=== PATIENT | female | born 1945 | race Caucasian/White ===

== ENCOUNTER 2022-02-23 11:22 | Inpatient (IN) | payer MEDICARE, SELFPAY ==
[2022-02-23] VITALS (8 sets, daily range): BP systolic 93–118; BP diastolic 39–65; PULSE 103–109; RESP 18–32; TEMP 36.6–37; O2SAT 90–97; BMI 17.5
--- NOTE | ~2022-02-23 | CT_ITS ---
EXAMINATION: CT ABDOMEN AND PELVIS WITHOUT CONTRAST CLINICAL INFORMATION: Severe diarrhea. Rule out colitis COMPARISON: None TECHNIQUE: Multidetector volumetric imaging was performed from the superior aspect of the liver through the pubic symphysis. Sagittal and coronal reformatted images were obtained on the technologist's workstation. This CT examination was performed using dose optimization techniques as appropriate, variously including the following: *Automated exposure control *Adjustment of mA and/or kV according to patient size (this includes techniques or standardized protocols for targeted exams where dose is matched to indication/reason for exam; i.e. extremities or head) *Use of iterative reconstruction technique DLP: 228 mGy-cm FINDINGS: LUNG BASES: Left lower lobe collapse or mass. Incompletely imaged moderate size left pleural effusion. Small right pleural effusion. Volume loss in the left hemithorax with slight rightward mediastinal shift. LIVER, GALLBLADDER, AND BILIARY TREE: Liver is mildly enlarged right lobe measuring approximately 18 cm in craniocaudal extent. No gross liver lesion or biliary ductal dilation. The gallbladder is unremarkable with no evidence of radiopaque gallstones, gallbladder wall thickening, or obvious pericholecystic inflammatory changes. PANCREAS: Grossly unremarkable limited assessment. SPLEEN: Mildly enlarged measuring 14 cm in craniocaudal length. No splenic lesion identified. ADRENAL GLANDS: Unremarkable. KIDNEYS AND URETERS: The kidneys are normal in size, shape, and attenuation. No hydronephrosis, hydroureter, or calculi seen. BLADDER: Largely decompressed with Baptiste catheter in place. GASTROINTESTINAL TRACT: Somewhat limited assessment due to lack of contrast and paucity of intra-abdominal fat. No dilated bowel loops are seen. There is extensive diverticulosis of the descending and sigmoid colon. There is to be mural thickening involving relatively long segment of the sigmoid colon on series 3 image 58. No gross surrounding inflammatory fat stranding and limited assessment. Appendix not confidently identified. No gross inflammatory change base of the cecum. No free air. Small volume pelvic ascites. ABDOMINAL WALL: No significant hernia is appreciated. Mild body wall edema/anasarca. LYMPH NODES: No gross lymphadenopathy-limited assessment. VASCULAR: No abdominal aortic aneurysm. Moderate vascular calcifications. PELVIC VISCERA: Calcified probable posterior subserosal uterine fibroid-limited assessment. Gynecologic structures otherwise grossly unremarkable. OSSEOUS STRUCTURES: Chronic appearing mild superior endplate compression deformity of L1. No acute fracture or suspicious osseous lesion. Mild multilevel degenerative disc disease. CT/CT abdomen pelvis wo IV con IMPRESSION: 1. Extensive diverticulosis of the descending and sigmoid colon. There appears to be mural thickening involving a relatively long segment of the sigmoid colon. No gross surrounding inflammatory fat stranding. Cannot exclude mild diverticulitis or colitis. 2. Small volume pelvic ascites. 3. Mild hepatosplenomegaly. 4. Moderate left and small right pleural effusions. Left lower lobe collapse and/or mass. 5. Mild body wall edema/anasarca.
--- NOTE | ~2022-02-23 | XR_ITS ---
EXAMINATION: XR CHEST CLINICAL INFORMATION: Postobstructive pneumonia, large effusion, atelectasis. Follow-up. COMPARISON: Chest radiographs 03/05/2022, 03/04/2022, 03/03/2022, CT chest noncontrast 03/03/2022 TECHNIQUE: Portable upright AP view of the chest is obtained at 0510 hours. FINDINGS: Patient slightly rotated to left. Endotracheal tube within 1 cm of crystal similar to prior exam. Left internal jugular central venous line unchanged. NG tube overlies distal stomach. Left chest pigtail catheter has been removed since prior exam. Right lung clear. Vascularity normal. There is again complete opacification left lung with some scattered stable bubblelike lucencies left apex and left midlung zone similar to prior exam 03/05/2022. No pneumothorax or subcutaneous emphysema. XR/XR chest 1V IMPRESSION: -Endotracheal tube within 1 cm of crystal, similar to prior exam 03/05/2022. Repositioning suggested. -Left chest pigtail catheter removed since prior exam. -Opacification left chest with some scattered bubblelike lucencies apex and mid zones similar to 03/05/2022. No pneumothorax or subcutaneous emphysema. -Right lung clear.
--- NOTE | ~2022-02-23 | XR_ITS ---
EXAMINATION: XR CHEST CLINICAL INFORMATION: Fever COMPARISON: Previous day. TECHNIQUE: Frontal view of the chest was obtained. FINDINGS: Endotracheal tube terminates within the distal thoracic trachea. Left internal jugular central venous catheter terminates in the mid SVC. Enteric tube courses through the stomach. Complete white out of the left hemithorax redemonstrated. Small right pleural effusion accompanying atelectasis. No pneumothorax. XR/XR chest 1V IMPRESSION: * Stable exam exhibiting complete white out of the left hemithorax. * Small right pleural effusion accompanying atelectasis. * Lines and tubes as above.
--- NOTE | ~2022-02-23 | CT_ITS ---
EXAMINATION: CT CHEST WITHOUT CONTRAST CLINICAL INFORMATION: Complete opacification, atelectasis of left lung. COMPARISON: Recent chest radiographs. Also, abdomen CT from 02/25/[address] from 02/23/2022. TECHNIQUE: Multidetector volumetric CT imaging of the chest was done. Axial MIP volume rendering provided. Sagittal and coronal reformatted images were obtained. This CT examination was performed using dose optimization techniques as appropriate, variously including the following: *Automated exposure control *Adjustment of mA and/or kV according to patient size (this includes techniques or standardized protocols for targeted exams where dose is matched to indication/reason for exam; i.e. extremities or head) *Use of iterative reconstruction technique DLP: 136 mGy-cm FINDINGS: LUNGS AND PLEURA: Moderate centrilobular emphysema. Small-to moderate right pleural effusion has significantly increased in size compared to 02/25/2022 and there is passive atelectasis of the right lung. The new, predominantly groundglass opacity in the posterior right upper lobe is nonspecific and could represent atelectasis or pneumonia. 1.1 cm solid nodule of the superior segment of the right lower lobe is unchanged compared to 02/23/2022. A 1 cm right lower lobe nodular opacity has developed in an area of prior mucous plugging and, therefore, this is likely an infectious or inflammatory nodule (image 230, series 7). The left mainstem bronchus remains completely occluded and left lung completely collapsed, surrounded by moderate pleural effusion. CARDIOVASCULAR: The heart size is normal. Trace amount of pericardial fluid is noted. Pulmonary arteries are normal in size. Thoracic aorta atherosclerosis without aneurysm. CORONARY ARTERY CALCIFICATION: Present.: there is atherosclerotic calcification of the left anterior descending coronary artery. MEDIASTINUM AND LOWER NECK: 0.5 cm calcification in the posterior right thyroid lobe. No evidence of a clinically significant thyroid nodule. No thyroid imaging follow-up is recommended. The esophagus is unremarkable. LYMPHATICS: No axillary or internal mammary lymphadenopathy. Also, no evidence of mediastinal lymphadenopathy. The evaluation for hilar lymphadenopathy is limited due to the extensive opacification of the left hemithorax. UPPER ABDOMEN: No acute findings in the visualized upper abdomen compared to 02/25/2022. Mildly enlarged spleen is partially included in the [id number]. SKELETAL AND CHEST WALL: Dextroscoliosis of degenerated thoracic spine. No suspicious bone lesions. Chronic moderate compression fracture of T4 vertebral body and old mild compression deformity of L1 vertebral body. CT/CT chest wo IV con IMPRESSION: * Moderate pulmonary emphysema. * The left mainstem bronchus remains occluded, possibly due to infiltrative tumor, and left lung is completely collapsed and surrounded by moderate pleural effusion. * Interval increased size of a right pleural effusion. * 1 cm solid nodule of the superior segment right lower lobe could represent either a primary neoplasm or metastasis. A new 1 cm nodular opacity in the right lower lobe is present in an area of prior mild mucous plugging and, therefore, this likely represents an infectious or inflammatory nodule. * The predominantly groundglass opacity in the posterior right upper lobe could represent pneumonia or atelectasis.
--- NOTE | ~2022-02-23 | XR_ITS ---
EXAMINATION: XR CHEST CLINICAL INFORMATION: Post bronchoscopy COMPARISON: 03/03/2022 TECHNIQUE: Frontal view of the chest was obtained. FINDINGS: The endotracheal tube terminates approximately 1.5 cm above the crystal. Enteric tube extends into the stomach. Left internal jugular central venous catheter terminates over the mid SVC. Cardiac leads overlie the chest. There is persistent complete opacification of the left hemithorax. This is unchanged. Small right pleural effusion. Streaky opacities at the right base. No pneumothorax. The cardiomediastinal silhouette is not well assessed due to overlying opacification. XR/XR chest 1V IMPRESSION: 1. Endotracheal tube terminating approximately 1.5 cm above the crystal. 2. Similar appearance of complete opacification of the left hemithorax. Small right pleural effusion with streaky right basilar opacities.
--- NOTE | ~2022-02-23 | XR_ITS ---
EXAMINATION: XR CHEST CLINICAL INFORMATION: Atelectasis. COMPARISON: 03/01/2022 TECHNIQUE: AP portable view of the chest was obtained. FINDINGS: There continues to be opacification of the entire left hemithorax. No significant loss of volume or shift of mediastinal structures to the left is identified, so this is not likely only atelectasis being present and large pleural effusion or diffuse airspace disease is likely present. There remains patchy regions of disease within the right lung without significant change. Left internal jugular central venous catheter seen in place with tip in the region of the junctions of the left innominate vein and superior vena cava. No pneumothorax is evident. There appears to be a small right pleural effusion. XR/XR chest 1V IMPRESSION: No significant change in appearance from prior day's study. Opacification of the left hemithorax as well as regions of disease within the right lung with small right effusion.
--- NOTE | ~2022-02-23 | XR_ITS ---
EXAMINATION: XR CHEST CLINICAL INFORMATION: Shortness of breath. COMPARISON: No previous chest available. TECHNIQUE: Frontal view of the chest was obtained. FINDINGS: Patient is rotated to the left. There is complete white out of left lung with ipsilateral mediastinal shift. This could be secondary to effusion with underlying total left lung collapse. The right lung is expanded and clear. Heart size is probably normal. Right pulmonary vascularity is normal. No gross bony abnormality seen. There is no rib resection seen. XR/XR chest 1V IMPRESSION: 1. Complete white out of left lung with ipsilateral mediastinal shift likely secondary to effusion with underlying total left lung collapse. 2. The right lung is expanded and clear. 3. There are no previous exam available for comparison.
--- NOTE | ~2022-02-23 | CT_ITS ---
EXAMINATION: CT CHEST WITHOUT CONTRAST CLINICAL INFORMATION: Pericardial tamponade COMPARISON: Multiple radiographs from today. Chest CT from 03/01/2022 TECHNIQUE: Multidetector volumetric CT imaging of the chest was done. Axial MIP volume rendering provided. Sagittal and coronal reformatted images were obtained. This CT examination was performed using dose optimization techniques as appropriate, variously including the following: *Automated exposure control *Adjustment of mA and/or kV according to patient size (this includes techniques or standardized protocols for targeted exams where dose is matched to indication/reason for exam; i.e. extremities or head) *Use of iterative reconstruction technique DLP: 168 mGy-cm FINDINGS: SUPERVISOR CRACK OFF: Persistent complete opacification of the left hemithorax. LUNGS: Endotracheal tube in place which terminates approximately 2 cm above the crystal. There is a large left-sided pleural effusion with complete collapse of the left lung. There is occlusion of the left mainstem bronchus. The right-sided bronchi are patent. There is moderate centrilobular emphysema. Moderate right-sided pleural effusion is similar to previous. Redemonstration of the right lower lobe 1.1 cm nodule on series 5 image 225. There is also a 0.6 cm right lower lobe nodule on series 5 image 262. This is decreased in size from prior. Right lower lobe segmental atelectasis. No pneumothorax. MEDIASTINUM: Normal heart size. No pericardial effusion. Scattered coronary artery calcifications. Leftward mediastinal shift due to the volume loss. No adenopathy. CORONARY ARTERY CALCIFICATION: Present. AXILLA: No lymphadenopathy. UPPER ABDOMEN: Enteric tube terminates in the stomach. OSSEOUS STRUCTURES: Mild degenerative changes of the spine. No acute abnormality. Chronic mild compression deformity of T4. Portions of the posterior left fifth and sixth ribs are absent. CT/CT chest wo IV con IMPRESSION: 1. Large left-sided pleural effusion with complete collapse of the left lung. There is occlusion of the left mainstem bronchus. Similar appearance to prior. Cannot exclude central endobronchial neoplasm. 2. Moderate right-sided pleural effusion with segmental atelectasis of the right lower lobe. 3. Emphysema. Right lower lobe pulmonary nodules are again noted. This includes a 1.1 cm right lower lobe nodule. There is an adjacent nodule which is decreased in size from previous. 4. Absent portions of the posterior left fifth and sixth ribs, as seen on the prior imaging. This is nonspecific and could be erosive in a subacute or chronic state. Fleischner guidelines are not appropriate for the study.
--- NOTE | ~2022-02-23 | XR_ITS ---
EXAMINATION: XR CHEST CLINICAL INFORMATION: Post bronchoscopy. COMPARISON: Chest x-ray 02/25/2022. TECHNIQUE: Frontal view of the chest was obtained. FINDINGS: There is persistent complete whiteout of left lung with mild ipsilateral midline shift. The right lung is expanded with patchy opacities in right upper lobe and right lower lobe and right middle lobe suggestive of infiltrates. Is mild blunting of right CP angle probably from pleural effusion. There is a left central venous catheter with its tip in the proximal to mid SVC. XR/XR chest 1V IMPRESSION: 1. Persistent complete whiteout of left lung with mild ipsilateral midline shift. 2. Patchy opacities in right upper lobe, right lower lobe and right middle lobe suggestive of infiltrates. These findings are more prominent than 02/25/2022.
--- NOTE | ~2022-02-23 | CT_ITS ---
EXAMINATION: CT CHEST WITHOUT CONTRAST CLINICAL INFORMATION: SOB COMPARISON: No previous at this institution. TECHNIQUE: Multidetector volumetric CT imaging of the chest was done. Axial MIP volume rendering provided. Sagittal and coronal reformatted images were obtained. This CT examination was performed using dose optimization techniques as appropriate, variously including the following: *Automated exposure control *Adjustment of mA and/or kV according to patient size (this includes techniques or standardized protocols for targeted exams where dose is matched to indication/reason for exam; i.e. extremities or head) *Use of iterative reconstruction technique DLP: 136 mGy-cm FINDINGS: INSIGHTS ANALYST: Complete whiteout left lung. LUNGS: There is diffuse emphysema. There is a left upper lobe and left lower lobe collapse/atelectasis. The left upper lobe collapse appears slightly heterogeneous especially on axial image 21/3 through 24/3. Scattered round calcification seen in the left upper hemithorax axial image 13/3. The right lung is mildly emphysematous with 1 cm nodule right lower lobe. Patchy atelectatic since changes are seen in the right middle lobe and right upper lobe. Minimal right apical parenchymal scarring with apical pleural thickening is seen. MEDIASTINUM: The thyroid lobes are symmetric and normal. The central trachea and the bronchi are widely patent. The heart size is normal. No pericardial effusion appreciated. There are coronary artery calcifications present. No abnormal size mediastinal or hilar lymph nodes seen. The left bronchus is occluded likely from secretions, mass. The left bronchial wall is calcified. CORONARY ARTERY CALCIFICATION: Mild coronary artery calcifications. PLEURA: There is a large left pleural effusion measuring 15 Hounsfield units. AXILLA: No lymphadenopathy. UPPER ABDOMEN: Visualized liver, spleen and pancreas unremarkable. OSSEOUS STRUCTURES: There is a sclerotic T4 inferior endplate likely old injury. No aggressive lytic or sclerotic process seen. No acute fractures seen. There is minimal dextroscoliosis. CT/CT chest wo IV con IMPRESSION: Moderate to large left pleural effusion with left lower lobe and left upper lobe collapse. There is soft tissue mass or debris seen within the left bronchus resulting in complete occlusion. 1 cm solitary nodule visualized right lower lobe. The above findings are suspicious for left bronchial lesion with reactive left pleural effusion. The right lower lobe nodule is probably metastatic. Recommend ultrasound-guided left pleural effusion evaluation for cytology and bronchoscopy. Fleischner guidelines were followed.
--- NOTE | ~2022-02-23 | XR_ITS ---
EXAMINATION: XR CHEST CLINICAL INFORMATION: Left lung atelectasis. COMPARISON: None TECHNIQUE: Portable AP view of the chest was obtained. XR/XR chest 1V FINDINGS/IMPRESSION: The study is limited by portable technique, rotation, and overlying leads. There has been no significant radiographic change compared with one day prior. There is complete opacification of the left hemithorax, suggesting mass, pleural fluid, pleural thickening, atelectasis, and/or infiltrate. There is a suggestion of diffuse interstitial prominence on the right with possible small effusion, raising the possibility of pulmonary edema; superimposed pneumonia cannot be confirmed or excluded. The cardiac silhouette is poorly evaluated. The aorta is atherosclerotic. Thoracic dextroscoliosis appears present. The tip of a presumed left internal jugular central venous line projects over the expected location of the superior vena cava.
--- NOTE | ~2022-02-23 | XR_ITS ---
EXAMINATION: XR CHEST CLINICAL INFORMATION: Postobstructive pneumonia. COMPARISON: Chest x-ray March 04, 2022 TECHNIQUE: Frontal view of the chest was obtained. FINDINGS: Pigtail catheter again projects over the left lung base. There is persistent opacification of the left hemithorax, however, there does appear to be a few areas of slightly increased aeration. The endotracheal tube terminates approximately 5 mm above the level the crystal. Enteric tube terminates below the level the diaphragm. Left-sided jugular catheter is stable with tip terminating within the distal SVC. There is good aeration of the right hemithorax. XR/XR chest 1V IMPRESSION: 1. The endotracheal tube terminates approximately 5 mm above the level the crystal. Retraction by approximately 2 to 3 cm is recommended. 2. Persistent opacification of the left hemithorax, however, there does appear to be a few areas of slightly increased aeration.
--- NOTE | ~2022-02-23 | XR_ITS ---
EXAMINATION: XR CHEST CLINICAL INFORMATION: Left IJ line placement COMPARISON: Previous day TECHNIQUE: Frontal view of the chest was obtained. XR/XR chest 1V FINDINGS/IMPRESSION: Left internal jugular central venous catheter terminates at the superior cavoatrial junction. Seen on prior CT. No pneumothorax. Complete white out of the left hemithorax redemonstrated with leftward mediastinal shift. No acute findings in the right lung. Destruction of the left posterior fifth and sixth ribs redemonstrated.
--- NOTE | ~2022-02-23 | XR_ITS ---
EXAMINATION: XR CHEST CLINICAL INFORMATION: Chest tube placement COMPARISON: Chest x-ray and chest CT March 03, 2022 TECHNIQUE: Frontal view of the chest was obtained. FINDINGS: Interval placement of pigtail catheter projecting over the left lung base. There is persistent opacification of the left hemithorax although there may be slightly improved aeration within the lateral left midlung. Endotracheal tube terminates approximately 1.5 cm above the level the crystal. Enteric tube terminates below the level the diaphragm, beyond the parameters of today's chest x-ray. Left-sided jugular catheter is stable. There remains adequate aeration of the right hemithorax. There is a small layering right-sided pleural effusion. No pneumothorax identified. XR/XR chest 1V IMPRESSION: 1. Interval placement of pigtail catheter projecting over the left lung base. There is persistent opacification of the left hemithorax although there may be slightly improved aeration within the lateral left midlung. 2. Endotracheal tube terminates approximately 1.5 cm above the level the crystal.
--- NOTE | ~2022-02-23 | XR_ITS ---
EXAMINATION: XR CHEST CLINICAL INFORMATION: Shortness of breath COMPARISON: Chest x-ray performed earlier the same day, chest CT 02/23/2022 TECHNIQUE: Frontal view of the chest was obtained. FINDINGS: Complete opacification left hemithorax with leftward mediastinal shift, unchanged. Right lung appears clear. No effusion or pneumothorax on the right. The cardiac and mediastinal contours are largely obscured. No evidence of pulmonary edema within the right lung. Lytic destruction of the posterior left fifth and sixth ribs noted. XR/XR chest 1V IMPRESSION: 1. Unchanged complete opacification of the left hemithorax with leftward mediastinal shift. On the patient's prior CT there is a large left lung mass and there is osseous destruction of the posterior left fifth and sixth ribs and involvement of the left T5 transverse process. Findings on the chest x-ray are consistent combination of large left lung malignancy with left lung collapse and large pleural effusion. 2. 1 cm right lower lobe pulmonary nodule better seen on prior CT.
--- NOTE | ~2022-02-23 | US_ITS ---
EXAMINATION: XR CHEST CLINICAL INFORMATION: Post left thoracentesis COMPARISON: Previous chest x-ray and chest CT from yesterday TECHNIQUE: Frontal view of the chest was obtained. FINDINGS: There is complete whiteout of the left hemithorax. This does not appear appreciably changed from yesterday's exam. There is volume loss of the left lung with shift of the central mediastinal structures to the left. The right lung is clear. There is no right pleural effusion. There is no pneumothorax. US/US thoracentesis IMPRESSION: No pneumothorax post left thoracentesis. No change in volume loss in complete white out of the left hemithorax. EXAMINATION: Left thoracentesis ultrasound-guided CLINICAL INFORMATION: Left pleural effusion COMPARISON: Previous chest x-ray and CT from yesterday TECHNIQUE: Procedure and risks and benefits including bleeding, infection and pneumothorax were discussed with the patient and informed consent was obtained. The left posterior lateral chest was prepped and draped in the usual sterile fashion. The skin and soft tissues were anesthetized with 1% lidocaine plain. Using ultrasound guidance and a 4 Chinese catheter, access to the left pleural effusion was obtained. 600 mL of clear yellow fluid was removed. Diagnostic specimen was sent. FINDINGS: There is a large left pleural effusion. IMPRESSION: Ultrasound-guided left thoracentesis.
--- NOTE | ~2022-02-23 | XR_ITS ---
EXAMINATION: XR CHEST CLINICAL INFORMATION: Intubation COMPARISON: Chest radiograph from 03/01/[address] chest from 03/01/2022 TECHNIQUE: Frontal view of the chest was obtained. FINDINGS: Endotracheal tube approximately 3.3 cm in level of the crystal. Enteric tube courses below left hemidiaphragm into the stomach. Left-sided central venous catheter with its distal tip in the proximal to mid SVC. Redemonstration of opacity throughout the left hemithorax. Interstitial prominence of the right hemithorax. Trace right-sided pleural effusion. Right basilar atelectasis. No pneumothorax. Trachea is midline. Cardiomediastinal silhouette is incompletely evaluated. Aorta demonstrates atherosclerotic calcifications. Prominent dextrocurvature of the midthoracic spine. Soft tissues are unremarkable. XR/XR chest 1V IMPRESSION: 1. Endotracheal tube approximately 3.3 cm in level of the crystal. 2. Enteric tube courses below left hemidiaphragm into the stomach. 3. Left-sided central venous catheter with its distal tip in the proximal to mid SV. 4. Redemonstration of opacity throughout the left hemithorax. 5. Interstitial prominence of the right hemithorax. 6. Trace right-sided pleural effusion. 7. Right basilar atelectasis.
--- NOTE | 2022-02-23 12:04 | ECG_ITS ---
Test Reason : DYSPNEA Blood Pressure : / mmHG Vent. Rate : 108 BPM Atrial Rate : 108 BPM P-R Int : 112 ms QRS Dur : 098 ms QT Int : 352 ms P-R-T Axes : 085 066 016 degrees QTc Int : 471 ms Sinus tachycardia Low voltage QRS Nonspecific T wave abnormality Abnormal ECG No previous ECGs available Referred By: Narcisa Reese Electronically Signed By:DUYEN ARAMBULA MD
[2022-02-23 12:53] LABS: Basophils Absolute Auto 0.1 X10*3/uL (0.0-0.2); Basophils Percent Auto 0.2 % (0-2); Hematocrit 29.2 % (37.0-47.0); Hemoglobin 9.2 g/dl (12.0-16.0); Imm Gran Abs Auto 0.21 X10*3/uL (0.00-0.03); Imm Gran Pct Auto 0.8 % (0.0-0.4); MANUAL DIFF FLAG SCAN; Mean Corpuscular HGB Conc 31.5 g/dl (31.0-35.0); Mean Corpuscular Hemoglobin 24.1 pg (27.0-33.0); Mean Corpuscular Volume 76.6 fL (80.0-98.0); Mean Platelet Volume 8.7 fL (9.4-12.3); Monocytes Percent Auto 4.1 % (2-11); Neutrophils Absolute Auto 23.1 x10*3/uL (2.0-8.3); Neutrophils Percent Auto 90.9 % (45-73); Platelet Count 792 X10*3/uL (160-400); Red Blood Count 3.81 X10*6/uL (4.20-5.50); Red Cell Distribution Width 15.4 % (11.0-16.0); SCAN SMEAR FLAG 1; White Blood Count 25.4 X10*3/uL (4.8-10.8)
[2022-02-23 12:58] LABS: INTERNATIONAL NORM RATIO 1.1 (0.9-1.1); Prothrombin Time 12.2 SEC (10.0-13.1)
[2022-02-23 12:58] LABS: VBG Base Excess 1.6 mmol/L; VBG HCO3 26 mmol/L (22-26); VBG pCO2 43 mmHg; VBG pH 7.39 (7.32-7.43); VBG pO2 34 mmHg
[2022-02-23 13:04] LABS: Venous Blood Gas Refer to POC result
[2022-02-23 13:09] LABS: Alanine Aminotransferase 9 U/L (0-31); Alkaline Phosphatase 185 U/L (39-117); Anion Gap 15 (12-20); Aspartate Amino Transferase 14 U/L (5-31); Bilirubin Total 0.2 mg/dL (0.0-1.0); Blood Urea Nitrogen 16 mg/dL (9-16); Calcium 9.1 mg/dL (8.4-10.2); Carbon Dioxide 26 mmol/L (22-29); Chloride 100 mmol/L (96-108); Creatinine Clr Calc Pharmacy 44.5; Estimated Glomerular Filt Rate > 60; Glucose Random 98 mg/dL (60-115); Potassium 4.3 mmol/L (3.3-5.1); Sodium 137 mmol/L (135-145); Total Protein 6.3 g/dL (6.5-8.0)
[2022-02-23 13:13] LABS: SLIDE REVIEW VERIFIED
--- NOTE | 2022-02-23 13:14 | ED.SOB ---
HPI - SOB/Dyspnea General Chief Complaint: Dyspnea Stated Complaint: Diff breathing, SOB per EMS Time Seen by Provider: 02/23/22 11:58 Source: patient Mode of arrival: EMS History of Present Illness HPI Narrative: 76-year-old female, everyday smoker, is brought in by EMS for complaints of 3 weeks of shortness of breath and scapular pain with unexplained weight loss and denies any fevers or chills. Patient also reports that she has had a cough that is nonproductive and has had increased fatigue. She otherwise denies any body aches but states her appetite has been somewhat decreased and that she has stopped smoking over the past week. She cannot recall the last time she saw a primary care provider. Related Data Allergies Allergy/AdvReac Type Severity Reaction Status Date / Time Penicillins Allergy Itching Verified 02/23/22 11:53 Sulfa (Sulfonamide Allergy Itching Verified 02/23/22 11:53 Antibiotics) Review of Systems Review of Systems: Pertinent positives and negatives as stated in HPI PMFSH Past Medical History Source: nursing notes reviewed Social History Social History Alcohol intake: never Smoked in Last 30 Days: Yes Use of substances other than those prescribed or required for medical reasons: No Advance Directives: No Advance Directives Information Provided: Yes Physical Exam Vital Signs: Vital Signs: Last Vital Signs Temp 98.6 F 02/23/22 13:45 Pulse 107 H 02/23/22 13:45 Resp 32 H 02/23/22 13:45 BP 94/40 L 02/23/22 13:45 Pulse Ox 95 02/23/22 13:45 O2 Del Method 02/23/22 13:45 BMI result Body Mass Index 17.5 VITAL SIGNS: Reviewed. GENERAL: Cachectic, in no acute distress. HEAD: Normocephalic/atraumatic, temporal wasting EYES: PERRLA, EOMI EARS: Ext canals without abnormality NOSE: Nares patent bilateral OROPHARYNX: no oral lesions noted, posterior pharynx clear NECK: Supple, no adenopathy LUNGS: Patient is tachypneic, I do not appreciate any breath sounds on the left. SpO2<97> on room air CARDIOVASCULAR: Regular rate and rhythm without noted murmurs, no JVD or lower extremity edema. ABDOMEN: Soft, non-tender, non-distended with bowel sounds. MUSCULOSKELETAL: No tenderness, deformities, or effusions noted on gross inspection. EXTREMITIES: No cyanosis, clubbing or edema. SKIN: Inspection of the skin reveals no rashes NEUROLOGIC: Alert and oriented x 4. Strength and sensation to light touch were grossly intact x 4. Medical Decision Making Medical Decision Making [facility] Narrative: 1318: 76-year-old female with increasing shortness of breath over 3 weeks without fevers but unexplained weight loss. I suspect either empyema or lung cancer. Ordered lab work, imaging, patient is afebrile and is oxygenating well on room air, I have noted that she has a significant leukocytosis but feel that that this is not related with an underlying infectious etiology. 1445: I reviewed all laboratory results and imaging studies. The leukocytosis appears to be reactive/stress and response as patient is afebrile is had no other constitutional symptoms. Chemistry studies overall benign in nature, most notably the chest x-ray showed a complete whiteout of the left lung that I suspect is chronic in nature and secondary to a mass, this was further corroborated by a CT scan without contrast which demonstrates collapse at the left bronchus with reactive pleural effusion. In addition, radiologist is reading the right lower lobe nodule as likely metastatic. There is no need for immediate intervention with chest tube as patient is oxygenating well. I will need to have a discussion with her regarding these CT scan findings. I had a lengthy discussion with the patient regarding how aggressive to treat this condition and at the time I did inform her that this mass did not simply arise over the past week or 2. Patient is having some difficulty with processing and states that she wants to aggressively pursue any options available. She is noted to remain tachypneic and tachycardic and I consulted both Dr. Wesley, the inpatient hospitalist, as well as thoracic surgery. This is not sepsis, this is not an underlying infection, the leukocytosis is a reactive/stress response to underlying mass. Differential Diagnosis Differential Diagnoses: The differential diagnosis associated with the presentation includes I will rule out empyema or lung cancer Admission/Observation Consideration of admission/observation: Escalation of care including admission/observation considered Consult Healthcare Provider Management of the patient was discussed with: Hospitalist and Medical Coding Technician 1545: I consulted Dr. Wesley, hematology/oncology, regarding new lung mass and patient stating that she wishes to have aggressive measures taken. Dr. Wesley is recommending either bronchoscopy or thoracentesis for diagnosis. She will see the patient. 1610: I discussed with Dr Rodriguez, inpatient hospitalist who accepts admission. 1615: Consulted Thoracic surgery regarding lung collapse with pleural effusion and whether a chest tube should be placed. Lab Data MDM Lab Attestation statement: I reviewed the patient's lab results. Please see the discussion above Result Diagrams: 02/23/22 12:46 02/23/22 12:46 Labs: Lab Results 02/23/22 02/23/22 02/23/22 Range/Units 12:46 12:46 12:46 WBC 25.4 H (4.8-10.8) X10*3/uL RBC 3.81 L (4.20-5.50) X10*6/uL Hgb 9.2 L (12.0-16.0) g/dl Hct 29.2 L (37.0-47.0) % MCV 76.6 L (80.0-98.0) fL MCH 24.1 L (27.0-33.0) pg MCHC 31.5 (31.0-35.0) g/dl RDW 15.4 (11.0-16.0) % Plt Count 792 H (160-400) X10*3/uL MPV 8.7 L (9.4-12.3) fL Immature Gran % (Auto) 0.8 H (0.0-0.4) % Neut % (Auto) 90.9 H (45-73) % Lymph % (Auto) 4.0 L (20-40) % [place] % (Auto) 4.1 (2-11) % Eos % (Auto) 0.0 (0-4) % Baso % (Auto) 0.2 (0-2) % Lymph # (Auto) 1.0 L (1.2-4.9) X10*3/uL [place] # (Auto) 1.0 (0.1-1.2) X10*3/uL Eos # (Auto) 0.0 (0.0-0.4) X10*3/uL Baso # (Auto) 0.1 (0.0-0.2) X10*3/uL Abs Immat Gran (auto) 0.21 H (0.00-0.03) X10*3/uL Absolute Neuts (auto) 23.1 H (2.0-8.3) x10*3/uL Absolute Nucleated RBC 0.000 (0.0-0.012) X10*3/uL Nucleated RBC % (auto) 0.0 (0.0-0.2) /100WBC Smear Tech's Comments VERIFIED PT 12.2 (10.0-13.1) SEC INR 1.1 (0.9-1.1) VBG pH (7.32-7.43) VBG pCO2 mmHg VBG pO2 mmHg VBG HCO3 (22-26) mmol/L VBG O2 Saturation % VBG Base Excess mmol/L Sodium 137 (135-145) mmol/L Potassium 4.3 (3.3-5.1) mmol/L Chloride 100 (96-108) mmol/L Carbon Dioxide 26 (22-29) mmol/L Anion Gap 15 (12-20) BUN 16 (9-16) mg/dL Creatinine 0.68 (0.5-1.4) mg/dL Estim Creat Clear Calc 44.5 Estimated GFR > 60 Random Glucose 98 (60-115) mg/dL Calcium 9.1 (8.4-10.2) mg/dL Total Bilirubin 0.2 (0.0-1.0) mg/dL AST 14 (5-31) U/L ALT 9 (0-31) U/L Alkaline Phosphatase 185 H (39-117) U/L Troponin I High Sens (<3.5-17.0) ng/L B-Natriuretic Peptide (<100) pg/mL Total Protein 6.3 L (6.5-8.0) g/dL Albumin 3.0 L (3.5-5.0) g/dL Influenza Type A (PCR) (Negative) Influenza Type B (PCR) (Negative) RSV RNA Qual (PCR) (Negative) SARS-CoV-2 RNA (RT-PCR) (Negative) 02/23/22 02/23/22 02/23/22 Range/Units 12:46 12:46 12:46 WBC (4.8-10.8) X10*3/uL RBC (4.20-5.50) X10*6/uL Hgb (12.0-16.0) g/dl Hct (37.0-47.0) % MCV (80.0-98.0) fL MCH (27.0-33.0) pg MCHC (31.0-35.0) g/dl RDW (11.0-16.0) % Plt Count (160-400) X10*3/uL MPV (9.4-12.3) fL Immature Gran % (Auto) (0.0-0.4) % Neut % (Auto) (45-73) % Lymph % (Auto) (20-40) % [place] % (Auto) (2-11) % Eos % (Auto) (0-4) % Baso % (Auto) (0-2) % Lymph # (Auto) (1.2-4.9) X10*3/uL [place] # (Auto) (0.1-1.2) X10*3/uL Eos # (Auto) (0.0-0.4) X10*3/uL Baso # (Auto) (0.0-0.2) X10*3/uL Abs Immat Gran (auto) (0.00-0.03) X10*3/uL Absolute Neuts (auto) (2.0-8.3) x10*3/uL Absolute Nucleated RBC (0.0-0.012) X10*3/uL Nucleated RBC % (auto) (0.0-0.2) /100WBC Smear Tech's Comments PT (10.0-13.1) SEC INR (0.9-1.1) VBG pH (7.32-7.43) VBG pCO2 mmHg VBG pO2 mmHg VBG HCO3 (22-26) mmol/L VBG O2 Saturation % VBG Base Excess mmol/L Sodium (135-145) mmol/L Potassium (3.3-5.1) mmol/L Chloride (96-108) mmol/L Carbon Dioxide (22-29) mmol/L Anion Gap (12-20) BUN (9-16) mg/dL Creatinine (0.5-1.4) mg/dL Estim Creat Clear Calc Estimated GFR Random Glucose (60-115) mg/dL Calcium (8.4-10.2) mg/dL Total Bilirubin (0.0-1.0) mg/dL AST (5-31) U/L ALT (0-31) U/L Alkaline Phosphatase (39-117) U/L Troponin I High Sens 5.3 (<3.5-17.0) ng/L B-Natriuretic Peptide 91 (<100) pg/mL Total Protein (6.5-8.0) g/dL Albumin (3.5-5.0) g/dL Influenza Type A (PCR) NEGATIVE (Negative) Influenza Type B (PCR) NEGATIVE (Negative) RSV RNA Qual (PCR) NEGATIVE (Negative) SARS-CoV-2 RNA (RT-PCR) NEGATIVE (Negative) 02/23/22 Range/Units 12:51 WBC (4.8-10.8) X10*3/uL RBC (4.20-5.50) X10*6/uL Hgb (12.0-16.0) g/dl Hct (37.0-47.0) % MCV (80.0-98.0) fL MCH (27.0-33.0) pg MCHC (31.0-35.0) g/dl RDW (11.0-16.0) % Plt Count (160-400) X10*3/uL MPV (9.4-12.3) fL Immature Gran % (Auto) (0.0-0.4) % Neut % (Auto) (45-73) % Lymph % (Auto) (20-40) % [place] % (Auto) (2-11) % Eos % (Auto) (0-4) % Baso % (Auto) (0-2) % Lymph # (Auto) (1.2-4.9) X10*3/uL [place] # (Auto) (0.1-1.2) X10*3/uL Eos # (Auto) (0.0-0.4) X10*3/uL Baso # (Auto) (0.0-0.2) X10*3/uL Abs Immat Gran (auto) (0.00-0.03) X10*3/uL Absolute Neuts (auto) (2.0-8.3) x10*3/uL Absolute Nucleated RBC (0.0-0.012) X10*3/uL Nucleated RBC % (auto) (0.0-0.2) /100WBC Smear Tech's Comments PT (10.0-13.1) SEC INR (0.9-1.1) VBG pH 7.39 (7.32-7.43) VBG pCO2 43 mmHg VBG pO2 34 mmHg VBG HCO3 26 (22-26) mmol/L VBG O2 Saturation 45.0 % VBG Base Excess 1.6 mmol/L Sodium (135-145) mmol/L Potassium (3.3-5.1) mmol/L Chloride (96-108) mmol/L Carbon Dioxide (22-29) mmol/L Anion Gap (12-20) BUN (9-16) mg/dL Creatinine (0.5-1.4) mg/dL Estim Creat Clear Calc Estimated GFR Random Glucose (60-115) mg/dL Calcium (8.4-10.2) mg/dL Total Bilirubin (0.0-1.0) mg/dL AST (5-31) U/L ALT (0-31) U/L Alkaline Phosphatase (39-117) U/L Troponin I High Sens (<3.5-17.0) ng/L B-Natriuretic Peptide (<100) pg/mL Total Protein (6.5-8.0) g/dL Albumin (3.5-5.0) g/dL Influenza Type A (PCR) (Negative) Influenza Type B (PCR) (Negative) RSV RNA Qual (PCR) (Negative) SARS-CoV-2 RNA (RT-PCR) (Negative) Independent Interpretation I performed an independent interpretation of an: EKG Interpretation: Sinus tachycardia, HR-108, no STEMI, [place]/QRS/QTC is within normal limits. Radiology Impression Radiologist Impression: My interpretation is in agreement with radiologist impression of imaging studies. Chronic Conditions Patient?s care impacted by: Cancer Likely lung cancer at this time. Critical Care Time Critical Care Time Critical Care Time: Yes Total Critical Care Time: 75 Attestation: I personally attest to this time spent taking care of the patient. Discharge Plan Discharge Clinical Impression: Dyspnea, Tachypnea, Mass of left lung, Pleural effusion, left Patient Disposition: Admitted As Inpatient
[2022-02-23 13:37] LABS: Influenza A PCR NEGATIVE (Negative); Influenza B PCR NEGATIVE (Negative); Resp Syncy Virus RNA Qual PCR NEGATIVE (Negative); SARS COV2 PCR INHOUSE NEGATIVE (Negative)
[2022-02-23 15:22] LABS: Troponin-I High Sensitivity 5.3 ng/L (<3.5-17.0)
[2022-02-23 15:23] LABS: B Type Natriuretic Peptide 91 pg/mL (<100)
[2022-02-23 16:48] LABS: Lactate Dehydrogenase 242 U/L (122-220)
--- NOTE | 2022-02-23 17:23 | PM.IMHP ---
History of Present Illness Date of Service: 02/23/22 Attending physician on admission: Chris Dallas Chief Complaint: shortness of breath This is a 76-year-old female with no significant past medical history presents to the emergency department with shortness of breath. She states that she began feeling short of breath approximately 3-4 weeks ago. She had some phlegm production initially. Her shortness of breath has been progressively worse and recently she began shopping at a local grocery store because she was not able to ambulate throughout the larger grocery store. She frequently requires rest with only short distances. She no longer has phlegm production but does have ongoing intermittent dry cough. She denies any associated fever or chills, she denies any recent sick contacts. She has reported decreased appetite as well as weight loss over the past several weeks. In the emergency department today lab work was [place] [address]. She was noted to be tachycardic and tachypneic. She underwent a CT scan of the chest which showed moderate to large left pleural effusion with left lower lobe and left upper lobe collapse as well as soft tissue mass or debris seen within the left bronchus resulting in complete occlusion and a 1 cm solitary nodule of the right lower lobe. the decision was made to admit her to the hospital for further workup and evaluation of new lung mass. Review of Systems Review of Systems: Yes all other systems are reviewed and are negative Constitutional: Constitutional: Denies chills, Denies fever(s), Reports poor appetite and Reports weight loss ENT: Denies dizziness Cardiovascular: Cardiovascular: Denies chest pain, Denies palpitations, Reports dyspnea on exertion and Denies orthopnea Respiratory: Respiratory: Reports cough and Reports dyspnea on exertion Gastrointestinal: Gastrointestinal: Denies abdominal pain Neurologic: Denies dizziness Endocrine: Endocrine: Denies palpitations [facility] Medical History (Updated 02/23/22 @ 17:35 by SONIA Mills) Tobacco use disorder Functional capacity: independent ambulation Family History (Updated 02/23/22 @ 17:36 by SONIA Mlils) Mother HTN (hypertension) Pertinent family history: no known history of lung cancer Surgical History (Updated 02/23/22 @ 17:34 by SONIA Mills) History of appendectomy Social History (Updated 02/23/22 @ 17:37 by SONIA Mills) Alcohol intake: current Alcohol intake frequency: holidays/special occasions only Patient Tobacco Use Status: Former Tobacco user Quit Date: two weeks ago; cut down starting 3 months ago; has smoked forever Cigarette Packs Per Day: 0.75 Smoked in Last 30 Days: Yes Use of substances other than those prescribed or required for medical reasons: No Advance Directives: No Advance Directives Information Provided: Yes Meds Allergies Allergy/AdvReac Type Severity Reaction Status Date / Time Penicillins Allergy Itching Verified 02/23/22 11:53 Sulfa (Sulfonamide Allergy Itching Verified 02/23/22 11:53 Antibiotics) Active Medications: Current Medications Acetaminophen (Acetaminophen 325 Mg Tablet) 650 mg PO Q6H PRN PRN Reason: Pain, Mild (Pain Scale 1-3) Albuterol Sulfate (Albuterol Sulfate (0.042%) 1.25 Mg/3 Ml Vial.Neb) 1.25 mg INHALE RQ4H PRN PRN Reason: Shortness of Breath Docusate Sodium (Docusate Sodium 100 Mg Capsule) 100 mg PO DAILY PRN PRN Reason: Constipation Cefepime HCl 2 gm/ Sodium (Chloride) 50 mls @ 100 mls/hr IV Q12H ANTHONY Ondansetron HCl (Ondansetron Hcl 4 Mg/2 Ml Vial) 4 mg IVPUSH Q8H PRN PRN Reason: Nausea and Vomiting Pharmacy Consult (Consult Rx Perform Med Rec) 1 each MISCELLANE ONCE PRN PRN Reason: Consult order Pharmacy Consult (Consult Rx Vancomycin Dosing) 1 each MISCELLANE DAILY PRN PRN Reason: Consult order Sodium Chloride (0.9 % Sodium Chloride Flush 3 Ml Syringe) 3 ml IVFLUSH QSHIFT ANTHONY Physical Exam Vital Signs and Narrative: Vital Signs: Last Vital Signs Temp 98.6 F 02/23/22 13:45 Pulse 107 H 02/23/22 13:45 Resp 32 H 02/23/22 13:45 BP 94/40 L 02/23/22 13:45 Pulse Ox 95 02/23/22 13:45 O2 Del Method 02/23/22 13:45 BMI result Body Mass Index 17.5 Const: General: cooperative, comfortable, alert and awake Nutritional Appearance: thin Orientation/consciousness: patient oriented x3 Resp: Other: right lung clear; left side diminished Effort & Inspection: able to speak in complete sentences and tachypneic Cardio: Rate: tachycardic Heart sounds: S1 normal heart sound present and S2 normal heart sound present GI: Inspection: No distended Palpation (GI): Soft to palpation Neuro: General: patient oriented x3 and CN's II-XI intact bilaterally Extrem: General: Yes no pedal edema Results Labs CBC and Chem 7: 02/23/22 12:46 02/23/22 12:46 Labs: Laboratory Results - last 24 hr 02/23/22 02/23/22 02/23/22 12:46 12:46 12:46 MCV 76.6 L MCH 24.1 L MCHC 31.5 RDW 15.4 Plt Count 792 H MPV 8.7 L Immature Gran % (Auto) 0.8 H Neut % (Auto) 90.9 H Lymph % (Auto) 4.[address] [place] % (Auto) 4.1 Eos % (Auto) 0.0 Baso % (Auto) 0.2 Lymph # (Auto) 1.[address] [place] # (Auto) 1.0 Eos # (Auto) 0.0 Baso # (Auto) 0.1 Abs Immat Gran (auto) 0.21 H Absolute Neuts (auto) 23.1 H Absolute Nucleated RBC 0.000 Nucleated RBC % (auto) 0.0 Smear Tech's Comments VERIFIED PT 12.2 INR 1.1 VBG pH VBG pCO2 VBG pO2 VBG HCO3 VBG O2 Saturation VBG Base Excess Anion Gap 15 Estim Creat Clear Calc 44.5 Estimated GFR > 60 Random Glucose 98 Calcium 9.1 Total Bilirubin 0.2 AST 14 ALT 9 Alkaline Phosphatase 185 H Lactate Dehydrogenase 242 H Troponin I High Sens B-Natriuretic Peptide Total Protein 6.3 L Albumin 3.0 L Carcinoembryonic Ag 152.20 Influenza Type A (PCR) Influenza Type B (PCR) RSV RNA Qual (PCR) SARS-CoV-2 RNA (RT-PCR) 02/23/22 02/23/22 02/23/22 12:46 12:46 12:46 MCV MCH MCHC RDW Plt Count MPV Immature Gran % (Auto) Neut % (Auto) Lymph % (Auto) [place] % (Auto) Eos % (Auto) Baso % (Auto) Lymph # (Auto) [place] # (Auto) Eos # (Auto) Baso # (Auto) Abs Immat Gran (auto) Absolute Neuts (auto) Absolute Nucleated RBC Nucleated RBC % (auto) Smear Tech's Comments PT INR VBG pH VBG pCO2 VBG pO2 VBG HCO3 VBG O2 Saturation VBG Base Excess Anion Gap Estim Creat Clear Calc Estimated GFR Random Glucose Calcium Total Bilirubin AST ALT Alkaline Phosphatase Lactate Dehydrogenase Troponin I High Sens 5.3 B-Natriuretic Peptide 91 Total Protein Albumin Carcinoembryonic Ag Influenza Type A (PCR) NEGATIVE Influenza Type B (PCR) NEGATIVE RSV RNA Qual (PCR) NEGATIVE SARS-CoV-2 RNA (RT-PCR) NEGATIVE 02/23/22 12:51 MCV MCH MCHC RDW Plt Count MPV Immature Gran % (Auto) Neut % (Auto) Lymph % (Auto) [place] % (Auto) Eos % (Auto) Baso % (Auto) Lymph # (Auto) [place] # (Auto) Eos # (Auto) Baso # (Auto) Abs Immat Gran (auto) Absolute Neuts (auto) Absolute Nucleated RBC Nucleated RBC % (auto) Smear Tech's Comments PT INR VBG pH 7.39 VBG pCO2 43 VBG pO2 34 VBG HCO3 26 VBG O2 Saturation 45.0 VBG Base Excess 1.6 Anion Gap Estim Creat Clear Calc Estimated GFR Random Glucose Calcium Total Bilirubin AST ALT Alkaline Phosphatase Lactate Dehydrogenase Troponin I High Sens B-Natriuretic Peptide Total Protein Albumin Carcinoembryonic Ag Influenza Type A (PCR) Influenza Type B (PCR) RSV RNA Qual (PCR) SARS-CoV-2 RNA (RT-PCR) Imaging Radiologist's Impressions: Impressions Chest X-Ray 02/23/22 12:20 IMPRESSION: 1. Complete white out of left lung with ipsilateral mediastinal shift likely secondary to effusion with underlying total left lung collapse. 2. The right lung is expanded and clear. 3. There are no previous exam available for comparison. Chest CT 02/23/22 13:24 IMPRESSION: Moderate to large left pleural effusion with left lower lobe and left upper lobe collapse. There is soft tissue mass or debris seen within the left bronchus resulting in complete occlusion. 1 cm solitary nodule visualized right lower lobe. The above findings are suspicious for left bronchial lesion with reactive left pleural effusion. The right lower lobe nodule is probably metastatic. Recommend ultrasound-guided left pleural effusion evaluation for cytology and bronchoscopy. Fleischner guidelines were followed. Assessment and Plan (1) Mass of left lung: Status: Acute (2) Pleural effusion, left: Status: Acute Plan This is a 76-year-old lifelong smoker with no known past medical history who presents to the emergency department with 3-4 weeks of progressively worsening shortness of breath found to have left-sided pleural effusion, left-sided lung collapse and probable left lung mass occluding the left bronchus new lung mass concerning for malignancy given appearance and smoking history - pulmonary consult - will start antibiotics to cover for any component of post obstructive pneumonia (renal dosing) - prn breathing treatments pleural effusion likely r/t malignancy not currently requiring supplemental oxygen - therapeutic and diagnostic thoracentesis ordered SIRS althought pt meets sirs criteria with tachycardia, tachypnea and leukocytosis likely all related to pleural effusion causing respiratory distress soft bp secondary to slight stature follow blood cultures microcytic anemia no baseline for comparison no active bleeding noted at this time follow H/H tobacco use disorder quit smoking two weeks ago NRT moderate protein calorie malnutrition as evidenced by BMI of 17.5 and loss of subcutaneous fat dvt ppx - mechanical devices, will start chemoprophylaxis after thoracentesis HCP - pt defers this question for now Code status - full code patient will likely require 2 midnight stay in the hospital for further workup of new lung mass, pleural effusion requiring thoracentesis attending - dr. dallas Time Spent With Patient Time: Total time managing care of this patient today ____ minutes. Quality Stroke Does the patient have a stroke diagnosis?: No VTE Prior VTE?: No VTE Risk Level:: Medical - moderate - high VTE Device Contraindication: N/A - Device Ordered VTE Drug Contraindication: Treatment Not Indicated
--- NOTE | 2022-02-23 18:00 | PC.NURSE ---
pt BP soft, 100/39 (MAP 60). Katherine Lyons made aware, LR maintenance fluids ordered. Blood cultures to be drawn prior to ABX hung. will draw now
--- NOTE | 2022-02-23 18:24 | PHA.MEDREC ---
Pharmacy Consult ? Medication Reconciliation Pharmacy has completed the medication reconciliation.
[2022-02-23] MEDS: vancomycin HCL 1,000 MG in 0.9 % Sodium Chloride 250 ML 270 MG IV (18:28)
--- NOTE | 2022-02-23 18:48 | PC.NURSE ---
pt IV line infiltrated, need for new line. ABX cefapime not verified yet, and LR and ABX not compatible.
--- NOTE | 2022-02-23 18:54 | PHA.PROG ---
Admission Date/Time: February 23, 2022 17:15 Indication: RESPIRATORY Weight in k.7 kg Adjusted body weight in K.58 [place] body weight in Kg: Obesity Dosing Indication % IBW: Serum Creatinine - Last 168 Hours 02/23/22 12:46 Creatinine 0.68 Estimated CrCl and GFR - Last 168 Hours 02/23/22 12:46 Estim Creat Clear Calc 44.5 Estimated GFR > 60 Vancomycin Loading Dose: 1000 MG Current Vancomycin Dosing Regimen: 750 Vancomycin Monitoring using AUC goal of 400 - 600 range with trough as surrogate marker: AUC 471, TROUGH 14.5 Date and Time for next Vancomycin Level to be drawn: 02/25 @1600 Pharmacist Comments on Vancomycin Plan: Vancomycin dosing will take advantage of [employer] as a clinical decision support tool that uses Bayesian modeling to calculate individual patient's pharmacokinetic parameters and forecast the patient's drug concentration time course with the target goal AUC 24 range of 400 - 600 mg/L/hr.
--- NOTE | 2022-02-23 19:00 | PC.NURSE ---
This bond underwriter assumed care of this PT at this time.
--- NOTE | 2022-02-23 19:20 | PC.NURSE ---
PT a&ox4, denies any pain, denies SOB, CP, or dizziness. IV antibiotics running. PT only has one access at this time. Previous IV infiltrated.
[2022-02-23] MEDS: cefEPime HCl 2 GM in 0.9 % Sodium Chloride 50 ML IV (20:24)
[2022-02-23] MEDS: Lactated Ringers 1,000 ML 80 ML IVCONT (21:26)
--- NOTE | 2022-02-23 21:29 | PC.NURSE ---
Addendum entered by Rolanda Henderson 02/23/22 21:34: PT denies SOB. Original Note: O2 sat 87-88% on RA, PT sat up, placed on 1.5L NC, O2 sat increased to 95%.
[2022-02-24] VITALS (16 sets, daily range): BP systolic 59–103; BP diastolic 24–61; PULSE 91–113; RESP 12–95; TEMP 36.6–38.7; O2SAT 93–98
[2022-02-24] MEDS: cefEPime HCl 2 GM in 0.9 % Sodium Chloride 50 ML IV ×2 (05:29→15:52)
--- NOTE | 2022-02-24 06:04 | PC.NURSE ---
Addendum entered by Rolanda Henderson 02/24/22 06:53: PT remained NPO since midnight. Addendum entered by Rolanda Henderson 02/24/22 06:17: PT states not feeling the urge to use the BR. UA sample still needed. Bladder scan 522 ml. PT willing to try bedside commode. Original Note: PT denies any pain, resting quietly, no apparent distress. Will continue to observe. VSS.
[2022-02-24 07:25] LABS: Hematocrit 25.1 % (37.0-47.0); Hemoglobin 7.8 g/dl (12.0-16.0); Mean Corpuscular HGB Conc 31.1 g/dl (31.0-35.0); Mean Corpuscular Hemoglobin 23.9 pg (27.0-33.0); Mean Platelet Volume 8.7 fL (9.4-12.3); Platelet Count 734 X10*3/uL (160-400); Red Blood Count 3.26 X10*6/uL (4.20-5.50); Red Cell Distribution Width 15.3 % (11.0-16.0)
--- NOTE | 2022-02-24 07:30 | PC.NURSE ---
assumed care of this patient at 0700am. she remains NPO. no pain at this time. waiting on several tests. understands that she needs to collect a urine.
[2022-02-24 07:45] LABS: INTERNATIONAL NORM RATIO 1.1 (0.9-1.1); Prothrombin Time 13.1 SEC (10.0-13.1)
[2022-02-24 07:49] LABS: Albumin Level 2.6 g/dL (3.5-5.0); Anion Gap 13 (12-20); Blood Urea Nitrogen 15 mg/dL (9-16); Calcium 8.3 mg/dL (8.4-10.2); Carbon Dioxide 25 mmol/L (22-29); Chloride 102 mmol/L (96-108); Estimated Glomerular Filt Rate > 60; Glucose Random 106 mg/dL (60-115); Lactate Dehydrogenase 211 U/L (122-220); Potassium 3.8 mmol/L (3.3-5.1); Sodium 136 mmol/L (135-145)
--- NOTE | 2022-02-24 12:24 | MHC.CM.PN ---
met with pt whorenetta romo;lone pt is maddison vax x 5 shwe had no previous servceis is uncertain as to who she would nam,e as her hcp she wants to think about ir ,it is uncertain what her dc plan will be at this time pending pt eval and her hospitial course
--- NOTE | 2022-02-24 13:31 | HO.PM.IMPN ---
Subjective Subjective Date of Service: 02/24/22 Interval History: Seen and examined this morning Follow-up for lung mass, pleural effusion patient denies any shortness of breath at this time she denies dizziness Review of Systems Review of Systems: Yes all other systems are reviewed and are negative Constitutional Constitutional: Denies chills and Denies fever(s) ENT Ears, Nose, Mouth, and Throat: Denies dizziness Cardiovascular Cardiovascular: Denies chest pain, Denies palpitations, Denies dyspnea and Reports dyspnea on exertion Respiratory Respiratory: Reports cough, Denies dyspnea and Reports dyspnea on exertion Gastrointestinal Gastrointestinal: Denies abdominal pain Neurologic Neurologic: Denies dizziness Endocrine Endocrine: Denies palpitations Physical Exam Vital Signs: Vital Signs: Last Vital Signs Temp 97.8 F 02/24/22 09:51 Pulse 98 02/24/22 09:51 Resp 22 H 02/24/22 09:51 BP 103/53 L 02/24/22 09:51 Pulse Ox 96 02/24/22 09:51 O2 Del Method 02/24/22 09:51 O2 Flow Rate 1 02/24/22 06:02 BMI result Body Mass Index 17.5 Const: General: cooperative, comfortable, alert and awake Nutritional Appearance: thin Orientation/consciousness: patient oriented x3 Resp: Other: right lung clear; left side diminished Effort & Inspection: able to speak in complete sentences and no respiratory distress Cardio: Heart sounds: S1 normal heart sound present and S2 normal heart sound present GI: Inspection: No distended Palpation (GI): Soft to palpation Neuro: General: patient oriented x3 and CN's II-XI intact bilaterally Extrem: General: Yes no pedal edema Objective Data Active Medications Acetaminophen (Acetaminophen 325 Mg Tablet) 650 mg PO Q6H PRN PRN Reason: Pain, Mild (Pain Scale 1-3) Albuterol Sulfate (Albuterol Sulfate (0.042%) 1.25 Mg/3 Ml Vial.Neb) 1.25 mg INHALE RQ4H PRN PRN Reason: Shortness of Breath Docusate Sodium (Docusate Sodium 100 Mg Capsule) 100 mg PO DAILY PRN PRN Reason: Constipation Cefepime HCl 2 gm/ Sodium (Chloride) 50 mls @ 100 mls/hr IV Q12H ANTH[facility] Last Infusion: 02/24/22 06:01 Dose: 0 mls/hr Documented By: HO.SERRANX Vancomycin HCl 750 mg/ Sodium (Chloride) 265 mls @ 265 mls/hr IV Q24H ANTHONY Nicotine Polacrilex (Nicotine Polacrilex 2 Mg Gum) 2 mg BUCCAL Q2H PRN PRN Reason: Nicotine Cravings Ondansetron HCl (Ondansetron Hcl 4 Mg/2 Ml Vial) 4 mg IVPUSH Q8H PRN PRN Reason: Nausea and Vomiting Pharmacy Consult (Consult Rx Perform Med Rec) 1 each MISCELLANE ONCE PRN PRN Reason: Consult order Pharmacy Consult (Consult Rx Vancomycin Dosing) 1 each MISCELLANE DAILY PRN PRN Reason: Consult order Sodium Chloride (0.9 % Sodium Chloride Flush 3 Ml Syringe) 3 ml IVFLUSH QSHIFT ANTHONY Last Admin: 02/24/22 07:32 Dose: Not Given Documented By: ROBBY Non-Admin Reason: IV Running Labs CBC & Chem 7: 02/24/22 07:13 02/24/22 07:13 Labs: Laboratory Results - last 24 hr 02/23/22 02/23/22 02/23/22 12:46 12:46 12:46 MCV MCH MCHC RDW Plt Count MPV Absolute Nucleated RBC Nucleated RBC % (auto) PT INR Anion Gap Estim Creat Clear Calc Estimated GFR Random Glucose Calcium Lactate Dehydrogenase 242 H Troponin I High Sens 5.3 B-Natriuretic Peptide 91 Albumin Carcinoembryonic Ag 152.20 Influenza Type A (PCR) Influenza Type B (PCR) RSV RNA Qual (PCR) SARS-CoV-2 RNA (RT-PCR) 02/23/22 02/24/22 02/24/22 12:46 07:13 07:13 MCV 77.0 L MCH 23.9 L MCHC 31.1 RDW 15.3 Plt Count 734 H MPV 8.7 L Absolute Nucleated RBC 0.000 Nucleated RBC % (auto) 0.0 PT INR Anion Gap 13 Estim Creat Clear Calc 42.0 Estimated GFR > 60 Random Glucose 106 Calcium 8.3 L D Lactate Dehydrogenase 211 Troponin I High Sens B-Natriuretic Peptide Albumin 2.6 L Carcinoembryonic Ag Influenza Type A (PCR) NEGATIVE Influenza Type B (PCR) NEGATIVE RSV RNA Qual (PCR) NEGATIVE SARS-CoV-2 RNA (RT-PCR) NEGATIVE 02/24/22 07:13 MCV MCH MCHC RDW Plt Count MPV Absolute Nucleated RBC Nucleated RBC % (auto) PT 13.1 INR 1.1 Anion Gap Estim Creat Clear Calc Estimated GFR Random Glucose Calcium Lactate Dehydrogenase Troponin I High Sens B-Natriuretic Peptide Albumin Carcinoembryonic Ag Influenza Type A (PCR) Influenza Type B (PCR) RSV RNA Qual (PCR) SARS-CoV-2 RNA (RT-PCR) Assessment and Plan (1) Mass of left lung: Status: Acute (2) Pleural effusion, left: Status: Acute Plan This is a 76-year-old lifelong smoker with no known past medical history who presents to the emergency department with 3-4 weeks of progressively worsening shortness of breath found to have left-sided pleural effusion, left-sided lung collapse and probable left lung mass occluding the left bronchus new lung mass concerning for malignancy given appearance and smoking history - pulmonary consult - will start antibiotics to cover for any component of post obstructive pneumonia (renal dosing) - prn breathing treatments pleural effusion likely r/t malignancy not currently requiring supplemental oxygen - therapeutic and diagnostic thoracentesis ordered - follow fluid studies SIRS althought pt meets sirs criteria with tachycardia, tachypnea and leukocytosis likely all related to pleural effusion causing respiratory distress soft bp secondary to slight stature follow blood cultures microcytic anemia no baseline for comparison. H/H trending down. no active bleeding noted at this time will check iron studies, stool occult follow H/H, if drops further consider blood transfusion tobacco use disorder quit smoking two weeks ago NRT moderate protein calorie malnutrition as evidenced by BMI of 17.5 and loss of subcutaneous fat dvt ppx - mechanical devices, will start chemoprophylaxis after thoracentesis HCP - pt defers this question for now Code status - full code requires ongoing inpatient hospitalization for workup of new lung mass, pleural effusion requiring thoracentesis attending - dr. guaman Time Spent With Patient Time: Total time managing care of this patient today ____ minutes. Quality Stroke Does the patient have a stroke diagnosis?: No VTE Prior VTE?: No VTE Risk Level:: Medical - moderate - high VTE Device Contraindication: N/A - Device Ordered VTE Drug Contraindication: Treatment Not Indicated
[2022-02-24 14:07] LABS: Iron 15 mcg/dL (30-160); Percent Iron Saturation 13 % (15-50); Total Iron Binding Capacity 120 mcg/dL (228-428); Unsaturated Iron Binding 105 ug/dL
[2022-02-24 14:28] LABS: Ferritin 580 ng/mL (10-250)
--- NOTE | 2022-02-24 15:24 | HO.RADPN ---
RADIOLOGY Narrative Narrative: Left thoracentesis using 4 fr catheter. 500 mL clear yellow fluid removed.
--- NOTE | 2022-02-24 15:25 | PM.CNPUL ---
History of Present Illness History of Present Illness Consult date: 02/24/22 Requesting physician: Katherine Hassan Reason for consult: dyspnea, hypoxemia and pleural effusion Chief complaint: Lung Mass Narrative: I HAVE SEEN THIS 76 YEARS OLD VERY PLEASANT FEMALE FOR PULMONARY CONSULTATION. She has presented with a few weeks history of increasing shortness of breath. She has only minimal cough but no expectoration . She denies fever chills or chest pain. More significant symptom is that of anorexia and gradual weight loss which has been going on for a while. Patient denies any previous pulmonary problems. She does have history of lifelong smoking 1 pack of cigarettes a day, she claims that she quit 2 weeks ago, and for sometime she was trying to cut down the number of cigarettes. She has no other significant past medical history. Review of Systems Review of Systems: Her main complaint is poor appetite, gradual weight loss in the past few months, general weakness. And now she has shortness of breath for the past few weeks. She has no other significant complaints at this time. [facility] Past Medical History Medical History (Updated 02/24/22 @ 15:35 by Ankita Redmond MD) Atelectasis of left lung Tobacco use disorder Functional capacity: independent ambulation Family History Family History Mother HTN (hypertension) Surgical History Surgical History History of appendectomy Social History Social History Alcohol intake: current Alcohol intake frequency: holidays/special occasions only Patient Tobacco Use Status: Former Tobacco user Quit Date: two weeks ago; cut down starting 3 months ago; has smoked forever Cigarette Packs Per Day: 0.75 Smoked in Last 30 Days: Yes Use of substances other than those prescribed or required for medical reasons: No Advance Directives: No Advance Directives Information Provided: Yes service: No Meds Allergies Allergy/AdvReac Type Severity Reaction Status Date / Time Penicillins Allergy Itching Verified 02/23/22 11:53 Sulfa (Sulfonamide Allergy Itching Verified 02/23/22 11:53 Antibiotics) Active Medications: Current Medications Acetaminophen (Acetaminophen 325 Mg Tablet) 650 mg PO Q6H PRN PRN Reason: Pain, Mild (Pain Scale 1-3) Albuterol Sulfate (Albuterol Sulfate (0.042%) 1.25 Mg/3 Ml Vial.Neb) 1.25 mg INHALE RQ4H PRN PRN Reason: Shortness of Breath Docusate Sodium (Docusate Sodium 100 Mg Capsule) 100 mg PO DAILY PRN PRN Reason: Constipation Cefepime HCl 2 gm/ Sodium (Chloride) 50 mls @ 100 mls/hr IV Q12H [facility] Last Infusion: 02/24/22 06:01 Dose: Infused Vancomycin HCl 750 mg/ Sodium (Chloride) 265 mls @ 265 mls/hr IV Q24H ANTHONY Nicotine Polacrilex (Nicotine Polacrilex 2 Mg Gum) 2 mg BUCCAL Q2H PRN PRN Reason: Nicotine Cravings Ondansetron HCl (Ondansetron Hcl 4 Mg/2 Ml Vial) 4 mg IVPUSH Q8H PRN PRN Reason: Nausea and Vomiting Pharmacy Consult (Consult Rx Perform Med Rec) 1 each MISCELLANE ONCE PRN PRN Reason: Consult order Pharmacy Consult (Consult Rx Vancomycin Dosing) 1 each MISCELLANE DAILY PRN PRN Reason: Consult order Sodium Chloride (0.9 % Sodium Chloride Flush 3 Ml Syringe) 3 ml IVFLUSH QSHIFT [facility] Last Admin: 02/24/22 07:32 Dose: Not Given Home Medications Medication Instructions Recorded Confirmed Last Taken Type No Known Home Meds 02/23/22 02/23/22 Unknown History Physical Exam Vital Signs: Vital Signs: Last Vital Signs Temp 99.0 F 02/24/22 13:37 Pulse 105 H 02/24/22 13:37 Resp 12 02/24/22 13:37 BP 101/61 02/24/22 13:37 Pulse Ox 93 02/24/22 13:37 O2 Del Method 02/24/22 13:37 O2 Flow Rate 1 02/24/22 13:37 BMI result Body Mass Index 17.5 This elderly lady who is very conscious alert and orientated, very pleasant in conversation. Looks very emaciated, she is currently on O2 1 L/minute and does not seem to have any distress. Ear nose throat examination is essentially normal. Neck there is no lymphadenopathy trachea is in midline Chest there is dullness on the left side with complete absence the breath sounds. Right chest is resonant on percussion with decreased and distant breath sound but no wheezes or rhonchi. Cardiac examination, PMI is displaced to the left. Heart sounds are normal no murmurs or gallops. Abdomen flat and no palpable mass. Extremities are thin but no pitting edema no varicosities Results Laboratory Findings CBC and BMP: 02/24/22 07:13 02/24/22 07:13 ABG, PT/INR, D-dimer: PT/INR, D-dimer PT 13.1 SEC (10.0-13.1) 02/24/22 07:13 INR 1.1 (0.9-1.1) 02/24/22 07:13 Abnormal lab findings: Abnormal Labs 02/23/22 02/23/22 02/24/22 12:46 12:46 07:13 WBC 25.4 H 23.0 H RBC 3.81 L 3.26 L Hgb 9.2 L 7.8 L Hct 29.2 L 25.1 L MCV 76.6 L 77.0 L MCH 24.1 L 23.9 L Plt Count 792 H 734 H MPV 8.7 L 8.7 L Immature Gran % (Auto) 0.8 H Neut % (Auto) 90.9 H Lymph % (Auto) 4.0 L Lymph # (Auto) 1.0 L Abs Immat Gran (auto) 0.21 H Absolute Neuts (auto) 23.1 H Calcium Iron TIBC % Saturation Ferritin Alkaline Phosphatase 185 H Lactate Dehydrogenase 242 H Total Protein 6.3 L Albumin 3.0 L 02/24/22 07:13 WBC RBC Hgb Hct MCV MCH Plt Count MPV Immature Gran % (Auto) Neut % (Auto) Lymph % (Auto) Lymph # (Auto) Abs Immat Gran (auto) Absolute Neuts (auto) Calcium 8.3 L D Iron 15 L TIBC 120 L % Saturation 13 L Ferritin 580 H Alkaline Phosphatase Lactate Dehydrogenase Total Protein Albumin 2.6 L Diagnostic Findings Chest x-ray: report reviewed and image reviewed CT scan - chest: report reviewed and image reviewed Assessment and Plan (1) Pleural effusion, left: Status: Acute (2) Mass of left lung: Status: Acute (3) Atelectasis of left lung: Status: Acute (4) Dyspnea: Status: Acute Plan In this 76 years old very pleasant female with lifelong history of smoking, Physical findings as well as radiologic findings are suggestive of : A left endobronchial neoplasm, with says secondary complete atelectasis of the left lung, and secondary pleural effusion. Patient is also quite anemic, this may be related to her poor nutrition and also possible metastatic disease. Recc . I agree with thoracentesis under ultrasound guidance , therapeutic and diagnostic , and send the fluid for studies especially cytologic examination. If her left lung does not, open up, she would need bronchoscopy, to check for endobronchial lesion/mucus plugging. For the time being all she needs is oxygen supplementation 1-2 L/minute, for her comfort, and to keep O2 sat above 90% Further plans will depend upon the results of thoracenteses and fluid cytology. Thank you very much for asthma to see this patient. Time Spent With Patient Time: Total time managing care of this patient today ____ minutes. Procedures Date of Service Date of Service: 02/24/22
[2022-02-24] MEDS: Lidocaine HCl 1 % MPF 5 ML VIAL 10 ML SUBCUT (15:26)
--- NOTE | 2022-02-24 15:57 | PC.NURSE ---
assumed care of patient. patient is pleasant. alert and oriented x4. able to make needs known. reports mild pain at thoracentesis spot. denies SOB at this time.
[2022-02-24 15:59] LABS: MN% 64.6 %; PMN% 35.4 %
[2022-02-24 16:03] LABS: RBC Pleural Fluid 0.002 X10*3/uL; WBC Pleural Fluid 2.984 X10*3/uL
[2022-02-24 16:04] LABS: BF Shift QC OK YES; Man Diluent Bkgrd OK YES
[2022-02-24 16:26] LABS: Lymphocytes Pleural Fluid 9 %; Neutrophils Pleural Fluid 25 %
[2022-02-24 16:27] LABS: Monocytes Pleural Fluid 12 %; Other Cells Plerual Fl 54 %
[2022-02-24] MEDS: vancomycin HCL 750 MG in 0.9 % Sodium Chloride 250 ML 265 MG IV (17:10)
[2022-02-24] MEDS: Lactated Ringers 1,000 ML 80 ML IVCONT (18:44)
--- NOTE | 2022-02-24 19:47 | PC.NURSE ---
assumed care of patient at 1900 - patient on traffic monitor specialist with HR 115, RR 30s, BP 86/33. rectal temp done. 101.2, MD Gonzales notified. initiating fluid boluses and po tylenol per provider orders. will continue to monitor
[2022-02-24] MEDS: Acetaminophen 325 MG TABLET 650 MG PO (19:53)
[2022-02-24 21:05] LABS: Lactic Acid 2.6 mmol/L (0.5-2.0)
--- NOTE | 2022-02-24 21:33 | PC.NURSE ---
BP not improving despite fluid bolus - BP lower 66/30, 72/24. manual BP done, 72/30. MD Gonzales at bedside. ICU on the phone- patient to be transferred to ICU for low BP despite fluid resuscitation . patient ok with plan. patient asymptomtic, A&Ox4 , speaking clear full sentences
--- NOTE | 2022-02-24 21:34 | PM.EVENT ---
Event Note Date of Service: 02/24/22 Event Note: pt hypotensive, febrile. She has positive lactic acid. Pt already on IV abx sepsis fluids started. giving albumin. discussed with ICU as pt bp remains low. Time Spent With Patient Time: Total time managing care of this patient today ____ minutes.
[2022-02-24] MEDS: Albumin Human 25 % 100 ML IV ×2 (21:46→22:02)
[2022-02-24 22:35] LABS: Reflex Lactate? Lactic Acid Added
[2022-02-24] MEDS: Norepinephrine Bitartrate/D5W 8 MG/250 ML PLAST..BAG 3.82 MG IV (22:55)
--- NOTE | 2022-02-24 23:14 | W.PM.CCCN ---
History of Present Illness Data of Consult Service Date: 02/24/22 Requesting physician: Chino Cottrell Primary Care Provider: Unknown Physician HPI Reason for consult: SEPTIC SHOCK, PNA HPI: ?76-year-old female without a significant past medical history other than being a smoker with a 50 pack-year history of tobacco consumption who still smokes.? Patient presented to the emergency room with complaints of feeling short of breath for the past 3-4 weeks, has had some cough with yellow sputum production, has had a proximate 20 lb weight loss in the past month and low appetite.? In addition the patient has noted that she is feeling more tire by doing less [place] and walking short distances. ? In the emergency room, patient was noted to be normotensive, however tachypneic and tachycardic, her workup was significant for white count 25.4, H&H of 9.2 and 29.2 respectively, platelets 792.? Electrolytes and renal function unremarkable, iron profile [place] an adequate storage of perforating, albumin 2.6.? Respiratory panel was negative.? Her images however showed complete whiteout and collapse of the left lung with ipsilateral mediastinal shift.? A follow-up CT showed a moderate to large pleural effusion with left lower lobe and left upper lobe collapse along with a soft tissue mass or debris within the left bronchus resulting in complete occlusion and a 1 cm solitary nodule in the right lower lobe. ?At the time, the patient had been treated with some IV fluids, started on vancomycin and Ceftin and admitted to the floor, She was seen by a pulmonology specialist. Patient underwent a ultrasound-guided thoracentesis during which they removed approximately 500 cc of clear yellow fluid results of which appear to be consistent with a transudate. ? While in ED overflow, the patient became hypotensive, she received 30 mL/kilos without any improvement as well as 2 doses of 25% albumin without any improvement, her blood pressure continued to be in the low to mid 60s although the patient was not symptomatic and reported no lightheadedness, headache, chest pain, worsened shortness of breath, dizziness or any other associated symptom. ?Altogether looks like the patient has received a total of 2200 cc of crystalloids, at this point I believe the best thing is to transfer her to the ICU; the patient will require pressors and a lengthy discussion took place about goals of care and code status, patient remains full code. ? ROS:? Unable to obtain ? Past Medical History:? As above ? Past Surgical History: Appendectomy ? Family history:? Noncontributory ? Social History:? Lives at home by herself, has a 50 pack-year history of tobacco consumption, still has not quit.? Denies alcohol. ? CODE STATUS: FULL CODE ? Allergies: NKDA ? Home Medications: See Med Rec ? Sepsis PHYSICAL EXAM done at 22:30: VS: 63/27; 95; 27; 97%??? NC ; 101.2 General:? Thin almost cachectic, Alert oriented x3 no acute distress.? Speaking full sentences.? Speech is well articulated, thought process is coherent.? Following all commands. Skin:? Intact, no lesions, edema, erythema, clubbing or cyanosis.? No ulcers. HEENT:? Head is normocephalic, atraumatic, pupils equal round reactive to light accommodation bilaterally.? Extraocular movements appear intact.? Buccal mucosa is moist, Neck is supple without lymphadenopathy. Cardiac:? Clear S1-S2, no murmurs rubs or gallops. Pulmonary:? Diminished lung sounds with nearly absent lung sounds at the left lung, prominent rhonchi at the left base and crackles at the right base. Abdomen:? Flat positive bowel sounds in all 4 quadrants.? Soft, nontender, no rebound or guarding.? Musculoskeletal:? Moving all 4 extremities upon request a major joints, there is no crepitus or tenderness.? The strength is 5/5 bilaterally and throughout all 4 extremities.? There is no leg edema , no calf tenderness , no leg asymmetry.? Gait not assessed at this point. Neurologic:? As above, cranial nerves 2-12 are grossly intact.? No focal deficits noted. Motor strength as above.? Vascular:? 2+ pulses upper and lower extremities distally. ?Less than 2nd capillary refill of the finger and toes bilaterally. ? SIGNIFICANT LABORATORY DATA:? As above ? REVIEW OF IMAGES: INITIAL CHEST X-RAY IMPRESSION: 1.? Complete white out of left lung with ipsilateral mediastinal shift likely secondary to effusion with underlying total left lung collapse. 2. The right lung is expanded and clear. 3. There are no previous exam available for comparison. ? CHEST CT IMPRESSION: Moderate to large left pleural effusion with left lower lobe and left upper lobe collapse. ? There is soft tissue mass or debris seen within the left bronchus resulting in complete occlusion. ? 1 cm solitary nodule visualized right lower lobe. ? The above findings are suspicious for left bronchial lesion with reactive left pleural effusion. The right lower lobe nodule is probably metastatic. Recommend ultrasound-guided left pleural effusion evaluation for cytology and bronchoscopy. ? ULTRASOUND-GUIDED THORACENTESIS Left thoracentesis using 4 fr catheter. 500 mL clear yellow fluid removed. ? REPEAT CHEST X-RAY IMPRESSION: 1.? Unchanged complete opacification of the left hemithorax with leftward mediastinal shift. On the patient's prior CT there is a large left lung mass and there is osseous destruction of the posterior left fifth and sixth ribs and involvement of the left T5 transverse process. Findings on the chest x-ray are consistent combination of large left lung malignancy with left lung collapse and large pleural effusion. 2.? 1 cm right lower lobe pulmonary nodule better seen on prior CT. EKG REVIEW:? To my view disease a sinus tachycardia 108 beats per minute.? There is no ST elevations, no ST depressions.? QTC 352.? No comparison available. ? ASSESSMENT : 1. ACUTE SEPTIC SHOCK 2. LEFT LUNG MASS WITH SUSPECTED POSTOBSTRUCTIVE PNEUMONIA WITH COMPLETE OPACIFICATION OF THE LEFT HEMITHORAX WITH LEFTWARD MEDIASTINAL SHIFT POST THORACENTESIS 3. 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 1 CM RIGHT LOWER LOBE PULMONARY NODULE 5. ANEMIA OF CHRONIC DISEASE 6. HYPOALBUMINEMIA 7. REACTIVE THROMBOCYTOSIS 8. METABOLIC AND LACTIC ACIDOSIS DUE TO 1. 9. PSEUDO HYPOCALCEMIA 10. PROTEIN CALORIE MALNUTRITION SYNDROME 11. 20 LB WEIGHT LOSS AND LOST OF APPETITE LIKELY DUE TO LEFT LUNG MASS ? PLAN OF CARE: Patient will be transferred to the ICU, she did receive 30 mL/kilos without improvement, also received 2 doses of albumin salt given without improvement, patient will need vasopressors, monitor I and O's, continue with broad-spectrum antibiotics, repeat laboratories in lactic acid, blood cultures are pending and so far the thoracenteses analysis appears to be consistent with a transudate.? Continue with vancomycin and Zosyn, repeat laboratories in the morning. Patient most likely will need a bronchoscopy given the ongoing collapse of her left lung. I did have a lengthy discussion with the patient about the CT findings and she is aware that she has large mass in the left lung which is already invading her ribs and transverse process at T5, she is aware that this is most likely cancerous, eventually the patient would need to be set up with Oncology as she does desire to at least here with her options might be in regards to the underlying lung mass which is most likely cancers. The patient will require levophed and eventually a central line to which she agrees. ? GI PROPHYLAXIS:? Oral PPI DVT PROPHYLAXIS:? Heparin subQ ? Clinical update repeat sepsis focused exam at 04:30 a.m. Vital signs Alert oriented x3 no acute distress. Skin intact and unchanged. Heart regular rate and rhythm no murmurs rubs gallops Lungs diminished lung sounds bilaterally particularly at the left base and throughout the left lung. Patient moving all 4 extremities the major joints bilaterally and throughout there is no leg edema. 2+ pulses bilaterally upper and lower extremities with less than 2nd capillary refill of fingers and toes. ? Will continue current management, patient is still requiring vasopressors.? Will follow up labs in the morning. Critical care time used for critical evaluation of this patient, diagnosis, treatment and coordination of care, review her records and documentation TOTAL CRITICAL CARE TIME? 120? MIN . discussion and coordination with consultants, completely separate from any procedures performed. Patient's care was discussed in detail with Dr. Clark.? He is aware of all the above as well as the plan of care for this patient. [facility] Past Medical History Medical History (Updated 02/24/22 @ 15:35 by Ankita Redmond MD) Atelectasis of left lung Tobacco use disorder Functional capacity: independent ambulation Family History Family History Mother HTN (hypertension) Surgical History Surgical History History of appendectomy Social History Social History Household Members: None Housing: House Do you presently have visiting nurse or other home services: No Alcohol intake: current Alcohol intake frequency: holidays/special occasions only Patient Tobacco Use Status: Former Tobacco user Quit Date: two weeks ago; cut down starting 3 months ago; has smoked forever Cigarette Packs Per Day: 0.75 Second Hand Smoke Exposure: No service: No Meds Allergies Allergy/AdvReac Type Severity Reaction Status Date / Time Penicillins Allergy Itching Verified 02/23/22 11:53 Sulfa (Sulfonamide Allergy Itching Verified 02/23/22 11:53 Antibiotics) Active Medications: Current Medications Acetaminophen (Acetaminophen 325 Mg Tablet) 650 mg PO Q6H PRN PRN Reason: Pain, Mild (Pain Scale 1-3) Last Admin: 02/24/22 19:53 Dose: 650 mg Albuterol Sulfate (Albuterol Sulfate (0.042%) 1.25 Mg/3 Ml Vial.Neb) 1.25 mg INHALE RQ4H PRN PRN Reason: Shortness of Breath Albuterol/Ipratropium (Albuterol/Iprat 2.5/0.5mg 3 Ml Ampul.Neb) 3 ml INHALE RQ6H PRN PRN Reason: Shortness of Breath/Wheezing Docusate Sodium (Docusate Sodium 100 Mg Capsule) 100 mg PO DAILY PRN PRN Reason: Constipation Cefepime HCl 2 gm/ Sodium (Chloride) 50 mls @ 100 mls/hr IV Q12H [facility] Last Infusion: 02/24/22 16:25 Dose: Infused Vancomycin HCl 750 mg/ Sodium (Chloride) 265 mls @ 265 mls/hr IV Q24H [facility] Last Infusion: 02/24/22 18:43 Dose: Infused Lactated Ringer's (Lr) 1,000 mls @ 80 mls/hr IVCONT .[id number] [facility] Stop: 02/25/22 05:14 Last Infusion: 02/24/22 22:45 Dose: Infused Albumin Human (Kedbumin 25 %) 100 mls @ 100 mls/hr IV Q1H [facility] Stop: 02/24/22 23:44 Last Infusion: 02/24/22 22:45 Dose: Infused Norepinephrine Bitartrate (Levophed) 8 mg in 250 mls @ 0 mls/hr IV .Q0M [facility]; Protocol Last Titration: 02/24/22 23:06 Dose: 0.09 mcg/kg/min, 6.87 mls/hr Nicotine Polacrilex (Nicotine Polacrilex 2 Mg Gum) 2 mg BUCCAL Q2H PRN PRN Reason: Nicotine Cravings Ondansetron HCl (Ondansetron Hcl 4 Mg/2 Ml Vial) 4 mg IVPUSH Q8H PRN PRN Reason: Nausea and Vomiting Pharmacy Consult (Consult Rx Perform Med Rec) 1 each MISCELLANE ONCE PRN PRN Reason: Consult order Pharmacy Consult (Consult Rx Vancomycin Dosing) 1 each MISCELLANE DAILY PRN PRN Reason: Consult order Sodium Chloride (0.9 % Sodium Chloride Flush 3 Ml Syringe) 3 ml IVFLUSH QSHIFT [facility] Last Admin: 02/24/22 15:53 Dose: Not Given Home Medications Medication Instructions Recorded Confirmed Last Taken Type No Known Home Meds 02/23/22 02/23/22 Unknown History Physical Exam Vital Signs: Vital Signs: Last Vital Signs Temp 98.2 F 02/24/22 23:00 Pulse 96 02/24/22 23:00 Resp 95 H 02/24/22 23:00 BP 88/40 L 02/24/22 23:06 Pulse Ox 95 02/24/22 23:00 O2 Del Method 02/24/22 23:00 O2 Flow Rate 2 02/24/22 23:00 BMI result Body Mass Index 17.5 Results Labs CBC & Chem 7: 02/25/22 05:15 02/25/22 05:15 Labs: Short CBC 02/24/22 Range/Units 07:13 WBC 23.0 H (4.8-10.8) X10*3/uL Hgb 7.8 L (12.0-16.0) g/dl Hct 25.1 L (37.0-47.0) % Plt Count 734 H (160-400) X10*3/uL BMP 02/24/22 07:13 Sodium 136 Potassium 3.8 Chloride 102 Carbon Dioxide 25 BUN 15 Creatinine 0.72 Calcium 8.3 L D Liver Function 02/24/22 Range/Units 07:13 Albumin 2.6 L (3.5-5.0) g/dL Microbiology Microbiology Results: Microbiology 02/23/22 18:10 Blood - Venous Blood Culture - Preliminary No growth after 24 hours. 02/23/22 18:10 Blood - Venous Blood Culture - Preliminary No growth after 24 hours. Assessment and Plan Time Spent With Patient Time: Total time managing care of this patient today ____ minutes.
[2022-02-24 23:46] LABS: LDH Pleural Fluid 368 U/L; Total Protein Pleural Fluid 3.7 GM/DL
[2022-02-25] VITALS (43 sets, daily range): BP systolic 79–133; BP diastolic 26–71; PULSE 24–124; RESP 5–40; TEMP 36.8–39.1; O2SAT 55–98; BMI 19.2
[2022-02-25 00:11] LABS: Basophils Absolute Auto 0.1 X10*3/uL (0.0-0.2); Basophils Percent Auto 0.2 % (0-2); Eosinophils Percent Auto 0.1 % (0-4); Hematocrit 22.4 % (37.0-47.0); Hemoglobin 7.2 g/dl (12.0-16.0); Imm Gran Abs Auto 0.35 X10*3/uL (0.00-0.03); Imm Gran Pct Auto 1.1 % (0.0-0.4); Lymphocytes Absolute Auto 2.2 X10*3/uL (1.2-4.9); Lymphocytes Percent Auto 6.9 % (20-40); MANUAL DIFF FLAG SCAN; Mean Corpuscular HGB Conc 32.1 g/dl (31.0-35.0); Mean Corpuscular Hemoglobin 24.5 pg (27.0-33.0); Mean Corpuscular Volume 76.2 fL (80.0-98.0); Mean Platelet Volume 8.8 fL (9.4-12.3); Monocytes Absolute Auto 1.2 X10*3/uL (0.1-1.2); Monocytes Percent Auto 3.8 % (2-11); Neutrophils Absolute Auto 28.6 x10*3/uL (2.0-8.3); Neutrophils Percent Auto 87.9 % (45-73); Platelet Count 716 X10*3/uL (160-400); Red Blood Count 2.94 X10*6/uL (4.20-5.50); Red Cell Distribution Width 15.3 % (11.0-16.0); SCAN SMEAR FLAG 1
[2022-02-25 00:13] LABS: White Blood Count 32.6 X10*3/uL (4.8-10.8)
[2022-02-25 00:28] LABS: Alanine Aminotransferase 6 U/L (0-31); Alkaline Phosphatase 158 U/L (39-117); Anion Gap 13 (12-20); Aspartate Amino Transferase 18 U/L (5-31); Bilirubin Total 0.4 mg/dL (0.0-1.0); Blood Urea Nitrogen 14 mg/dL (9-16); Carbon Dioxide 23 mmol/L (22-29); Chloride 104 mmol/L (96-108); Creatinine Clr Calc Pharmacy 44.5; Estimated Glomerular Filt Rate > 60; Glucose Random 103 mg/dL (60-115); Potassium 3.3 mmol/L (3.3-5.1); Sodium 137 mmol/L (135-145); Total Protein 5.5 g/dL (6.5-8.0)
[2022-02-25 00:44] LABS: SLIDE REVIEW VERIFIED
[2022-02-25] MEDS: Albumin Human 25 % 100 ML IV ×4 (00:57→09:19)
[2022-02-25] MEDS: 0.9 % Sodium Chloride Flush 3 ML SYRINGE IVFLUSH ×3 (01:09→15:35)
--- NOTE | 2022-02-25 01:44 | W.PM.CCHP ---
Procedures Date of Service Date of Service: 02/25/22 Central Line Placement Left IJ: Central Line Comments: Risk and benefits were discussed in detail with the patient, patient consented the procedure. A quick time-out was made for clarification and proper patient identification, patient was positioned, landmarks were identified, US used to locate a? large compressible IJ.? The left neck was widely prepped and draped in a full sterile fashion.? Ultrasound was used to locate again the left IJ, the vein was cannulated on the 1st pass with an 18 gauge thin needle, dark nonpulsatile blood return was obtained.? The wire was threaded, a small incision was made at its base and dilator inserted.? A triple-lumen 16 cm central venous catheter was advanced into the vein up to the hub without problems, wired was removed. Ports had? good blood return and flushed x3.? The catheter was secured with 3 sutures at 3 sites, a Biopatch and dry sterile dressing were applied. Post procedure chest x-ray showed the line to be in good position without pneumothorax.? No bleeding or complications noted. Consent for Procedure: Elective - informed consent obtained (from pt see chart) Time out performed: Yes Sterile Technique Used: Yes Patient placed on monitor/pulse ox: Yes MD prep: mask, gown, gloves and other Central line prep: Chlorhexidine scrub Local anesthesia used: lidocaine 1% Amount of anesthesia used (ml): 5 Ultrasound used for placement: Yes Central line lumen inserted: triple Post procedure: sutured in place, good blood return, all ports aspirated, flushed, capped and sterile dressing applied Post procedure x-ray: tip of catheter in good position Patient tolerated procedure: well Complications: none
[2022-02-25] MEDS: Heparin Sodium,Porcine 5,000 UNIT/ML VIAL 5000 UNIT SUBCUT ×2 (02:12→15:34)
[2022-02-25 05:38] LABS: Basophils Absolute Auto 0.1 X10*3/uL (0.0-0.2); Basophils Percent Auto 0.3 % (0-2); Eosinophils Absolute Auto 0.1 X10*3/uL (0.0-0.4); Eosinophils Percent Auto 0.2 % (0-4); Hematocrit 22.4 % (37.0-47.0); Hemoglobin 7.1 g/dl (12.0-16.0); Imm Gran Abs Auto 0.29 X10*3/uL (0.00-0.03); Lymphocytes Absolute Auto 1.6 X10*3/uL (1.2-4.9); Lymphocytes Percent Auto 5.5 % (20-40); MANUAL DIFF FLAG SCAN; Mean Corpuscular HGB Conc 31.7 g/dl (31.0-35.0); Mean Corpuscular Hemoglobin 24.5 pg (27.0-33.0); Mean Corpuscular Volume 77.2 fL (80.0-98.0); Mean Platelet Volume 8.6 fL (9.4-12.3); Monocytes Absolute Auto 1.1 X10*3/uL (0.1-1.2); Monocytes Percent Auto 3.6 % (2-11); Neutrophils Absolute Auto 26.4 x10*3/uL (2.0-8.3); Neutrophils Percent Auto 89.4 % (45-73); Platelet Count 707 X10*3/uL (160-400); Red Cell Distribution Width 15.6 % (11.0-16.0); SCAN SMEAR FLAG 1; White Blood Count 29.6 X10*3/uL (4.8-10.8)
[2022-02-25 05:59] LABS: Alanine Aminotransferase 11 U/L (0-31); Albumin Level 3.3 g/dL (3.5-5.0); Alkaline Phosphatase 218 U/L (39-117); Anion Gap 14 (12-20); Aspartate Amino Transferase 34 U/L (5-31); Bilirubin Total 0.4 mg/dL (0.0-1.0); Blood Urea Nitrogen 11 mg/dL (9-16); C Reactive Protein 19.02 mg/dL (< or = 0.50); Calcium 8.2 mg/dL (8.4-10.2); Carbon Dioxide 24 mmol/L (22-29); Chloride 106 mmol/L (96-108); Creatinine Clr Calc Pharmacy 52.7; Estimated Glomerular Filt Rate > 60; Glucose Random 130 mg/dL (60-115); Potassium 3.3 mmol/L (3.3-5.1); Sodium 141 mmol/L (135-145); Total Protein 5.6 g/dL (6.5-8.0)
[2022-02-25] MEDS: cefEPime HCl 2 GM in 0.9 % Sodium Chloride 50 ML IV ×2 (06:16→18:03)
--- NOTE | 2022-02-25 06:40 | PC.NURSE ---
Assumed care of patient approximately 02/24 from ED overflow. Patient alert, appropriate, follows commands, MOREIRA weakly. Denies any immediate pain or difficulty breathing. Patient cautiously started on levophed gtt secondary to peripheral access. Subsequently required placement of left IJ TLC d/t increasing demand for levophed. Currently infusion is at 0.12 mcg/kg/min with a goal MAP 60-65 per PA. Central line placement performed without incident. Positioning confirmed via CXR. Patient continues on 2l nc with sats in mid-90's. Negative for MARK or increased WOB. Patient voiding throughout the night. Mixed urine and stool noted on each episode. Tolerated water and a snack. Abx infusing as per MD orders. Resting in between care.
--- NOTE | 2022-02-25 13:05 | PM.CCPN ---
Subjective Subjective Date of Service: 02/25/22 Interval History: Mrs Bustos was transferred to ICU last night bec of hypotension. Full chart reviewed.? This is a 76-year-old female without a significant past medical history other than being a 50 pack-year smoker, still smoking. The Patient was BIBA to the ED on Feb 23 with c/o SOB x 3-4 weeks, cough with yellow sputum production, low appetite, 20 lb weight loss over past month and easy fatiguability. In the ED, she was tachypneic and tachycardic, but normotensive, w initial Sat 97% on room air.? She was not febrile.? She had no breath sounds on the left.? She had no JVD.? Lab workup was significant for white count 25.4, Hgb 9.2, platelets 792.? Normal lytes, BUN/creat 16/0.6, albumin 3.0.? Respiratory virus panel was negative. CXR showed a complete whiteout of the left lung with leftward mediastinal shift.? F/U chest CT showed a moderate to large pleural effusion with left lung collapse, a soft tissue mass or debris within the left mainstem bronchus resulting in complete occlusion.? There was also a 1 cm solitary nodule in the right lower lobe.? The patient was given IV fluids, vancomycin and Ceftin, and admitted to the Medicine.? She was seen yesterday by Dr. Redmond, and underwent a diagnostic thoracentesis of 500 cc of clear yellow fluid.? Lab analysis was consistent with a transudate. Last night, the patient became hypotensive, febrile, and bumped her WBC and lactate. ?She was given 30 mL/kg fluid plus 100cc 25% albumin without improvement, her BP continued to be in the low to mid 60s, although the patient was asymptomatic, with normal mental status.? She was tx to ICU, lined, and started on Levophed.? Vanco and cefepime were continued.? The Gram stain from the pleural fluid shows 2+ polys, no organisms. This morning, the patient started having diarrhea.? Six times so far.? She is fully awake, alert, oriented, appropriate.? HR 120, SR, gradually up from 90 earlier this morning with her temp increase.? BP 136/73 on Levophed 0.08ug.? RR mid-high 20?s, increases markedly with even slight effort turning in bed.? SpO2 94% on 3L NC.? Temp 101.2?.? No JVD at 20-30?.? Chest is CTA bilat, with diminished but present BS on the left.? Hodgeman no tubular sounds.? Normal exp phase.? PMI is at the low LSB.? Regular rate and rhythm, markedly tachy, with normal-sounding S1 and S2, with no murmur or gallops.? The abdomen is flat and benign.? She has no peripheral edema.? Overall, she is markedly cachectic.? BMI 19. LABORATORY DATA:? Below.? Notably, WBC spiked to 32 late last night, hemoglobin is down to 7.1 with hydration, platelet count of [id number].? BUN/creatinine is down slightly to 11/0.6, lactic acid at midnight was 1.0, albumin this morning was 3.3.? PCT 53.4. My bedside ECHOCARDIOGRAM for hemodynamic monitoring:? LV wall thickness normal.? LV fxn markedly hyperdynamic, EF 70%, No RWMAs.? RV was enlarged; RV:LV cavity ratio approximately 1.0.? AoV normal morphology, no AI.? MV normal morphology, trace MR by color miguel angel.? TV normal morphology, 1+ TR by color miguel angel.? CWD jet at least 2.5 m/sec (gradient 25mm).? IVC 1.5 cm with > 50% insp collapse. IMPRESSION:? 1. Gross cachexia with severe PCM. 2. Tobacco abuse. 3. Left lung collapse 2? left mainstem bronchus obstruction.? Needs a bronchoscopy.? Pulmonary has already consulted. 4. Overwhelming likelihood that she has a lung cancer.? Cytology from the thoracentesis is pending. 5. Septic shock (fever, hypotension, WBC, lactate, PCT).? The source is not immediately apparent.? Very possibly, even likely, that it?s not the lung, given that she was clearly not septic on admission, and it didn?t happen until later the next day.? Curiously, she became septic after the thoracentesis (stating the temporal fact).? The other possibility is that it?s GI related, given that she subsequently started having significant diarrhea.? Could the sepsis be related to colitis?? Sent her for an abdominal CT. 6. Diarrhea.? Curious that the diarrhea started after she started on broad spectrum abx.? Could this be C. diff or an abx-associated diarrhea? 7. Anemia. 8. Hypovolemia.? (Per the echo.)? Given that she?s hypovolemic, hypotensive, has a Hgb of 7.1, alb of 3.3, and a body weight of 44kg, crystalloid resuscitation may not be very effective.? I?ll give her 1 unit RBCs and we?ll go from there. Critical Care Time (minutes): 70 Physical Exam Vital Signs: Vital Signs: Last Vital Signs Temp 101.2 F H 02/25/22 12:00 Pulse 117 H 02/25/22 12:00 Resp 32 H 02/25/22 12:00 BP 123/59 L 02/25/22 12:00 Pulse Ox 95 02/25/22 12:00 O2 Del Method 02/25/22 12:00 O2 Flow Rate 3.5 02/25/22 12:00 BMI result Body Mass Index 19.2 Objective Data Labs CBC & Chem 7: 02/25/22 05:15 02/25/22 05:15 Labs: Laboratory Results - last 24 hr 02/24/22 02/24/22 02/24/22 07:13 15:00 15:00 WBC RBC Hgb Hct MCV MCH MCHC RDW Plt Count MPV Immature Gran % (Auto) Neut % (Auto) Lymph % (Auto) [place] % (Auto) Eos % (Auto) Baso % (Auto) Lymph # (Auto) [place] # (Auto) Eos # (Auto) Baso # (Auto) Abs Immat Gran (auto) Absolute Neuts (auto) Absolute Nucleated RBC Nucleated RBC % (auto) Smear Tech's Comments Sodium Potassium Chloride Carbon Dioxide Anion Gap BUN Creatinine Estim Creat Clear Calc Estimated GFR Random Glucose Lactic Acid Lactic Acid F/U @ 2Hr Calcium Iron 15 L TIBC 120 L % Saturation 13 L Unsat Iron Binding 105 Ferritin 580 H Total Bilirubin AST ALT Alkaline Phosphatase C-Reactive Protein Total Protein Albumin Pleural WBC 2.984 Pleural RBC 0.002 Pleural Neutrophils 25 Pleural Lymphocytes 9 Pleural Monocytes 12 Pleural Other Cells 54 Pleural Total Protein 3.7 Pleural LDH 368 Blood Type Antibody Screen 02/24/22 02/25/22 02/25/22 20:32 00:00 00:00 WBC RBC Hgb Hct MCV MCH MCHC RDW Plt Count MPV Immature Gran % (Auto) Neut % (Auto) Lymph % (Auto) [place] % (Auto) Eos % (Auto) Baso % (Auto) Lymph # (Auto) [place] # (Auto) Eos # (Auto) Baso # (Auto) Abs Immat Gran (auto) Absolute Neuts (auto) Absolute Nucleated RBC Nucleated RBC % (auto) Smear Tech's Comments Sodium 137 Potassium 3.3 Chloride 104 Carbon Dioxide 23 Anion Gap 13 BUN 14 Creatinine 0.68 Estim Creat Clear Calc 44.5 Estimated GFR > 60 Random Glucose 103 Lactic Acid 2.6 H* Lactic Acid F/U @ 2Hr 1.0 Calcium 8.0 L Iron TIBC % Saturation Unsat Iron Binding Ferritin Total Bilirubin 0.4 AST 18 ALT 6 Alkaline Phosphatase 158 H C-Reactive Protein Total Protein 5.5 L Albumin 3.0 L Pleural WBC Pleural RBC Pleural Neutrophils Pleural Lymphocytes Pleural Monocytes Pleural Other Cells Pleural Total Protein Pleural LDH Blood Type Antibody Screen 02/25/22 02/25/22 02/25/22 00:01 02:46 05:15 WBC 32.6 H* RBC 2.94 L Hgb 7.2 L Hct 22.4 L MCV 76.2 L MCH 24.5 L MCHC 32.1 RDW 15.3 Plt Count 716 H MPV 8.8 L Immature Gran % (Auto) 1.1 H Neut % (Auto) 87.9 H Lymph % (Auto) 6.9 L [place] % (Auto) 3.8 Eos % (Auto) 0.1 Baso % (Auto) 0.2 Lymph # (Auto) 2.2 [place] # (Auto) 1.2 Eos # (Auto) 0.0 Baso # (Auto) 0.1 Abs Immat Gran (auto) 0.35 H Absolute Neuts (auto) 28.6 H Absolute Nucleated RBC 0.000 Nucleated RBC % (auto) 0.0 Smear Tech's Comments VERIFIED Sodium 141 Potassium 3.3 Chloride 106 Carbon Dioxide 24 Anion Gap 14 BUN 11 Creatinine 0.63 Estim Creat Clear Calc 52.7 Estimated GFR > 60 Random Glucose 130 H Lactic Acid Lactic Acid F/U @ 2Hr Calcium 8.2 L Iron TIBC % Saturation Unsat Iron Binding Ferritin Total Bilirubin 0.4 AST 34 H ALT 11 Alkaline Phosphatase 218 H C-Reactive Protein 19.02 H Total Protein 5.6 L Albumin 3.3 L Pleural WBC Pleural RBC Pleural Neutrophils Pleural Lymphocytes Pleural Monocytes Pleural Other Cells Pleural Total Protein Pleural LDH Blood Type O Negative Antibody Screen NEGATIVE 02/25/22 05:15 WBC 29.6 H RBC 2.90 L Hgb 7.1 L Hct 22.4 L MCV 77.2 L MCH 24.5 L MCHC 31.7 RDW 15.6 Plt Count 707 H MPV 8.6 L Immature Gran % (Auto) 1.0 H Neut % (Auto) 89.4 H Lymph % (Auto) 5.5 L [place] % (Auto) 3.6 Eos % (Auto) 0.2 Baso % (Auto) 0.3 Lymph # (Auto) 1.6 [place] # (Auto) 1.1 Eos # (Auto) 0.1 Baso # (Auto) 0.1 Abs Immat Gran (auto) 0.29 H Absolute Neuts (auto) 26.4 H Absolute Nucleated RBC 0.000 Nucleated RBC % (auto) 0.0 Smear Tech's Comments Sodium Potassium Chloride Carbon Dioxide Anion Gap BUN Creatinine Estim Creat Clear Calc Estimated GFR Random Glucose Lactic Acid Lactic Acid F/U @ 2Hr Calcium Iron TIBC % Saturation Unsat Iron Binding Ferritin Total Bilirubin AST ALT Alkaline Phosphatase C-Reactive Protein Total Protein Albumin Pleural WBC Pleural RBC Pleural Neutrophils Pleural Lymphocytes Pleural Monocytes Pleural Other Cells Pleural Total Protein Pleural LDH Blood Type Antibody Screen Microbiology Microbiology Results: Microbiology 02/24/22 15:00 Thoracentesis Fluid Gram Stain - Final 02/24/22 15:00 Thoracentesis Fluid Anaerobic Culture - Preliminary No growth to date. 02/24/22 15:00 Thoracentesis Fluid Body Fluid Culture - Preliminary No growth after 1 day 02/23/22 18:10 Blood - Venous Blood Culture - Preliminary No growth after 24 hours. 02/23/22 18:10 Blood - Venous Blood Culture - Preliminary No growth after 24 hours. Quality Stroke Does the patient have a stroke diagnosis?: No VTE Prior VTE?: No VTE Risk Level:: Medical - moderate - high VTE Device Contraindication: N/A - Device Ordered VTE Drug Contraindication: Treatment Not Indicated Critical Care Time Critical Care Time (minutes): 60
[2022-02-25 13:57] LABS: Appearance Urine Clear; Color Urine Yellow; Glucose Urine UA Negative (Negative); Leukocyte Esterase Urine Negative (Negative); Nitrite Urine Negative (Negative); PH 5.5 (5.0-9.0); Urine Blood Negative (Negative); Urine Ketones Negative (Negative); Urine Protein Trace mg/dL (Neg-Trace)
[2022-02-25 14:07] LABS: Bacteria Urine None Seen (None Seen); Granular Casts Urine Present; RBC Urine 0-2 /HPF (0-2); Squamous Epithelial Cell Urine 0-2 /HPF (0-2); WBC Urine 0-5 /HPF (0-5)
[2022-02-25 14:48] LABS: Procalcitonin 53.49 ng/mL
[2022-02-25 15:13] LABS: OBS Int Ctl Valid YES; OBS1 NEGATIVE (NEGATIVE)
[2022-02-25] MEDS: Acetaminophen 325 MG TABLET 650 MG PO (15:44)
[2022-02-25 16:12] LABS: CDiff Gene PCR NEGATIVE (Negative)
[2022-02-25 16:23] LABS: Vancomycin Random 6.8 mcg/mL (15-20)
[2022-02-25] MEDS: Lactated Ringers 250 ML IVCONT (17:58)
[2022-02-25] MEDS: vancomycin HCL 500 MG in 0.9 % Sodium Chloride 100 ML 110 MG IV (18:07)
[2022-02-25] MEDS: Albumin Human 25 % 50 ML 100 ML IV (18:09)
--- NOTE | 2022-02-25 18:29 | PC.NURSE ---
PT ASSESSED IN AM, PATIENT ALERT AND ORIENTED WITH NO CHANGES THROUGHOUT SHIFT. PATIENT GIVEN ALBUMIN 100CC X2 IN AM. SEE EMAR. PATIENT REFUSED POTASSIUM MEDICATION IN AM, INFORMED ON NEED FOR MEDICATION AND CONTINUED TO REFUSE MEDICATION. PATIENT REFUSED SEQUENTIALS, INFORMED ON BENEFITS AND REASON FOR THEM BEING ORDERED, PATIENT CONTINUED TO REFUSE. PATIENT HAD >8 LOOSE BM OVER SHIFT, STOOL SAMPLE OBTAINED AND SENT TO LAB FOR C. DIFF TESTING. RESULTS NEGATIVE. PATIENT BLADDER SCANNED DUE TO NOT VOIDING OVER MAJOR PORTION OF SHIFT, BLADDER SCAN SHOWED 737ML OF URINE IN BLADDER. SHETTY CATHETER INSERT, PATENT AND DRAINING. INITIAL AMOUNT VOIDED 730ML. URINE SAMPLE COLLECTED AND SENT TO LAB, SEE LAB RESULTS. PATIENT ANXIOUS AND COMPLAINING OF INABILITY TO CATCH BREATH, O2 TITRATED UP TO 4L AND SWITCHED FROM NC TO OXYMASK TO CATCH BREATH DUE TO INABILITY TOBREATH THROUGH NOSE. PATIENT LATER SWITCHED BACK TO AND TOLERATING WELL. PATIENT BROUGHT OFF UNIT TO ER CT FOR ABDOMINAL CT. PATIENT TOLERATED CT AND TRANSPORT OF UNIT WELL. PATIENT REMAINED ON TELE AND ACCOMPANIED BY RN. SEE ABD CT REPORT IN CHART. PATIENT BP DROPPED, RESULTING IN A MAP LOW OF 41. LEVOPHED TITRATED FROM 0.08MCG/KG TO 0.24MCG/KG TO MAINTAIN APPROPRIATE MAP GOAL, 1 UNIT RBC GIVEN PATIENT TOLERATED WELL WITH NO SIDE EFFECTS, 250 ML OF LR GIVEN OVER 1 HR. 50CC ALBUMIN GIVEN, PER MD ORDER. SEE EMAR AND TAR. PATIENT BP AND MAP CURRENTLY STABLE AND ABOVE MAP GOAL OF 65. PATIENT FEBRILE WITH TEMP INCREASING TO A TMAX OF 102.7, 650 TYLENOL GIVEN WITH GOOD EFFECT. SEE EMAR PATIENT CUED AND HELPED TO REPOSITION EVERY 2HR, BATHED, ASSISTED WITH TOILETING, INFORMED ON MEDICATIONS AND CURRENT HEALTH STATUS.
[2022-02-25] MEDS: Norepinephrine Bitartrate/D5W 8 MG/250 ML PLAST..BAG 18.32 MG IV (19:03)
--- NOTE | 2022-02-25 20:43 | PM.HEMONCCN ---
Subjective - Subjective Chief complaint: Pulmonary neoplasm Patient: new to practice Consult date: 02/25/22 Primary Care Provider: Unknown Physician HPI - Consult Narrative Reason for consult: Pulmonary tumor Narrative: Kaylee Bustos is a 76 year old female Admitted recently with atelectasis of lung and an endobronchial lesion. She is in the ICU on pressors because she developed hypotension last night. A tissue diagnosis is not available, but lung cancer as he overwhelmingly likely diagnosis in this patient. I will follow her with you. Over the long weekend. Review of Systems - Constitutional Reports anorexia - Eyes Reports other - ENT Reports system reviewed and no additional complaints, except as documented - Cardiovascular Reports shortness of breath when lying down - Respiratory Reports chest congestion, Reports cough, Reports hemoptysis - Gastrointestinal Reports abdominal pain - Genitourinary Reports abnormal periods - Musculoskeletal Reports muscle weakness - Neurologic Reports system reviewed and no additional complaints, except as documented, Reports weakness PMFSH Medical History: Medical History (Last Updated 02/24/22 @ 15:35 by Ankita Redmond MD) Atelectasis of left lung Tobacco use disorder Functional capacity: independent ambulation Family History: Family History (Last Reviewed 02/24/22 @ 15:31 by Ankita Redmond MD) Mother HTN (hypertension) Surgical History: Surgical History (Last Reviewed 02/24/22 @ 15:31 by Ankita Redmond MD) History of appendectomy Social History: Social History (Last Reviewed 02/24/22 @ 15:31 by Ankita Redmond MD) Living Situation History: Household Members: None Housing: House Do you presently have visiting nurse or other home services: No Tobacco History: Patient Tobacco Use Status: Former Tobacco user Cigarette Packs Per Day: 0.75 Smoke Quit Date: two weeks ago; cut down starting 3 months ago; has smoked forever Second Hand Smoke Exposure: No Occupation Assessmet: service: No Home Medications and Allergies Current Medications: Current Medications Acetaminophen (Acetaminophen 325 Mg Tablet) 650 mg PO Q6H PRN PRN Reason: Pain, Mild (Pain Scale 1-3) Last Admin: 02/25/22 15:44 Dose: 650 mg Albuterol Sulfate (Albuterol Sulfate (0.042%) 1.25 Mg/3 Ml Vial.Neb) 1.25 mg INHALE RQ4H PRN PRN Reason: Shortness of Breath Albuterol/Ipratropium (Albuterol/Iprat 2.5/0.5mg 3 Ml Ampul.Neb) 3 ml INHALE RQ6H PRN PRN Reason: Shortness of Breath/Wheezing Docusate Sodium (Docusate Sodium 100 Mg Capsule) 100 mg PO DAILY PRN PRN Reason: Constipation Heparin Sodium (Porcine) (Heparin Sodium,Porcine 5,000 Unit/Ml Vial) 5,000 unit SUBCUT Q12H [facility] Last Admin: 02/25/22 15:34 Dose: 5,000 unit Cefepime HCl 2 gm/ Sodium (Chloride) 50 mls @ 100 mls/hr IV Q12H [facility] Last Infusion: 02/25/22 19:10 Dose: Infused Norepinephrine Bitartrate (Levophed) 8 mg in 250 mls @ 0 mls/hr IV .Q0M [facility]; Protocol Last Titration: 02/25/22 19:27 Dose: 0.26 mcg/kg/min, 19.84 mls/hr Vancomycin HCl 500 mg/ Sodium (Chloride) 110 mls @ 110 mls/hr IV Q12H [facility] Last Infusion: 02/25/22 19:10 Dose: Infused Nicotine Polacrilex (Nicotine Polacrilex 2 Mg Gum) 2 mg BUCCAL Q2H PRN PRN Reason: Nicotine Cravings Ondansetron HCl (Ondansetron Hcl 4 Mg/2 Ml Vial) 4 mg IVPUSH Q8H PRN PRN Reason: Nausea and Vomiting Pharmacy Consult (Consult Rx Perform Med Rec) 1 each MISCELLANE ONCE PRN PRN Reason: Consult order Pharmacy Consult (Consult Rx Vancomycin Dosing) 1 each MISCELLANE DAILY PRN PRN Reason: Consult order Sodium Chloride (0.9 % Sodium Chloride Flush 3 Ml Syringe) 3 ml IVFLUSH QSHIFT [facility] Last Admin: 02/25/22 15:35 Dose: 3 ml Home Medications Medication Instructions Recorded Confirmed Type No Known Home Meds 02/23/22 02/23/22 History Allergies Allergy/AdvReac Type Severity Reaction Status Date / Time Penicillins Allergy Itching Verified 02/23/22 11:53 Sulfa (Sulfonamide Allergy Itching Verified 02/23/22 11:53 Antibiotics) Physical Exam Vital signs: Vital Signs Temp 99.3 F 02/25/22 20:00 Pulse 103 H 02/25/22 20:00 Resp 28 H 02/25/22 20:00 BP 107/65 02/25/22 20:00 Pulse Ox 93 02/25/22 20:00 O2 Del Method 02/25/22 20:00 O2 Flow Rate 3.5 02/25/22 20:00 Intake & Output 02/25/22 02/25/22 02/26/22 06:59 18:59 06:59 Intake Total 2832.687 / 3498.354 1909.571 / 2417.508 507.937 / 2417.508 Output Total 1290 / 1290 925 / 935 10 Balance 1542.687 / 2208.354 984.571 / 1482.508 497.937 / 1482.508 Urine Output (Average ml/kg/hr) 1.19 1.72 0.02 Intake: Intake, Oral Amount 0 / 0 1200 / 1200 Intake (Blood Product) Amount 350 / 350 Red Blood Cells (E0382) Unit 350 / 350 [id number] Intake, Other Amount 300 / 300 Intake, IV Amount 2532.687 / 3198.354 359.571 / 867.508 507.937 / 867.508 0.9 % Sodium Chloride 1,221 ml 1221 / 1221 @ 1221 mls/hr IV .Q1H [facility] Rx#: [id number] Albumin Human 25 % 100 ml @ 100 175 / 175 200 / 200 mls/hr IV Q1H [facility] Rx#: [id number] Albumin Human 25 % 50 ml @ 100 126.667 / 126.667 50 / 50 mls/hr IV ONCE ONE Rx#: [id number] Norepinephrine Bitartrate/D5W 8 10.020 / 10.020 109.571 / 157.508 47.937 / 157.508 mg In 250 ml @ Per Protocol IV .Q0M [facility] Rx#:[id number] cefEPime HCl 2 gm In 0.9 % 50 / 100 50 / 100 Sodium Chloride 50 ml @ 100 mls /hr IV Q12H [facility] Rx#:[id number] vancomycin HCL 500 mg In 0.9 % 110 / 110 Sodium Chloride 100 ml @ 110 mls/hr IV Q12H [facility] Rx#: [id number] Lactated Ringers 1,000 ml @ 80 1000 / 1000 mls/hr IVCONT .[id number] [facility] Rx#: [id number] Lactated Ringers 250 ml @ 250 250 / 250 mls/hr IVCONT .Q1H [facility] Rx#: [id number] Output: Output, Urine Amount 640 / 640 100 / 100 Output, Urine/Stool Mix Amount 650 / 650 Output, Urine Amount (Catheter) 825 / 835 10 / 835 Urethral 825 / 835 10 / 835 Other: Meal Refused No NPO No Breakfast % Eaten 75% Urine Bedside Commode Urine Color Concentrated Yellow Last Bowel Movement 02/25/22 02/25/22 02/25/22 Stool Bedside Commode Incontinent Stool Amount Small Moderate Stool Color Brown Guillaume Stool Consistency Mushy Loose Weight 44.7 kg [place] Weight in Grams 58539 Weight 44.7 kg - Constitutional Present: moderate distress - Routine HEENT Exam Head: Present: atraumatic ENT: Present: mucous membranes moist - Routine Neck Exam Present: supple - Routine Respiratory Exam Present: decreased breath sounds, prolonged expiratory phase - Routine Cardiovascular Exam Cardiovascular: Present: RRR, S1, S2, tachycardia - Routine Abdominal Exam Present: diminished bowel sounds - Routine Extremities Exam Present: normal inspection Hem/Onc Consult Result - Labs CBC & Chem 7: 02/25/22 05:15 02/25/22 05:15 Labs: Short CBC 02/25/22 02/25/22 Range/Units 00:01 05:15 WBC 32.6 H* 29.6 H (4.8-10.8) X10*3/uL Hgb 7.2 L 7.1 L (12.0-16.0) g/dl Hct 22.4 L 22.4 L (37.0-47.0) % Plt Count 716 H 707 H (160-400) X10*3/uL BMP 02/25/22 02/25/22 00:00 05:15 Sodium 137 141 Potassium 3.3 3.3 Chloride 104 106 Carbon Dioxide 23 24 BUN 14 11 Creatinine 0.68 0.63 Calcium 8.0 L 8.2 L Liver Function 02/25/22 02/25/22 Range/Units 00:00 05:15 Total Bilirubin 0.4 0.4 (0.0-1.0) mg/dL AST 18 34 H (5-31) U/L ALT 6 11 (0-31) U/L Alkaline Phosphatase 158 H 218 H (39-117) U/L Albumin 3.0 L 3.3 L (3.5-5.0) g/dL Urine 02/25/22 Range/Units 13:47 Urine Color Yellow Urine Appearance Clear Urine pH 5.5 (5.0-9.0) Ur Specific [place] 1.010 (1.005-1.025) Urine Protein Trace (Neg-Trace) mg/dL Urine Glucose (UA) Negative (Negative) mg/dL Assessment and Plan Patient Active problem list reviewed?: Yes (1) Mass of left lung Status: Acute Assessment and plan: She will need to have her blood pressure and hemodynamics stabilized before an invasive procedure. I would send suction sputum for cytology and performed bronchoscopy with biopsy if her condition permits.I will follow her with you. Over the long weekend. - Time Spent With Patient Time Spent with Patient (in minutes): 20
[2022-02-26] VITALS (38 sets, daily range): BP systolic 74–134; BP diastolic 33–72; PULSE 88–131; RESP 14–37; TEMP 36.9–39.2; O2SAT 92–99; BMI 18.9
[2022-02-26] MEDS: 0.9 % Sodium Chloride Flush 3 ML SYRINGE IVFLUSH ×3 (01:06→16:09)
[2022-02-26] MEDS: Heparin Sodium,Porcine 5,000 UNIT/ML VIAL 5000 UNIT SUBCUT ×3 (01:06→23:57)
[2022-02-26] MEDS: cefEPime HCl 2 GM in 0.9 % Sodium Chloride 50 ML IV ×2 (05:15→17:45)
[2022-02-26] MEDS: vancomycin HCL 500 MG in 0.9 % Sodium Chloride 100 ML 110 MG IV ×2 (05:15→17:50)
[2022-02-26 05:22] LABS: VBG Base Excess 2.6 mmol/L; VBG HCO3 25 mmol/L (22-26); VBG pCO2 33 mmHg; VBG pH 7.49 (7.32-7.43); VBG pO2 45 mmHg
[2022-02-26 05:49] LABS: Basophils Absolute Auto 0.1 X10*3/uL (0.0-0.2); Basophils Percent Auto 0.3 % (0-2); Eosinophils Absolute Auto 0.1 X10*3/uL (0.0-0.4); Eosinophils Percent Auto 0.1 % (0-4); Hematocrit 27.4 % (37.0-47.0); Hemoglobin 8.8 g/dl (12.0-16.0); Imm Gran Abs Auto 0.67 X10*3/uL (0.00-0.03); Imm Gran Pct Auto 1.5 % (0.0-0.4); Lymphocytes Absolute Auto 1.8 X10*3/uL (1.2-4.9); MANUAL DIFF FLAG SCAN; Mean Corpuscular HGB Conc 32.1 g/dl (31.0-35.0); Mean Corpuscular Volume 77.8 fL (80.0-98.0); Mean Platelet Volume 8.9 fL (9.4-12.3); Monocytes Absolute Auto 1.3 X10*3/uL (0.1-1.2); Neutrophils Absolute Auto 40.5 x10*3/uL (2.0-8.3); Neutrophils Percent Auto 91.1 % (45-73); Platelet Count 713 X10*3/uL (160-400); Red Blood Count 3.52 X10*6/uL (4.20-5.50); Red Cell Distribution Width 15.8 % (11.0-16.0); SCAN SMEAR FLAG 1
[2022-02-26 05:50] LABS: Venous Blood Gas Refer to POC result
[2022-02-26 05:51] LABS: White Blood Count 44.5 X10*3/uL (4.8-10.8)
[2022-02-26 06:00] LABS: Lactic Acid 1.2 mmol/L (0.5-2.0)
[2022-02-26 06:06] LABS: Alanine Aminotransferase 19 U/L (0-31); Albumin Level 3.6 g/dL (3.5-5.0); Alkaline Phosphatase 304 U/L (39-117); Anion Gap 16 (12-20); Aspartate Amino Transferase 49 U/L (5-31); Bilirubin Total 1.7 mg/dL (0.0-1.0); Blood Urea Nitrogen 13 mg/dL (9-16); Calcium 8.4 mg/dL (8.4-10.2); Carbon Dioxide 24 mmol/L (22-29); Chloride 101 mmol/L (96-108); Creatinine Clr Calc Pharmacy 58.4; Estimated Glomerular Filt Rate > 60; Glucose Random 83 mg/dL (60-115); Potassium 2.9 mmol/L (3.3-5.1); Sodium 138 mmol/L (135-145); Total Protein 5.8 g/dL (6.5-8.0)
[2022-02-26 06:08] LABS: SLIDE REVIEW VERIFIED
[2022-02-26 06:11] LABS: Albumin Level 3.6 g/dL (3.5-5.0); Anion Gap 15 (12-20); Blood Urea Nitrogen 13 mg/dL (9-16); Calcium 8.4 mg/dL (8.4-10.2); Carbon Dioxide 24 mmol/L (22-29); Chloride 102 mmol/L (96-108); Creatinine Clr Calc Pharmacy 57.4; Estimated Glomerular Filt Rate > 60; Glucose Random 85 mg/dL (60-115); Magnesium 1.2 mg/dL (1.6-2.6); Phosphorus 2.7 mg/dL (2.7-4.5); Potassium 3.1 mmol/L (3.3-5.1); Sodium 138 mmol/L (135-145)
[2022-02-26] MEDS: Acetaminophen 325 MG TABLET 650 MG PO ×2 (06:16→18:17)
[2022-02-26] MEDS: Magnesium Sulfate/H2O 2 GM/50 ML PIGGYBACK IV ×2 (08:02→22:08)
[2022-02-26] MEDS: Potassium Chloride Packet 20 MEQ PACKET 40 MEQ PO (08:02)
[2022-02-26] MEDS: Loperamide HCl 2 MG CAPSULE PO (12:37)
[2022-02-26] MEDS: vancomycin HCL 125 MG CAPSULE PO (12:37)
[2022-02-26] MEDS: Norepinephrine Bitartrate/D5W 8 MG/250 ML PLAST..BAG 13.74 MG IV (12:57)
--- NOTE | 2022-02-26 14:13 | MHC.CM.PN ---
Pt continues care in ICU: presently on pressors for BP control: pt originally from home without services and somewhat limited supports: may require/benefit from STR. Will follow for improvement in functional abilities then have formal evals for detemination of d/c needs - VNA vs STR.
[2022-02-26] MEDS: Lactated Ringers 500 ML 999 ML IV ×2 (14:24→22:09)
[2022-02-26] MEDS: Potassium Chloride/H20 40 MEQ/100 ML PIGGYBACK 30 MEQ IV (14:24)
[2022-02-26] MEDS: Lactated Ringers 1,000 ML 50 ML IVCONT (16:04)
[2022-02-26 16:26] LABS: Vancomycin Random 11.1 mcg/mL (15-20)
--- NOTE | 2022-02-26 16:36 | PM.CCPN ---
Subjective Subjective Date of Service: 02/26/22 Interval History: Mrs Bustos was transferred to ICU on Feb 24 [facility] of hypotension. This is a 76-year-old female without significant PMHx other than being a 50 pack-year smoker, still smoking. The Patient was BIBA to the ED on Feb 23 with c/o SOB x 3-4 weeks, cough with yellow sputum production, low appetite, 20 lb weight loss over past month and easy fatiguability. In the ED, she was tachypneic and tachycardic, but normotensive, w initial Sat 97% on room air.? She was not febrile.? She had no breath sounds on the left.? She had no JVD.? Lab workup was significant for white count 25.4, Hgb 9.2, platelets 792.? Normal lytes, BUN/creat 16/0.6, albumin 3.0.? Respiratory virus panel was negative. CXR showed a complete whiteout of the left lung with leftward mediastinal shift.? F/U chest CT showed a moderate to large pleural effusion with left lung collapse, a soft tissue mass or debris within the left mainstem bronchus resulting in complete occlusion, and a 1 cm solitary nodule in the RLL.? The patient was given IV fluids, vancomycin and Ceftin, and admitted to the Medicine.? She was seen 02/[address] Redmond, and underwent a diagnostic thoracentesis of 500 cc of clear yellow fluid.? Lab analysis was consistent with a transudate.? Pathology is pending. Later that night, the patient became febrile, hypotensive, and bumped her WBC and lactate.? She was given 30 mL/kg fluid plus 100cc 25% albumin without improvement, her BP continued to be in the low to mid 60s, although the patient was asymptomatic, with normal mental status.? She was tx to ICU, lined, and started on Levophed.? Vanco and cefepime were continued.? The Gram stain from the pleural fluid showed 2+ polys, no organisms, culture negative. Yesterday the patient started having diarrhea.? C Diff PCR was negative.? Abdominal CT (done bec of concern that colitis might be the source of her sepsis) showed a segment of the sigmoid w mural thickening, but no inflammatory fat stranding.? My bedside showed hyperdynamic LV fxn, mildly enlarged RV, TV jet 2.5 m/sec, IVC 1.5 cm with > 50% insp collapse.? Hgb was 7.1, weight 44kg, albumin 3.3.? We gave her 1 unit RBCs and crystalloid. Today, she?s more alert, more animated, breathing much easier, and looks nontoxic, albeit obviously chronically ill.? She?s hungry today.? Had diarrhea 5 times.? We gave her Imodium and it stopped.? I echo?d her again today.? IVC measured 1.4 cm with at least 50% insp collapse.? Gave her 500cc LR and put her on LR drip 50cc/hr. HR now down to the 90?s (from 120s yesterday), SR.? BP 105/51 on Levophed 0.2ug.? RR down to 20, w much less MARK turning in bed.? SpO2 high 90s on 3L oxymask. ?CVBG showed 7.49/33/+2. ?Tmax 101.3?.? No JVD at 20-30?.? Chest is CTA bilaterally, with diminished but present BS on the left.? Gooding no tubular sounds.? Normal exp phase.? PMI is at the low LSB.? RRR, w normal-sounding S1 and S2, with no murmur or gallops.? The abdomen is flat and benign.? She has no peripheral edema.? Overall, she is markedly cachectic.? BMI <19. LABORATORY DATA:? Below.? Notably, WBC up to 44, hemoglobin up to 8.8 after transfusion 1 unit RBCs, platelet count 713K.? BUN/creatinine steady, lactic acid 1.2, albumin this morning was 3.6., potassium 3.1, Magnesium 1.2. IMPRESSION:? 1. Gross cachexia with severe PCM. 2. Tobacco abuse. 3. Left lung collapse 2? left mainstem bronchus obstruction.? Needs a bronchoscopy.? Pulmonary has already consulted. 4. Acute resp failure. 2? above.? Doing surprisingly well, all things considered. 5. Overwhelming likelihood that she has a lung cancer.? Cytology from the thoracentesis is pending. 6. Septic shock (fever, hypotension, WBC, lactate, PCT).? The source is not immediately apparent.? Very possibly that it?s not the lung, given that she was clearly not septic on admission, and it didn?t happen until later the next day.? Curiously, she became septic after the thoracentesis (stating the temporal fact).? The other possibility is that it?s GI related, given that she subsequently started having significant diarrhea.? Could the sepsis be related to colitis?? Surprisingly negative for C diff, and the abdom CT didn?t look that bad.? Continuing broad spectrum abx.? Sent a nasal MRSA screen. 7. Diarrhea.? Curious that the diarrhea started after she started on broad spectrum abx.? But it?s not C diff.? Seems to have gotten much better after we gave her Imodium. 8. Anemia. 9. Hypovolemia.? Per the echo.? Giving her more crystalloid. 10. Hypokalemia.? Repleted. 11. Hypomagnesemia. Repleted. Critical Care Time (minutes): 60 Physical Exam Vital Signs: Vital Signs: Last Vital Signs Temp 99.1 F 02/26/22 15:00 Pulse 95 02/26/22 15:00 Resp 25 H 02/26/22 15:00 BP 89/41 L 02/26/22 16:01 Pulse Ox 96 02/26/22 15:00 O2 Del Method 02/26/22 15:00 O2 Flow Rate 3 02/26/22 15:00 BMI result Body Mass Index 18.9 Objective Data Labs CBC & Chem 7: 02/26/22 05:13 02/26/22 05:13 Labs: Laboratory Results - last 24 hr 02/25/22 02/26/22 02/26/22 02:46 05:13 05:13 WBC 44.5 H* RBC 3.52 L D Hgb 8.8 L D Hct 27.4 L D MCV 77.8 L MCH 25.0 L MCHC 32.1 RDW 15.8 Plt Count 713 H MPV 8.9 L Immature Gran % (Auto) 1.5 H Neut % (Auto) 91.1 H Lymph % (Auto) 4.0 L [place] % (Auto) 3.0 Eos % (Auto) 0.1 Baso % (Auto) 0.3 Lymph # (Auto) 1.8 [place] # (Auto) 1.3 H Eos # (Auto) 0.1 Baso # (Auto) 0.1 Abs Immat Gran (auto) 0.67 H Absolute Neuts (auto) 40.5 H Absolute Nucleated RBC 0.000 Nucleated RBC % (auto) 0.0 Smear Tech's Comments VERIFIED VBG pH VBG pCO2 VBG pO2 VBG HCO3 VBG O2 Saturation VBG Base Excess Sodium 138 Potassium 2.9 L Chloride 101 Carbon Dioxide 24 Anion Gap 16 BUN 13 Creatinine 0.56 Estim Creat Clear Calc 58.4 Estimated GFR > 60 Random Glucose 83 Lactic Acid Calcium 8.4 Phosphorus Magnesium Total Bilirubin 1.7 H AST 49 H D ALT 19 Alkaline Phosphatase 304 H D Total Protein 5.8 L Albumin 3.6 Random Vancomycin Blood Type O Negative Antibody Screen NEGATIVE Crossmatch See Detail 02/26/22 02/26/22 02/26/22 05:13 05:13 05:13 WBC Cancelled RBC Cancelled Hgb Cancelled Hct Cancelled MCV Cancelled MCH Cancelled MCHC Cancelled RDW Cancelled Plt Count Cancelled MPV Cancelled Immature Gran % (Auto) Neut % (Auto) Lymph % (Auto) [place] % (Auto) Eos % (Auto) Baso % (Auto) Lymph # (Auto) [place] # (Auto) Eos # (Auto) Baso # (Auto) Abs Immat Gran (auto) Absolute Neuts (auto) Absolute Nucleated RBC Cancelled Nucleated RBC % (auto) Cancelled Smear Tech's Comments VBG pH VBG pCO2 VBG pO2 VBG HCO3 VBG O2 Saturation VBG Base Excess Sodium 138 Potassium 3.1 L Chloride 102 Carbon Dioxide 24 Anion Gap 15 BUN 13 Creatinine 0.57 Estim Creat Clear Calc 57.4 Estimated GFR > 60 Random Glucose 85 Lactic Acid 1.2 Calcium 8.4 Phosphorus 2.7 Magnesium 1.2 L* Total Bilirubin AST ALT Alkaline Phosphatase Total Protein Albumin 3.6 Random Vancomycin Blood Type Antibody Screen Crossmatch 02/26/22 02/26/22 05:14 15:58 WBC RBC Hgb Hct MCV MCH MCHC RDW Plt Count MPV Immature Gran % (Auto) Neut % (Auto) Lymph % (Auto) [place] % (Auto) Eos % (Auto) Baso % (Auto) Lymph # (Auto) [place] # (Auto) Eos # (Auto) Baso # (Auto) Abs Immat Gran (auto) Absolute Neuts (auto) Absolute Nucleated RBC Nucleated RBC % (auto) Smear Tech's Comments VBG pH 7.49 H VBG pCO2 33 VBG pO2 45 VBG HCO3 25 VBG O2 Saturation 76.0 VBG Base Excess 2.6 Sodium Potassium Chloride Carbon Dioxide Anion Gap BUN Creatinine Estim Creat Clear Calc Estimated GFR Random Glucose Lactic Acid Calcium Phosphorus Magnesium Total Bilirubin AST ALT Alkaline Phosphatase Total Protein Albumin Random Vancomycin 11.1 L Blood Type Antibody Screen Crossmatch Microbiology Microbiology Results: Microbiology 02/24/22 15:00 Thoracentesis Fluid Gram Stain - Final 02/24/22 15:00 Thoracentesis Fluid Anaerobic Culture - Preliminary No growth to date. 02/24/22 15:00 Thoracentesis Fluid Body Fluid Culture - Final No growth after 2 days 02/23/22 18:10 Blood - Venous Blood Culture - Preliminary No growth after 48 hours. 02/23/22 18:10 Blood - Venous Blood Culture - Preliminary No growth after 48 hours. Quality Stroke Does the patient have a stroke diagnosis?: No VTE Prior VTE?: No VTE Risk Level:: Medical - moderate - high VTE Device Contraindication: N/A - Device Ordered VTE Drug Contraindication: Treatment Not Indicated Critical Care Time Critical Care Time (minutes): 60
--- NOTE | 2022-02-26 18:44 | PC.NURSE ---
PATIENT ALERT AND ORIENTED X4 ON MORNING ASSESSMENT, NO CHANGES THROUGHOUT SHIFT. PATIENT HAD MULTIPLE WATERY/LOOSE BM, >5, OVER THE COURSE OF THE DAY. IMODIUM GIVEN PRN WITH GOOD EFFECT, SEE EMAR. PATIENT REMAINED HYPOTENSIVE FOR MAJORITY OF THE DAY, LEVOPHED TITRATED FOR 0.06MGC/KG TO 0.2 MCG/KG. 500 ML LR BOLUS GIVEN PER MD WITH GOOD EFFECT SHOWING AN INCREASE IN BP AND MAP. LR GTT STARTED AT 50ML/HR PER MD ORDER. 650 TYLENOL PRN GIVEN DUE TO AN INCREASE IN TEMP. TEMP UPON ADMINISTRATION 102.2. MRSA SWAB COLLECTED AND SENT TO LAB FOR TESTING, PENDING RESULTS. PATIENT BATHED, BED CHANGE COMPLETED, PATIENT UPDATED ON HEALTH STATUS.
[2022-02-26 20:39] LABS: Hematocrit 27.1 % (37.0-47.0); Hemoglobin 8.8 g/dl (12.0-16.0); Mean Corpuscular HGB Conc 32.5 g/dl (31.0-35.0); Mean Corpuscular Hemoglobin 25.4 pg (27.0-33.0); Mean Corpuscular Volume 78.1 fL (80.0-98.0); Mean Platelet Volume 8.8 fL (9.4-12.3); Platelet Count 765 X10*3/uL (160-400); Red Blood Count 3.47 X10*6/uL (4.20-5.50)
[2022-02-26 20:47] LABS: White Blood Count 46.3 X10*3/uL (4.8-10.8)
[2022-02-26 21:00] LABS: Alanine Aminotransferase 16 U/L (0-31); Albumin Level 3.3 g/dL (3.5-5.0); Alkaline Phosphatase 296 U/L (39-117); Anion Gap 13 (12-20); Aspartate Amino Transferase 22 U/L (5-31); Bilirubin Total 0.6 mg/dL (0.0-1.0); Blood Urea Nitrogen 16 mg/dL (9-16); Calcium 8.7 mg/dL (8.4-10.2); Carbon Dioxide 22 mmol/L (22-29); Chloride 104 mmol/L (96-108); Creatinine Clr Calc Pharmacy 50.3; Estimated Glomerular Filt Rate > 60; Glucose Random 117 mg/dL (60-115); Magnesium 1.8 mg/dL (1.6-2.6); Phosphorus 1.6 mg/dL (2.7-4.5); Potassium 4.4 mmol/L (3.3-5.1); Sodium 135 mmol/L (135-145); Total Protein 5.7 g/dL (6.5-8.0)
[2022-02-26] MEDS: Acetaminophen 325 MG TABLET PO (21:07)
[2022-02-26 21:35] LABS: Lactic Acid 2.1 mmol/L (0.5-2.0)
[2022-02-26] MEDS: Sodium,Potassium Phosphates POWD.PACK 2 PACKET PO (22:00)
[2022-02-26] MEDS: Albumin Human 25 % 100 ML IV ×2 (22:02→22:39)
[2022-02-26 22:56] LABS: Reflex Lactate? Lactic Acid Added
[2022-02-26 23:24] LABS: ~Lactic Acid-LAB USE ONLY 1.4 mmol/L (0.5-2.0)
[2022-02-27] VITALS (36 sets, daily range): BP systolic 90–153; BP diastolic 43–77; PULSE 86–115; RESP 20–42; TEMP 36.7–39; O2SAT 90–99; BMI 20.2
[2022-02-27 02:09] LABS: Leukocytes Stool Qualitative NEGATIVE (NEGATIVE)
[2022-02-27] MEDS: Norepinephrine Bitartrate/D5W 8 MG/250 ML PLAST..BAG 21.37 MG IV (02:17)
[2022-02-27] MEDS: 0.9 % Sodium Chloride Flush 3 ML SYRINGE IVFLUSH ×3 (02:19→14:13)
[2022-02-27] MEDS: cefEPime HCl 2 GM in 0.9 % Sodium Chloride 50 ML IV (05:02)
[2022-02-27] MEDS: Loperamide HCl 2 MG CAPSULE PO (05:10)
[2022-02-27] MEDS: vancomycin HCL 500 MG in 0.9 % Sodium Chloride 100 ML 110 MG IV ×2 (05:10→18:14)
[2022-02-27 05:28] LABS: VBG Base Excess 0.7 mmol/L; VBG HCO3 25 mmol/L (22-26); VBG pCO2 38 mmHg; VBG pH 7.41 (7.32-7.43); VBG pO2 63 mmHg
[2022-02-27 05:44] LABS: Hematocrit 25.9 % (37.0-47.0); Hemoglobin 8.4 g/dl (12.0-16.0); Mean Corpuscular HGB Conc 32.4 g/dl (31.0-35.0); Mean Corpuscular Hemoglobin 25.5 pg (27.0-33.0); Mean Corpuscular Volume 78.7 fL (80.0-98.0); Mean Platelet Volume 8.9 fL (9.4-12.3); Platelet Count 670 X10*3/uL (160-400); Red Blood Count 3.29 X10*6/uL (4.20-5.50); Red Cell Distribution Width 16.1 % (11.0-16.0)
[2022-02-27 05:50] LABS: White Blood Count 38.5 X10*3/uL (4.8-10.8)
[2022-02-27 05:58] LABS: Lactic Acid 1.3 mmol/L (0.5-2.0)
[2022-02-27 06:02] LABS: Creatinine Clr Calc Pharmacy 57.4; Estimated Glomerular Filt Rate > 60
[2022-02-27 06:09] LABS: Alanine Aminotransferase 13 U/L (0-31); Albumin Level 3.8 g/dL (3.5-5.0); Alkaline Phosphatase 290 U/L (39-117); Anion Gap 14 (12-20); Aspartate Amino Transferase 24 U/L (5-31); Bilirubin Total 0.8 mg/dL (0.0-1.0); Blood Urea Nitrogen 13 mg/dL (9-16); Calcium 8.6 mg/dL (8.4-10.2); Carbon Dioxide 25 mmol/L (22-29); Chloride 104 mmol/L (96-108); Creatinine Clr Calc Pharmacy 55.4; Estimated Glomerular Filt Rate > 60; Glucose Random 107 mg/dL (60-115); Phosphorus 2.6 mg/dL (2.7-4.5); Potassium 4.1 mmol/L (3.3-5.1); Sodium 139 mmol/L (135-145)
[2022-02-27 06:27] LABS: Procalcitonin 56.57 ng/mL
[2022-02-27] MEDS: Sodium,Potassium Phosphates POWD.PACK 2 PACKET PO ×2 (06:29→09:12)
[2022-02-27 09:03] LABS: Venous Blood Gas Refer to POC result
[2022-02-27] MEDS: Acetaminophen 325 MG TABLET 650 MG PO ×2 (09:35→18:14)
[2022-02-27 09:58] LABS: Appearance Urine Cloudy; Color Urine Yellow; Glucose Urine UA Negative (Negative); Leukocyte Esterase Urine Trace (Negative); Nitrite Urine Negative (Negative); PH 5.5 (5.0-9.0); Specific Gravity - Urine 1.015 (1.005-1.025); UMIC TRIGGER UA YES; UMIC TRIGGER UACC YES; Urine Blood Trace (Negative); Urine Ketones Negative (Negative); Urine Protein 30 (1+) mg/dL (Neg-Trace)
[2022-02-27 10:05] LABS: Bacteria Urine None Seen (None Seen); Granular Casts Urine Present; Squamous Epithelial Cell Urine 0-2 /HPF (0-2); WBC Urine 0-5 /HPF (0-5)
[2022-02-27 10:10] LABS: Gamma Glutamyl Transpeptidase 50 U/L (7-33)
[2022-02-27] MEDS: metroNIDAZOLE/NS 500 MG/100 ML PIGGYBACK 100 MG IV ×2 (10:58→17:41)
[2022-02-27] MEDS: levoFLOXacin/D5W 500 MG/100 ML PIGGYBACK 100 MG IV (10:58)
[2022-02-27] MEDS: Lactated Ringers 1,000 ML 50 ML IVCONT (11:00)
[2022-02-27] MEDS: Heparin Sodium,Porcine 5,000 UNIT/ML VIAL 5000 UNIT SUBCUT (12:04)
[2022-02-27 12:15] LABS: MRSA Nasal PCR NEGATIVE (Negative); SA Nasal PCR NEGATIVE (Negative)
--- NOTE | 2022-02-27 12:45 | PM.CCPN ---
Subjective Subjective Date of Service: 02/27/22 Interval History: 76-year-old female lifelong smoker and continued smoker presents with increasing dyspnea found to have an at and obstructing lesion involving the left mainstem bronchus with atelectasis of the left lung and significant pleural effusion and thus far an exudate of effusion with a nearly 3000 white count mostly lymphocytic and and the total protein and LDH exceeding criteria in 0 for exudate but no growth of organisms thus far although she continues to spike fever and have what looks like clinical bacteremia versus viremia episodes and still requires low-dose of Levophed but is has preserve urine output preserved renal function and definitely feels like her work of breathing is increased but she has compensated oxygen saturation at this point on a OxyMask For her temperature spike of 102 I re-cultured her completely and because she has got very frequent diarrhea like bowel movements I do know if this is some form of paraneoplastic manifestation but are capability for working of stools very limited all I was able to do a send off a PCR panel I do not believe this is going to be of infectious origin and the C diff is negative given her 1 dose of at least of Levaquin and putting her on maintenance metronidazole to try to specifically keep away from what she is known to be allergic to which is penicillin and sulfa and I might need to give her either linezolid or or vancomycin What she needs is either cytology from the thoracentesis but definitely I think endobronchial sampling possible reestablishment of patency to that airway at least for the time being but ultimately she might need Interventional Radiology of at least a stent placement and then depending on what the biopsy shows possible radiotherapy or chemotherapy Bedside echo demonstrating normal LV function some degree of right ventricular dilatation but could repeat a right heart function and and by tricuspid velocity no measurable degree of pulmonary hypertension no other primary valve or pericardial disease Critical Care Time (minutes): 45 Physical Exam Vital Signs: Vital Signs: Last Vital Signs Temp 99.7 F 02/27/22 11:49 Pulse 98 02/27/22 11:49 Resp 29 H 02/27/22 11:49 BP 94/49 L 02/27/22 11:57 Pulse Ox 99 02/27/22 11:49 O2 Del Method 02/27/22 11:49 O2 Flow Rate 2 02/27/22 11:49 BMI result Body Mass Index 20.2 Blood pressure 96/47 with a mean of 73 compensated oxygen saturation without accessory muscle use at 96% and heart rate 92 in sinus rhythm Cachectic appearing no focal neurologic issue Neck veins flat and inferior vena cava is normal caliber with normal inspiratory collapse Abdomen soft nontender no again a megaly Absent breath sounds on the left side dull to percussion Objective Data Labs CBC & Chem 7: 02/27/22 05:07 02/27/22 05:07 Labs: Laboratory Results - last 24 hr 02/26/22 02/26/22 02/26/22 15:58 17:16 20:19 WBC 46.3 H* RBC 3.47 L Hgb 8.8 L Hct 27.1 L MCV 78.1 L MCH 25.4 L MCHC 32.5 RDW 16.0 Plt Count 765 H MPV 8.8 L Absolute Nucleated RBC 0.000 Nucleated RBC % (auto) 0.0 VBG pH VBG pCO2 VBG pO2 VBG HCO3 VBG O2 Saturation VBG Base Excess Sodium Potassium Chloride Carbon Dioxide Anion Gap BUN Creatinine Estim Creat Clear Calc Estimated GFR Random Glucose Lactic Acid Lactic Acid F/U @ 2Hr Calcium Phosphorus Magnesium Total Bilirubin GGT AST ALT Alkaline Phosphatase Total Protein Albumin Procalcitonin Urine Color Urine Appearance Urine pH Ur Specific [place] Urine Protein Urine Glucose (UA) Urine Ketones Urine Blood Urine Nitrite Ur Leukocyte Esterase Urine RBC Urine WBC Ur Squamous Epith Cells Urine Bacteria Hyaline Casts Granular Casts Nasal Screen MRSA (PCR) NEGATIVE Nasal S. aureus Screen NEGATIVE Nasal MRSA/S.aureus Interp SEE NOTE Stool Leukocytes, Qual Random Vancomycin 11.1 L 02/26/22 02/26/22 02/26/22 20:19 20:44 23:03 WBC RBC Hgb Hct MCV MCH MCHC RDW Plt Count MPV Absolute Nucleated RBC Nucleated RBC % (auto) VBG pH VBG pCO2 VBG pO2 VBG HCO3 VBG O2 Saturation VBG Base Excess Sodium 135 Potassium 4.4 D Chloride 104 Carbon Dioxide 22 Anion Gap 13 BUN 16 Creatinine 0.65 Estim Creat Clear Calc 50.3 Estimated GFR > 60 Random Glucose 117 H Lactic Acid 2.1 H* Lactic Acid F/U @ 2Hr 1.4 Calcium 8.7 Phosphorus 1.6 L Magnesium 1.8 Total Bilirubin 0.6 GGT AST 22 ALT 16 Alkaline Phosphatase 296 H Total Protein 5.7 L Albumin 3.3 L Procalcitonin Urine Color Urine Appearance Urine pH Ur Specific [place] Urine Protein Urine Glucose (UA) Urine Ketones Urine Blood Urine Nitrite Ur Leukocyte Esterase Urine RBC Urine WBC Ur Squamous Epith Cells Urine Bacteria Hyaline Casts Granular Casts Nasal Screen MRSA (PCR) Nasal S. aureus Screen Nasal MRSA/S.aureus Interp Stool Leukocytes, Qual Random Vancomycin 02/27/22 02/27/22 02/27/22 01:30 05:07 05:07 WBC 38.5 H* RBC 3.29 L Hgb 8.4 L Hct 25.9 L MCV 78.7 L MCH 25.5 L MCHC 32.4 RDW 16.1 H Plt Count 670 H MPV 8.9 L Absolute Nucleated RBC 0.000 Nucleated RBC % (auto) 0.0 VBG pH VBG pCO2 VBG pO2 VBG HCO3 VBG O2 Saturation VBG Base Excess Sodium 139 Potassium 4.1 Chloride 104 Carbon Dioxide 25 Anion Gap 14 BUN 13 Creatinine 0.59 Estim Creat Clear Calc 55.4 Estimated GFR > 60 Random Glucose 107 Lactic Acid Lactic Acid F/U @ 2Hr Calcium 8.6 Phosphorus 2.6 L Magnesium 2.0 Total Bilirubin 0.8 GGT AST 24 D ALT 13 Alkaline Phosphatase 290 H Total Protein 6.0 L Albumin 3.8 Procalcitonin Urine Color Urine Appearance Urine pH Ur Specific [place] Urine Protein Urine Glucose (UA) Urine Ketones Urine Blood Urine Nitrite Ur Leukocyte Esterase Urine RBC Urine WBC Ur Squamous Epith Cells Urine Bacteria Hyaline Casts Granular Casts Nasal Screen MRSA (PCR) Nasal S. aureus Screen Nasal MRSA/S.aureus Interp Stool Leukocytes, Qual NEGATIVE Random Vancomycin 02/27/22 02/27/22 02/27/22 05:07 05:07 05:07 WBC RBC Hgb Hct MCV MCH MCHC RDW Plt Count MPV Absolute Nucleated RBC Nucleated RBC % (auto) VBG pH VBG pCO2 VBG pO2 VBG HCO3 VBG O2 Saturation VBG Base Excess Sodium Potassium Chloride Carbon Dioxide Anion Gap BUN Creatinine 0.57 Estim Creat Clear Calc 57.4 Estimated GFR > 60 Random Glucose Lactic Acid 1.3 Lactic Acid F/U @ 2Hr Calcium Phosphorus Magnesium Total Bilirubin GGT AST ALT Alkaline Phosphatase Total Protein Albumin Procalcitonin 56.57 Urine Color Urine Appearance Urine pH Ur Specific [place] Urine Protein Urine Glucose (UA) Urine Ketones Urine Blood Urine Nitrite Ur Leukocyte Esterase Urine RBC Urine WBC Ur Squamous Epith Cells Urine Bacteria Hyaline Casts Granular Casts Nasal Screen MRSA (PCR) Nasal S. aureus Screen Nasal MRSA/S.aureus Interp Stool Leukocytes, Qual Random Vancomycin 02/27/22 02/27/22 02/27/22 05:21 09:41 09:41 WBC RBC Hgb Hct MCV MCH MCHC RDW Plt Count MPV Absolute Nucleated RBC Nucleated RBC % (auto) VBG pH 7.41 VBG pCO2 38 VBG pO2 63 VBG HCO3 25 VBG O2 Saturation 89.0 VBG Base Excess 0.7 Sodium Potassium Chloride Carbon Dioxide Anion Gap BUN Creatinine Estim Creat Clear Calc Estimated GFR Random Glucose Lactic Acid Lactic Acid F/U @ 2Hr Calcium Phosphorus Magnesium Total Bilirubin GGT 50 H AST ALT Alkaline Phosphatase Total Protein Albumin Procalcitonin Urine Color Yellow Urine Appearance Cloudy Urine pH 5.5 Ur Specific [place] 1.015 Urine Protein 30 (1+) H Urine Glucose (UA) Negative Urine Ketones Negative Urine Blood Trace H Urine Nitrite Negative Ur Leukocyte Esterase Trace H Urine RBC 6-10 H Urine WBC 0-5 Ur Squamous Epith Cells 0-2 Urine Bacteria None Seen Hyaline Casts 11-20 Granular Casts Present Nasal Screen MRSA (PCR) Nasal S. aureus Screen Nasal MRSA/S.aureus Interp Stool Leukocytes, Qual Random Vancomycin Microbiology Microbiology Results: Microbiology 02/24/22 15:00 Thoracentesis Fluid Gram Stain - Final 02/24/22 15:00 Thoracentesis Fluid Anaerobic Culture - Preliminary No growth to date. 02/24/22 15:00 Thoracentesis Fluid Body Fluid Culture - Final No growth after 2 days 02/23/22 18:10 Blood - Venous Blood Culture - Preliminary No growth after 48 hours. 02/23/22 18:10 Blood - Venous Blood Culture - Preliminary No growth after 48 hours. Progress Note: A&P Assessment and plan (1) Cancer cachexia: Status: Acute (2) Diarrhea: Status: Acute Plan So at this point we will cover her as a postobstructive pneumonia and I might consider giving her at least 1 dose of caps often gin and the that is in addition to the Levaquin and metronidazole and possibly vancomycin and thus far we have scheduled for tomorrow bronchoscopy and we await the cytology from the thoracentesis Quality Stroke Does the patient have a stroke diagnosis?: No VTE Prior VTE?: No VTE Risk Level:: Medical - moderate - high VTE Device Contraindication: N/A - Device Ordered VTE Drug Contraindication: Treatment Not Indicated
--- NOTE | 2022-02-27 13:07 | PM.PNPUL ---
Subjective Subjective Date of Service: 02/27/22 Interval history: The patient was seen on exam. Currently on couple L of oxygen and requiring vasopressors for hypotension she also has a fever. We did talk about the findings on the CT scan in the obstruction of the left mainstem bronchus. The patient is agreeable to a bronchoscopy. I did recommend doing it awake with local anesthesia to minimize adverse effects. Otherwise patient will need to be intubated and the patient will have a high risk for having difficulties liberating from the ventilator afterwards. Will plan to reassess tomorrow for potential bronchoscopy tomorrow in the ICU. Objective Data Labs CBC & Chem 7: 02/27/22 05:07 02/27/22 05:07 Labs: Laboratory Results - last 24 hr 02/26/22 02/26/22 02/26/22 15:58 17:16 20:19 WBC 46.3 H* RBC 3.47 L Hgb 8.8 L Hct 27.1 L MCV 78.1 L MCH 25.4 L MCHC 32.5 RDW 16.0 Plt Count 765 H MPV 8.8 L Absolute Nucleated RBC 0.000 Nucleated RBC % (auto) 0.0 VBG pH VBG pCO2 VBG pO2 VBG HCO3 VBG O2 Saturation VBG Base Excess Sodium Potassium Chloride Carbon Dioxide Anion Gap BUN Creatinine Estim Creat Clear Calc Estimated GFR Random Glucose Lactic Acid Lactic Acid F/U @ 2Hr Calcium Phosphorus Magnesium Total Bilirubin GGT AST ALT Alkaline Phosphatase Total Protein Albumin Procalcitonin Urine Color Urine Appearance Urine pH Ur Specific [place] Urine Protein Urine Glucose (UA) Urine Ketones Urine Blood Urine Nitrite Ur Leukocyte Esterase Urine RBC Urine WBC Ur Squamous Epith Cells Urine Bacteria Hyaline Casts Granular Casts Nasal Screen MRSA (PCR) NEGATIVE Nasal S. aureus Screen NEGATIVE Nasal MRSA/S.aureus Interp SEE NOTE Stool Leukocytes, Qual Random Vancomycin 11.1 L 02/26/22 02/26/22 02/26/22 20:19 20:44 23:03 WBC RBC Hgb Hct MCV MCH MCHC RDW Plt Count MPV Absolute Nucleated RBC Nucleated RBC % (auto) VBG pH VBG pCO2 VBG pO2 VBG HCO3 VBG O2 Saturation VBG Base Excess Sodium 135 Potassium 4.4 D Chloride 104 Carbon Dioxide 22 Anion Gap 13 BUN 16 Creatinine 0.65 Estim Creat Clear Calc 50.3 Estimated GFR > 60 Random Glucose 117 H Lactic Acid 2.1 H* Lactic Acid F/U @ 2Hr 1.4 Calcium 8.7 Phosphorus 1.6 L Magnesium 1.8 Total Bilirubin 0.6 GGT AST 22 ALT 16 Alkaline Phosphatase 296 H Total Protein 5.7 L Albumin 3.3 L Procalcitonin Urine Color Urine Appearance Urine pH Ur Specific [place] Urine Protein Urine Glucose (UA) Urine Ketones Urine Blood Urine Nitrite Ur Leukocyte Esterase Urine RBC Urine WBC Ur Squamous Epith Cells Urine Bacteria Hyaline Casts Granular Casts Nasal Screen MRSA (PCR) Nasal S. aureus Screen Nasal MRSA/S.aureus Interp Stool Leukocytes, Qual Random Vancomycin 02/27/22 02/27/22 02/27/22 01:30 05:07 05:07 WBC 38.5 H* RBC 3.29 L Hgb 8.4 L Hct 25.9 L MCV 78.7 L MCH 25.5 L MCHC 32.4 RDW 16.1 H Plt Count 670 H MPV 8.9 L Absolute Nucleated RBC 0.000 Nucleated RBC % (auto) 0.0 VBG pH VBG pCO2 VBG pO2 VBG HCO3 VBG O2 Saturation VBG Base Excess Sodium 139 Potassium 4.1 Chloride 104 Carbon Dioxide 25 Anion Gap 14 BUN 13 Creatinine 0.59 Estim Creat Clear Calc 55.4 Estimated GFR > 60 Random Glucose 107 Lactic Acid Lactic Acid F/U @ 2Hr Calcium 8.6 Phosphorus 2.6 L Magnesium 2.0 Total Bilirubin 0.8 GGT AST 24 D ALT 13 Alkaline Phosphatase 290 H Total Protein 6.0 L Albumin 3.8 Procalcitonin Urine Color Urine Appearance Urine pH Ur Specific [place] Urine Protein Urine Glucose (UA) Urine Ketones Urine Blood Urine Nitrite Ur Leukocyte Esterase Urine RBC Urine WBC Ur Squamous Epith Cells Urine Bacteria Hyaline Casts Granular Casts Nasal Screen MRSA (PCR) Nasal S. aureus Screen Nasal MRSA/S.aureus Interp Stool Leukocytes, Qual NEGATIVE Random Vancomycin 02/27/22 02/27/22 02/27/22 05:07 05:07 05:07 WBC RBC Hgb Hct MCV MCH MCHC RDW Plt Count MPV Absolute Nucleated RBC Nucleated RBC % (auto) VBG pH VBG pCO2 VBG pO2 VBG HCO3 VBG O2 Saturation VBG Base Excess Sodium Potassium Chloride Carbon Dioxide Anion Gap BUN Creatinine 0.57 Estim Creat Clear Calc 57.4 Estimated GFR > 60 Random Glucose Lactic Acid 1.3 Lactic Acid F/U @ 2Hr Calcium Phosphorus Magnesium Total Bilirubin GGT AST ALT Alkaline Phosphatase Total Protein Albumin Procalcitonin 56.57 Urine Color Urine Appearance Urine pH Ur Specific [place] Urine Protein Urine Glucose (UA) Urine Ketones Urine Blood Urine Nitrite Ur Leukocyte Esterase Urine RBC Urine WBC Ur Squamous Epith Cells Urine Bacteria Hyaline Casts Granular Casts Nasal Screen MRSA (PCR) Nasal S. aureus Screen Nasal MRSA/S.aureus Interp Stool Leukocytes, Qual Random Vancomycin 02/27/22 02/27/22 02/27/22 05:21 09:41 09:41 WBC RBC Hgb Hct MCV MCH MCHC RDW Plt Count MPV Absolute Nucleated RBC Nucleated RBC % (auto) VBG pH 7.41 VBG pCO2 38 VBG pO2 63 VBG HCO3 25 VBG O2 Saturation 89.0 VBG Base Excess 0.7 Sodium Potassium Chloride Carbon Dioxide Anion Gap BUN Creatinine Estim Creat Clear Calc Estimated GFR Random Glucose Lactic Acid Lactic Acid F/U @ 2Hr Calcium Phosphorus Magnesium Total Bilirubin GGT 50 H AST ALT Alkaline Phosphatase Total Protein Albumin Procalcitonin Urine Color Yellow Urine Appearance Cloudy Urine pH 5.5 Ur Specific [place] 1.015 Urine Protein 30 (1+) H Urine Glucose (UA) Negative Urine Ketones Negative Urine Blood Trace H Urine Nitrite Negative Ur Leukocyte Esterase Trace H Urine RBC 6-10 H Urine WBC 0-5 Ur Squamous Epith Cells 0-2 Urine Bacteria None Seen Hyaline Casts 11-20 Granular Casts Present Nasal Screen MRSA (PCR) Nasal S. aureus Screen Nasal MRSA/S.aureus Interp Stool Leukocytes, Qual Random Vancomycin Microbiology Microbiology Results: Microbiology 02/24/22 15:00 Thoracentesis Fluid Gram Stain - Final 02/24/22 15:00 Thoracentesis Fluid Anaerobic Culture - Preliminary No growth to date. 02/24/22 15:00 Thoracentesis Fluid Body Fluid Culture - Final No growth after 2 days 02/23/22 18:10 Blood - Venous Blood Culture - Preliminary No growth after 48 hours. 02/23/22 18:10 Blood - Venous Blood Culture - Preliminary No growth after 48 hours. Review of Systems Constitutional: Denies chills, Denies fever(s), Reports poor appetite and Reports weight loss Denies dizziness Cardiovascular: Denies chest pain, Denies palpitations, Reports dyspnea on exertion and Denies orthopnea Respiratory: Reports cough and Reports dyspnea on exertion Gastrointestinal: Denies abdominal pain Denies dizziness Endocrine: Denies palpitations Physical Exam Vital Signs: Vital Signs: Last Vital Signs Temp 98.2 F 02/27/22 13:00 Pulse 90 02/27/22 13:00 Resp 27 H 02/27/22 13:00 BP 92/46 L 02/27/22 13:00 Pulse Ox 95 02/27/22 13:00 O2 Del Method 02/27/22 13:00 O2 Flow Rate 2 02/27/22 13:00 BMI result Body Mass Index 20.2 Const: General: cooperative, comfortable, alert and awake Nutritional Appearance: thin Orientation/consciousness: patient oriented x3 Resp: Other: right lung clear; left side diminished Effort & Inspection: able to speak in complete sentences and no respiratory distress Auscultation: diminished lung sounds Cardio: Heart sounds: S1 normal heart sound present and S2 normal heart sound present GI: Inspection: No distended Palpation (GI): Soft to palpation Neuro: General: patient oriented x3 and CN's II-XI intact bilaterally Extrem: General: Yes no pedal edema Procedures Date of Service Date of Service: 02/27/22 Assessment and Plan Assessment and plan (1) Mass of left lung: Status: Acute (2) Pleural effusion, left: Status: Acute (3) Atelectasis of left lung: Status: Acute (4) Dyspnea: Status: Acute (5) Pneumonia: Status: Acute Plan The patient 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 It is close to the main crystal. Also has spoken lymphadenopathy in the subcarinal lymph nodes. Concerning for very aggressive process. Status post thoracentesis awaiting for cytology. We can also perform bronchoscopy with direct visualization of the endobronchial lesion for biopsy hopefully opening of the area. It is difficult to know how much the patient will tolerate with the degree of obstruction that she has. Will consider a brief bronchoscopy for visualization of the area. Recommendations: Continue workup for fevers and hypotension Once the patient is stabilized will consider bronchoscopy Antibiotic coverage to treat for postobstructive pneumonia Nasal cannula to maintain a pulse ox above 90% Time Spent With Patient Time: Total time managing care of this patient today ____ minutes. Progress Note: Quality Stroke Does the patient have a stroke diagnosis?: No
--- NOTE | 2022-02-27 13:31 | PM.HEMONCPN ---
Medical Summary - Medical Summary Date of Service: 02/27/22 Medical Summary: She is much improved today. She is more alert and awake and capable of eating. She remains on the levophed but is breathing comfortably on oxygen. Interval History Interval history: Kaylee Bustos is a 76 year old female Admitted recently with atelectasis of lung and an endobronchial lesion. She is in the ICU on pressors because she developed hypotension last night. A tissue diagnosis is not available, but lung cancer as he overwhelmingly likely diagnosis in this patient. I will follow her with you. Over the long weekend.She is waiting for a bronchoscopy to provide a tissue diagnosis Fat[place] guide therapy. Review of Systems - Constitutional Reports anorexia - ENT Reports system reviewed and no additional complaints, except as documented - Cardiovascular Reports fast heart rate - Respiratory Reports chest congestion, Reports cough, Reports hemoptysis - Gastrointestinal Reports feeling full early - Genitourinary Reports other - Neurologic Reports system reviewed and no additional complaints, except as documented, Reports weakness PMFSH Medical History: Medical History (Last Updated 02/24/22 @ 15:35 by Ankita Redmond MD) Atelectasis of left lung Tobacco use disorder Functional capacity: independent ambulation Family History: Family History (Last Reviewed 02/24/22 @ 15:31 by Ankita Redmond MD) Mother HTN (hypertension) Surgical History: Surgical History (Last Reviewed 02/24/22 @ 15:31 by Ankita Redmond MD) History of appendectomy Social History: Social History (Last Reviewed 02/24/22 @ 15:31 by Ankita Redmond MD) Living Situation History: Household Members: None Housing: House Do you presently have visiting nurse or other home services: No Tobacco History: Patient Tobacco Use Status: Former Tobacco user Cigarette Packs Per Day: 0.75 Smoke Quit Date: two weeks ago; cut down starting 3 months ago; has smoked forever Second Hand Smoke Exposure: No Occupation Assessmet: service: No Home Medications and Allergies Current Medications: Current Medications Acetaminophen (Acetaminophen 325 Mg Tablet) 650 mg PO Q6H PRN PRN Reason: Pain, Mild (Pain Scale 1-3) Last Admin: 02/27/22 09:35 Dose: 650 mg Albuterol Sulfate (Albuterol Sulfate (0.042%) 1.25 Mg/3 Ml Vial.Neb) 1.25 mg INHALE RQ4H PRN PRN Reason: Shortness of Breath Albuterol/Ipratropium (Albuterol/Iprat 2.5/0.5mg 3 Ml Ampul.Neb) 3 ml INHALE RQ6H PRN PRN Reason: Shortness of Breath/Wheezing Docusate Sodium (Docusate Sodium 100 Mg Capsule) 100 mg PO DAILY PRN PRN Reason: Constipation Heparin Sodium (Porcine) (Heparin Sodium,Porcine 5,000 Unit/Ml Vial) 5,000 unit SUBCUT Q12H [facility] Last Admin: 02/27/22 12:04 Dose: 5,000 unit Norepinephrine Bitartrate (Levophed) 8 mg in 250 mls @ 0 mls/hr IV .Q0M [facility]; Protocol Last Titration: 02/27/22 11:57 Dose: 0.24 mcg/kg/min, 18.32 mls/hr Lactated Ringer's (Lr) 500 mls @ 999 mls/hr IV .Q31M [facility] Last Infusion: 02/26/22 15:05 Dose: Infused Lactated Ringer's (Lr) 1,000 mls @ 100 mls/hr IVCONT .Q10H [facility] Last Infusion: 02/27/22 12:43 Dose: 75 mls/hr Metronidazole (Flagyl) 500 mg in 100 mls @ 100 mls/hr IV Q8H [facility] Last Infusion: 02/27/22 12:14 Dose: Infused Caspofungin 70 mg/ Sodium (Chloride) 250 mls @ 250 mls/hr IV ONCE ONE Stop: 02/27/22 13:52 Vancomycin HCl 500 mg/ Sodium (Chloride) 110 mls @ 110 mls/hr IV ONCE ONE Stop: 02/27/22 18:59 Loperamide HCl (Loperamide Hcl 2 Mg Capsule) 2 mg PO Q6H PRN PRN Reason: Diarrhea Last Admin: 02/27/22 05:10 Dose: 2 mg Nicotine Polacrilex (Nicotine Polacrilex 2 Mg Gum) 2 mg BUCCAL Q2H PRN PRN Reason: Nicotine Cravings Pharmacy Consult (Consult Rx Perform Med Rec) 1 each MISCELLANE ONCE PRN PRN Reason: Consult order Sodium Chloride (0.9 % Sodium Chloride Flush 3 Ml Syringe) 3 ml IVFLUSH QSHIFT [facility] Last Admin: 02/27/22 09:12 Dose: 3 ml Home Medications Medication Instructions Recorded Confirmed Type No Known Home Meds 02/23/22 02/23/22 History Allergies Allergy/AdvReac Type Severity Reaction Status Date / Time Penicillins Allergy Itching Verified 02/23/22 11:53 Sulfa (Sulfonamide Allergy Itching Verified 02/23/22 11:53 Antibiotics) Exam Vital signs: Vital Signs Temp 98.2 F 02/27/22 13:00 Pulse 90 02/27/22 13:00 Resp 27 H 02/27/22 13:00 BP 92/46 L 02/27/22 13:00 Pulse Ox 95 02/27/22 13:00 O2 Del Method 02/27/22 13:00 O2 Flow Rate 2 02/27/22 13:00 Intake & Output 02/26/22 02/27/22 02/27/22 18:59 06:59 18:59 Intake Total 1104.151 / 2836.644 1732.493 / 2836.644 1503.970 / 1503.970 Output Total 445 / 2020 1445 / 2020 480 / 480 Balance 659.151 / 816.644 287.493 / 183.731 0589.970 / 1023.970 Urine Output (Average ml/kg/hr) 0.84 2.56 0.85 Intake: Intake, Oral Amount 180 / 760 580 / 760 180 / 180 Intake, IV Amount 924.151 / 2076.644 1152.493 / 2076.644 1323.970 / 1323.970 Albumin Human 25 % 100 ml @ 100 200 / 200 mls/hr IV Q1H [facility] Rx#: [id number] Lactated Ringers 500 ml @ 999 500 / 1000 500 / 1000 mls/hr IV .Q31M [facility] Rx#: [id number] Magnesium Sulfate/H2O 2 gm In 50 / 100 50 / 100 50 ml @ 25 mls/hr IV ONCE ONE Rx#:[id number] Norepinephrine Bitartrate/D5W 8 114.151 / 356.644 242.493 / 356.644 91.470 / 91.470 mg In 250 ml @ Per Protocol IV .Q0M [facility] Rx#:[id number] Potassium Chloride/H20 40 meq 100 / 100 In 100 ml @ 30 mls/hr IV ONCE ONE Rx#:[id number] cefEPime HCl 2 gm In 0.9 % 50 / 100 50 / 100 Sodium Chloride 50 ml @ 100 mls /hr IV Q12H [facility] Rx#:[id number] levoFLOXacin/D5W 500 mg In 100 100 / 100 ml @ 100 mls/hr IV ONCE ONE Rx# :[id number] metroNIDAZOLE/NS 500 mg In 100 100 / 100 ml @ 100 mls/hr IV Q8H [facility] Rx#: [id number] vancomycin HCL 500 mg In 0.9 % 110 / 220 110 / 220 Sodium Chloride 100 ml @ 110 mls/hr IV Q12H [facility] Rx#: [id number] Lactated Ringers 1,000 ml @ 75 1032.500 / 1032.500 mls/hr IVCONT .[id number] [facility] Rx#: [id number] Output: Output, Urine Amount (Catheter) 445 / 2019 1445 / 2020 480 / 480 Urethral 445 / 2019 1445 / 2020 480 / 480 Other: NPO No Breakfast % Eaten 50% Number of Bowel Movements 1 1 Urine Baptiste Urine Color Roseanna Pale Yellow Last Bowel Movement 02/26/22 02/27/22 02/27/22 Stool Bedpan Bedpan Incontinent Stool Amount Moderate Moderate Small Stool Color Brown Brown Mucousy Stool Consistency Liquid Loose Loose Weight 47.1 kg [place] Weight in Grams 76058 Weight 47.1 kg BMI result Body Mass Index 20.2 - Constitutional Present: moderate distress - Routine HEENT Exam Head: Present: atraumatic - Routine Neck Exam Present: full ROM - Routine Respiratory Exam Present: decreased breath sounds, prolonged expiratory phase, rhonchi - Routine Cardiovascular Exam Cardiovascular: Present: RRR, S1, S2, tachycardia - Routine Abdominal Exam Present: diminished bowel sounds - Routine Extremities Exam Present: normal inspection Data - Labs CBC & Chem 7: 02/27/22 05:07 02/27/22 05:07 Labs: 02/23/22 12:04 ECG 12 lead EKG Stat EKG Documentation DIRECTED IV insert/maintain .Now 02/23/22 12:05 XR chest 1V Stat 02/23/22 12:34 VBG [Venous Blood Gas] Stat 02/23/22 12:46 BNP [B Type Natriuretic Peptide] Stat Carcinoembryonic Antigen Stat Complete Blood Count Auto Diff Stat Comprehensive Met. Panel Stat Lactate Dehydrogenase Stat Prothrombin Time INR Stat SARS-CoV2/FLU/RSV Stat SLIDE REVIEW Stat Troponin-I High Sensitivity Stat 02/23/22 12:51 Venous Blood Gases - POC Routine 02/23/22 12:59 CT chest wo IV con Stat 02/23/22 14:00 Regular Diet 02/23/22 16:05 Add Laboratory Test Stat 02/23/22 17:30 cefEPime HCl [Maxipime] 2 gm 0.9 % Sodium Chloride [Ns] 50 ml IV Q12H vancomycin HCL 1,000 mg 0.9 % Sodium Chloride [Ns] 250 ml IV ONCE 02/23/22 17:45 Lactated Ringers [Lr] 1,000 ml IVCONT 80 mls/hr 02/23/22 18:22 vancomycin HCL 1,000 mg .ROUTE .STK-MED ONE 02/23/22 20:22 cefEPime HCl [Maxipime] 2 gm IV .STK-MED ONE 02/24/22 XR chest 1V Stat XR chest 1V Stat US thoracentesis Routine 02/24/22 00:01 NPO Diet 02/24/22 05:10 cefEPime HCl [Maxipime] 2 gm IV .STK-MED ONE 02/24/22 07:13 Albumin Level Routine Basic Metabolic Panel DAILY@0600 Complete Blood Count no Diff DAILY@0600 Ferritin Routine IRON PROFILE Routine LDH [Lactate Dehydrogenase] Routine PT with INR [Prothrombin Time INR] DAILY@0600 02/24/22 13:49 Add Laboratory Test Routine 02/24/22 14:28 Lidocaine HCl 1 % MPF [Xylocaine 1 % MPF] 30 ml .ROUTE .STK-MED ONE 02/24/22 15:00 Cell Count w Diff Pleural Fld Routine LDH Pleural Fluid Routine Total Protein Pleural Fluid Routine 02/24/22 15:25 Lidocaine HCl 1 % MPF [Xylocaine 1 % MPF] 10 ml SUBCUT ONCE ONE 02/24/22 15:30 Lidocaine HCl 1 % MPF [Xylocaine 1 % MPF] 10 ml SUBCUT ONCE ONE 02/24/22 15:47 cefEPime HCl [Maxipime] 2 gm IV .STK-MED ONE 02/24/22 16:45 Lactated Ringers [Lr] 1,000 ml IVCONT 80 mls/hr 02/24/22 16:57 vancomycin HCL 750 mg IV .STK-MED ONE 02/24/22 18:00 vancomycin HCL 750 mg 0.9 % Sodium Chloride [Ns] 250 ml IV Q24H 02/24/22 19:49 0.9 % Sodium Chloride [Ns] 1,221 ml IV 1,221 mls/hr 02/24/22 20:32 Lactic Acid Stat 02/24/22 21:45 Albumin Human 25 % [Kedbumin 25 %] 100 ml IV Q1H 02/24/22 22:13 Transfer Order Routine 02/24/22 22:39 Norepinephrine Bitartrate/D5W [Levophed] 8 mg in 250 ml .ROUTE As directed 02/25/22 CT abdomen pelvis wo IV con Stat CXR [XR chest 1V] Stat 02/25/22 00:00 CMP [Comprehensive Met. Panel] Stat ~Lactic Acid-LAB USE ONLY Stat 02/25/22 00:01 CBC W/AUTO DIFF [Complete Blood Count Auto Diff] Stat SLIDE REVIEW Stat 02/25/22 00:45 Albumin Human 25 % [Kedbumin 25 %] 100 ml IV Q1H 02/25/22 02:46 RBC [Red Blood Cells] Stat Type and Screen Stat Creatinine DAILY@0600 Venous Blood Gas AM 02/25/22 05:15 C Reactive Protein Routine Complete Blood Count Auto Diff DAILY@0600 Comprehensive Met. Panel DAILY@0600 Procalcitonin Routine 02/25/22 06:12 cefEPime HCl [Maxipime] 2 gm IV .STK-MED ONE 02/25/22 08:00 Albumin Human 25 % [Kedbumin 25 %] 100 ml IV Q1H Potassium Chloride Packet [Klor-Con Packet] 40 meq PO ONCE ONE 02/25/22 13:47 UA CC w/rflx Micro + Cult Stat UA w Microscopic Stat 02/25/22 14:17 Add Laboratory Test Stat 02/25/22 14:59 CDiff Gene PCR Stat [id number] Stat 02/25/22 16:01 Vancomycin Random Stat 02/25/22 17:42 Albumin Human 25 % [Kedbumin 25 %] 50 ml IV ONCE 02/25/22 17:49 cefEPime HCl [Maxipime] 2 gm IV .STK-MED ONE vancomycin HCL 500 mg .ROUTE .STK-MED ONE 02/25/22 18:00 Lactated Ringers [Lr] 250 ml IVCONT 250 mls/hr vancomycin HCL 500 mg 0.9 % Sodium Chloride [Ns] 100 ml IV Q12H 02/26/22 05:05 cefEPime HCl [Maxipime] 2 gm IV .STK-MED ONE vancomycin HCL 500 mg .ROUTE .STK-MED ONE 02/26/22 05:13 Albumin Level AM Basic Metabolic Panel AM Complete Blood Count Auto Diff DAILY@0600 Comprehensive Met. Panel DAILY@0600 Lactic Acid AM Magnesium AM Phosphorus AM SLIDE REVIEW Routine Venous Blood Gas AM 02/26/22 05:14 Venous Blood Gases - POC Routine 02/26/22 06:53 Magnesium Sulfate/H2O 2 gm in 50 ml IV ONCE 02/26/22 06:54 Potassium Chloride Packet [Klor-Con Packet] 40 meq PO ONCE ONE 02/26/22 11:41 vancomycin HCL [Vancocin] 125 mg PO ONCE ONE 02/26/22 13:46 Potassium Chloride/H20 40 meq in 100 ml IV ONCE 02/26/22 15:58 Vancomycin Random Stat 02/26/22 17:16 MRSA Nasal Screen Urgent 02/26/22 17:29 cefEPime HCl [Maxipime] 2 gm IV .STK-MED ONE vancomycin HCL 500 mg .ROUTE .STK-MED ONE 02/26/22 20:19 CBC NO DIFF [Complete Blood Count no Diff] Stat CMP [Comprehensive Met. Panel] Stat Magnesium Stat Phosphorus Stat 02/26/22 20:39 Acetaminophen [Tylenol] 975 mg PO ONCE ONE 02/26/22 20:44 Lactic Acid Stat 02/26/22 20:51 Acetaminophen [Tylenol] 325 mg PO ONCE ONE 02/26/22 21:39 Magnesium Sulfate/H2O 2 gm in 50 ml IV ONCE 02/26/22 21:45 Albumin Human 25 % [Kedbumin 25 %] 100 ml IV Q1H Lactated Ringers [Lr] 500 ml IV 999 mls/hr Sodium,Potassium Phosphates [Phos-NaK] 2 packet PO Q12H 02/26/22 23:03 ~Lactic Acid-LAB USE ONLY Stat 02/27/22 01:30 Leukocytes Stool Qualitative Stat 02/27/22 04:59 cefEPime HCl [Maxipime] 2 gm IV .STK-MED ONE 02/27/22 05:06 vancomycin HCL 500 mg .ROUTE .STK-MED ONE 02/27/22 05:07 Complete Blood Count no Diff AM Comprehensive Met. Panel AM Lactic Acid Routine Magnesium AM Phosphorus AM Procalcitonin AM 02/27/22 05:21 Venous Blood Gases - POC Routine 02/27/22 06:16 Sodium,Potassium Phosphates [Phos-NaK] 2 packet PO ONCE ONE 02/27/22 09:41 GGT [Gamma Glutamyl Transpeptidase] Stat UA ClnCatch+Micro w/rflx Cult Stat UA w Microscopic Stat 02/27/22 09:48 levoFLOXacin/D5W [Levaquin] 500 mg in 100 ml IV ONCE Laboratory Last Values WBC 38.5 X10*3/uL (4.8-10.8) H* 02/27/22 05:07 RBC 3.29 X10*6/uL (4.20-5.50) L 02/27/22 05:07 Hgb 8.4 g/dl (12.0-16.0) L 02/27/22 05:07 Hct 25.9 % (37.0-47.0) L 02/27/22 05:07 MCV 78.7 fL (80.0-98.0) L 02/27/22 05:07 MCH 25.5 pg (27.0-33.0) L 02/27/22 05:07 MCHC 32.4 g/dl (31.0-35.0) 02/27/22 05:07 RDW 16.1 % (11.0-16.0) H 02/27/22 05:07 Plt Count 670 X10*3/uL (160-400) H 02/27/22 05:07 MPV 8.9 fL (9.4-12.3) L 02/27/22 05:07 Immature Gran % (Auto) 1.5 % (0.0-0.4) H 02/26/22 05:13 Neut % (Auto) 91.1 % (45-73) H 02/26/22 05:13 Lymph % (Auto) 4.0 % (20-40) L 02/26/22 05:13 Randall % (Auto) 3.0 % (2-11) 02/26/22 05:13 Eos % (Auto) 0.1 % (0-4) 02/26/22 05:13 Baso % (Auto) 0.3 % (0-2) 02/26/22 05:13 Lymph # (Auto) 1.8 X10*3/uL (1.2-4.9) 02/26/22 05:13 Randall # (Auto) 1.3 X10*3/uL (0.1-1.2) H 02/26/22 05:13 Eos # (Auto) 0.1 X10*3/uL (0.0-0.4) 02/26/22 05:13 Baso # (Auto) 0.1 X10*3/uL (0.0-0.2) 02/26/22 05:13 Abs Immat Gran (auto) 0.67 X10*3/uL (0.00-0.03) H 02/26/22 05:13 Absolute Neuts (auto) 40.5 x10*3/uL (2.0-8.3) H 02/26/22 05:13 Absolute Nucleated RBC 0.000 X10*3/uL (0.0-0.012) 02/27/22 05:07 Nucleated RBC % (auto) 0.0 /100WBC (0.0-0.2) 02/27/22 05:07 Smear Tech's Comments VERIFIED 02/26/22 05:13 PT 13.1 SEC (10.0-13.1) 02/24/22 07:13 INR 1.1 (0.9-1.1) 02/24/22 07:13 VBG pH 7.41 (7.32-7.43) 02/27/22 05:21 VBG pCO2 38 mmHg 02/27/22 05:21 VBG pO2 63 mmHg 02/27/22 05:21 VBG HCO3 25 mmol/L (22-26) 02/27/22 05:21 VBG O2 Saturation 89.0 % 02/27/22 05:21 VBG Base Excess 0.7 mmol/L 02/27/22 05:21 Sodium 139 mmol/L (135-145) 02/27/22 05:07 Potassium 4.1 mmol/L (3.3-5.1) 02/27/22 05:07 Chloride 104 mmol/L (96-108) 02/27/22 05:07 Carbon Dioxide 25 mmol/L (22-29) 02/27/22 05:07 Anion Gap 14 (12-20) 02/27/22 05:07 BUN 13 mg/dL (9-16) 02/27/22 05:07 Creatinine 0.57 mg/dL (0.5-1.4) 02/27/22 05:07 Creatinine 0.59 mg/dL (0.5-1.4) 02/27/22 05:07 Estim Creat Clear Calc 55.4 02/27/22 05:07 Estim Creat Clear Calc 57.4 02/27/22 05:07 Estimated GFR > 60 02/27/22 05:07 Estimated GFR > 60 02/27/22 05:07 Random Glucose 107 mg/dL (60-115) 02/27/22 05:07 Lactic Acid 1.3 mmol/L (0.5-2.0) 02/27/22 05:07 Lactic Acid F/U @ 2Hr 1.4 mmol/L (0.5-2.0) 02/26/22 23:03 Calcium 8.6 mg/dL (8.4-10.2) 02/27/22 05:07 Phosphorus 2.6 mg/dL (2.7-4.5) L 02/27/22 05:07 Magnesium 2.0 mg/dL (1.6-2.6) 02/27/22 05:07 Iron 15 mcg/dL (30-160) L 02/24/22 07:13 TIBC 120 mcg/dL (228-428) L 02/24/22 07:13 % Saturation 13 % (15-50) L 02/24/22 07:13 Unsat Iron Binding 105 ug/dL 02/24/22 07:13 Ferritin 580 ng/mL (10-250) H 02/24/22 07:13 Total Bilirubin 0.8 mg/dL (0.0-1.0) 02/27/22 05:07 GGT 50 U/L (7-33) H 02/27/22 09:41 AST 24 U/L (5-31) D 02/27/22 05:07 ALT 13 U/L (0-31) 02/27/22 05:07 Alkaline Phosphatase 290 U/L (39-117) H 02/27/22 05:07 Lactate Dehydrogenase 211 U/L (122-220) 02/24/22 07:13 Troponin I High Sens 5.3 ng/L (<3.5-17.0) 02/23/22 12:46 C-Reactive Protein 19.02 mg/dL (< or = 0.50) H 02/25/22 05:15 B-Natriuretic Peptide 91 pg/mL (<100) 02/23/22 12:46 Total Protein 6.0 g/dL (6.5-8.0) L 02/27/22 05:07 Albumin 3.8 g/dL (3.5-5.0) 02/27/22 05:07 Carcinoembryonic Ag 152.20 ng/mL 02/23/22 12:46 Procalcitonin 56.57 ng/mL 02/27/22 05:07 Urine Color Yellow 02/27/22 09:41 Urine Appearance Cloudy 02/27/22 09:41 Urine pH 5.5 (5.0-9.0) 02/27/22 09:41 Ur Specific [place] 1.015 (1.005-1.025) 02/27/22 09:41 Urine Protein 30 (1+) mg/dL (Neg-Trace) H 02/27/22 09:41 Urine Glucose (UA) Negative mg/dL (Negative) 02/27/22 09:41 Urine Ketones Negative mg/dL (Negative) 02/27/22 09:41 Urine Blood Trace (Negative) H 02/27/22 09:41 Urine Nitrite Negative (Negative) 02/27/22 09:41 Ur Leukocyte Esterase Trace (Negative) H 02/27/22 09:41 Urine RBC 6-10 /HPF (0-2) H 02/27/22 09:41 Urine WBC 0-5 /HPF (0-5) 02/27/22 09:41 Ur Squamous Epith Cells 0-2 /HPF (0-2) 02/27/22 09:41 Urine Bacteria None Seen (None Seen) 02/27/22 09:41 Hyaline Casts 11-20 /LPF (0-2) 02/27/22 09:41 Granular Casts Present 02/27/22 09:41 Pleural WBC 2.984 X10*3/uL 02/24/22 15:00 Pleural RBC 0.002 X10*3/uL 02/24/22 15:00 Pleural Neutrophils 25 % 02/24/22 15:00 Pleural Lymphocytes 9 % 02/24/22 15:00 Pleural Monocytes 12 % 02/24/22 15:00 Pleural Other Cells 54 % 02/24/22 15:00 Pleural Total Protein 3.7 GM/DL 02/24/22 15:00 Pleural LDH 368 U/L 02/24/22 15:00 Nasal Screen MRSA (PCR) NEGATIVE (Negative) 02/26/22 17:16 Nasal S. aureus Screen NEGATIVE (Negative) 02/26/22 17:16 Nasal MRSA/S.aureus Interp SEE NOTE 02/26/22 17:16 Stool Occult Blood NEGATIVE (NEGATIVE) 02/25/22 14:59 Stool Leukocytes, Qual NEGATIVE (NEGATIVE) 02/27/22 01:30 Random Vancomycin 11.1 mcg/mL (15-20) L 02/26/22 15:58 C. difficile Tox B Gene NEGATIVE (Negative) 02/25/22 14:59 Influenza Type A (PCR) NEGATIVE (Negative) 02/23/22 12:46 Influenza Type B (PCR) NEGATIVE (Negative) 02/23/22 12:46 RSV RNA Qual (PCR) NEGATIVE (Negative) 02/23/22 12:46 SARS-CoV-2 RNA (RT-PCR) NEGATIVE (Negative) 02/23/22 12:46 Blood Type O Negative 02/25/22 02:46 Antibody Screen NEGATIVE 02/25/22 02:46 Crossmatch See Detail 02/25/22 02:46 - Imaging Radiologist's impression: ITS Impressions Chest X-Ray 02/23/22 12:20 IMPRESSION: 1. Complete white out of left lung with ipsilateral mediastinal shift likely secondary to effusion with underlying total left lung collapse. 2. The right lung is expanded and clear. 3. There are no previous exam available for comparison. Chest CT 02/23/22 13:24 IMPRESSION: Moderate to large left pleural effusion with left lower lobe and left upper lobe collapse. There is soft tissue mass or debris seen within the left bronchus resulting in complete occlusion. 1 cm solitary nodule visualized right lower lobe. The above findings are suspicious for left bronchial lesion with reactive left pleural effusion. The right lower lobe nodule is probably metastatic. Recommend ultrasound-guided left pleural effusion evaluation for cytology and bronchoscopy. Fleischner guidelines were followed. Thoracentesis Ultrasound 02/24/22 15:20 IMPRESSION: No pneumothorax post left thoracentesis. No change in volume loss in complete white out of the left hemithorax. EXAMINATION: Left thoracentesis ultrasound-guided CLINICAL INFORMATION: Left pleural effusion COMPARISON: Previous chest x-ray and CT from yesterday TECHNIQUE: Procedure and risks and benefits including bleeding, infection and pneumothorax were discussed with the patient and informed consent was obtained. The left posterior lateral chest was prepped and draped in the usual sterile fashion. The skin and soft tissues were anesthetized with 1% lidocaine plain. Using ultrasound guidance and a 4 [place] catheter, access to the left pleural effusion was obtained. 600 mL of clear yellow fluid was removed. Diagnostic specimen was sent. FINDINGS: There is a large left pleural effusion. IMPRESSION: Ultrasound-guided left thoracentesis. Chest X-Ray 02/24/22 15:39 IMPRESSION: No pneumothorax post left thoracentesis. No change in volume loss in complete white out of the left hemithorax. EXAMINATION: Left thoracentesis ultrasound-guided CLINICAL INFORMATION: Left pleural effusion COMPARISON: Previous chest x-ray and CT from yesterday TECHNIQUE: Procedure and risks and benefits including bleeding, infection and pneumothorax were discussed with the patient and informed consent was obtained. The left posterior lateral chest was prepped and draped in the usual sterile fashion. The skin and soft tissues were anesthetized with 1% lidocaine plain. Using ultrasound guidance and a 4 [place] catheter, access to the left pleural effusion was obtained. 600 mL of clear yellow fluid was removed. Diagnostic specimen was sent. FINDINGS: There is a large left pleural effusion. IMPRESSION: Ultrasound-guided left thoracentesis. Chest X-Ray 02/24/22 20:25 IMPRESSION: 1. Unchanged complete opacification of the left hemithorax with leftward mediastinal shift. On the patient's prior CT there is a large left lung mass and there is osseous destruction of the posterior left fifth and sixth ribs and involvement of the left T5 transverse process. Findings on the chest x-ray are consistent combination of large left lung malignancy with left lung collapse and large pleural effusion. 2. 1 cm right lower lobe pulmonary nodule better seen on prior CT. Chest X-Ray 02/25/22 01:59 FINDINGS/IMPRESSION: Left internal jugular central venous catheter terminates at the superior cavoatrial junction. Seen on prior CT. No pneumothorax. Complete white out of the left hemithorax redemonstrated with leftward mediastinal shift. No acute findings in the right lung. Destruction of the left posterior fifth and sixth ribs redemonstrated. Abdomen/Pelvis CT 02/25/22 15:14 IMPRESSION: 1. Extensive diverticulosis of the descending and sigmoid colon. There appears to be mural thickening involving a relatively long segment of the sigmoid colon. No gross surrounding inflammatory fat stranding. Cannot exclude mild diverticulitis or colitis. 2. Small volume pelvic ascites. 3. Mild hepatosplenomegaly. 4. Moderate left and small right pleural effusions. Left lower lobe collapse and/or mass. 5. Mild body wall edema/anasarca. Assessment and Plan Patient Active problem list reviewed?: Yes (1) Mass of left lung Status: Acute Assessment and plan: She will need to have her blood pressure and hemodynamics stabilized before an invasive procedure. I would send suction sputum for cytology and performed bronchoscopy with biopsy if her condition permits.I will follow her with you over the long weekend.Once she is stable she should undergo bronchoscopy for tissue diagnosis. - Time Spent With Patient Time Spent with Patient (in minutes): 15
--- NOTE | 2022-02-27 13:37 | PM.HEMONCPN ---
Medical Summary - Medical Summary Date of Service: 02/27/22 Chief complaint: Lung cancer Medical Summary: She is much improved today. She is more alert and awake and capable of eating. She remains on the levophed but is breathing comfortably on oxygen. Interval History Interval history: Kaylee Bustos is a 76 year old female Admitted recently with atelectasis of lung and an endobronchial lesion. She is in the ICU on pressors because she developed hypotension last night. A tissue diagnosis is not available, but lung cancer as he overwhelmingly likely diagnosis in this patient. I will follow her with you. Over the long weekend.She is waiting for a bronchoscopy. She continues on norepinephrine and levophed Review of Systems - Neurologic Reports system reviewed and no additional complaints, except as documented, Reports weakness PMFSH Medical History: Medical History (Last Updated 02/24/22 @ 15:35 by Ankita Redmond MD) Atelectasis of left lung Tobacco use disorder Functional capacity: independent ambulation Family History: Family History (Last Reviewed 02/24/22 @ 15:31 by Ankita Redmond MD) Mother HTN (hypertension) Surgical History: Surgical History (Last Reviewed 02/24/22 @ 15:31 by Ankita Redmond MD) History of appendectomy Social History: Social History (Last Reviewed 02/24/22 @ 15:31 by Ankita Redmond MD) Living Situation History: Household Members: None Housing: House Do you presently have visiting nurse or other home services: No Tobacco History: Patient Tobacco Use Status: Former Tobacco user Cigarette Packs Per Day: 0.75 Smoke Quit Date: two weeks ago; cut down starting 3 months ago; has smoked forever Second Hand Smoke Exposure: No Occupation Assessmet: service: No Home Medications and Allergies Current Medications: Current Medications Acetaminophen (Acetaminophen 325 Mg Tablet) 650 mg PO Q6H PRN PRN Reason: Pain, Mild (Pain Scale 1-3) Last Admin: 02/27/22 09:35 Dose: 650 mg Albuterol Sulfate (Albuterol Sulfate (0.042%) 1.25 Mg/3 Ml Vial.Neb) 1.25 mg INHALE RQ4H PRN PRN Reason: Shortness of Breath Albuterol/Ipratropium (Albuterol/Iprat 2.5/0.5mg 3 Ml Ampul.Neb) 3 ml INHALE RQ6H PRN PRN Reason: Shortness of Breath/Wheezing Docusate Sodium (Docusate Sodium 100 Mg Capsule) 100 mg PO DAILY PRN PRN Reason: Constipation Heparin Sodium (Porcine) (Heparin Sodium,Porcine 5,000 Unit/Ml Vial) 5,000 unit SUBCUT Q12H [facility] Last Admin: 02/27/22 12:04 Dose: 5,000 unit Norepinephrine Bitartrate (Levophed) 8 mg in 250 mls @ 0 mls/hr IV .Q0M [facility]; Protocol Last Titration: 02/27/22 11:57 Dose: 0.24 mcg/kg/min, 18.32 mls/hr Lactated Ringer's (Lr) 500 mls @ 999 mls/hr IV .Q31M [facility] Last Infusion: 02/26/22 15:05 Dose: Infused Lactated Ringer's (Lr) 1,000 mls @ 100 mls/hr IVCONT .Q10H [facility] Last Infusion: 02/27/22 12:43 Dose: 75 mls/hr Metronidazole (Flagyl) 500 mg in 100 mls @ 100 mls/hr IV Q8H [facility] Last Infusion: 02/27/22 12:14 Dose: Infused Caspofungin 70 mg/ Sodium (Chloride) 250 mls @ 250 mls/hr IV ONCE ONE Stop: 02/27/22 13:52 Vancomycin HCl 500 mg/ Sodium (Chloride) 110 mls @ 110 mls/hr IV ONCE ONE Stop: 02/27/22 18:59 Loperamide HCl (Loperamide Hcl 2 Mg Capsule) 2 mg PO Q6H PRN PRN Reason: Diarrhea Last Admin: 02/27/22 05:10 Dose: 2 mg Nicotine Polacrilex (Nicotine Polacrilex 2 Mg Gum) 2 mg BUCCAL Q2H PRN PRN Reason: Nicotine Cravings Pharmacy Consult (Consult Rx Perform Med Rec) 1 each MISCELLANE ONCE PRN PRN Reason: Consult order Sodium Chloride (0.9 % Sodium Chloride Flush 3 Ml Syringe) 3 ml IVFLUSH QSHIFT [facility] Last Admin: 02/27/22 09:12 Dose: 3 ml Home Medications Medication Instructions Recorded Confirmed Type No Known Home Meds 02/23/22 02/23/22 History Allergies Allergy/AdvReac Type Severity Reaction Status Date / Time Penicillins Allergy Itching Verified 02/23/22 11:53 Sulfa (Sulfonamide Allergy Itching Verified 02/23/22 11:53 Antibiotics) Exam Vital signs: Vital Signs Temp 98.2 F 02/27/22 13:00 Pulse 90 02/27/22 13:00 Resp 27 H 02/27/22 13:00 BP 92/46 L 02/27/22 13:00 Pulse Ox 95 02/27/22 13:00 O2 Del Method 02/27/22 13:00 O2 Flow Rate 2 02/27/22 13:00 Intake & Output 02/26/22 02/27/22 02/27/22 18:59 06:59 18:59 Intake Total 1104.151 / 2836.644 1732.493 / 2836.644 1503.970 / 1503.970 Output Total 445 / 2019 1445 / 2020 480 / 480 Balance 659.151 / 816.644 287.493 / 083.342 1571.970 / 1023.970 Urine Output (Average ml/kg/hr) 0.84 2.56 0.85 Intake: Intake, Oral Amount 180 / 760 580 / 760 180 / 180 Intake, IV Amount 924.151 / 2076.644 1152.493 / 2076.644 1323.970 / 1323.970 Albumin Human 25 % 100 ml @ 100 200 / 200 mls/hr IV Q1H [facility] Rx#: [id number] Lactated Ringers 500 ml @ 999 500 / 1000 500 / 1000 mls/hr IV .Q31M [facility] Rx#: [id number] Magnesium Sulfate/H2O 2 gm In 50 / 100 50 / 100 50 ml @ 25 mls/hr IV ONCE ONE Rx#:[id number] Norepinephrine Bitartrate/D5W 8 114.151 / 356.644 242.493 / 356.644 91.470 / 91.470 mg In 250 ml @ Per Protocol IV .Q0M [facility] Rx#:[id number] Potassium Chloride/H20 40 meq 100 / 100 In 100 ml @ 30 mls/hr IV ONCE ONE Rx#:[id number] cefEPime HCl 2 gm In 0.9 % 50 / 100 50 / 100 Sodium Chloride 50 ml @ 100 mls /hr IV Q12H [facility] Rx#:[id number] levoFLOXacin/D5W 500 mg In 100 100 / 100 ml @ 100 mls/hr IV ONCE ONE Rx# :[id number] metroNIDAZOLE/NS 500 mg In 100 100 / 100 ml @ 100 mls/hr IV Q8H [facility] Rx#: [id number] vancomycin HCL 500 mg In 0.9 % 110 / 220 110 / 220 Sodium Chloride 100 ml @ 110 mls/hr IV Q12H [facility] Rx#: [id number] Lactated Ringers 1,000 ml @ 75 1032.500 / 1032.500 mls/hr IVCONT .[id number] [facility] Rx#: [id number] Output: Output, Urine Amount (Catheter) 2019 1442019 480 / 480 Urethral 2019 [id number] 480 / 480 Other: NPO No Breakfast % Eaten 50% Number of Bowel Movements 1 1 Urine Baptiste Urine Color Roseanna Pale Yellow Last Bowel Movement 02/26/22 02/27/22 02/27/22 Stool Bedpan Bedpan Incontinent Stool Amount Moderate Moderate Small Stool Color Brown Brown Mucousy Stool Consistency Liquid Loose Loose Weight 47.1 kg Weight in Grams [id number] Weight 47.1 kg BMI result Body Mass Index 20.2 - Constitutional Present: moderate distress - Routine HEENT Exam Head: Present: atraumatic - Routine Neck Exam Present: full ROM - Routine Respiratory Exam Present: decreased breath sounds, prolonged expiratory phase, rhonchi - Routine Cardiovascular Exam Cardiovascular: Present: RRR, S1, S2, tachycardia - Routine Abdominal Exam Present: diminished bowel sounds - Routine Extremities Exam Present: normal inspection Data - Labs CBC & Chem 7: 02/27/22 05:07 02/27/22 05:07 - Imaging Radiologist's impression: ITS Impressions Chest X-Ray 02/23/22 12:20 IMPRESSION: 1. Complete white out of left lung with ipsilateral mediastinal shift likely secondary to effusion with underlying total left lung collapse. 2. The right lung is expanded and clear. 3. There are no previous exam available for comparison. Chest CT 02/23/22 13:24 IMPRESSION: Moderate to large left pleural effusion with left lower lobe and left upper lobe collapse. There is soft tissue mass or debris seen within the left bronchus resulting in complete occlusion. 1 cm solitary nodule visualized right lower lobe. The above findings are suspicious for left bronchial lesion with reactive left pleural effusion. The right lower lobe nodule is probably metastatic. Recommend ultrasound-guided left pleural effusion evaluation for cytology and bronchoscopy. Fleischner guidelines were followed. Thoracentesis Ultrasound 02/24/22 15:20 IMPRESSION: No pneumothorax post left thoracentesis. No change in volume loss in complete white out of the left hemithorax. EXAMINATION: Left thoracentesis ultrasound-guided CLINICAL INFORMATION: Left pleural effusion COMPARISON: Previous chest x-ray and CT from yesterday TECHNIQUE: Procedure and risks and benefits including bleeding, infection and pneumothorax were discussed with the patient and informed consent was obtained. The left posterior lateral chest was prepped and draped in the usual sterile fashion. The skin and soft tissues were anesthetized with 1% lidocaine plain. Using ultrasound guidance and a 4 Palestinian catheter, access to the left pleural effusion was obtained. 600 mL of clear yellow fluid was removed. Diagnostic specimen was sent. FINDINGS: There is a large left pleural effusion. IMPRESSION: Ultrasound-guided left thoracentesis. Chest X-Ray 02/24/22 15:39 IMPRESSION: No pneumothorax post left thoracentesis. No change in volume loss in complete white out of the left hemithorax. EXAMINATION: Left thoracentesis ultrasound-guided CLINICAL INFORMATION: Left pleural effusion COMPARISON: Previous chest x-ray and CT from yesterday TECHNIQUE: Procedure and risks and benefits including bleeding, infection and pneumothorax were discussed with the patient and informed consent was obtained. The left posterior lateral chest was prepped and draped in the usual sterile fashion. The skin and soft tissues were anesthetized with 1% lidocaine plain. Using ultrasound guidance and a 4 Palestinian catheter, access to the left pleural effusion was obtained. 600 mL of clear yellow fluid was removed. Diagnostic specimen was sent. FINDINGS: There is a large left pleural effusion. IMPRESSION: Ultrasound-guided left thoracentesis. Chest X-Ray 02/24/22 20:25 IMPRESSION: 1. Unchanged complete opacification of the left hemithorax with leftward mediastinal shift. On the patient's prior CT there is a large left lung mass and there is osseous destruction of the posterior left fifth and sixth ribs and involvement of the left T5 transverse process. Findings on the chest x-ray are consistent combination of large left lung malignancy with left lung collapse and large pleural effusion. 2. 1 cm right lower lobe pulmonary nodule better seen on prior CT. Chest X-Ray 02/25/22 01:59 FINDINGS/IMPRESSION: Left internal jugular central venous catheter terminates at the superior cavoatrial junction. Seen on prior CT. No pneumothorax. Complete white out of the left hemithorax redemonstrated with leftward mediastinal shift. No acute findings in the right lung. Destruction of the left posterior fifth and sixth ribs redemonstrated. Abdomen/Pelvis CT 02/25/22 15:14 IMPRESSION: 1. Extensive diverticulosis of the descending and sigmoid colon. There appears to be mural thickening involving a relatively long segment of the sigmoid colon. No gross surrounding inflammatory fat stranding. Cannot exclude mild diverticulitis or colitis. 2. Small volume pelvic ascites. 3. Mild hepatosplenomegaly. 4. Moderate left and small right pleural effusions. Left lower lobe collapse and/or mass. 5. Mild body wall edema/anasarca. Assessment and Plan Patient Active problem list reviewed?: Yes (1) Mass of left lung Status: Acute Assessment and plan: She will need to have her blood pressure and hemodynamics stabilized before an invasive procedure. We can try sputum cytology. She continues to improve. She says she lives alone and has no nearby family. - Time Spent With Patient Time Spent with Patient (in minutes): 15
[2022-02-27 14:09] LABS: Adenovirus F 40/41 Not Detected (Not Detect.); Astrovirus Not Detected (Not Detect.); Campylobacter Not Detected (Not Detect.); Cryptosporidium Not Detected (Not Detect.); Cyclospora cayetanensis Not Detected (Not Detect.); E. coli EAEC Not Detected (Not Detect.); E. coli EPEC Not Detected (Not Detect.); E. coli ETEC Not Detected (Not Detect.); E. coli STEC Not Detected (Not Detect.); Entamoeba histolytica Not Detected (Not Detect.); Giardia lamblia Not Detected (Not Detect.); Norovirus GI/GII Not Detected (Not Detect.); Plesiomonas shigelloides Not Detected (Not Detect.); Rotavirus A Not Detected (Not Detect.); Salmonella Not Detected (Not Detect.); Sapovirus Not Detected (Not Detect.); Shigella sp./EIEC Not Detected (Not Detect.); Vibrio Not Detected (Not Detect.); Vibrio Cholerae Not Detected (Not Detect.); Yersinia enterocolitica Not Detected (Not Detect.)
--- NOTE | 2022-02-27 14:11 | MHC.CLN ---
PT NOTED WITH SIGNIFICANT WT LOSS FRIED [employer]ER PA NOTED MODERATE PCM RECOMMEND ADDING ENSURE BID TO INCREASE KCALS SUPP TO PROVIDE 700KCALS, 40G PROTEIN FULL CLINICAL NUTRITION ASSESSMENT TO FOLLOW
[2022-02-27] MEDS: Caspofungin Acetate 70 MG in 0.9 % Sodium Chloride 250 ML 250 MG IV (14:13)
[2022-02-27] MEDS: Norepinephrine Bitartrate/D5W 8 MG/250 ML PLAST..BAG 18.32 MG IV (16:28)
--- NOTE | 2022-02-27 18:08 | PC.NURSE ---
Pt AOx4, calm and cooperative. Pt's temp rising to 102.4, tachypnic in the 30s and tachycardic in the 120s, MD made aware who ordered B/C, Stool panel, UA and Sputum- see report. IV abx and antifungal given as ordered. PRN tylenol given for fever, good effect. Pt maintained on 2L via Oxymask and satting in the low to mid 90s. Pt incontinent of loose stool frequently, MD aware, fecal bag in place and is patent and draining liquid loose stool. Pt initially had UO of 100cc/hr but slowing mid shift, MD made aware, LR gtt increased to 100cc/hr and now pt's UO improved to 70-125cc/hr. Pt currently resting in no acute distress. Levophed gtt titrated per protocol, pt's BP and MAP improving. Pt repositioned every 2 hrs and as needed. Safety maintained. Will continue to monitor.
[2022-02-27] MEDS: HYDROmorphone HCl 0.5 MG/0.5 ML SYRINGE 0.25 MG IVPUSH (20:16)
[2022-02-27] MEDS: Lactated Ringers 1,000 ML 100 ML IVCONT (22:22)
[2022-02-28] VITALS (35 sets, daily range): BP systolic 87–128; BP diastolic 36–69; PULSE 91–116; RESP 18–39; TEMP 36.8–37.9; O2SAT 92–100; BMI 20.5
[2022-02-28] MEDS: Heparin Sodium,Porcine 5,000 UNIT/ML VIAL 5000 UNIT SUBCUT (00:11)
[2022-02-28] MEDS: metroNIDAZOLE/NS 500 MG/100 ML PIGGYBACK 100 MG IV ×3 (01:58→17:08)
[2022-02-28] MEDS: HYDROmorphone HCl 0.5 MG/0.5 ML SYRINGE 0.25 MG IVPUSH ×3 (02:08→09:14)
[2022-02-28 05:41] LABS: VBG Base Excess 2.9 mmol/L; VBG HCO3 26 mmol/L (22-26); VBG pCO2 38 mmHg; VBG pH 7.45 (7.32-7.43); VBG pO2 48 mmHg
[2022-02-28 05:42] LABS: Venous Blood Gas Refer to POC result
--- NOTE | 2022-02-28 05:57 | PC.NURSE ---
PT IS A&OX3. VERY SHORT OF BREATH WITH ACTIVITY AND LOW O2 SATS TO 70'S. WHEN SATS ARE LOW AND PT IN DISTRESS, HEART RATE GOES DOWN TO 40'S SINUS RYTHM. PROVIDER PEPE BARNHART NOTIFIED OF DISTRESS AND ORDERED DILAUDID FOR WORK OF BREATHING X 3 DOSES WITH GOOD EFFECT. BP STABLE ON LEVO 0.18 MCG/KG/MIN. AFEBRILE. U/O GOOD APPROXIMATELY 100 ML/HR.
[2022-02-28 06:15] LABS: Basophils Absolute Auto 0.2 X10*3/uL (0.0-0.2); Basophils Percent Auto 0.4 % (0-2); Eosinophils Absolute Auto 0.1 X10*3/uL (0.0-0.4); Eosinophils Percent Auto 0.4 % (0-4); Hematocrit 27.4 % (37.0-47.0); Hemoglobin 8.6 g/dl (12.0-16.0); Imm Gran Pct Auto 3.6 % (0.0-0.4); Lymphocytes Absolute Auto 2.1 X10*3/uL (1.2-4.9); Lymphocytes Percent Auto 5.3 % (20-40); MANUAL DIFF FLAG SCAN; Mean Corpuscular HGB Conc 31.4 g/dl (31.0-35.0); Mean Corpuscular Hemoglobin 25.3 pg (27.0-33.0); Mean Corpuscular Volume 80.6 fL (80.0-98.0); Mean Platelet Volume 9.1 fL (9.4-12.3); Monocytes Absolute Auto 1.4 X10*3/uL (0.1-1.2); Monocytes Percent Auto 3.5 % (2-11); Neutrophils Absolute Auto 34.1 x10*3/uL (2.0-8.3); Neutrophils Percent Auto 86.8 % (45-73); Platelet Count 628 X10*3/uL (160-400); Red Cell Distribution Width 16.4 % (11.0-16.0); SCAN SMEAR FLAG 1
[2022-02-28 06:20] LABS: Albumin Level 3.2 g/dL (3.5-5.0); Anion Gap 13 (12-20); Blood Urea Nitrogen 8 mg/dL (9-16); Calcium 8.7 mg/dL (8.4-10.2); Carbon Dioxide 28 mmol/L (22-29); Chloride 102 mmol/L (96-108); Creatinine Clr Calc Pharmacy 61.5; Estimated Glomerular Filt Rate > 60; Glucose Random 90 mg/dL (60-115); Magnesium 1.5 mg/dL (1.6-2.6); Phosphorus 3.4 mg/dL (2.7-4.5); Potassium 4.1 mmol/L (3.3-5.1); Sodium 139 mmol/L (135-145)
[2022-02-28] MEDS: Norepinephrine Bitartrate/D5W 8 MG/250 ML PLAST..BAG 13.74 MG IV (06:22)
[2022-02-28] MEDS: Lactated Ringers 1,000 ML 100 ML IVCONT (06:23)
[2022-02-28 06:28] LABS: White Blood Count 39.3 X10*3/uL (4.8-10.8)
[2022-02-28 06:39] LABS: SLIDE REVIEW VERIFIED
[2022-02-28] MEDS: 0.9 % Sodium Chloride Flush 3 ML SYRINGE IVFLUSH (07:00)
[2022-02-28] MEDS: Magnesium Sulfate/D5W 1 GM/100 ML PIGGYBACK IV (08:44)
--- NOTE | 2022-02-28 09:00 | P.PNPL_ITS ---
Subjective Subjective Date of Service: 02/28/22 Interval history: The patient was seen on exam. Her oxygen requirements are going up. Currently getting antibiotics. We again talked about performing a bronchoscopy. The patient does have a reservations. I did answer all her questions. She is not his about having the procedure. I reassured her that we will going to just simply take a look and see if we can open up the airway obstruction safely. If patient does not tolerate the moderate sedation with local anesthesia then she will need to be intubated. However, with the degree of severity of disease the patient may have a hard time getting extubated or liberated from the ventilator in that case. Objective Data Labs CBC & Chem 7: 02/28/22 05:35 02/28/22 05:35 Labs: Laboratory Results - last 24 hr 02/26/22 02/27/22 02/27/22 17:16 09:41 09:41 WBC RBC Hgb Hct MCV MCH MCHC RDW Plt Count MPV Immature Gran % (Auto) Neut % (Auto) Lymph % (Auto) [place] % (Auto) Eos % (Auto) Baso % (Auto) Lymph # (Auto) [place] # (Auto) Eos # (Auto) Baso # (Auto) Abs Immat Gran (auto) Absolute Neuts (auto) Absolute Nucleated RBC Nucleated RBC % (auto) Smear Tech's Comments VBG pH VBG pCO2 VBG pO2 VBG HCO3 VBG O2 Saturation VBG Base Excess Sodium Potassium Chloride Carbon Dioxide Anion Gap BUN Creatinine Estim Creat Clear Calc Estimated GFR Random Glucose Calcium Phosphorus Magnesium GGT 50 H Albumin Urine Color Yellow Urine Appearance Cloudy Urine pH 5.5 Ur Specific [place] 1.015 Urine Protein 30 (1+) H Urine Glucose (UA) Negative Urine Ketones Negative Urine Blood Trace H Urine Nitrite Negative Ur Leukocyte Esterase Trace H Urine RBC 6-10 H Urine WBC 0-5 Ur Squamous Epith Cells 0-2 Urine Bacteria None Seen Hyaline Casts 11-20 Granular Casts Present Nasal Screen MRSA (PCR) NEGATIVE Nasal S. aureus Screen NEGATIVE Nasal MRSA/S.aureus Interp SEE NOTE Stl C. cayetanensis PCR Stool Rotavirus A PCR Stl Adenov F 40/ PCR Stool Astrovirus (PCR) Stool Campylobacter PCR Stool Cryptosporidium PCR Stl Sh Tox Pr E STEC PCR Stool E coli O157 PCR Stl Enterotoxigenic E PCR Stool EPEC (PCR) Stool EAEC (PCR) Stl E. histolytica PCR Stool Giardia Lamblia PCR Stl P. shigelloides PCR Stool Salmonella PCR Stool Sapovirus (PCR) Stl Shigella/EIEC PCR St Y.enterocolitica PCR Stool Vibrio (PCR) Stl Vibrio cholerae PCR Stl Norovirus GI/GII PCR 02/27/22 02/28/22 02/28/22 11:13 05:34 05:35 WBC RBC Hgb Hct MCV MCH MCHC RDW Plt Count MPV Immature Gran % (Auto) Neut % (Auto) Lymph % (Auto) [place] % (Auto) Eos % (Auto) Baso % (Auto) Lymph # (Auto) [place] # (Auto) Eos # (Auto) Baso # (Auto) Abs Immat Gran (auto) Absolute Neuts (auto) Absolute Nucleated RBC Nucleated RBC % (auto) Smear Tech's Comments VBG pH 7.45 H VBG pCO2 38 VBG pO2 48 VBG HCO3 26 VBG O2 Saturation 80.0 VBG Base Excess 2.9 Sodium Potassium Chloride Carbon Dioxide Anion Gap BUN Creatinine Cancelled Estim Creat Clear Calc Cancelled Estimated GFR Cancelled Random Glucose Calcium Phosphorus Magnesium GGT Albumin Urine Color Urine Appearance Urine pH Ur Specific [place] Urine Protein Urine Glucose (UA) Urine Ketones Urine Blood Urine Nitrite Ur Leukocyte Esterase Urine RBC Urine WBC Ur Squamous Epith Cells Urine Bacteria Hyaline Casts Granular Casts Nasal Screen MRSA (PCR) Nasal S. aureus Screen Nasal MRSA/S.aureus Interp Stl C. cayetanensis PCR Not Detected Stool Rotavirus A PCR Not Detected Stl Adenov F 40/41 PCR Not Detected Stool Astrovirus (PCR) Not Detected Stool Campylobacter PCR Not Detected Stool Cryptosporidium PCR Not Detected Stl Sh Tox Pr E STEC PCR Not Detected Stool E coli O157 PCR Not applicable Stl Enterotoxigenic E PCR Not Detected Stool EPEC (PCR) Not Detected Stool EAEC (PCR) Not Detected Stl E. histolytica PCR Not Detected Stool Giardia Lamblia PCR Not Detected Stl P. shigelloides PCR Not Detected Stool Salmonella PCR Not Detected Stool Sapovirus (PCR) Not Detected Stl Shigella/EIEC PCR Not Detected St Y.enterocolitica PCR Not Detected Stool Vibrio (PCR) Not Detected Stl Vibrio cholerae PCR Not Detected Stl Norovirus GI/GII PCR Not Detected 02/28/22 02/28/22 05:35 05:35 WBC 39.3 H* RBC 3.40 L Hgb 8.6 L Hct 27.4 L MCV 80.6 MCH 25.3 L MCHC 31.4 RDW 16.4 H Plt Count 628 H MPV 9.1 L Immature Gran % (Auto) 3.6 H Neut % (Auto) 86.8 H Lymph % (Auto) 5.3 L [place] % (Auto) 3.5 Eos % (Auto) 0.4 Baso % (Auto) 0.4 Lymph # (Auto) 2.1 [place] # (Auto) 1.4 H Eos # (Auto) 0.1 Baso # (Auto) 0.2 Abs Immat Gran (auto) 1.40 H Absolute Neuts (auto) 34.1 H Absolute Nucleated RBC 0.000 Nucleated RBC % (auto) 0.0 Smear Tech's Comments VERIFIED VBG pH VBG pCO2 VBG pO2 VBG HCO3 VBG O2 Saturation VBG Base Excess Sodium 139 Potassium 4.1 Chloride 102 Carbon Dioxide 28 Anion Gap 13 BUN 8 L Creatinine 0.55 Estim Creat Clear Calc 61.5 Estimated GFR > 60 Random Glucose 90 Calcium 8.7 Phosphorus 3.4 Magnesium 1.5 L GGT Albumin 3.2 L Urine Color Urine Appearance Urine pH Ur Specific [place] Urine Protein Urine Glucose (UA) Urine Ketones Urine Blood Urine Nitrite Ur Leukocyte Esterase Urine RBC Urine WBC Ur Squamous Epith Cells Urine Bacteria Hyaline Casts Granular Casts Nasal Screen MRSA (PCR) Nasal S. aureus Screen Nasal MRSA/S.aureus Interp Stl C. cayetanensis PCR Stool Rotavirus A PCR Stl Adenov F 40 PCR Stool Astrovirus (PCR) Stool Campylobacter PCR Stool Cryptosporidium PCR Stl Sh Tox Pr E STEC PCR Stool E coli O157 PCR Stl Enterotoxigenic E PCR Stool EPEC (PCR) Stool EAEC (PCR) Stl E. histolytica PCR Stool Giardia Lamblia PCR Stl P. shigelloides PCR Stool Salmonella PCR Stool Sapovirus (PCR) Stl Shigella/EIEC PCR St Y.enterocolitica PCR Stool Vibrio (PCR) Stl Vibrio cholerae PCR Stl Norovirus GI/GII PCR Microbiology Microbiology Results: Microbiology 02/27/22 09:41 Urine Catheterized - Baptiste Catheter Urine Culture - Final No growth. 02/27/22 09:56 Blood - Venous Gram Stain - Final 02/27/22 09:56 Blood - Venous Routine Culture - Final 02/27/22 09:56 Blood - Venous Anaerobic Culture - Final 02/24/22 15:00 Thoracentesis Fluid Gram Stain - Final 02/24/22 15:00 Thoracentesis Fluid Anaerobic Culture - Preliminary No growth to date. 02/24/22 15:00 Thoracentesis Fluid Body Fluid Culture - Final No growth after 2 days 02/23/22 18:10 Blood - Venous Blood Culture - Preliminary No growth after 48 hours. 02/23/22 18:10 Blood - Venous Blood Culture - Preliminary No growth after 48 hours. Review of Systems Constitutional: Denies chills, Denies fever(s), Reports poor appetite and Reports weight loss Denies dizziness Cardiovascular: Denies chest pain, Denies palpitations, Reports dyspnea on exert ion and Denies orthopnea Respiratory: Reports cough and Reports dyspnea on exertion Gastrointestinal: Denies abdominal pain Denies dizziness Endocrine: Denies palpitations Physical Exam Vital Signs: Vital Signs: Last Vital Signs Temp 99.5 F 02/28/22 08:00 Pulse 101 H 02/28/22 08:00 Resp 39 H 02/28/22 08:00 BP 118/59 L 02/28/22 08:00 Pulse Ox 93 02/28/22 08:00 O2 Del Method 02/28/22 08:00 O2 Flow Rate 4 02/28/22 08:00 BMI result Body Mass Index 20.5 Const: General: cooperative, comfortable, alert and awake Nutritional Appearance: thin Orientation/consciousness: patient oriented x3 Resp: Other: right lung clear; left side diminished Effort & Inspection: able to speak in complete sentences and no respiratory distress Auscultation: diminished lung sounds Cardio: Heart sounds: S1 normal heart sound present and S2 normal heart sound present GI: Inspection: No distended Palpation (GI): Soft to palpation Neuro: General: patient oriented x3 and CN's II-XI intact bilaterally Extrem: General: Yes no pedal edema Procedures Date of Service Date of Service: 02/28/22 Assessment and Plan Assessment and plan (1) Mass of left lung: Status: Acute (2) Pleural effusion, left: Status: Acute (3) Atelectasis of left lung: Status: Acute (4) Dyspnea: Status: Acute (5) Pneumonia: Status: Acute Plan bronchoscopy today Time Spent With Patient Time: Total time managing care of this patient today ____ minutes. Progress Note: Quality Stroke Does the patient have a stroke diagnosis?: No
--- NOTE | 2022-02-28 09:00 | MHC.SHP ---
Pre-Procedural Eval Section A Date of Service: 02/28/22 The patient is an INPATIENT: Yes Section B Chief Complaint: Lung Mass Allergies: Allergies Allergy/AdvReac Type Severity Reaction Status Date / Time Penicillins Allergy Itching Verified 02/23/22 11:53 Sulfa (Sulfonamide Allergy Itching Verified 02/23/22 11:53 Antibiotics) Plan I have reviewed the history and physical and performed a pertinent physical examination on my patient. No changes have occurred unless specified. Time Spent With Patient Time: Total time managing care of this patient today ____ minutes.
[2022-02-28] MEDS: Albuterol Sulfate (0.083%) 2.5 MG/3 ML VIAL.NEB INHALE (09:10)
[2022-02-28] MEDS: Lidocaine HCl 4 % MPF 5 ML AMPUL 3 ML INHALE (09:28)
--- NOTE | 2022-02-28 10:29 | MHC.CLN ---
F/U AND CONSULT PT IS MODERATELY MALNOURISHED PT WITH REPORTED SIGNIFICANT WT LOSS, MILDLY DEPLETED SUBCUTANEOUS FAT WITH CHRONIC POOR PO INTAKE DIET RX: NPO WHEN DIET TO ADVANCE RECOMMEND ADDING ENSURE BID TO INCREASE KCALS SUPP TO PROVIDE 700KCALS, 40G PROTEIN MONITOR PO INTAKE CLOSELY
--- NOTE | 2022-02-28 13:19 | W.PM.IDCN ---
History of Present Illness Data of Consult Service Date: 02/28/22 Primary Care Provider: Unknown Physician HPI Reason for consult: shortness of breath She presents to hospital with shortness of breath and weight loss over last two weeks. Lung left shows white out/mediastinal shift. She has diarrhea over last week and WBC of 40,000. [facility] Past Medical History Medical History Atelectasis of left lung Tobacco use disorder Functional capacity: independent ambulation Family History Family History Mother HTN (hypertension) Family history: reviewed and not pertinent Surgical History Surgical History History of appendectomy Social History Social History Household Members: None Housing: House Do you presently have visiting nurse or other home services: No Alcohol intake: current Alcohol intake frequency: holidays/special occasions only Patient Tobacco Use Status: Former Tobacco user Quit Date: two weeks ago; cut down starting 3 months ago; has smoked forever Cigarette Packs Per Day: 0.75 Second Hand Smoke Exposure: No service: No Meds Allergies Allergy/AdvReac Type Severity Reaction Status Date / Time Penicillins Allergy Itching Verified 02/23/22 11:53 Sulfa (Sulfonamide Allergy Itching Verified 02/23/22 11:53 Antibiotics) Active Medications: Current Medications Acetaminophen (Acetaminophen 325 Mg Tablet) 650 mg PO Q6H PRN PRN Reason: Pain, Mild (Pain Scale 1-3) Last Admin: 02/27/22 18:14 Dose: 650 mg Albuterol Sulfate (Albuterol Sulfate (0.042%) 1.25 Mg/3 Ml Vial.Neb) 1.25 mg INHALE RQ4H PRN PRN Reason: Shortness of Breath Albuterol/Ipratropium (Albuterol/Iprat 2.5/0.5mg 3 Ml Ampul.Neb) 3 ml INHALE RQ6H PRN PRN Reason: Shortness of Breath/Wheezing Docusate Sodium (Docusate Sodium 100 Mg Capsule) 100 mg PO DAILY PRN PRN Reason: Constipation Heparin Sodium (Porcine) (Heparin Sodium,Porcine 5,000 Unit/Ml Vial) 5,000 unit SUBCUT Q12H [facility] Last Admin: 02/28/22 09:58 Dose: Not Given Hydromorphone HCl (Hydromorphone Hcl 0.5 Mg/0.5 Ml Syringe) 0.25 mg IVPUSH Q2H PRN; Protocol PRN Reason: Pain, Severe (Pain Scale 7-10) Last Admin: 02/28/22 09:14 Dose: 0.25 mg Norepinephrine Bitartrate (Levophed) 8 mg in 250 mls @ 0 mls/hr IV .Q0M [facility]; Protocol Last Titration: 02/28/22 09:41 Dose: 0.2 mcg/kg/min, 15.26 mls/hr Lactated Ringer's (Lr) 500 mls @ 999 mls/hr IV .Q31M [facility] Last Infusion: 02/26/22 15:05 Dose: Infused Lactated Ringer's (Lr) 1,000 mls @ 100 mls/hr IVCONT .Q10H [facility] Last Admin: 02/28/22 06:23 Dose: 100 mls/hr Metronidazole (Flagyl) 500 mg in 100 mls @ 100 mls/hr IV Q8H [facility] Last Infusion: 02/28/22 11:11 Dose: Infused Loperamide HCl (Loperamide Hcl 2 Mg Capsule) 2 mg PO Q6H PRN PRN Reason: Diarrhea Last Admin: 02/27/22 05:10 Dose: 2 mg Nicotine Polacrilex (Nicotine Polacrilex 2 Mg Gum) 2 mg BUCCAL Q2H PRN PRN Reason: Nicotine Cravings Pharmacy Consult (Consult Rx Perform Med Rec) 1 each MISCELLANE ONCE PRN PRN Reason: Consult order Sodium Chloride (0.9 % Sodium Chloride Flush 3 Ml Syringe) 3 ml IVFLUSH QSHIFT [facility] Last Admin: 02/28/22 07:00 Dose: 3 ml Home Medications Medication Instructions Recorded Confirmed Last Taken Type No Known Home Meds 02/23/22 02/23/22 Unknown History Physical Exam Vital Signs: Vital Signs: Last Vital Signs Temp 99.3 F 02/28/22 12:00 Pulse 100 02/28/22 12:00 Resp 34 H 02/28/22 12:00 BP 107/53 L 02/28/22 12:00 Pulse Ox 95 02/28/22 12:00 O2 Del Method 02/28/22 12:00 O2 Flow Rate 9 02/28/22 12:00 BMI result Body Mass Index 20.5 Const: General: cooperative HEENT: Head: Yes normal to inspection Face and sinus: Yes normal facial exam Mouth: Normal oral and palatal mucosa present Teeth and gingiva: dentition normal Eyes: General: appearance normal, both eyes and all related structures Pupils: Equal, round and reactive pupils present Resp: Effort & Inspection: decreased respiratory effort and prolonged expiratory phase Cardio: Rate: regular rate Rhythm: regular rhythm GI: Palpation (GI): Soft to palpation and nontender : General: Yes no CVA tenderness Back/Spine/Pelvis: Back: no CVA tenderness Skin: General skin exam: no rashes or lesions noted Neuro: General: moves all extremities Cranial nerves: Yes Equal, round and reactive pupils present Extrem: General: Yes normal to inspection Psych: Appearance: grossly normal Results Labs CBC & Chem 7: 02/28/22 05:35 02/28/22 05:35 Labs: Short CBC 02/28/22 Range/Units 05:35 WBC 39.3 H* (4.8-10.8) X10*3/uL Hgb 8.6 L (12.0-16.0) g/dl Hct 27.4 L (37.0-47.0) % Plt Count 628 H (160-400) X10*3/uL BMP 02/28/22 02/28/22 05:35 05:35 Sodium 139 Potassium 4.1 Chloride 102 Carbon Dioxide 28 BUN 8 L Creatinine Cancelled 0.55 Calcium 8.7 Liver Function 02/28/22 Range/Units 05:35 Albumin 3.2 L (3.5-5.0) g/dL Microbiology Microbiology Results: Microbiology 02/27/22 09:41 Blood - Central Line Blood Culture - Preliminary No growth after 24 hours. 02/27/22 09:41 Blood - Central Line Blood Culture - Preliminary No growth after 24 hours. 02/26/22 20:20 Blood - Venous Blood Culture - Preliminary No growth after 24 hours. 02/26/22 20:20 Blood - Venous Blood Culture - Preliminary No growth after 24 hours. 02/27/22 09:41 Urine Catheterized - Baptiste Catheter Urine Culture - Final No growth. 02/27/22 09:56 Blood - Venous Gram Stain - Final 02/27/22 09:56 Blood - Venous Routine Culture - Final 02/27/22 09:56 Blood - Venous Anaerobic Culture - Final 02/24/22 15:00 Thoracentesis Fluid Gram Stain - Final 02/24/22 15:00 Thoracentesis Fluid Anaerobic Culture - Preliminary No growth to date. 02/24/22 15:00 Thoracentesis Fluid Body Fluid Culture - Final No growth after 2 days 02/23/22 18:10 Blood - Venous Blood Culture - Preliminary No growth after 48 hours. 02/23/22 18:10 Blood - Venous Blood Culture - Preliminary No growth after 48 hours. Assessment and Plan (1) Pneumonia: Status: Acute This is possible postobstructive pneumonia This could include gram negative and gram positive Increased WBC leukemoid reaction (2) Diarrhea: Status: Acute Dont think bacterial process diarrhea (3) Cancer cachexia: Status: Acute (4) Atelectasis of left lung: Status: Acute (5) Mass of left lung: Status: Acute Plan Cefepime five to seven days. Would stop Flagyl as no Cdiff or other organisms and think may be antibiotic associated colitis. Time Spent With Patient Time: Total time managing care of this patient today ____ minutes.
--- NOTE | 2022-02-28 13:43 | MHC.CM.PN ---
Met with pt to discuss potential d/c planning needs and to assist w/HCP completion. Pt states she has not decided on whom she would like to appoint as a HCP. She states she has 2 probable candidates but isn't ready to make a decision. Re-educated pt on purpose and function of HCP to which she verbalized understanding but asked for more time to consider her choice. Discussed potential d/c plans including STR: pt again felt unprepared and not ready to make any decisions re: d/c although she did mention concerns with residing alone. Pt very reluctantly agrees to referrals to [facility] and [facility] at this time. CM to follow for finalization of d/c planning: HCP form in pt's chart should she decide on an agent.
--- NOTE | 2022-02-28 15:09 | PM.CCPN ---
Subjective Subjective Date of Service: 02/28/22 Interval History: 76-year-old lifelong smoker presents with a cachectic appearance but with increased shortness of breath and apparent acute hypoxemic respiratory failure noted to have complete obstruction of the left mainstem bronchus and atelectasis of the left lung with a moderate-sized effusion and had 500 cc removed is exudative And waiting for cytology she did have fever and systemic symptoms she was cultured and empirically treated for postobstructive pneumonia and even in bed she has significant increase in work of breathing utilizing accessory muscles with increased diaphragmatic effort as she disc claims significant discomfort but it is it is visible She underwent bronchoscopy today without intubation a of fungating necrotic mass was noted filling the left mainstem bronchus which we chipped down with the biopsy forceps and removed the overwhelming bulk and it looked like it reestablish some patency of the left mainstem bronchus and she was coughing up fragments and ever since then but subsequent chest x-ray and then ultimately CT scan failed to demonstrate an any reinflation of any portion of that left lung she remains in normal sinus rhythm still on a trivial amount of Levophed but maintaining a borderline pressure of 104/47 and mean of 64 but compensated oxygen saturation 98% sinus tach at rate 97 Critical Care Time (minutes): 45 Physical Exam Vital Signs: Vital Signs: Last Vital Signs Temp 99.9 F 02/28/22 15:00 Pulse 101 H 02/28/22 15:00 Resp 25 H 02/28/22 15:00 BP 91/60 02/28/22 15:00 Pulse Ox 92 02/28/22 15:00 O2 Del Method 02/28/22 15:00 O2 Flow Rate 6 02/28/22 15:00 BMI result Body Mass Index 20.5 Increased work of breathing but not in distress Skin color is normal and intact no cellulitis no pressure sores Bedside cardiac exam with normal LV function and no primary valve or pericardial disease Abdomen soft no again no megaly Lungs without adventitious sounds Objective Data Labs CBC & Chem 7: 03/01/22 05:16 03/01/22 05:16 Labs: Laboratory Results - last 24 hr 02/28/22 02/28/22 02/28/22 05:34 05:35 05:35 WBC 39.3 H* RBC 3.40 L Hgb 8.6 L Hct 27.4 L MCV 80.6 MCH 25.3 L MCHC 31.4 RDW 16.4 H Plt Count 628 H MPV 9.1 L Immature Gran % (Auto) 3.6 H Neut % (Auto) 86.8 H Lymph % (Auto) 5.3 L [place] % (Auto) 3.5 Eos % (Auto) 0.4 Baso % (Auto) 0.4 Lymph # (Auto) 2.1 [place] # (Auto) 1.4 H Eos # (Auto) 0.1 Baso # (Auto) 0.2 Abs Immat Gran (auto) 1.40 H Absolute Neuts (auto) 34.1 H Absolute Nucleated RBC 0.000 Nucleated RBC % (auto) 0.0 Smear Tech's Comments VERIFIED VBG pH 7.45 H VBG pCO2 38 VBG pO2 48 VBG HCO3 26 VBG O2 Saturation 80.0 VBG Base Excess 2.9 Sodium Potassium Chloride Carbon Dioxide Anion Gap BUN Creatinine Cancelled Estim Creat Clear Calc Cancelled Estimated GFR Cancelled Random Glucose Calcium Phosphorus Magnesium Albumin 02/28/22 05:35 WBC RBC Hgb Hct MCV MCH MCHC RDW Plt Count MPV Immature Gran % (Auto) Neut % (Auto) Lymph % (Auto) [place] % (Auto) Eos % (Auto) Baso % (Auto) Lymph # (Auto) [place] # (Auto) Eos # (Auto) Baso # (Auto) Abs Immat Gran (auto) Absolute Neuts (auto) Absolute Nucleated RBC Nucleated RBC % (auto) Smear Tech's Comments VBG pH VBG pCO2 VBG pO2 VBG HCO3 VBG O2 Saturation VBG Base Excess Sodium 139 Potassium 4.1 Chloride 102 Carbon Dioxide 28 Anion Gap 13 BUN 8 L Creatinine 0.55 Estim Creat Clear Calc 61.5 Estimated GFR > 60 Random Glucose 90 Calcium 8.7 Phosphorus 3.4 Magnesium 1.5 L Albumin 3.2 L Microbiology Microbiology Results: Microbiology 02/28/22 Unknown Washing - Wash Gram Stain - Final 02/27/22 09:41 Blood - Central Line Blood Culture - Preliminary No growth after 24 hours. 02/27/22 09:41 Blood - Central Line Blood Culture - Preliminary No growth after 24 hours. 02/26/22 20:20 Blood - Venous Blood Culture - Preliminary No growth after 24 hours. 02/26/22 20:20 Blood - Venous Blood Culture - Preliminary No growth after 24 hours. 02/27/22 09:41 Urine Catheterized - Baptiste Catheter Urine Culture - Final No growth. 02/27/22 09:56 Blood - Venous Gram Stain - Final 02/27/22 09:56 Blood - Venous Routine Culture - Final 02/27/22 09:56 Blood - Venous Anaerobic Culture - Final 02/24/22 15:00 Thoracentesis Fluid Gram Stain - Final 02/24/22 15:00 Thoracentesis Fluid Anaerobic Culture - Preliminary No growth to date. 02/24/22 15:00 Thoracentesis Fluid Body Fluid Culture - Final No growth after 2 days 02/23/22 18:10 Blood - Venous Blood Culture - Preliminary No growth after 48 hours. 02/23/22 18:10 Blood - Venous Blood Culture - Preliminary No growth after 48 hours. Progress Note: A&P Assessment and plan (1) Pneumonia: Status: Acute (2) Diarrhea: Status: Acute (3) Cancer cachexia: Status: Acute (4) Atelectasis of left lung: Status: Acute (5) Dyspnea: Status: Acute (6) Tachypnea: Status: Acute (7) Mass of left lung: Status: Acute (8) Pleural effusion, left: Status: Acute (9) Acute hypoxemic respiratory failure: Status: Acute Plan At this point the plan would have to be possible bronchoscopy again but in the OR to so we could be more aggressive or possible transfer to a in Interventional Pulmonary Center which she could have a debulking or fulguration of the tumor in and possible stent placement Quality Stroke Does the patient have a stroke diagnosis?: No VTE Prior VTE?: No VTE Risk Level:: Medical - moderate - high VTE Device Contraindication: N/A - Device Ordered VTE Drug Contraindication: Treatment Not Indicated
--- NOTE | 2022-02-28 18:45 | PC.NURSE ---
Pt had a bronchoscopy procedure at bedside, OR team assisting, VS maintained and no acute event, specimens collected during and sent to Lab per order-see report. Pt on nonrebreather during procedure, able to wean down to 6L on Oxymask, satting in the low to mid 90s, continues to be dyspnic with minimal exertion, requires reinforcement on deep slow breaths, has productive cough, has intermittent karina red blood, MD aware, afternoon Heparin held per order. Pt passed bedside swallow eval s/p bronch, made aware and placed on Regular diet. Pt's UO slowing to 20-40cc/hr, MD aware, no new orders at this time. Levophed gtt unable to wean down as MAP unstable. Pt repositioned every 2 hrs and as needed. Safety maintained. Will continue to monitor.
[2022-02-28] MEDS: Albuterol/Iprat 2.5/0.5MG 3 ML AMPUL.NEB INHALE (20:17)
--- NOTE | 2022-02-28 21:17 | OP_ITS ---
SURGEON: Giacomo Villalpando MD PREOPERATIVE DIAGNOSIS: POSTOPERATIVE DIAGNOSIS: PROCEDURE PERFORMED: Bronchoscopy with therapeutic cleaning, washings as well as biopsies. ESTIMATED BLOOD LOSS: COMPLICATIONS: ANESTHESIA: The patient received local anesthesia with nebulized lidocaine and viscous lidocaine to the nose. The patient had some p.r.n. Dilaudid as scheduled per the ICU that was given prior to the procedure as well. ASSISTANTS: SPECIMENS: ASA: 4. PREOPERATIVE DIAGNOSES: Lung cancer and left lung atelectasis. POSTOPERATIVE DIAGNOSES: Lung cancer and left lung atelectasis. DESCRIPTION OF PROCEDURE: After the patient was adequately anesthetized with lidocaine, the flexible digital bronchoscope was inserted over the right nostril to the level of the posterior pharynx. Subsequently, the larynx was visualized with normal-looking vocal cords, symmetrically moving to the midline. After instilling additional lidocaine of 6 mL through the larynx, the bronchoscope was then passed to the vocal cords to the level of the trachea. Tracheal mucosa appeared normal. Additional lidocaine was administered at that point of 3 mL. Then, the bronchoscope was navigated to the left mainstem bronchus where there was an immediate proximal endobronchial lesion, which appeared to be mucinous in color, avascular and necrotic. I tried to use suction to dislodge it, but it was not moving. Therefore using forceps, it was slowly broken down and loosened to some degree. We were able to break a good amount of it. We did suction some pieces out and also used the forceps and provided some samples for the pathologist and placed in formalin. The area was acellular and not sure if this is necrotic tissue. Still specimens were collected. The patient has some minimal bleeding with the breaking down of the endobronchial tissue. The patient received 1 MPO of epinephrine to the area with good hemostasis. The bronchoscope was then removed. The total endoscopic time about 12 minutes. The patient tolerated the procedure well. Vital signs were stable. Patient continues to be hypoxic. Postop x-ray still demonstrates left-sided complete atelectasis. The complications none. Again, epinephrine was used 1 ampule to the affected area with good hemostasis. Bleeding about 2 mL in amount. Minimal bleeding noted with good hemostasis. Otherwise, no other complications. MD JENNIFER Turner/MODL / [id number]
[2022-02-28] MEDS: Norepinephrine Bitartrate/D5W 8 MG/250 ML PLAST..BAG 15.26 MG IV (21:47)
[2022-03-01] VITALS (31 sets, daily range): BP systolic 75–133; BP diastolic 35–64; PULSE 97–124; RESP 23–39; TEMP 36.2–38.5; O2SAT 86–97; BMI 21.7
[2022-03-01] MEDS: 0.9 % Sodium Chloride Flush 3 ML SYRINGE IVFLUSH ×3 (00:23→23:47)
[2022-03-01] MEDS: Heparin Sodium,Porcine 5,000 UNIT/ML VIAL 5000 UNIT SUBCUT ×3 (00:23→23:47)
[2022-03-01] MEDS: metroNIDAZOLE/NS 500 MG/100 ML PIGGYBACK 100 MG IV ×3 (02:28→17:03)
[2022-03-01 05:26] LABS: VBG HCO3 28 mmol/L (22-26); VBG pCO2 47 mmHg; VBG pH 7.38 (7.32-7.43); VBG pO2 51 mmHg
--- NOTE | 2022-03-01 05:27 | PC.NURSE ---
Assumed care of patient @ 1845. Patient alert, appropriate, follows commands, MOREIRA weakly. No behavioral indicator of pain; denies any feeling of pain. ST 110's, BPs remain WNL, goal MAP >65. Levophed gtt infusing. Afebrile. Remains on oxymask at 6L, sats WNL. Patient with productive cough; thin, mucoid, tenacious; pink tinged, resolving. Rectal tube and F/C remain intact. Assist with bed mobility.
[2022-03-01 05:33] LABS: Venous Blood Gas Refer to POC result
[2022-03-01 05:51] LABS: Basophils Absolute Auto 0.1 X10*3/uL (0.0-0.2); Basophils Percent Auto 0.3 % (0-2); Eosinophils Absolute Auto 0.1 X10*3/uL (0.0-0.4); Eosinophils Percent Auto 0.1 % (0-4); Hematocrit 26.4 % (37.0-47.0); Imm Gran Abs Auto 0.65 X10*3/uL (0.00-0.03); Imm Gran Pct Auto 1.6 % (0.0-0.4); Lymphocytes Absolute Auto 1.5 X10*3/uL (1.2-4.9); Lymphocytes Percent Auto 3.6 % (20-40); MANUAL DIFF FLAG SCAN; Mean Corpuscular HGB Conc 30.3 g/dl (31.0-35.0); Mean Corpuscular Hemoglobin 24.9 pg (27.0-33.0); Mean Corpuscular Volume 82.2 fL (80.0-98.0); Mean Platelet Volume 9.3 fL (9.4-12.3); Monocytes Absolute Auto 1.8 X10*3/uL (0.1-1.2); Monocytes Percent Auto 4.5 % (2-11); Neutrophils Absolute Auto 36.1 x10*3/uL (2.0-8.3); Neutrophils Percent Auto 89.9 % (45-73); Platelet Count 560 X10*3/uL (160-400); Red Blood Count 3.21 X10*6/uL (4.20-5.50); Red Cell Distribution Width 16.7 % (11.0-16.0); SCAN SMEAR FLAG 1
[2022-03-01 06:02] LABS: White Blood Count 40.2 X10*3/uL (4.8-10.8)
[2022-03-01 06:07] LABS: Anion Gap 12 (12-20); Blood Urea Nitrogen 10 mg/dL (9-16); Calcium 8.6 mg/dL (8.4-10.2); Carbon Dioxide 29 mmol/L (22-29); Chloride 101 mmol/L (96-108); Creatinine Clr Calc Pharmacy 58.3; Estimated Glomerular Filt Rate > 60; Glucose Random 125 mg/dL (60-115); Magnesium 1.7 mg/dL (1.6-2.6); Phosphorus 2.8 mg/dL (2.7-4.5); Potassium 3.6 mmol/L (3.3-5.1); Sodium 138 mmol/L (135-145)
[2022-03-01 06:12] LABS: SLIDE REVIEW VERIFIED
[2022-03-01] MEDS: vancomycin HCL 500 MG in 0.9 % Sodium Chloride 100 ML 110 MG IV (09:13)
[2022-03-01] MEDS: levoFLOXacin/D5W 500 MG/100 ML PIGGYBACK 100 MG IV (09:13)
--- NOTE | 2022-03-01 09:33 | P.PNPL_ITS ---
Subjective Subjective Date of Service: 03/01/22 Interval history: The patient was seen and examined. She is still expectorating after the bronchoscopy. Again the bronchoscopy demonstrated a necrotic looking endobronchial lesion in the proximal left mainstem bronchus. Seem that the mass like density was easily broken down although the actual endobronchial malignant process was sitting behind the necrotic tissue. The bronchoscopy was done with local anesthetics. Therefore clearing adult the debris could not be done at the bedside. I did recommend the patient have a repeat bronchoscopy while intubated in the OR. The patient is reluctant to have anesthesia at this time and reluc tant to have any procedures. She will undergo a CT scan to see the degree of atelectasis the degree of mass and also to see if there is any pleural showed buildup. Objective Data Labs CBC & Chem 7: 03/01/22 05:16 03/01/22 05:16 Labs: Laboratory Results - last 24 hr 02/27/22 03/01/22 03/01/22 11:13 05:16 05:16 WBC 40.2 H* RBC 3.21 L Hgb 8.0 L Hct 26.4 L MCV 82.2 MCH 24.9 L MCHC 30.3 L RDW 16.7 H Plt Count 560 H MPV 9.3 L Immature Gran % (Auto) 1.6 H Neut % (Auto) 89.9 H Lymph % (Auto) 3.6 L [place] % (Auto) 4.5 Eos % (Auto) 0.1 Baso % (Auto) 0.3 Lymph # (Auto) 1.5 [place] # (Auto) 1.8 H Eos # (Auto) 0.1 Baso # (Auto) 0.1 Abs Immat Gran (auto) 0.65 H Absolute Neuts (auto) 36.1 H Absolute Nucleated RBC 0.000 Nucleated RBC % (auto) 0.0 Smear Tech's Comments VERIFIED VBG pH VBG pCO2 VBG pO2 VBG HCO3 VBG O2 Saturation VBG Base Excess Sodium 138 Potassium 3.6 Chloride 101 Carbon Dioxide 29 Anion Gap 12 BUN 10 Creatinine 0.58 Estim Creat Clear Calc 58.3 Estimated GFR > 60 Random Glucose 125 H Calcium 8.6 Phosphorus 2.8 Magnesium 1.7 Albumin 3.0 L Stool H. pylori Ag SEE NOTE 03/01/22 05:19 WBC RBC Hgb Hct MCV MCH MCHC RDW Plt Count MPV Immature Gran % (Auto) Neut % (Auto) Lymph % (Auto) [place] % (Auto) Eos % (Auto) Baso % (Auto) Lymph # (Auto) [place] # (Auto) Eos # (Auto) Baso # (Auto) Abs Immat Gran (auto) Absolute Neuts (auto) Absolute Nucleated RBC Nucleated RBC % (auto) Smear Tech's Comments VBG pH 7.38 VBG pCO2 47 VBG pO2 51 VBG HCO3 28 H VBG O2 Saturation 80.0 VBG Base Excess 3.0 Sodium Potassium Chloride Carbon Dioxide Anion Gap BUN Creatinine Estim Creat Clear Calc Estimated GFR Random Glucose Calcium Phosphorus Magnesium Albumin Stool H. pylori Ag Microbiology Microbiology Results: Microbiology 02/24/22 15:00 Thoracentesis Fluid Gram Stain - Final 02/24/22 15:00 Thoracentesis Fluid Anaerobic Culture - Final NO GROWTH AFTER 5 DAYS 02/24/22 15:00 Thoracentesis Fluid Body Fluid Culture - Final No growth after 2 days 02/28/22 Unknown Washing - Wash Gram Stain - Final 02/28/22 Unknown Washing - Wash - Preliminary No growth to date. 02/23/22 18:10 Blood - Venous Blood Culture - Final No growth after 5 days. 02/23/22 18:10 Blood - Venous Blood Culture - Final No growth after 5 days. 02/27/22 09:41 Blood - Central Line Blood Culture - Preliminary No growth after 24 hours. 02/27/22 09:41 Blood - Central Line Blood Culture - Preliminary No growth after 24 hours. 02/26/22 20:20 Blood - Venous Blood Culture - Preliminary No growth after 24 hours. 02/26/22 20:20 Blood - Venous Blood Culture - Preliminary No growth after 24 hours. 02/27/22 09:41 Urine Catheterized - Baptiste Catheter Urine Culture - Final No growth. 02/27/22 09:56 Blood - Venous Gram Stain - Final 02/27/22 09:56 Blood - Venous Routine Culture - Final 02/27/22 09:56 Blood - Venous Anaerobic Culture - Final Review of Systems Constitutional: Denies chills, Denies fever(s), Reports poor appetite and Reports weight loss Denies dizziness Cardiovascular: Denies chest pain, Denies palpitations, Reports dyspnea on exertion and Denies orthopnea Respiratory: Reports cough and Reports dyspnea on exertion Gastrointestinal: Denies abdominal pain Denies dizziness Endocrine: Denies palpitations Physical Exam Vital Signs: Vital Signs: Last Vital Signs Temp 100.4 F 03/01/22 09:00 Pulse 109 H 03/01/22 09:00 Resp 35 H 03/01/22 09:00 BP 115/45 L 03/01/22 09:21 Pulse Ox 94 03/01/22 09:00 O2 Del Method 03/01/22 09:00 O2 Flow Rate 5 03/01/22 09:00 BMI result Body Mass Index 21.7 Const: General: cooperative, comfortable, alert and awake Nutritional Appearance: thin Orientation/consciousness: patient oriented x3 Resp: Other: right lung clear; left side diminished Effort & Inspection: able to speak in complete sentences and no respiratory distress Auscultation: diminished lung sounds Cardio: Heart sounds: S1 normal heart sound present and S2 normal heart sound present GI: Inspection: No distended Palpation (GI): Soft to palpation Neuro: General: patient oriented x3 and CN's II-XI intact bilaterally Extrem: General: Yes no pedal edema Procedures Date of Service Date of Service: 03/01/22 Assessment and Plan Assessment and plan (1) Mass of left lung: Status: Acute (2) Pleural effusion, left: Status: Acute (3) Atelectasis of left lung: Status: Acute (4) Dyspnea: Status: Acute (5) Pneumonia: Status: Acute Plan CT scan of the chest today I did recommend to the patient to undergo repeat bronchoscopy under general anesthesia. This will require her to get intubated. The patient is reluctant to have any procedures at this time. Therefore, additional options include transferred to a tertiary center where she can have more advanced Interventional Pulmonary. However, issues reluctant to have any procedures here she will have probably the same reluctance. Awaiting microbiology and pathology from the bronchoscopy Consider thoracentesis if she worsening pleural fluid is present Time Spent With Patient Time: Total time managing care of this patient today ____ minutes. Progress Note: Quality Stroke Does the patient have a stroke diagnosis?: No
[2022-03-01] MEDS: Acetaminophen 325 MG TABLET 650 MG PO ×2 (09:38→21:20)
--- NOTE | 2022-03-01 10:39 | MHC.CLN ---
F/U PT IS MODERATELY MALNOURISHED SEE FULL CLINICAL NUTRITION ASSESSMENT DATED 02/28/21 DIET ADVANCED TO REGULAR-APPROPRIATE RECOMMEND ADDING ENSURE BID TO INCREASE KCALS SUPP TO PROVIDE 700KCALS, 40G PROTEIN MONITOR PO INTAKE CLOSELY
--- NOTE | 2022-03-01 11:33 | MHC.CM.PN ---
THIS CM RECEIVED A CALL FROM COUSIN WHO WOULD LIKE TO HAVE SHE AND HER OTHER COUSIN'S CONTACT NUMBERS BE PLACED ON CHART. NITZA MORSE ([phone]) PERRY CONKLIN ([phone])
[2022-03-01] MEDS: Norepinephrine Bitartrate/D5W 8 MG/250 ML PLAST..BAG 13.74 MG IV (12:11)
--- NOTE | 2022-03-01 13:23 | PM.CCPN ---
Subjective Subjective Date of Service: 03/01/22 Interval History: 76-year-old fairly cachectic looking female and lifetime smoker with underlying COPD presents with acute hypoxemic respiratory failure and shortness of breath and has a totally obstructed left mainstem bronchus with complete atelectasis of the left lung and bronchoscopy failed to reinflate any portion of it yesterday even though it debrided a lot of but looked like gave a fungating mass and at this point the options are closing in possible put interventional pulmonary verses a repeat bronchoscopy here in the OR and the patient has yet to decide but in the meantime she is afebrile but without the systemic complaints she had earlier and is being covered for postobstructive pneumonia with vancomycin and Levaquin and metronidazole Critical Care Time (minutes): 35 Physical Exam Vital Signs: Vital Signs: Last Vital Signs Temp 98.8 F 03/01/22 13:11 Pulse 101 H 03/01/22 13:11 Resp 36 H 03/01/22 13:11 BP 91/48 L 03/01/22 13:11 Pulse Ox 96 03/01/22 13:11 O2 Del Method 03/01/22 13:11 O2 Flow Rate 4 03/01/22 13:11 BMI result Body Mass Index 21.7 Awake alert and nonfocal neurologically Bedside echo with normal LV function Abdomen soft no organomegaly Skin intact no cellulitis no pressure sores Objective Data Labs CBC & Chem 7: 03/01/22 05:16 03/01/22 05:16 Labs: Laboratory Results - last 24 hr 02/27/22 03/01/22 03/01/22 11:13 05:16 05:16 WBC 40.2 H* RBC 3.21 L Hgb 8.0 L Hct 26.4 L MCV 82.2 MCH 24.9 L MCHC 30.3 L RDW 16.7 H Plt Count 560 H MPV 9.3 L Immature Gran % (Auto) 1.6 H Neut % (Auto) 89.9 H Lymph % (Auto) 3.6 L [place] % (Auto) 4.5 Eos % (Auto) 0.1 Baso % (Auto) 0.3 Lymph # (Auto) 1.5 [place] # (Auto) 1.8 H Eos # (Auto) 0.1 Baso # (Auto) 0.1 Abs Immat Gran (auto) 0.65 H Absolute Neuts (auto) 36.1 H Absolute Nucleated RBC 0.000 Nucleated RBC % (auto) 0.0 Smear Tech's Comments VERIFIED VBG pH VBG pCO2 VBG pO2 VBG HCO3 VBG O2 Saturation VBG Base Excess Sodium 138 Potassium 3.6 Chloride 101 Carbon Dioxide 29 Anion Gap 12 BUN 10 Creatinine 0.58 Estim Creat Clear Calc 58.3 Estimated GFR > 60 Random Glucose 125 H Calcium 8.6 Phosphorus 2.8 Magnesium 1.7 Albumin 3.0 L Stool H. pylori Ag SEE NOTE 03/01/22 05:19 WBC RBC Hgb Hct MCV MCH MCHC RDW Plt Count MPV Immature Gran % (Auto) Neut % (Auto) Lymph % (Auto) [place] % (Auto) Eos % (Auto) Baso % (Auto) Lymph # (Auto) [place] # (Auto) Eos # (Auto) Baso # (Auto) Abs Immat Gran (auto) Absolute Neuts (auto) Absolute Nucleated RBC Nucleated RBC % (auto) Smear Tech's Comments VBG pH 7.38 VBG pCO2 47 VBG pO2 51 VBG HCO3 28 H VBG O2 Saturation 80.0 VBG Base Excess 3.0 Sodium Potassium Chloride Carbon Dioxide Anion Gap BUN Creatinine Estim Creat Clear Calc Estimated GFR Random Glucose Calcium Phosphorus Magnesium Albumin Stool H. pylori Ag Microbiology Microbiology Results: Microbiology 02/27/22 09:41 Blood - Central Line Blood Culture - Preliminary No growth after 48 hours. 02/27/22 09:41 Blood - Central Line Blood Culture - Preliminary No growth after 48 hours. 02/26/22 20:20 Blood - Venous Blood Culture - Preliminary No growth after 48 hours. 02/26/22 20:20 Blood - Venous Blood Culture - Preliminary No growth after 48 hours. 02/24/22 15:00 Thoracentesis Fluid Gram Stain - Final 02/24/22 15:00 Thoracentesis Fluid Anaerobic Culture - Final NO GROWTH AFTER 5 DAYS 02/24/22 15:00 Thoracentesis Fluid Body Fluid Culture - Final No growth after 2 days 02/28/22 Unknown Washing - Wash Gram Stain - Final 02/28/22 Unknown Washing - Wash - Preliminary No growth to date. 02/23/22 18:10 Blood - Venous Blood Culture - Final No growth after 5 days. 02/23/22 18:10 Blood - Venous Blood Culture - Final No growth after 5 days. 02/27/22 09:41 Urine Catheterized - Baptiste Catheter Urine Culture - Final No growth. 02/27/22 09:56 Blood - Venous Gram Stain - Final 02/27/22 09:56 Blood - Venous Routine Culture - Final 02/27/22 09:56 Blood - Venous Anaerobic Culture - Final Progress Note: A&P Assessment and plan (1) Acute hypoxemic respiratory failure: Status: Acute (2) Pneumonia: Status: Acute (3) Diarrhea: Status: Acute (4) Cancer cachexia: Status: Acute (5) Atelectasis of left lung: Status: Acute (6) Dyspnea: Status: Acute (7) Tachypnea: Status: Acute (8) Mass of left lung: Status: Acute (9) Pleural effusion, left: Status: Acute Plan So at this point possible referral to Interventional pulmonology for debulking of the of the tumor and we are awaiting pathology from yesterday's procedure and from the thoracentesis Quality Stroke Does the patient have a stroke diagnosis?: No VTE Prior VTE?: No VTE Risk Level:: Medical - moderate - high VTE Device Contraindication: N/A - Device Ordered VTE Drug Contraindication: Treatment Not Indicated
[2022-03-02] VITALS (45 sets, daily range): BP systolic 70–142; BP diastolic 33–70; PULSE 87–130; RESP 16–38; TEMP 35.1–39; O2SAT 87–100; BMI 20.9
[2022-03-02 01:26] LABS: VBG HCO3 29 mmol/L (22-26); VBG pCO2 50 mmHg; VBG pH 7.36 (7.32-7.43); VBG pO2 46 mmHg
[2022-03-02] MEDS: Norepinephrine Bitartrate/D5W 8 MG/250 ML PLAST..BAG 21.37 MG IV (01:35)
[2022-03-02] MEDS: metroNIDAZOLE/NS 500 MG/100 ML PIGGYBACK 100 MG IV ×3 (01:35→17:32)
[2022-03-02 02:56] LABS: Venous Blood Gas Refer to POC result
[2022-03-02] MEDS: Albuterol Sulfate (0.042%) 1.25 MG/3 ML VIAL.NEB INHALE (03:04)
[2022-03-02 05:55] LABS: VBG Base Excess 1.9 mmol/L; VBG HCO3 29 mmol/L (22-26); VBG pCO2 56 mmHg; VBG pH 7.31 (7.32-7.43); VBG pO2 27 mmHg
[2022-03-02] MEDS: Acetaminophen 325 MG TABLET 650 MG PO ×3 (05:55→22:41)
[2022-03-02 05:58] LABS: Venous Blood Gas Refer to POC result
[2022-03-02 05:58] LABS: Basophils Absolute Auto 0.2 X10*3/uL (0.0-0.2); Basophils Percent Auto 0.4 % (0-2); Hematocrit 33.9 % (37.0-47.0); Hemoglobin 10.2 g/dl (12.0-16.0); Imm Gran Abs Auto 1.49 X10*3/uL (0.00-0.03); Imm Gran Pct Auto 2.5 % (0.0-0.4); Lymphocytes Absolute Auto 1.1 X10*3/uL (1.2-4.9); Lymphocytes Percent Auto 1.9 % (20-40); MANUAL DIFF FLAG SCAN; Mean Corpuscular Volume 83.1 fL (80.0-98.0); Monocytes Absolute Auto 1.8 X10*3/uL (0.1-1.2); NRBC Pct Auto 0.1 /100WBC (0.0-0.2); Neutrophils Absolute Auto 55.1 x10*3/uL (2.0-8.3); Neutrophils Percent Auto 92.2 % (45-73); Platelet Count 705 X10*3/uL (160-400); Red Blood Count 4.08 X10*6/uL (4.20-5.50); Red Cell Distribution Width 17.3 % (11.0-16.0); SCAN SMEAR FLAG 1
[2022-03-02 06:07] LABS: Lactic Acid 1.5 mmol/L (0.5-2.0)
[2022-03-02 06:10] LABS: Mean Corpuscular HGB Conc 30.1 g/dl (31.0-35.0); White Blood Count 59.7 X10*3/uL (4.8-10.8)
[2022-03-02 06:16] LABS: Albumin Level 3.5 g/dL (3.5-5.0); Anion Gap 16 (12-20); Blood Urea Nitrogen 13 mg/dL (9-16); Calcium 9.6 mg/dL (8.4-10.2); Carbon Dioxide 28 mmol/L (22-29); Chloride 99 mmol/L (96-108); Creatinine Clr Calc Pharmacy 45.7; Estimated Glomerular Filt Rate > 60; Glucose Random 119 mg/dL (60-115); Magnesium 1.7 mg/dL (1.6-2.6); Phosphorus 3.9 mg/dL (2.7-4.5); Potassium 4.3 mmol/L (3.3-5.1); Sodium 139 mmol/L (135-145)
[2022-03-02 06:17] LABS: SLIDE REVIEW VERIFIED
[2022-03-02 06:24] LABS: Appearance Urine Cloudy; Color Urine Dark Yellow; Glucose Urine UA Negative (Negative); Leukocyte Esterase Urine Small (1+) (Negative); Nitrite Urine Negative (Negative); PH 5.5 (5.0-9.0); UMIC TRIGGER UA YES; Urine Blood Large (3+) (Negative); Urine Ketones Trace mg/dL (Negative); Urine Protein 100 (2+) mg/dL (Neg-Trace)
--- NOTE | 2022-03-02 06:26 | PC.NURSE ---
At start of shift patient tolerating 3L Oxymask w/O2 sats 90-94% and RR mid 30s. From approximately [id number] patient noted to be oliguric w/urine output 6-8 mL/hr. Nancy Mariano MANAGER COUN[employer] notified, plan for MAP goal to be >65. Around 0100 patient also noted to have new onset confusion. With this RN patient began pointing to objects repeating what is that and making vague statements. MANAGER COUN[employer] aware, VBG ordered and completed. See lab details for results. Around 0300 patient noted to have audible wheezing w/increased work of breathing. RT paged and PRN neb given. After neb treatment, patient w/increasing O2 needs to 9L Oxymask. Throughout remainder of shift patient continued to make vague statements, have increased lethargy, increased O2 needs and worsening tachycardia. MANAGER COUN[employer] at bedside to evaluate, orders completed as ordered. Oncoming RN aware.
[2022-03-02 06:32] LABS: TSH reflex Free T4 1.45 uIU/mL (0.32-4.0)
[2022-03-02 06:36] LABS: Bacteria Urine None Seen (None Seen); Granular Casts Urine Present; Hyaline Casts Urine >20 /LPF (0-2); RBC Urine >20 /HPF (0-2)
[2022-03-02] MEDS: 0.9 % Sodium Chloride 500 ML 999 ML IV (07:47)
[2022-03-02] MEDS: propofoL 200 MG/20 ML VIAL 60 MG IVPUSH (07:52)
[2022-03-02] MEDS: propofoL 1,000 MG/100 ML VIAL 5.83 MG IVCONT (07:58)
[2022-03-02] MEDS: Rocuronium Bromide 50 MG/5 ML VIAL 25 MG IVPUSH (08:13)
[2022-03-02] MEDS: 0.9 % Sodium Chloride Flush 3 ML SYRINGE IVFLUSH ×2 (08:15→14:51)
--- NOTE | 2022-03-02 08:15 | W.PM.CCHP ---
Procedures Date of Service Date of Service: 03/02/22 <Ana Mariano NP - Last Filed: 03/02/22 08:24> Intubation Intubation Comments: The patient was preoxygenated by ambu bag with 100% O2. ? RSI was carried out with the meds below..? The glottis was easily visualized with 3. GlideScope, and the trachea was intubated with a 7.5 ETT via? indirect video visualization, atraumatic. +CO2, SpO2 maintained.? The tube was secured at 24 cm at the upper lip. The patient tolerated the procedure well with no complications.? Post Op chest x-ray showed the ETT 1cm above the crystal.? The tube was pulled back 1 cm. <Ana Mariano NP - Last Filed: 03/02/22 08:24> The patient was preoxygenated by ambu bag with 100% O2. ? RSI was carried out with the meds below..? The glottis was easily visualized with 3. GlideScope, and the trachea was intubated with a 7.5 ETT via? indirect video visualization, atraumatic. +CO2, SpO2 maintained.? The tube was secured at 24 cm at the upper lip. The patient tolerated the procedure well with no complications.? Post Op chest x-ray showed the ETT 1cm above the crystal.? The tube was pulled back 1 cm. I oversaw the procedure which went very cleanly and provided backup with help in terms of the anatomy and the procedural finess <Sinai Travis MD - Last Filed: 03/02/22 16:22> Consent for Procedure: Emergent-no informed consent obtained <Ana Mariano NP - Last Filed: 03/02/22 08:24> Time out performed: Yes <Ana Mariano NP - Last Filed: 03/02/22 08:24> Sedative: propofol <Ana Mariano NP - Last Filed: 03/02/22 08:24> Mg given: 60 <Ana Mariano NP - Last Filed: 03/02/22 08:24> Paralytic: rocuronium <Ana Mariano NP - Last Filed: 03/02/22 08:24> Mg given: 25 <Ana Mariano NP - Last Filed: 03/02/22 08:24> Laryngoscope: fiber optic video scope <OBEY Flores Last Filed: 03/02/22 08:24> ET tube size: 7.5 <OBEY Flores Last Filed: 03/02/22 08:24> ET tube uncuffed: No <OBEY Flores Last Filed: 03/02/22 08:24> Tube secured depth (cm): 24 <OBEY Flores Last Filed: 03/02/22 08:24> Tube secured location: lips <OBEY Flores Last Filed: 03/02/22 08:24> Tube placement confirmation: visualized tube passing through cords and confirmation by capnometry <OBEY Flores Last Filed: 03/02/22 08:24> Patient tolerated procedure: well <OBEY Flores Last Filed: 03/02/22 08:24>
--- NOTE | 2022-03-02 09:07 | PM.PNPUL ---
Subjective Subjective Date of Service: 03/02/22 Interval history: The patient was seen and examined. She is now intubated for worsening respiratory failure. The ICU team did talk to family about her critical state. Plan for bronchoscopy tomorrow morning to see if we can open up the airways further. My suspicion is that this density she has in her lungs significantly large and is on likely going to be able to allows to open up dose airways effectively. The patient also had positive cancer cells in the pleural fluid consistent with stage for lung cancer. Was still waiting for further molecular testing. Objective Data Labs CBC & Chem 7: 03/02/22 05:48 03/02/22 05:48 Labs: Laboratory Results - last 24 hr 03/02/22 03/02/22 03/02/22 01:18 05:46 05:48 WBC 59.7 H* RBC 4.08 L D Hgb 10.2 L D Hct 33.9 L D MCV 83.1 MCH 25.0 L MCHC 30.1 L RDW 17.3 H Plt Count 705 H D MPV 9.0 L Immature Gran % (Auto) 2.5 H Neut % (Auto) 92.2 H Lymph % (Auto) 1.9 L [place] % (Auto) 3.0 Eos % (Auto) 0.0 Baso % (Auto) 0.4 Lymph # (Auto) 1.1 L [place] # (Auto) 1.8 H Eos # (Auto) 0.0 Baso # (Auto) 0.2 Abs Immat Gran (auto) 1.49 H Absolute Neuts (auto) 55.1 H Absolute Nucleated RBC 0.030 H Nucleated RBC % (auto) 0.1 Smear Tech's Comments VERIFIED VBG pH 7.36 VBG pCO2 50 VBG pO2 46 VBG HCO3 29 H VBG O2 Saturation 72.0 VBG Base Excess 3.0 Sodium Potassium Chloride Carbon Dioxide Anion Gap BUN Creatinine Estim Creat Clear Calc Estimated GFR Random Glucose Lactic Acid 1.5 Calcium Phosphorus Magnesium Albumin TSH Urine Color Urine Appearance Urine pH Ur Specific [place] Urine Protein Urine Glucose (UA) Urine Ketones Urine Blood Urine Nitrite Ur Leukocyte Esterase Urine RBC Urine WBC Ur Squamous Epith Cells Urine Bacteria Hyaline Casts Granular Casts 03/02/22 03/02/22 03/02/22 05:48 05:48 05:48 WBC RBC Hgb Hct MCV MCH MCHC RDW Plt Count MPV Immature Gran % (Auto) Neut % (Auto) Lymph % (Auto) [place] % (Auto) Eos % (Auto) Baso % (Auto) Lymph # (Auto) [place] # (Auto) Eos # (Auto) Baso # (Auto) Abs Immat Gran (auto) Absolute Neuts (auto) Absolute Nucleated RBC Nucleated RBC % (auto) Smear Tech's Comments VBG pH 7.31 L VBG pCO2 56 VBG pO2 27 VBG HCO3 29 H VBG O2 Saturation 30.0 VBG Base Excess 1.9 Sodium 139 Potassium 4.3 Chloride 99 Carbon Dioxide 28 Anion Gap 16 BUN 13 Creatinine 0.74 Estim Creat Clear Calc 45.7 Estimated GFR > 60 Random Glucose 119 H Lactic Acid Calcium 9.6 D Phosphorus 3.9 Magnesium 1.7 Albumin 3.5 TSH 1.45 Urine Color Urine Appearance Urine pH Ur Specific [place] Urine Protein Urine Glucose (UA) Urine Ketones Urine Blood Urine Nitrite Ur Leukocyte Esterase Urine RBC Urine WBC Ur Squamous Epith Cells Urine Bacteria Hyaline Casts Granular Casts 03/02/22 06:11 WBC RBC Hgb Hct MCV MCH MCHC RDW Plt Count MPV Immature Gran % (Auto) Neut % (Auto) Lymph % (Auto) [place] % (Auto) Eos % (Auto) Baso % (Auto) Lymph # (Auto) [place] # (Auto) Eos # (Auto) Baso # (Auto) Abs Immat Gran (auto) Absolute Neuts (auto) Absolute Nucleated RBC Nucleated RBC % (auto) Smear Tech's Comments VBG pH VBG pCO2 VBG pO2 VBG HCO3 VBG O2 Saturation VBG Base Excess Sodium Potassium Chloride Carbon Dioxide Anion Gap BUN Creatinine Estim Creat Clear Calc Estimated GFR Random Glucose Lactic Acid Calcium Phosphorus Magnesium Albumin TSH Urine Color Dark Yellow Urine Appearance Cloudy Urine pH 5.5 Ur Specific [place] 1.020 Urine Protein 100 (2+) H Urine Glucose (UA) Negative Urine Ketones Trace Urine Blood Large (3+) H Urine Nitrite Negative Ur Leukocyte Esterase Small (1+) H Urine RBC >20 H Urine WBC 11-20 H Ur Squamous Epith Cells 6-10 Urine Bacteria None Seen Hyaline Casts >20 Granular Casts Present Microbiology Microbiology Results: Microbiology 02/28/22 Unknown Washing - Wash Gram Stain - Final 02/28/22 Unknown Washing - Wash - Preliminary Culture in progress. 02/27/22 09:41 Blood - Central Line Blood Culture - Preliminary No growth after 48 hours. 02/27/22 09:41 Blood - Central Line Blood Culture - Preliminary No growth after 48 hours. 02/26/22 20:20 Blood - Venous Blood Culture - Preliminary No growth after 48 hours. 02/26/22 20:20 Blood - Venous Blood Culture - Preliminary No growth after 48 hours. 02/24/22 15:00 Thoracentesis Fluid Gram Stain - Final 02/24/22 15:00 Thoracentesis Fluid Anaerobic Culture - Final NO GROWTH AFTER 5 DAYS 02/24/22 15:00 Thoracentesis Fluid Body Fluid Culture - Final No growth after 2 days 02/23/22 18:10 Blood - Venous Blood Culture - Final No growth after 5 days. 02/23/22 18:10 Blood - Venous Blood Culture - Final No growth after 5 days. 02/27/22 09:41 Urine Catheterized - Baptiste Catheter Urine Culture - Final No growth. 02/27/22 09:56 Blood - Venous Gram Stain - Final 02/27/22 09:56 Blood - Venous Routine Culture - Final 02/27/22 09:56 Blood - Venous Anaerobic Culture - Final Review of Systems Review of Systems Yes unobtainable due to endotracheal tube Physical Exam Vital Signs: Vital Signs: Last Vital Signs Temp 98.4 F 03/02/22 08:00 Pulse 118 H 03/02/22 08:00 Resp 20 03/02/22 08:00 BP 108/41 L 03/02/22 08:00 Pulse Ox 100 03/02/22 08:00 O2 Del Method 03/02/22 08:00 O2 Flow Rate 9 03/02/22 07:00 FiO2 35 03/02/22 08:19 BMI result Body Mass Index 20.9 Const: General: other (sedated) Nutritional Appearance: thin Resp: Other: right lung clear; left side diminished Auscultation: diminished lung sounds Cardio: Heart sounds: S1 normal heart sound present and S2 normal heart sound present GI: Inspection: No distended Palpation (GI): Soft to palpation Extrem: General: Yes no pedal edema Procedures Date of Service Date of Service: 03/02/22 Assessment and Plan Assessment and plan (1) Mass of left lung: Status: Acute (2) Pleural effusion, left: Problem details: Malignant pleural effusion, stage 4 lung cancer Status: Acute (3) Atelectasis of left lung: Status: Acute (4) Dyspnea: Status: Acute (5) Pneumonia: Problem details: post obs pneumonia Status: Acute Plan Bronchoscopy scheduled for 03/03 8am Poor prognosis Time Spent With Patient Time: Total time managing care of this patient today ____ minutes. Progress Note: Quality Stroke Does the patient have a stroke diagnosis?: No
[2022-03-02] MEDS: HYDROmorphone HCl 0.5 MG/0.5 ML SYRINGE 0.25 MG IVPUSH (10:10)
[2022-03-02] MEDS: Chlorhexidine Gluc Oral Rinse 15 ML MOUTHWASH BUCCAL ×3 (10:10→20:56)
[2022-03-02] MEDS: Norepinephrine Bitartrate/D5W 8 MG/250 ML PLAST..BAG 29 MG IV (10:40)
--- NOTE | 2022-03-02 11:57 | MHC.CM.PN ---
Pt remains in ICU: d/t worsening respiratory status r/t stage 4 cancer, pt has been intubated. Of note, pt had not completed a HCP despite many attempts by staff to assist her d/t pt's own uncertainty and reluctance: Received call from pt's 1st cousin, Gogo who states her and pt have maintained a relationship and that she spoke w/pt via phone on 03/01. Gogo states she would be able to assist w/medical decisions if needed as next of kin. Gogo also states that pt has been a lonely and very private person, almost a recluse for many years. She is without children and was an only child. Information passed on to ICU care team. Gogo will be added to emergency contacts. CM to follow for d/c needs.
[2022-03-02] MEDS: Heparin Sodium,Porcine 5,000 UNIT/ML VIAL 5000 UNIT SUBCUT (12:32)
[2022-03-02] MEDS: propofoL 1,000 MG/100 ML VIAL 14.58 MG IVCONT ×2 (14:47→18:59)
[2022-03-02] MEDS: Famotidine/PF 20 MG/2 ML VIAL IVPUSH (15:46)
--- NOTE | 2022-03-02 16:11 | P.PNCC_ITS ---
Subjective Subjective Date of Service: 03/02/22 Interval History: 76-year-old female lifelong smoker presenting with increased respiratory distress significant work of breathing and hypoxemic respiratory failure was able to be maintained on nasal cannula but any little movement she would have severe desaturation despite this and work of breathing continue to increase bronchoscopy revealing an endobronchial obstructing lesion which was of a large necrotic mass in the left mainstem with complete atelectasis behind it and we have positive cells for a malignancy from the thoracentesis on the low on the left side and to poorly differentiated cell so it is an aggressive tumor in its obviously a stage IV cancer but today because of an increasing pCO2 in acute respiratory acidosis the patient was clearly failing and and if he said in order to be able to attempt a more aggressive bronchoscopic clean out of the left mainstem to see if we could re-expand her lung which was her choosing we need to intubate and we did that very easily very cleanly and successfully and she is now on the ventilator and pending a bronchoscopy in the OR tomorrow but overall we still have a very poor prognosis and the patient is unfortunately very cachectic at we reached out to the only family which were 2 cousins 1 of whom is a nurse so we await tomorrow's procedure We never lost blood pressure we had Levophed always hanging according to CVP we also replaced of a volume and she has got the good urine output being maintained OG tube is in place but I refrain from feeding because per going to be going to the OR shortly Critical Care Time (minutes): 45 Physical Exam Vital Signs: Vital Signs: Last Vital Signs Temp 101.3 F H 03/02/22 16:00 Pulse 103 H 03/02/22 16:00 Resp 16 03/02/22 16:00 BP 110/48 L 03/02/22 16:00 Pulse Ox 97 03/02/22 16:00 O2 Del Method 03/02/22 16:00 O2 Flow Rate 9 03/02/22 07:00 FiO2 35 03/02/22 16:00 BMI result Body Mass Index 20.9 Very comfortable and sleeping on high-dose propofol with stable vital signs currently heart rate 107 in sinus tachycardia oxygen saturation 97% on an FiO2 of 35% blood pressure is 92/40 with a mean of 57 Good LV function by bedside echo but she has no neck vein distension has good bilateral carotid upstrokes no gallops quiet precordium Absent breath sounds on the left side diminished on the right Abdomen soft with no organomegaly Objective Data Labs 03/02/22 05:48 03/02/22 05:48 Labs: Laboratory Results - last 24 hr 03/02/22 03/02/22 03/02/22 01:18 05:46 05:48 WBC 59.7 H* RBC 4.08 L D Hgb 10.2 L D Hct 33.9 L D MCV 83.1 MCH 25.0 L MCHC 30.1 L RDW 17.3 H Plt Count 705 H D MPV 9.0 L Immature Gran % (Auto) 2.5 H Neut % (Auto) 92.2 H Lymph % (Auto) 1.9 L [place] % (Auto) 3.0 Eos % (Auto) 0.0 Baso % (Auto) 0.4 Lymph # (Auto) 1.1 L [place] # (Auto) 1.8 H Eos # (Auto) 0.0 Baso # (Auto) 0.2 Abs Immat Gran (auto) 1.49 H Absolute Neuts (auto) 55.1 H Absolute Nucleated RBC 0.030 H Nucleated RBC % (auto) 0.1 Smear Tech's Comments VERIFIED VBG pH 7.36 VBG pCO2 50 VBG pO2 46 VBG HCO3 29 H VBG O2 Saturation 72.0 VBG Base Excess 3.0 Sodium Potassium Chloride Carbon Dioxide Anion Gap BUN Creatinine Estim Creat Clear Calc Estimated GFR Random Glucose Lactic Acid 1.5 Calcium Phosphorus Magnesium Albumin TSH Urine Color Urine Appearance Urine pH Ur Specific [place] Urine Protein Urine Glucose (UA) Urine Ketones Urine Blood Urine Nitrite Ur Leukocyte Esterase Urine RBC Urine WBC Ur Squamous Epith Cells Urine Bacteria Hyaline Casts Granular Casts 03/02/22 03/02/22 03/02/22 05:48 05:48 05:48 WBC RBC Hgb Hct MCV MCH MCHC RDW Plt Count MPV Immature Gran % (Auto) Neut % (Auto) Lymph % (Auto) [place] % (Auto) Eos % (Auto) Baso % (Auto) Lymph # (Auto) [place] # (Auto) Eos # (Auto) Baso # (Auto) Abs Immat Gran (auto) Absolute Neuts (auto) Absolute Nucleated RBC Nucleated RBC % (auto) Smear Tech's Comments VBG pH 7.31 L VBG pCO2 56 VBG pO2 27 VBG HCO3 29 H VBG O2 Saturation 30.0 VBG Base Excess 1.9 Sodium 139 Potassium 4.3 Chloride 99 Carbon Dioxide 28 Anion Gap 16 BUN 13 Creatinine 0.74 Estim Creat Clear Calc 45.7 Estimated GFR > 60 Random Glucose 119 H Lactic Acid Calcium 9.6 D Phosphorus 3.9 Magnesium 1.7 Albumin 3.5 TSH 1.45 Urine Color Urine Appearance Urine pH Ur Specific [place] Urine Protein Urine Glucose (UA) Urine Ketones Urine Blood Urine Nitrite Ur Leukocyte Esterase Urine RBC Urine WBC Ur Squamous Epith Cells Urine Bacteria Hyaline Casts Granular Casts 03/02/22 06:11 WBC RBC Hgb Hct MCV MCH MCHC RDW Plt Count MPV Immature Gran % (Auto) Neut % (Auto) Lymph % (Auto) [place] % (Auto) Eos % (Auto) Baso % (Auto) Lymph # (Auto) [place] # (Auto) Eos # (Auto) Baso # (Auto) Abs Immat Gran (auto) Absolute Neuts (auto) Absolute Nucleated RBC Nucleated RBC % (auto) Smear Tech's Comments VBG pH VBG pCO2 VBG pO2 VBG HCO3 VBG O2 Saturation VBG Base Excess Sodium Potassium Chloride Carbon Dioxide Anion Gap BUN Creatinine Estim Creat Clear Calc Estimated GFR Random Glucose Lactic Acid Calcium Phosphorus Magnesium Albumin TSH Urine Color Dark Yellow Urine Appearance Cloudy Urine pH 5.5 Ur Specific [place] 1.020 Urine Protein 100 (2+) H Urine Glucose (UA) Negative Urine Ketones Trace Urine Blood Large (3+) H Urine Nitrite Negative Ur Leukocyte Esterase Small (1+) H Urine RBC >20 H Urine WBC 11-20 H Ur Squamous Epith Cells 6-10 Urine Bacteria None Seen Hyaline Casts >20 Granular Casts Present Microbiology Microbiology Results: Microbiology 02/28/22 Unknown Washing - Wash Gram Stain - Final 02/28/22 Unknown Washing - Wash - Preliminary Culture in progress. 02/27/22 09:41 Blood - Central Line Blood Culture - Preliminary No growth after 48 hours. 02/27/22 09:41 Blood - Central Line Blood Culture - Preliminary No growth after 48 hours. 02/26/22 20:20 Blood - Venous Blood Culture - Preliminary No growth after 48 hours. 02/26/22 20:20 Blood - Venous Blood Culture - Preliminary No growth after 48 hours. 02/24/22 15:00 Thoracentesis Fluid Gram Stain - Final 02/24/22 15:00 Thoracentesis Fluid Anaerobic Culture - Final NO GROWTH AFTER 5 DAYS 02/24/22 15:00 Thoracentesis Fluid Body Fluid Culture - Final No growth after 2 days 02/23/22 18:10 Blood - Venous Blood Culture - Final No growth after 5 days. 02/23/22 18:10 Blood - Venous Blood Culture - Final No growth after 5 days. 02/27/22 09:41 Urine Catheterized - Baptiste Catheter Urine Culture - Final No growth. 02/27/22 09:56 Blood - Venous Gram Stain - Final 02/27/22 09:56 Blood - Venous Routine Culture - Final 02/27/22 09:56 Blood - Venous Anaerobic Culture - Final Progress Note: A&P Assessment and plan (1) Acute hypoxemic respiratory failure: Status: Acute (2) Pneumonia: Status: Acute (3) Diarrhea: Status: Acute (4) Cancer cachexia: Status: Acute (5) Atelectasis of left lung: Status: Acute (6) Dyspnea: Status: Acute (7) Tachypnea: Status: Acute (8) Mass of left lung: Status: Acute (9) Pleural effusion, left: Status: Acute (10) Hypercapnic respiratory failure: Status: Acute Plan Plan is to keep comfortable and intubated and hopefully be able to proceed to the OR in the morning for a more aggressive bronchoscopy Quality Stroke Does the patient have a stroke diagnosis?: No VTE Prior VTE?: No VTE Risk Level:: Medical - moderate - high VTE Device Contraindication: N/A - Device Ordered VTE Drug Contraindication: Treatment Not Indicated
--- NOTE | 2022-03-02 16:19 | MHC.SHP ---
Pre-Procedural Eval Section A Date of Service: 03/02/22 The patient is an INPATIENT: Yes Section B Chief Complaint: Lung Mass Allergies: Allergies Allergy/AdvReac Type Severity Reaction Status Date / Time Penicillins Allergy Itching Verified 02/23/22 11:53 Sulfa (Sulfonamide Allergy Itching Verified 02/23/22 11:53 Antibiotics) Plan I have reviewed the history and physical and performed a pertinent physical examination on my patient. No changes have occurred unless specified. Time Spent With Patient Time: Total time managing care of this patient today ____ minutes.
[2022-03-02] MEDS: Norepinephrine Bitartrate/D5W 8 MG/250 ML PLAST..BAG 42.74 MG IV (17:32)
--- NOTE | 2022-03-02 18:33 | PC.NURSE ---
Pt intubated at 0755 at bedside, IV Propofol and IV Pernell given as ordered; Propofol gtt initiated per order. Pt's EET 7.5, 24cm at lip; OG tube in place, confirmed with CXR by MD. Pt continues to be on Levophed gtt, requiring higher titration, unable to wean as this time. Pt's TF on hold at this time per MD's request for Bronchoscopy in the am; telephone consent obtained. Continues to be on Vent PC mode at 16/20/5/35% and satting in the mid 90s. Rectal tube in place, draining small liquid brown stool. Pt's toribio intact and draining 15-40cc of dark kirit urine per hr. Pt bathed and skin care provided as needed. Pt repositioned every 2 hrs and as needed, Prevalon system and wedges utilized. Hollissinsharmaine Avelar and Gogo updated and all questions answered. Safety maintained throughout. Will continue to monitor.
[2022-03-02] MEDS: Norepinephrine Bitartrate/D5W 8 MG/250 ML PLAST..BAG 53.42 MG IV (22:34)
[2022-03-03] VITALS (42 sets, daily range): BP systolic 92–149; BP diastolic 44–77; PULSE 93–123; RESP 15–22; TEMP 34.8–39.3; O2SAT 92–97; BMI 21.5
[2022-03-03 00:20] LABS: Venous Blood Gas Refer to POC result
[2022-03-03 00:20] LABS: VBG Base Excess 0.7 mmol/L; VBG HCO3 22 mmol/L (22-26); VBG pCO2 27 mmHg; VBG pH 7.51 (7.32-7.43); VBG pO2 45 mmHg
--- NOTE | 2022-03-03 00:20 | PM.CCN ---
Critical Care Event Note Summary Narrative: This case had a high probability of a clinically significant, sudden, or life threatening deterioration of this patient's condition which required my full and direct attention, intervention and personal management.
[2022-03-03] MEDS: propofoL 1,000 MG/100 ML VIAL 14.58 MG IVCONT ×5 (00:26→22:13)
[2022-03-03 00:28] LABS: Hematocrit 33.1 % (37.0-47.0); Hemoglobin 10.4 g/dl (12.0-16.0); Mean Corpuscular HGB Conc 31.4 g/dl (31.0-35.0); Mean Corpuscular Hemoglobin 24.7 pg (27.0-33.0); Mean Corpuscular Volume 78.6 fL (80.0-98.0); Mean Platelet Volume 9.4 fL (9.4-12.3); NRBC Pct Auto 0.1 /100WBC (0.0-0.2); Platelet Count 815 X10*3/uL (160-400); Red Blood Count 4.21 X10*6/uL (4.20-5.50); Red Cell Distribution Width 17.6 % (11.0-16.0)
--- NOTE | 2022-03-03 00:32 | PM.SEPSIS ---
Sepsis Event Note Evaluation Sepsis screening result: No Definite Risk Current stage of sepsis: severe sepsis Reason for ruling out sepsis: The patient became febrile with no response to Tylenol, T-max of 102.2? and increasing requirements for pressure support. Due to concern for severe sepsis, blood cultures, lactic acid, CXR and UA were ordered. No new consolidations were seen on chest x-ray. No fluid resuscitation was given as she appears euvolemic with a CVP of 8. She was treated empirically with Vancomycin, Levaquin, and Metronidazole. Initial hypotension due to sepsis/infection: MAP < 65 mmHg Possible source: pulmonary, genitourinary and other Focused Exam Vital signs: Vital Signs Temp Pulse Resp BP Pulse Ox O2 Del Method FiO2 03/03/22 00:00 35 03/03/22 00:18 35 03/03/22 00:00 101.9 F H 114 H 17 124/55 L 97 Mechanical Ventilation 35 03/02/22 23:00 102.2 F H 115 H 16 108/49 L 96 Mechanical Ventilation 35 03/02/22 22:00 117 H 16 111/52 L 97 Mechanical Ventilation 35 03/02/22 22:11 83/48 L 03/02/22 21:52 104/44 L 03/02/22 21:17 85/47 L 03/02/22 20:00 35 03/02/22 21:02 79/44 L 03/02/22 20:54 96/47 L 03/02/22 21:00 101.3 F H 109 H 16 87/47 L 96 Mechanical Ventilation 35 03/02/22 20:00 100.6 F H 107 H 19 112/44 L 97 Mechanical Ventilation 35 03/02/22 19:56 35 03/02/22 19:11 96/48 L 03/02/22 17:15 91/37 L 03/02/22 16:55 98/40 L 03/02/22 16:47 93/37 L 03/02/22 16:15 92/40 L 03/02/22 19:00 101.5 F H 108 H 17 96/48 L Mechanical Ventilation 35 03/02/22 18:00 101.1 F H 108 H 16 101/50 L 96 Mechanical Ventilation 35 03/02/22 17:00 101.8 F H 110 H 16 105/42 L 96 Mechanical Ventilation 35 03/02/22 16:00 101.3 F H 103 H 16 110/48 L 97 Mechanical Ventilation 35 03/02/22 15:30 35 03/02/22 14:56 94/46 L 03/02/22 15:49 35 03/02/22 15:00 101.7 F H 108 H 16 103/48 L 96 Mechanical Ventilation 35 03/02/22 14:00 102 H 16 102/46 L 96 Mechanical Ventilation 35 03/02/22 13:00 102 H 16 100/47 L 96 Mechanical Ventilation 35 Respiratory exam: Present patient mechanically ventilated and rales (Right throughout. Breath sounds absent on left as previously documented.) Cardiovascular exam: S1, S2 and tachycardia Capillary refill: < 2 Seconds Peripheral pulse strength: 2+ Slightly Diminished Peripheral pulse location: Pedal (3+ Normal Radial pulses) Skin exam: pale Date exam was performed: 03/03/22 Time exam was performed: 01:05 Bedside Monitoring Central Venous (RA) Pressure (mmHg): 8 Bedside cardiovascular ultrasound performed: No Fluid responsiveness: not performed Date bedside monitoring was performed: 03/03/22 Time bedside monitoring was performed: 01:05 Problem List (1) Acute hypoxemic respiratory failure: Status: Acute (2) Pneumonia: Status: Acute Comment: post obs pneumonia (3) Diarrhea: Status: Acute (4) Cancer cachexia: Status: Acute (5) Atelectasis of left lung: Status: Acute Comment: Obstructing necrotic mass in left main bronchus (6) Dyspnea: Status: Acute (7) Tachypnea: Status: Acute (8) Mass of left lung: Status: Acute (9) Pleural effusion, left: Status: Acute Comment: Malignant pleural effusion, stage 4 lung cancer (10) Hypercapnic respiratory failure: Status: Acute
[2022-03-03 00:38] LABS: Lactic Acid 2.8 mmol/L (0.5-2.0); White Blood Count 52.9 X10*3/uL (4.8-10.8)
[2022-03-03] MEDS: 0.9 % Sodium Chloride Flush 3 ML SYRINGE IVFLUSH ×3 (00:48→15:03)
[2022-03-03] MEDS: levoFLOXacin/D5W 500 MG/100 ML PIGGYBACK 100 MG IV (00:48)
[2022-03-03] MEDS: vancomycin HCL 1,000 MG in 0.9 % Sodium Chloride 250 ML 270 MG IV ×2 (00:48→22:06)
[2022-03-03 02:05] LABS: Appearance Urine Clear; Color Urine Yellow; Glucose Urine UA Negative (Negative); Leukocyte Esterase Urine Negative (Negative); Nitrite Urine Negative (Negative); PH 5.5 (5.0-9.0); Urine Blood Negative (Negative); Urine Ketones Negative (Negative); Urine Protein Trace mg/dL (Neg-Trace)
[2022-03-03 02:09] LABS: Bacteria Urine None Seen (None Seen); Hyaline Casts Urine 0-2 /LPF (0-2); RBC Urine 0-2 /HPF (0-2); Squamous Epithelial Cell Urine 0-2 /HPF (0-2); WBC Urine 0-5 /HPF (0-5)
[2022-03-03 02:09] LABS: Reflex Lactate? Lactic Acid Added
[2022-03-03] MEDS: metroNIDAZOLE/NS 500 MG/100 ML PIGGYBACK 100 MG IV ×3 (02:22→17:50)
[2022-03-03] MEDS: Norepinephrine Bitartrate/D5W 8 MG/250 ML PLAST..BAG 53.42 MG IV ×2 (02:40→18:42)
[2022-03-03 02:44] LABS: ~Lactic Acid-LAB USE ONLY 2.6 mmol/L (0.5-2.0)
[2022-03-03 04:25] LABS: Reflex Lactate? 2 Y
[2022-03-03 04:56] LABS: VBG HCO3 24 mmol/L (22-26); VBG pCO2 33 mmHg; VBG pH 7.46 (7.32-7.43); VBG pO2 42 mmHg
[2022-03-03 05:11] LABS: Basophils Absolute Auto 0.2 X10*3/uL (0.0-0.2); Basophils Percent Auto 0.4 % (0-2); Eosinophils Percent Auto 0.1 % (0-4); Hematocrit 32.2 % (37.0-47.0); Hemoglobin 10.1 g/dl (12.0-16.0); Imm Gran Abs Auto 1.77 X10*3/uL (0.00-0.03); Imm Gran Pct Auto 3.4 % (0.0-0.4); Lymphocytes Absolute Auto 2.7 X10*3/uL (1.2-4.9); Lymphocytes Percent Auto 5.2 % (20-40); MANUAL DIFF FLAG SCAN; Mean Corpuscular HGB Conc 31.4 g/dl (31.0-35.0); Mean Corpuscular Hemoglobin 24.9 pg (27.0-33.0); Mean Corpuscular Volume 79.5 fL (80.0-98.0); Mean Platelet Volume 9.6 fL (9.4-12.3); Monocytes Absolute Auto 1.9 X10*3/uL (0.1-1.2); Monocytes Percent Auto 3.7 % (2-11); NRBC Pct Auto 0.2 /100WBC (0.0-0.2); Neutrophils Absolute Auto 45.3 x10*3/uL (2.0-8.3); Neutrophils Percent Auto 87.2 % (45-73); Platelet Count 746 X10*3/uL (160-400); Red Blood Count 4.05 X10*6/uL (4.20-5.50); Red Cell Distribution Width 17.7 % (11.0-16.0); SCAN SMEAR FLAG 1
[2022-03-03 05:18] LABS: INTERNATIONAL NORM RATIO 1.4 (0.9-1.1); Prothrombin Time 16.8 SEC (10.0-13.1)
[2022-03-03 05:21] LABS: Partial Thromboplastin Time 35.7 SEC (26.0-36.4)
[2022-03-03 05:28] LABS: Albumin Level 2.6 g/dL (3.5-5.0); Anion Gap 17 (12-20); Blood Urea Nitrogen 15 mg/dL (9-16); Calcium 8.9 mg/dL (8.4-10.2); Carbon Dioxide 23 mmol/L (22-29); Chloride 99 mmol/L (96-108); Creatinine Clr Calc Pharmacy 40.2; Estimated Glomerular Filt Rate > 60; Glucose Random 154 mg/dL (60-115); Magnesium 1.5 mg/dL (1.6-2.6); Phosphorus 3.4 mg/dL (2.7-4.5); Sodium 135 mmol/L (135-145)
[2022-03-03 05:32] LABS: ~Lactic Acid-LAB USE ONLY 3.4 mmol/L (0.5-2.0)
[2022-03-03 05:37] LABS: SLIDE REVIEW VERIFIED
[2022-03-03 05:38] LABS: Venous Blood Gas Refer to POC result
[2022-03-03] MEDS: Magnesium Sulfate/H2O 2 GM/50 ML PIGGYBACK IV (05:47)
[2022-03-03] MEDS: Albumin Human 25 % 100 ML IV ×2 (05:48→06:55)
[2022-03-03] MEDS: Norepinephrine Bitartrate/D5W 8 MG/250 ML PLAST..BAG 54.95 MG IV ×3 (05:58→14:44)
--- NOTE | 2022-03-03 07:24 | P.CONAN_ITS ---
[facility] Active Problems Active Problems: All Active Problems (Updated 03/03/22 @ 01:07 by Ana Mariano NP) Hypercapnic respiratory failure (Acute) Acute hypoxemic respiratory failure (Acute) Pneumonia (Acute) Diarrhea (Acute) Cancer cachexia (Acute) Atelectasis of left lung (Acute) Dyspnea (Acute) Tachypnea (Acute) Mass of left lung (Acute) Pleural effusion, left (Acute) Past Medical History Medical History Atelectasis of left lung Tobacco use disorder Functional capacity: independent ambulation Patient : No Family History Family History Mother HTN (hypertension) Family history of problems with anesthesia: No Surgical History Surgical History History of appendectomy History of Problems with Anesthesia: No Social History Social History Household Members: None Housing: House Do you presently have visiting nurse or other home services: No Alcohol intake: current Alcohol intake frequency: holidays/special occasions only Patient Tobacco Use Status: Former Tobacco user Quit Date: two weeks ago; cut down starting 3 months ago; has smoked forever Cigarette Packs Per Day: 0.75 Second Hand Smoke Exposure: No service: No Meds Allergies Allergy/AdvReac Type Severity Reaction Status Date / Time Penicillins Allergy Itching Verified 02/23/22 11:53 Sulfa (Sulfonamide Allergy Itching Verified 02/23/22 11:53 Antibiotics) Active Medications: Current Medications Acetaminophen (Acetaminophen 325 Mg Tablet) 650 mg PO Q6H PRN PRN Reason: Pain, Mild (Pain Scale 1-3) Last Admin: 03/02/22 22:41 Dose: 650 mg Albuterol/Ipratropium (Albuterol/Iprat 2.5/0.5mg 3 Ml Ampul.Neb) 3 ml INHALE RQ6H PRN PRN Reason: Shortness of Breath/Wheezing Last Admin: 02/28/22 20:17 Dose: 3 ml Chlorhexidine Gluconate (Chlorhexidine Gluc Oral Rinse 15 Ml Mouthwash) 15 ml BUCCAL TID ANTHONY Last Admin: 03/02/22 20:56 Dose: 15 ml Docusate Sodium (Docusate Sodium 100 Mg Capsule) 100 mg PO DAILY PRN PRN Reason: Constipation Famotidine (Famotidine/Pf 20 Mg/2 Ml Vial) 20 mg IVPUSH DAILY [facility] Last Admin: 03/02/22 15:46 Dose: 20 mg Heparin Sodium (Porcine) (Heparin Sodium,Porcine 5,000 Unit/Ml Vial) 5,000 unit SUBCUT Q12H [facility] Last Admin: 03/02/22 12:32 Dose: 5,000 unit Hydromorphone HCl (Hydromorphone Hcl 0.5 Mg/0.5 Ml Syringe) 0.25 mg IVPUSH Q2H PRN; Protocol PRN Reason: Pain, Severe (Pain Scale 7-10) Last Admin: 03/02/22 10:10 Dose: 0.25 mg Norepinephrine Bitartrate (Levophed) 8 mg in 250 mls @ 0 mls/hr IV .Q0M [facility]; Protocol Last Admin: 03/03/22 05:58 Dose: 0.72 mcg/kg/min, 54.95 mls/hr Metronidazole (Flagyl) 500 mg in 100 mls @ 100 mls/hr IV Q8H [facility] Last Infusion: 03/03/22 03:49 Dose: Infused Propofol (Diprivan) 1,000 mg in 100 mls @ 0 mls/hr IVCONT .Q0M [facility]; Protocol Last Admin: 03/03/22 06:15 Dose: 50 mcg/kg/min, 14.58 mls/hr Magnesium Sulfate (Magnesium Sulfate/H2o) 2 gm in 50 mls @ 25 mls/hr IV ONCE ONE Stop: 03/03/22 07:30 Last Admin: 03/03/22 05:47 Dose: 25 mls/hr Albumin Human (Kedbumin 25 %) 100 mls @ 100 mls/hr IV Q1H [facility] Stop: 03/03/22 07:44 Last Admin: 03/03/22 06:55 Dose: 100 mls/hr Loperamide HCl (Loperamide Hcl 2 Mg Capsule) 2 mg PO Q6H PRN PRN Reason: Diarrhea Last Admin: 02/27/22 05:10 Dose: 2 mg Nicotine Polacrilex (Nicotine Polacrilex 2 Mg Gum) 2 mg BUCCAL Q2H PRN PRN Reason: Nicotine Cravings Pharmacy Consult (Consult Rx Perform Med Rec) 1 each MISCELLANE ONCE PRN PRN Reason: Consult order Pharmacy Consult (Consult Rx Vancomycin Dosing) 1 each MISCELLANE DAILY PRN PRN Reason: Consult order Sodium Chloride (0.9 % Sodium Chloride Flush 3 Ml Syringe) 3 ml IVFLUSH QSHIFT ANTHONY Last Admin: 03/03/22 00:48 Dose: 3 ml Home Medications Medication Instructions Recorded Confirmed Last Taken Type No Known Home Meds 02/23/22 02/23/22 Unknown History Exam Exam Date and Time: March 03, [id number] Height,Weight and Vital Signs: Height 5 ft Weight 50.1 kg Last Vital Signs Temp 100.2 F 03/03/22 06:00 Pulse 109 H 03/03/22 07:00 Resp 19 03/03/22 07:00 BP 125/61 03/03/22 07:00 Pulse Ox 95 03/03/22 07:00 O2 Del Method 03/03/22 07:00 O2 Flow Rate 9 03/02/22 07:00 FiO2 35 03/03/22 07:00 Pertinent Lab Results Pertinent Lab Results: Laboratory Tests 02/23/22 02/23/22 02/23/22 12:46 12:46 12:46 WBC 25.4 H RBC 3.81 L Hgb 9.2 L Hct 29.2 L MCV 76.6 L MCH 24.1 L MCHC 31.5 RDW 15.4 Plt Count 792 H MPV 8.7 L Immature Gran % (Auto) 0.8 H Neut % (Auto) 90.9 H Lymph % (Auto) 4.0 L [place] % (Auto) 4.1 Eos % (Auto) 0.0 Baso % (Auto) 0.2 Lymph # (Auto) 1.0 L [place] # (Auto) 1.0 Eos # (Auto) 0.0 Baso # (Auto) 0.1 Abs Immat Gran (auto) 0.21 H Absolute Neuts (auto) 23.1 H Absolute Nucleated RBC 0.000 Nucleated RBC % (auto) 0.0 Smear Tech's Comments VERIFIED PT 12.2 INR 1.1 APTT VBG pH VBG pCO2 VBG pO2 VBG HCO3 VBG O2 Saturation VBG Base Excess Sodium 137 Potassium 4.3 Chloride 100 Carbon Dioxide 26 Anion Gap 15 BUN 16 Creatinine 0.68 Estim Creat Clear Calc 44.5 Estimated GFR > 60 Random Glucose 98 Lactic Acid Lactic Acid F/U @ 2Hr Lactic Acid F/U @ 4Hr Calcium 9.1 Phosphorus Magnesium Iron TIBC % Saturation Unsat Iron Binding Ferritin Total Bilirubin 0.2 GGT AST 14 ALT 9 Alkaline Phosphatase 185 H Lactate Dehydrogenase 242 H Troponin I High Sens C-Reactive Protein B-Natriuretic Peptide Total Protein 6.3 L Albumin 3.0 L Carcinoembryonic Ag 152.20 Procalcitonin TSH Urine Color Urine Appearance Urine pH Ur Specific [place] Urine Protein Urine Glucose (UA) Urine Ketones Urine Blood Urine Nitrite Ur Leukocyte Esterase Urine RBC Urine WBC Ur Squamous Epith Cells Urine Bacteria Hyaline Casts Granular Casts Pleural WBC Pleural RBC Pleural Neutrophils Pleural Lymphocytes Pleural Monocytes Pleural Other Cells Pleural Total Protein Pleural LDH Nasal Screen MRSA (PCR) Nasal S. aureus Screen Nasal MRSA/S.aureus Interp Stool Occult Blood Stool Leukocytes, Qual Stl C. cayetanensis PCR Stool Rotavirus A PCR Stl Adenov F 40/41 PCR Stool Astrovirus (PCR) Stool Campylobacter PCR Stool Cryptosporidium PCR Stl Sh Tox Pr E STEC PCR Stool E coli O157 PCR Stl Enterotoxigenic E PCR Stool EPEC (PCR) Stool EAEC (PCR) Stl E. histolytica PCR Stool Giardia Lamblia PCR Stool H. pylori Ag Stl P. shigelloides PCR Stool Salmonella PCR Stool Sapovirus (PCR) Stl Shigella/EIEC PCR St Y.enterocolitica PCR Stool Vibrio (PCR) Stl Vibrio cholerae PCR Stl Norovirus GI/GII PCR Random Vancomycin C. difficile Tox B Gene Influenza Type A (PCR) Influenza Type B (PCR) RSV RNA Qual (PCR) SARS-CoV-2 RNA (RT-PCR) Blood Type Antibody Screen Crossmatch 02/23/22 02/23/22 02/23/22 12:46 12:46 12:46 WBC RBC Hgb Hct MCV MCH MCHC RDW Plt Count MPV Immature Gran % (Auto) Neut % (Auto) Lymph % (Auto) [place] % (Auto) Eos % (Auto) Baso % (Auto) Lymph # (Auto) [place] # (Auto) Eos # (Auto) Baso # (Auto) Abs Immat Gran (auto) Absolute Neuts (auto) Absolute Nucleated RBC Nucleated RBC % (auto) Smear Tech's Comments PT INR APTT VBG pH VBG pCO2 VBG pO2 VBG HCO3 VBG O2 Saturation VBG Base Excess Sodium Potassium Chloride Carbon Dioxide Anion Gap BUN Creatinine Estim Creat Clear Calc Estimated GFR Random Glucose Lactic Acid Lactic Acid F/U @ 2Hr Lactic Acid F/U @ 4Hr Calcium Phosphorus Magnesium Iron TIBC % Saturation Unsat Iron Binding Ferritin Total Bilirubin GGT AST ALT Alkaline Phosphatase Lactate Dehydrogenase Troponin I High Sens 5.3 C-Reactive Protein B-Natriuretic Peptide 91 Total Protein Albumin Carcinoembryonic Ag Procalcitonin TSH Urine Color Urine Appearance Urine pH Ur Specific [place] Urine Protein Urine Glucose (UA) Urine Ketones Urine Blood Urine Nitrite Ur Leukocyte Esterase Urine RBC Urine WBC Ur Squamous Epith Cells Urine Bacteria Hyaline Casts Granular Casts Pleural WBC Pleural RBC Pleural Neutrophils Pleural Lymphocytes Pleural Monocytes Pleural Other Cells Pleural Total Protein Pleural LDH Nasal Screen MRSA (PCR) Nasal S. aureus Screen Nasal MRSA/S.aureus Interp Stool Occult Blood Stool Leukocytes, Qual Stl C. cayetanensis PCR Stool Rotavirus A PCR Stl Adenov F 40/41 PCR Stool Astrovirus (PCR) Stool Campylobacter PCR Stool Cryptosporidium PCR Stl Sh Tox Pr E STEC PCR Stool E coli O157 PCR Stl Enterotoxigenic E PCR Stool EPEC (PCR) Stool EAEC (PCR) Stl E. histolytica PCR Stool Giardia Lamblia PCR Stool H. pylori Ag Stl P. shigelloides PCR Stool Salmonella PCR Stool Sapovirus (PCR) Stl Shigella/EIEC PCR St Y.enterocolitica PCR Stool Vibrio (PCR) Stl Vibrio cholerae PCR Stl Norovirus GI/GII PCR Random Vancomycin C. difficile Tox B Gene Influenza Type A (PCR) NEGATIVE Influenza Type B (PCR) NEGATIVE RSV RNA Qual (PCR) NEGATIVE SARS-CoV-2 RNA (RT-PCR) NEGATIVE Blood Type Antibody Screen Crossmatch 02/23/22 02/24/22 02/24/22 12:51 07:13 07:13 WBC 23.0 H RBC 3.26 L Hgb 7.8 L Hct 25.1 L MCV 77.0 L MCH 23.9 L MCHC 31.1 RDW 15.3 Plt Count 734 H MPV 8.7 L Immature Gran % (Auto) Neut % (Auto) Lymph % (Auto) [place] % (Auto) Eos % (Auto) Baso % (Auto) Lymph # (Auto) [place] # (Auto) Eos # (Auto) Baso # (Auto) Abs Immat Gran (auto) Absolute Neuts (auto) Absolute Nucleated RBC 0.000 Nucleated RBC % (auto) 0.0 Smear Tech's Comments PT INR APTT VBG pH 7.39 VBG pCO2 43 VBG pO2 34 VBG HCO3 26 VBG O2 Saturation 45.0 VBG Base Excess 1.6 Sodium 136 Potassium 3.8 Chloride 102 Carbon Dioxide 25 Anion Gap 13 BUN 15 Creatinine 0.72 Estim Creat Clear Calc 42.0 Estimated GFR > 60 Random Glucose 106 Lactic Acid Lactic Acid F/U @ 2Hr Lactic Acid F/U @ 4Hr Calcium 8.3 L D Phosphorus Magnesium Iron 15 L TIBC 120 L % Saturation 13 L Unsat Iron Binding 105 Ferritin 580 H Total Bilirubin GGT AST ALT Alkaline Phosphatase Lactate Dehydrogenase 211 Troponin I High Sens C-Reactive Protein B-Natriuretic Peptide Total Protein Albumin 2.6 L Carcinoembryonic Ag Procalcitonin TSH Urine Color Urine Appearance Urine pH Ur Specific [place] Urine Protein Urine Glucose (UA) Urine Ketones Urine Blood Urine Nitrite Ur Leukocyte Esterase Urine RBC Urine WBC Ur Squamous Epith Cells Urine Bacteria Hyaline Casts Granular Casts Pleural WBC Pleural RBC Pleural Neutrophils Pleural Lymphocytes Pleural Monocytes Pleural Other Cells Pleural Total Protein Pleural LDH Nasal Screen MRSA (PCR) Nasal S. aureus Screen Nasal MRSA/S.aureus Interp Stool Occult Blood Stool Leukocytes, Qual Stl C. cayetanensis PCR Stool Rotavirus A PCR Stl Adenov F 40/41 PCR Stool Astrovirus (PCR) Stool Campylobacter PCR Stool Cryptosporidium PCR Stl Sh Tox Pr E STEC PCR Stool E coli O157 PCR Stl Enterotoxigenic E PCR Stool EPEC (PCR) Stool EAEC (PCR) Stl E. histolytica PCR Stool Giardia Lamblia PCR Stool H. pylori Ag Stl P. shigelloides PCR Stool Salmonella PCR Stool Sapovirus (PCR) Stl Shigella/EIEC PCR St Y.enterocolitica PCR Stool Vibrio (PCR) Stl Vibrio cholerae PCR Stl Norovirus GI/GII PCR Random Vancomycin C. difficile Tox B Gene Influenza Type A (PCR) Influenza Type B (PCR) RSV RNA Qual (PCR) SARS-CoV-2 RNA (RT-PCR) Blood Type Antibody Screen Crossmatch 02/24/22 02/24/22 02/24/22 07:13 15:00 15:00 WBC RBC Hgb Hct MCV MCH MCHC RDW Plt Count MPV Immature Gran % (Auto) Neut % (Auto) Lymph % (Auto) [place] % (Auto) Eos % (Auto) Baso % (Auto) Lymph # (Auto) [place] # (Auto) Eos # (Auto) Baso # (Auto) Abs Immat Gran (auto) Absolute Neuts (auto) Absolute Nucleated RBC Nucleated RBC % (auto) Smear Tech's Comments PT 13.1 INR 1.1 APTT VBG pH VBG pCO2 VBG pO2 VBG HCO3 VBG O2 Saturation VBG Base Excess Sodium Potassium Chloride Carbon Dioxide Anion Gap BUN Creatinine Estim Creat Clear Calc Estimated GFR Random Glucose Lactic Acid Lactic Acid F/U @ 2Hr Lactic Acid F/U @ 4Hr Calcium Phosphorus Magnesium Iron TIBC % Saturation Unsat Iron Binding Ferritin Total Bilirubin GGT AST ALT Alkaline Phosphatase Lactate Dehydrogenase Troponin I High Sens C-Reactive Protein B-Natriuretic Peptide Total Protein Albumin Carcinoembryonic Ag Procalcitonin TSH Urine Color Urine Appearance Urine pH Ur Specific [place] Urine Protein Urine Glucose (UA) Urine Ketones Urine Blood Urine Nitrite Ur Leukocyte Esterase Urine RBC Urine WBC Ur Squamous Epith Cells Urine Bacteria Hyaline Casts Granular Casts Pleural WBC 2.984 Pleural RBC 0.002 Pleural Neutrophils 25 Pleural Lymphocytes 9 Pleural Monocytes 12 Pleural Other Cells 54 Pleural Total Protein 3.7 Pleural LDH 368 Nasal Screen MRSA (PCR) Nasal S. aureus Screen Nasal MRSA/S.aureus Interp Stool Occult Blood Stool Leukocytes, Qual Stl C. cayetanensis PCR Stool Rotavirus A PCR Stl Adenov F 40/41 PCR Stool Astrovirus (PCR) Stool Campylobacter PCR Stool Cryptosporidium PCR Stl Sh Tox Pr E STEC PCR Stool E coli O157 PCR Stl Enterotoxigenic E PCR Stool EPEC (PCR) Stool EAEC (PCR) Stl E. histolytica PCR Stool Giardia Lamblia PCR Stool H. pylori Ag Stl P. shigelloides PCR Stool Salmonella PCR Stool Sapovirus (PCR) Stl Shigella/EIEC PCR St Y.enterocolitica PCR Stool Vibrio (PCR) Stl Vibrio cholerae PCR Stl Norovirus GI/GII PCR Random Vancomycin C. difficile Tox B Gene Influenza Type A (PCR) Influenza Type B (PCR) RSV RNA Qual (PCR) SARS-CoV-2 RNA (RT-PCR) Blood Type Antibody Screen Crossmatch 02/24/22 02/25/22 02/25/22 20:32 00:00 00:00 WBC RBC Hgb Hct MCV MCH MCHC RDW Plt Count MPV Immature Gran % (Auto) Neut % (Auto) Lymph % (Auto) [place] % (Auto) Eos % (Auto) Baso % (Auto) Lymph # (Auto) [place] # (Auto) Eos # (Auto) Baso # (Auto) Abs Immat Gran (auto) Absolute Neuts (auto) Absolute Nucleated RBC Nucleated RBC % (auto) Smear Tech's Comments PT INR APTT VBG pH VBG pCO2 VBG pO2 VBG HCO3 VBG O2 Saturation VBG Base Excess Sodium 137 Potassium 3.3 Chloride 104 Carbon Dioxide 23 Anion Gap 13 BUN 14 Creatinine 0.68 Estim Creat Clear Calc 44.5 Estimated GFR > 60 Random Glucose 103 Lactic Acid 2.6 H* Lactic Acid F/U @ 2Hr 1.0 Lactic Acid F/U @ 4Hr Calcium 8.0 L Phosphorus Magnesium Iron TIBC % Saturation Unsat Iron Binding Ferritin Total Bilirubin 0.4 GGT AST 18 ALT 6 Alkaline Phosphatase 158 H Lactate Dehydrogenase Troponin I High Sens C-Reactive Protein B-Natriuretic Peptide Total Protein 5.5 L Albumin 3.0 L Carcinoembryonic Ag Procalcitonin TSH Urine Color Urine Appearance Urine pH Ur Specific [place] Urine Protein Urine Glucose (UA) Urine Ketones Urine Blood Urine Nitrite Ur Leukocyte Esterase Urine RBC Urine WBC Ur Squamous Epith Cells Urine Bacteria Hyaline Casts Granular Casts Pleural WBC Pleural RBC Pleural Neutrophils Pleural Lymphocytes Pleural Monocytes Pleural Other Cells Pleural Total Protein Pleural LDH Nasal Screen MRSA (PCR) Nasal S. aureus Screen Nasal MRSA/S.aureus Interp Stool Occult Blood Stool Leukocytes, Qual Stl C. cayetanensis PCR Stool Rotavirus A PCR Stl Adenov F 40/41 PCR Stool Astrovirus (PCR) Stool Campylobacter PCR Stool Cryptosporidium PCR Stl Sh Tox Pr E STEC PCR Stool E coli O157 PCR Stl Enterotoxigenic E PCR Stool EPEC (PCR) Stool EAEC (PCR) Stl E. histolytica PCR Stool Giardia Lamblia PCR Stool H. pylori Ag Stl P. shigelloides PCR Stool Salmonella PCR Stool Sapovirus (PCR) Stl Shigella/EIEC PCR St Y.enterocolitica PCR Stool Vibrio (PCR) Stl Vibrio cholerae PCR Stl Norovirus GI/GII PCR Random Vancomycin C. difficile Tox B Gene Influenza Type A (PCR) Influenza Type B (PCR) RSV RNA Qual (PCR) SARS-CoV-2 RNA (RT-PCR) Blood Type Antibody Screen Crossmatch 02/25/22 02/25/22 02/25/22 00:01 02:46 05:15 WBC 32.6 H* RBC 2.94 L Hgb 7.2 L Hct 22.4 L MCV 76.2 L MCH 24.5 L MCHC 32.1 RDW 15.3 Plt Count 716 H MPV 8.8 L Immature Gran % (Auto) 1.1 H Neut % (Auto) 87.9 H Lymph % (Auto) 6.9 L [place] % (Auto) 3.8 Eos % (Auto) 0.1 Baso % (Auto) 0.2 Lymph # (Auto) 2.2 [place] # (Auto) 1.2 Eos # (Auto) 0.0 Baso # (Auto) 0.1 Abs Immat Gran (auto) 0.35 H Absolute Neuts (auto) 28.6 H Absolute Nucleated RBC 0.000 Nucleated RBC % (auto) 0.0 Smear Tech's Comments VERIFIED PT INR APTT VBG pH VBG pCO2 VBG pO2 VBG HCO3 VBG O2 Saturation VBG Base Excess Sodium 141 Potassium 3.3 Chloride 106 Carbon Dioxide 24 Anion Gap 14 BUN 11 Creatinine 0.63 Estim Creat Clear Calc 52.7 Estimated GFR > 60 Random Glucose 130 H Lactic Acid Lactic Acid F/U @ 2Hr Lactic Acid F/U @ 4Hr Calcium 8.2 L Phosphorus Magnesium Iron TIBC % Saturation Unsat Iron Binding Ferritin Total Bilirubin 0.4 GGT AST 34 H ALT 11 Alkaline Phosphatase 218 H Lactate Dehydrogenase Troponin I High Sens C-Reactive Protein 19.02 H B-Natriuretic Peptide Total Protein 5.6 L Albumin 3.3 L Carcinoembryonic Ag Procalcitonin TSH Urine Color Urine Appearance Urine pH Ur Specific [place] Urine Protein Urine Glucose (UA) Urine Ketones Urine Blood Urine Nitrite Ur Leukocyte Esterase Urine RBC Urine WBC Ur Squamous Epith Cells Urine Bacteria Hyaline Casts Granular Casts Pleural WBC Pleural RBC Pleural Neutrophils Pleural Lymphocytes Pleural Monocytes Pleural Other Cells Pleural Total Protein Pleural LDH Nasal Screen MRSA (PCR) Nasal S. aureus Screen Nasal MRSA/S.aureus Interp Stool Occult Blood Stool Leukocytes, Qual Stl C. cayetanensis PCR Stool Rotavirus A PCR Stl Adenov F 40/41 PCR Stool Astrovirus (PCR) Stool Campylobacter PCR Stool Cryptosporidium PCR Stl Sh Tox Pr E STEC PCR Stool E coli O157 PCR Stl Enterotoxigenic E PCR Stool EPEC (PCR) Stool EAEC (PCR) Stl E. histolytica PCR Stool Giardia Lamblia PCR Stool H. pylori Ag Stl P. shigelloides PCR Stool Salmonella PCR Stool Sapovirus (PCR) Stl Shigella/EIEC PCR St Y.enterocolitica PCR Stool Vibrio (PCR) Stl Vibrio cholerae PCR Stl Norovirus GI/GII PCR Random Vancomycin C. difficile Tox B Gene Influenza Type A (PCR) Influenza Type B (PCR) RSV RNA Qual (PCR) SARS-CoV-2 RNA (RT-PCR) Blood Type O Negative Antibody Screen NEGATIVE Crossmatch See Detail 02/25/22 02/25/22 02/25/22 05:15 05:15 13:47 WBC 29.6 H RBC 2.90 L Hgb 7.1 L Hct 22.4 L MCV 77.2 L MCH 24.5 L MCHC 31.7 RDW 15.6 Plt Count 707 H MPV 8.6 L Immature Gran % (Auto) 1.0 H Neut % (Auto) 89.4 H Lymph % (Auto) 5.5 L [place] % (Auto) 3.6 Eos % (Auto) 0.2 Baso % (Auto) 0.3 Lymph # (Auto) 1.6 [place] # (Auto) 1.1 Eos # (Auto) 0.1 Baso # (Auto) 0.1 Abs Immat Gran (auto) 0.29 H Absolute Neuts (auto) 26.4 H Absolute Nucleated RBC 0.000 Nucleated RBC % (auto) 0.0 Smear Tech's Comments PT INR APTT VBG pH VBG pCO2 VBG pO2 VBG HCO3 VBG O2 Saturation VBG Base Excess Sodium Potassium Chloride Carbon Dioxide Anion Gap BUN Creatinine Estim Creat Clear Calc Estimated GFR Random Glucose Lactic Acid Lactic Acid F/U @ 2Hr Lactic Acid F/U @ 4Hr Calcium Phosphorus Magnesium Iron TIBC % Saturation Unsat Iron Binding Ferritin Total Bilirubin GGT AST ALT Alkaline Phosphatase Lactate Dehydrogenase Troponin I High Sens C-Reactive Protein B-Natriuretic Peptide Total Protein Albumin Carcinoembryonic Ag Procalcitonin 53.49 TSH Urine Color Yellow Urine Appearance Clear Urine pH 5.5 Ur Specific [place] 1.010 Urine Protein Trace Urine Glucose (UA) Negative Urine Ketones Negative Urine Blood Negative Urine Nitrite Negative Ur Leukocyte Esterase Negative Urine RBC 0-2 Urine WBC 0-5 Ur Squamous Epith Cells 0-2 Urine Bacteria None Seen Hyaline Casts 6-10 Granular Casts Present Pleural WBC Pleural RBC Pleural Neutrophils Pleural Lymphocytes Pleural Monocytes Pleural Other Cells Pleural Total Protein Pleural LDH Nasal Screen MRSA (PCR) Nasal S. aureus Screen Nasal MRSA/S.aureus Interp Stool Occult Blood Stool Leukocytes, Qual Stl C. cayetanensis PCR Stool Rotavirus A PCR Stl Adenov F 40/41 PCR Stool Astrovirus (PCR) Stool Campylobacter PCR Stool Cryptosporidium PCR Stl Sh Tox Pr E STEC PCR Stool E coli O157 PCR Stl Enterotoxigenic E PCR Stool EPEC (PCR) Stool EAEC (PCR) Stl E. histolytica PCR Stool Giardia Lamblia PCR Stool H. pylori Ag Stl P. shigelloides PCR Stool Salmonella PCR Stool Sapovirus (PCR) Stl Shigella/EIEC PCR St Y.enterocolitica PCR Stool Vibrio (PCR) Stl Vibrio cholerae PCR Stl Norovirus GI/GII PCR Random Vancomycin C. difficile Tox B Gene Influenza Type A (PCR) Influenza Type B (PCR) RSV RNA Qual (PCR) SARS-CoV-2 RNA (RT-PCR) Blood Type Antibody Screen Crossmatch 02/25/22 02/25/22 02/25/22 14:59 14:59 16:01 WBC RBC Hgb Hct MCV MCH MCHC RDW Plt Count MPV Immature Gran % (Auto) Neut % (Auto) Lymph % (Auto) [place] % (Auto) Eos % (Auto) Baso % (Auto) Lymph # (Auto) [place] # (Auto) Eos # (Auto) Baso # (Auto) Abs Immat Gran (auto) Absolute Neuts (auto) Absolute Nucleated RBC Nucleated RBC % (auto) Smear Tech's Comments PT INR APTT VBG pH VBG pCO2 VBG pO2 VBG HCO3 VBG O2 Saturation VBG Base Excess Sodium Potassium Chloride Carbon Dioxide Anion Gap BUN Creatinine Estim Creat Clear Calc Estimated GFR Random Glucose Lactic Acid Lactic Acid F/U @ 2Hr Lactic Acid F/U @ 4Hr Calcium Phosphorus Magnesium Iron TIBC % Saturation Unsat Iron Binding Ferritin Total Bilirubin GGT AST ALT Alkaline Phosphatase Lactate Dehydrogenase Troponin I High Sens C-Reactive Protein B-Natriuretic Peptide Total Protein Albumin Carcinoembryonic Ag Procalcitonin TSH Urine Color Urine Appearance Urine pH Ur Specific [place] Urine Protein Urine Glucose (UA) Urine Ketones Urine Blood Urine Nitrite Ur Leukocyte Esterase Urine RBC Urine WBC Ur Squamous Epith Cells Urine Bacteria Hyaline Casts Granular Casts Pleural WBC Pleural RBC Pleural Neutrophils Pleural Lymphocytes Pleural Monocytes Pleural Other Cells Pleural Total Protein Pleural LDH Nasal Screen MRSA (PCR) Nasal S. aureus Screen Nasal MRSA/S.aureus Interp Stool Occult Blood NEGATIVE Stool Leukocytes, Qual Stl C. cayetanensis PCR Stool Rotavirus A PCR Stl Adenov F 40/41 PCR Stool Astrovirus (PCR) Stool Campylobacter PCR Stool Cryptosporidium PCR Stl Sh Tox Pr E STEC PCR Stool E coli O157 PCR Stl Enterotoxigenic E PCR Stool EPEC (PCR) Stool EAEC (PCR) Stl E. histolytica PCR Stool Giardia Lamblia PCR Stool H. pylori Ag Stl P. shigelloides PCR Stool Salmonella PCR Stool Sapovirus (PCR) Stl Shigella/EIEC PCR St Y.enterocolitica PCR Stool Vibrio (PCR) Stl Vibrio cholerae PCR Stl Norovirus GI/GII PCR Random Vancomycin 6.8 L C. difficile Tox B Gene NEGATIVE Influenza Type A (PCR) Influenza Type B (PCR) RSV RNA Qual (PCR) SARS-CoV-2 RNA (RT-PCR) Blood Type Antibody Screen Crossmatch 02/26/22 02/26/22 02/26/22 05:13 05:13 05:13 WBC 44.5 H* Cancelled RBC 3.52 L D Cancelled Hgb 8.8 L D Cancelled Hct 27.4 L D Cancelled MCV 77.8 L Cancelled MCH 25.0 L Cancelled MCHC 32.1 Cancelled RDW 15.8 Cancelled Plt Count 713 H Cancelled MPV 8.9 L Cancelled Immature Gran % (Auto) 1.5 H Neut % (Auto) 91.1 H Lymph % (Auto) 4.0 L [place] % (Auto) 3.0 Eos % (Auto) 0.1 Baso % (Auto) 0.3 Lymph # (Auto) 1.8 [place] # (Auto) 1.3 H Eos # (Auto) 0.1 Baso # (Auto) 0.1 Abs Immat Gran (auto) 0.67 H Absolute Neuts (auto) 40.5 H Absolute Nucleated RBC 0.000 Cancelled Nucleated RBC % (auto) 0.0 Cancelled Smear Tech's Comments VERIFIED PT INR APTT VBG pH VBG pCO2 VBG pO2 VBG HCO3 VBG O2 Saturation VBG Base Excess Sodium 138 Potassium 2.9 L Chloride 101 Carbon Dioxide 24 Anion Gap 16 BUN 13 Creatinine 0.56 Estim Creat Clear Calc 58.4 Estimated GFR > 60 Random Glucose 83 Lactic Acid Lactic Acid F/U @ 2Hr Lactic Acid F/U @ 4Hr Calcium 8.4 Phosphorus Magnesium Iron TIBC % Saturation Unsat Iron Binding Ferritin Total Bilirubin 1.7 H GGT AST 49 H D ALT 19 Alkaline Phosphatase 304 H D Lactate Dehydrogenase Troponin I High Sens C-Reactive Protein B-Natriuretic Peptide Total Protein 5.8 L Albumin 3.6 Carcinoembryonic Ag Procalcitonin TSH Urine Color Urine Appearance Urine pH Ur Specific [place] Urine Protein Urine Glucose (UA) Urine Ketones Urine Blood Urine Nitrite Ur Leukocyte Esterase Urine RBC Urine WBC Ur Squamous Epith Cells Urine Bacteria Hyaline Casts Granular Casts Pleural WBC Pleural RBC Pleural Neutrophils Pleural Lymphocytes Pleural Monocytes Pleural Other Cells Pleural Total Protein Pleural LDH Nasal Screen MRSA (PCR) Nasal S. aureus Screen Nasal MRSA/S.aureus Interp Stool Occult Blood Stool Leukocytes, Qual Stl C. cayetanensis PCR Stool Rotavirus A PCR Stl Adenov F 40/41 PCR Stool Astrovirus (PCR) Stool Campylobacter PCR Stool Cryptosporidium PCR Stl Sh Tox Pr E STEC PCR Stool E coli O157 PCR Stl Enterotoxigenic E PCR Stool EPEC (PCR) Stool EAEC (PCR) Stl E. histolytica PCR Stool Giardia Lamblia PCR Stool H. pylori Ag Stl P. shigelloides PCR Stool Salmonella PCR Stool Sapovirus (PCR) Stl Shigella/EIEC PCR St Y.enterocolitica PCR Stool Vibrio (PCR) Stl Vibrio cholerae PCR Stl Norovirus GI/GII PCR Random Vancomycin C. difficile Tox B Gene Influenza Type A (PCR) Influenza Type B (PCR) RSV RNA Qual (PCR) SARS-CoV-2 RNA (RT-PCR) Blood Type Antibody Screen Crossmatch 02/26/22 02/26/22 02/26/22 05:13 05:13 05:14 WBC RBC Hgb Hct MCV MCH MCHC RDW Plt Count MPV Immature Gran % (Auto) Neut % (Auto) Lymph % (Auto) [place] % (Auto) Eos % (Auto) Baso % (Auto) Lymph # (Auto) [place] # (Auto) Eos # (Auto) Baso # (Auto) Abs Immat Gran (auto) Absolute Neuts (auto) Absolute Nucleated RBC Nucleated RBC % (auto) Smear Tech's Comments PT INR APTT VBG pH 7.49 H VBG pCO2 33 VBG pO2 45 VBG HCO3 25 VBG O2 Saturation 76.0 VBG Base Excess 2.6 Sodium 138 Potassium 3.1 L Chloride 102 Carbon Dioxide 24 Anion Gap 15 BUN 13 Creatinine 0.57 Estim Creat Clear Calc 57.4 Estimated GFR > 60 Random Glucose 85 Lactic Acid 1.2 Lactic Acid F/U @ 2Hr Lactic Acid F/U @ 4Hr Calcium 8.4 Phosphorus 2.7 Magnesium 1.2 L* Iron TIBC % Saturation Unsat Iron Binding Ferritin Total Bilirubin GGT AST ALT Alkaline Phosphatase Lactate Dehydrogenase Troponin I High Sens C-Reactive Protein B-Natriuretic Peptide Total Protein Albumin 3.6 Carcinoembryonic Ag Procalcitonin TSH Urine Color Urine Appearance Urine pH Ur Specific [place] Urine Protein Urine Glucose (UA) Urine Ketones Urine Blood Urine Nitrite Ur Leukocyte Esterase Urine RBC Urine WBC Ur Squamous Epith Cells Urine Bacteria Hyaline Casts Granular Casts Pleural WBC Pleural RBC Pleural Neutrophils Pleural Lymphocytes Pleural Monocytes Pleural Other Cells Pleural Total Protein Pleural LDH Nasal Screen MRSA (PCR) Nasal S. aureus Screen Nasal MRSA/S.aureus Interp Stool Occult Blood Stool Leukocytes, Qual Stl C. cayetanensis PCR Stool Rotavirus A PCR Stl Adenov F 40/41 PCR Stool Astrovirus (PCR) Stool Campylobacter PCR Stool Cryptosporidium PCR Stl Sh Tox Pr E STEC PCR Stool E coli O157 PCR Stl Enterotoxigenic E PCR Stool EPEC (PCR) Stool EAEC (PCR) Stl E. histolytica PCR Stool Giardia Lamblia PCR Stool H. pylori Ag Stl P. shigelloides PCR Stool Salmonella PCR Stool Sapovirus (PCR) Stl Shigella/EIEC PCR St Y.enterocolitica PCR Stool Vibrio (PCR) Stl Vibrio cholerae PCR Stl Norovirus GI/GII PCR Random Vancomycin C. difficile Tox B Gene Influenza Type A (PCR) Influenza Type B (PCR) RSV RNA Qual (PCR) SARS-CoV-2 RNA (RT-PCR) Blood Type Antibody Screen Crossmatch 02/26/22 02/26/22 02/26/22 15:58 17:16 20:19 WBC 46.3 H* RBC 3.47 L Hgb 8.8 L Hct 27.1 L MCV 78.1 L MCH 25.4 L MCHC 32.5 RDW 16.0 Plt Count 765 H MPV 8.8 L Immature Gran % (Auto) Neut % (Auto) Lymph % (Auto) [place] % (Auto) Eos % (Auto) Baso % (Auto) Lymph # (Auto) [place] # (Auto) Eos # (Auto) Baso # (Auto) Abs Immat Gran (auto) Absolute Neuts (auto) Absolute Nucleated RBC 0.000 Nucleated RBC % (auto) 0.0 Smear Tech's Comments PT INR APTT VBG pH VBG pCO2 VBG pO2 VBG HCO3 VBG O2 Saturation VBG Base Excess Sodium Potassium Chloride Carbon Dioxide Anion Gap BUN Creatinine Estim Creat Clear Calc Estimated GFR Random Glucose Lactic Acid Lactic Acid F/U @ 2Hr Lactic Acid F/U @ 4Hr Calcium Phosphorus Magnesium Iron TIBC % Saturation Unsat Iron Binding Ferritin Total Bilirubin GGT AST ALT Alkaline Phosphatase Lactate Dehydrogenase Troponin I High Sens C-Reactive Protein B-Natriuretic Peptide Total Protein Albumin Carcinoembryonic Ag Procalcitonin TSH Urine Color Urine Appearance Urine pH Ur Specific [place] Urine Protein Urine Glucose (UA) Urine Ketones Urine Blood Urine Nitrite Ur Leukocyte Esterase Urine RBC Urine WBC Ur Squamous Epith Cells Urine Bacteria Hyaline Casts Granular Casts Pleural WBC Pleural RBC Pleural Neutrophils Pleural Lymphocytes Pleural Monocytes Pleural Other Cells Pleural Total Protein Pleural LDH Nasal Screen MRSA (PCR) NEGATIVE Nasal S. aureus Screen NEGATIVE Nasal MRSA/S.aureus Interp SEE NOTE Stool Occult Blood Stool Leukocytes, Qual Stl C. cayetanensis PCR Stool Rotavirus A PCR Stl Adenov F 40/41 PCR Stool Astrovirus (PCR) Stool Campylobacter PCR Stool Cryptosporidium PCR Stl Sh Tox Pr E STEC PCR Stool E coli O157 PCR Stl Enterotoxigenic E PCR Stool EPEC (PCR) Stool EAEC (PCR) Stl E. histolytica PCR Stool Giardia Lamblia PCR Stool H. pylori Ag Stl P. shigelloides PCR Stool Salmonella PCR Stool Sapovirus (PCR) Stl Shigella/EIEC PCR St Y.enterocolitica PCR Stool Vibrio (PCR) Stl Vibrio cholerae PCR Stl Norovirus GI/GII PCR Random Vancomycin 11.1 L C. difficile Tox B Gene Influenza Type A (PCR) Influenza Type B (PCR) RSV RNA Qual (PCR) SARS-CoV-2 RNA (RT-PCR) Blood Type Antibody Screen Crossmatch 02/26/22 02/26/22 02/26/22 20:19 20:44 23:03 WBC RBC Hgb Hct MCV MCH MCHC RDW Plt Count MPV Immature Gran % (Auto) Neut % (Auto) Lymph % (Auto) [place] % (Auto) Eos % (Auto) Baso % (Auto) Lymph # (Auto) [place] # (Auto) Eos # (Auto) Baso # (Auto) Abs Immat Gran (auto) Absolute Neuts (auto) Absolute Nucleated RBC Nucleated RBC % (auto) Smear Tech's Comments PT INR APTT VBG pH VBG pCO2 VBG pO2 VBG HCO3 VBG O2 Saturation VBG Base Excess Sodium 135 Potassium 4.4 D Chloride 104 Carbon Dioxide 22 Anion Gap 13 BUN 16 Creatinine 0.65 Estim Creat Clear Calc 50.3 Estimated GFR > 60 Random Glucose 117 H Lactic Acid 2.1 H* Lactic Acid F/U @ 2Hr 1.4 Lactic Acid F/U @ 4Hr Calcium 8.7 Phosphorus 1.6 L Magnesium 1.8 Iron TIBC % Saturation Unsat Iron Binding Ferritin Total Bilirubin 0.6 GGT AST 22 ALT 16 Alkaline Phosphatase 296 H Lactate Dehydrogenase Troponin I High Sens C-Reactive Protein B-Natriuretic Peptide Total Protein 5.7 L Albumin 3.3 L Carcinoembryonic Ag Procalcitonin TSH Urine Color Urine Appearance Urine pH Ur Specific [place] Urine Protein Urine Glucose (UA) Urine Ketones Urine Blood Urine Nitrite Ur Leukocyte Esterase Urine RBC Urine WBC Ur Squamous Epith Cells Urine Bacteria Hyaline Casts Granular Casts Pleural WBC Pleural RBC Pleural Neutrophils Pleural Lymphocytes Pleural Monocytes Pleural Other Cells Pleural Total Protein Pleural LDH Nasal Screen MRSA (PCR) Nasal S. aureus Screen Nasal MRSA/S.aureus Interp Stool Occult Blood Stool Leukocytes, Qual Stl C. cayetanensis PCR Stool Rotavirus A PCR Stl Adenov F 40/41 PCR Stool Astrovirus (PCR) Stool Campylobacter PCR Stool Cryptosporidium PCR Stl Sh Tox Pr E STEC PCR Stool E coli O157 PCR Stl Enterotoxigenic E PCR Stool EPEC (PCR) Stool EAEC (PCR) Stl E. histolytica PCR Stool Giardia Lamblia PCR Stool H. pylori Ag Stl P. shigelloides PCR Stool Salmonella PCR Stool Sapovirus (PCR) Stl Shigella/EIEC PCR St Y.enterocolitica PCR Stool Vibrio (PCR) Stl Vibrio cholerae PCR Stl Norovirus GI/GII PCR Random Vancomycin C. difficile Tox B Gene Influenza Type A (PCR) Influenza Type B (PCR) RSV RNA Qual (PCR) SARS-CoV-2 RNA (RT-PCR) Blood Type Antibody Screen Crossmatch 02/27/22 02/27/22 02/27/22 01:30 05:07 05:07 WBC 38.5 H* RBC 3.29 L Hgb 8.4 L Hct 25.9 L MCV 78.7 L MCH 25.5 L MCHC 32.4 RDW 16.1 H Plt Count 670 H MPV 8.9 L Immature Gran % (Auto) Neut % (Auto) Lymph % (Auto) [place] % (Auto) Eos % (Auto) Baso % (Auto) Lymph # (Auto) [place] # (Auto) Eos # (Auto) Baso # (Auto) Abs Immat Gran (auto) Absolute Neuts (auto) Absolute Nucleated RBC 0.000 Nucleated RBC % (auto) 0.0 Smear Tech's Comments PT INR APTT VBG pH VBG pCO2 VBG pO2 VBG HCO3 VBG O2 Saturation VBG Base Excess Sodium 139 Potassium 4.1 Chloride 104 Carbon Dioxide 25 Anion Gap 14 BUN 13 Creatinine 0.59 Estim Creat Clear Calc 55.4 Estimated GFR > 60 Random Glucose 107 Lactic Acid Lactic Acid F/U @ 2Hr Lactic Acid F/U @ 4Hr Calcium 8.6 Phosphorus 2.6 L Magnesium 2.0 Iron TIBC % Saturation Unsat Iron Binding Ferritin Total Bilirubin 0.8 GGT AST 24 D ALT 13 Alkaline Phosphatase 290 H Lactate Dehydrogenase Troponin I High Sens C-Reactive Protein B-Natriuretic Peptide Total Protein 6.0 L Albumin 3.8 Carcinoembryonic Ag Procalcitonin TSH Urine Color Urine Appearance Urine pH Ur Specific [place] Urine Protein Urine Glucose (UA) Urine Ketones Urine Blood Urine Nitrite Ur Leukocyte Esterase Urine RBC Urine WBC Ur Squamous Epith Cells Urine Bacteria Hyaline Casts Granular Casts Pleural WBC Pleural RBC Pleural Neutrophils Pleural Lymphocytes Pleural Monocytes Pleural Other Cells Pleural Total Protein Pleural LDH Nasal Screen MRSA (PCR) Nasal S. aureus Screen Nasal MRSA/S.aureus Interp Stool Occult Blood Stool Leukocytes, Qual NEGATIVE Stl C. cayetanensis PCR Stool Rotavirus A PCR Stl Adenov F 40/41 PCR Stool Astrovirus (PCR) Stool Campylobacter PCR Stool Cryptosporidium PCR Stl Sh Tox Pr E STEC PCR Stool E coli O157 PCR Stl Enterotoxigenic E PCR Stool EPEC (PCR) Stool EAEC (PCR) Stl E. histolytica PCR Stool Giardia Lamblia PCR Stool H. pylori Ag Stl P. shigelloides PCR Stool Salmonella PCR Stool Sapovirus (PCR) Stl Shigella/EIEC PCR St Y.enterocolitica PCR Stool Vibrio (PCR) Stl Vibrio cholerae PCR Stl Norovirus GI/GII PCR Random Vancomycin C. difficile Tox B Gene Influenza Type A (PCR) Influenza Type B (PCR) RSV RNA Qual (PCR) SARS-CoV-2 RNA (RT-PCR) Blood Type Antibody Screen Crossmatch 02/27/22 02/27/22 02/27/22 05:07 05:07 05:07 WBC RBC Hgb Hct MCV MCH MCHC RDW Plt Count MPV Immature Gran % (Auto) Neut % (Auto) Lymph % (Auto) [place] % (Auto) Eos % (Auto) Baso % (Auto) Lymph # (Auto) [place] # (Auto) Eos # (Auto) Baso # (Auto) Abs Immat Gran (auto) Absolute Neuts (auto) Absolute Nucleated RBC Nucleated RBC % (auto) Smear Tech's Comments PT INR APTT VBG pH VBG pCO2 VBG pO2 VBG HCO3 VBG O2 Saturation VBG Base Excess Sodium Potassium Chloride Carbon Dioxide Anion Gap BUN Creatinine 0.57 Estim Creat Clear Calc 57.4 Estimated GFR > 60 Random Glucose Lactic Acid 1.3 Lactic Acid F/U @ 2Hr Lactic Acid F/U @ 4Hr Calcium Phosphorus Magnesium Iron TIBC % Saturation Unsat Iron Binding Ferritin Total Bilirubin GGT AST ALT Alkaline Phosphatase Lactate Dehydrogenase Troponin I High Sens C-Reactive Protein B-Natriuretic Peptide Total Protein Albumin Carcinoembryonic Ag Procalcitonin 56.57 TSH Urine Color Urine Appearance Urine pH Ur Specific [place] Urine Protein Urine Glucose (UA) Urine Ketones Urine Blood Urine Nitrite Ur Leukocyte Esterase Urine RBC Urine WBC Ur Squamous Epith Cells Urine Bacteria Hyaline Casts Granular Casts Pleural WBC Pleural RBC Pleural Neutrophils Pleural Lymphocytes Pleural Monocytes Pleural Other Cells Pleural Total Protein Pleural LDH Nasal Screen MRSA (PCR) Nasal S. aureus Screen Nasal MRSA/S.aureus Interp Stool Occult Blood Stool Leukocytes, Qual Stl C. cayetanensis PCR Stool Rotavirus A PCR Stl Adenov F 40/41 PCR Stool Astrovirus (PCR) Stool Campylobacter PCR Stool Cryptosporidium PCR Stl Sh Tox Pr E STEC PCR Stool E coli O157 PCR Stl Enterotoxigenic E PCR Stool EPEC (PCR) Stool EAEC (PCR) Stl E. histolytica PCR Stool Giardia Lamblia PCR Stool H. pylori Ag Stl P. shigelloides PCR Stool Salmonella PCR Stool Sapovirus (PCR) Stl Shigella/EIEC PCR St Y.enterocolitica PCR Stool Vibrio (PCR) Stl Vibrio cholerae PCR Stl Norovirus GI/GII PCR Random Vancomycin C. difficile Tox B Gene Influenza Type A (PCR) Influenza Type B (PCR) RSV RNA Qual (PCR) SARS-CoV-2 RNA (RT-PCR) Blood Type Antibody Screen Crossmatch 02/27/22 02/27/22 02/27/22 05:21 09:41 09:41 WBC RBC Hgb Hct MCV MCH MCHC RDW Plt Count MPV Immature Gran % (Auto) Neut % (Auto) Lymph % (Auto) [place] % (Auto) Eos % (Auto) Baso % (Auto) Lymph # (Auto) [place] # (Auto) Eos # (Auto) Baso # (Auto) Abs Immat Gran (auto) Absolute Neuts (auto) Absolute Nucleated RBC Nucleated RBC % (auto) Smear Tech's Comments PT INR APTT VBG pH 7.41 VBG pCO2 38 VBG pO2 63 VBG HCO3 25 VBG O2 Saturation 89.0 VBG Base Excess 0.7 Sodium Potassium Chloride Carbon Dioxide Anion Gap BUN Creatinine Estim Creat Clear Calc Estimated GFR Random Glucose Lactic Acid Lactic Acid F/U @ 2Hr Lactic Acid F/U @ 4Hr Calcium Phosphorus Magnesium Iron TIBC % Saturation Unsat Iron Binding Ferritin Total Bilirubin GGT 50 H AST ALT Alkaline Phosphatase Lactate Dehydrogenase Troponin I High Sens C-Reactive Protein B-Natriuretic Peptide Total Protein Albumin Carcinoembryonic Ag Procalcitonin TSH Urine Color Yellow Urine Appearance Cloudy Urine pH 5.5 Ur Specific [place] 1.015 Urine Protein 30 (1+) H Urine Glucose (UA) Negative Urine Ketones Negative Urine Blood Trace H Urine Nitrite Negative Ur Leukocyte Esterase Trace H Urine RBC 6-10 H Urine WBC 0-5 Ur Squamous Epith Cells 0-2 Urine Bacteria None Seen Hyaline Casts 11-20 Granular Casts Present Pleural WBC Pleural RBC Pleural Neutrophils Pleural Lymphocytes Pleural Monocytes Pleural Other Cells Pleural Total Protein Pleural LDH Nasal Screen MRSA (PCR) Nasal S. aureus Screen Nasal MRSA/S.aureus Interp Stool Occult Blood Stool Leukocytes, Qual Stl C. cayetanensis PCR Stool Rotavirus A PCR Stl Adenov F 40/41 PCR Stool Astrovirus (PCR) Stool Campylobacter PCR Stool Cryptosporidium PCR Stl Sh Tox Pr E STEC PCR Stool E coli O157 PCR Stl Enterotoxigenic E PCR Stool EPEC (PCR) Stool EAEC (PCR) Stl E. histolytica PCR Stool Giardia Lamblia PCR Stool H. pylori Ag Stl P. shigelloides PCR Stool Salmonella PCR Stool Sapovirus (PCR) Stl Shigella/EIEC PCR St Y.enterocolitica PCR Stool Vibrio (PCR) Stl Vibrio cholerae PCR Stl Norovirus GI/GII PCR Random Vancomycin C. difficile Tox B Gene Influenza Type A (PCR) Influenza Type B (PCR) RSV RNA Qual (PCR) SARS-CoV-2 RNA (RT-PCR) Blood Type Antibody Screen Crossmatch 02/27/22 02/27/22 02/28/22 11:13 11:13 05:34 WBC RBC Hgb Hct MCV MCH MCHC RDW Plt Count MPV Immature Gran % (Auto) Neut % (Auto) Lymph % (Auto) [place] % (Auto) Eos % (Auto) Baso % (Auto) Lymph # (Auto) [place] # (Auto) Eos # (Auto) Baso # (Auto) Abs Immat Gran (auto) Absolute Neuts (auto) Absolute Nucleated RBC Nucleated RBC % (auto) Smear Tech's Comments PT INR APTT VBG pH 7.45 H VBG pCO2 38 VBG pO2 48 VBG HCO3 26 VBG O2 Saturation 80.0 VBG Base Excess 2.9 Sodium Potassium Chloride Carbon Dioxide Anion Gap BUN Creatinine Estim Creat Clear Calc Estimated GFR Random Glucose Lactic Acid Lactic Acid F/U @ 2Hr Lactic Acid F/U @ 4Hr Calcium Phosphorus Magnesium Iron TIBC % Saturation Unsat Iron Binding Ferritin Total Bilirubin GGT AST ALT Alkaline Phosphatase Lactate Dehydrogenase Troponin I High Sens C-Reactive Protein B-Natriuretic Peptide Total Protein Albumin Carcinoembryonic Ag Procalcitonin TSH Urine Color Urine Appearance Urine pH Ur Specific [place] Urine Protein Urine Glucose (UA) Urine Ketones Urine Blood Urine Nitrite Ur Leukocyte Esterase Urine RBC Urine WBC Ur Squamous Epith Cells Urine Bacteria Hyaline Casts Granular Casts Pleural WBC Pleural RBC Pleural Neutrophils Pleural Lymphocytes Pleural Monocytes Pleural Other Cells Pleural Total Protein Pleural LDH Nasal Screen MRSA (PCR) Nasal S. aureus Screen Nasal MRSA/S.aureus Interp Stool Occult Blood Stool Leukocytes, Qual Stl C. cayetanensis PCR Not Detected Stool Rotavirus A PCR Not Detected Stl Adenov F 40/41 PCR Not Detected Stool Astrovirus (PCR) Not Detected Stool Campylobacter PCR Not Detected Stool Cryptosporidium PCR Not Detected Stl Sh Tox Pr E STEC PCR Not Detected Stool E coli O157 PCR Not applicable Stl Enterotoxigenic E PCR Not Detected Stool EPEC (PCR) Not Detected Stool EAEC (PCR) Not Detected Stl E. histolytica PCR Not Detected Stool Giardia Lamblia PCR Not Detected Stool H. pylori Ag SEE NOTE Stl P. shigelloides PCR Not Detected Stool Salmonella PCR Not Detected Stool Sapovirus (PCR) Not Detected Stl Shigella/EIEC PCR Not Detected St Y.enterocolitica PCR Not Detected Stool Vibrio (PCR) Not Detected Stl Vibrio cholerae PCR Not Detected Stl Norovirus GI/GII PCR Not Detected Random Vancomycin C. difficile Tox B Gene Influenza Type A (PCR) Influenza Type B (PCR) RSV RNA Qual (PCR) SARS-CoV-2 RNA (RT-PCR) Blood Type Antibody Screen Crossmatch 02/28/22 02/28/22 02/28/22 05:35 05:35 05:35 WBC 39.3 H* RBC 3.40 L Hgb 8.6 L Hct 27.4 L MCV 80.6 MCH 25.3 L MCHC 31.4 RDW 16.4 H Plt Count 628 H MPV 9.1 L Immature Gran % (Auto) 3.6 H Neut % (Auto) 86.8 H Lymph % (Auto) 5.3 L [place] % (Auto) 3.5 Eos % (Auto) 0.4 Baso % (Auto) 0.4 Lymph # (Auto) 2.1 [place] # (Auto) 1.4 H Eos # (Auto) 0.1 Baso # (Auto) 0.2 Abs Immat Gran (auto) 1.40 H Absolute Neuts (auto) 34.1 H Absolute Nucleated RBC 0.000 Nucleated RBC % (auto) 0.0 Smear Tech's Comments VERIFIED PT INR APTT VBG pH VBG pCO2 VBG pO2 VBG HCO3 VBG O2 Saturation VBG Base Excess Sodium 139 Potassium 4.1 Chloride 102 Carbon Dioxide 28 Anion Gap 13 BUN 8 L Creatinine Cancelled 0.55 Estim Creat Clear Calc Cancelled 61.5 Estimated GFR Cancelled > 60 Random Glucose 90 Lactic Acid Lactic Acid F/U @ 2Hr Lactic Acid F/U @ 4Hr Calcium 8.7 Phosphorus 3.4 Magnesium 1.5 L Iron TIBC % Saturation Unsat Iron Binding Ferritin Total Bilirubin GGT AST ALT Alkaline Phosphatase Lactate Dehydrogenase Troponin I High Sens C-Reactive Protein B-Natriuretic Peptide Total Protein Albumin 3.2 L Carcinoembryonic Ag Procalcitonin TSH Urine Color Urine Appearance Urine pH Ur Specific [place] Urine Protein Urine Glucose (UA) Urine Ketones Urine Blood Urine Nitrite Ur Leukocyte Esterase Urine RBC Urine WBC Ur Squamous Epith Cells Urine Bacteria Hyaline Casts Granular Casts Pleural WBC Pleural RBC Pleural Neutrophils Pleural Lymphocytes Pleural Monocytes Pleural Other Cells Pleural Total Protein Pleural LDH Nasal Screen MRSA (PCR) Nasal S. aureus Screen Nasal MRSA/S.aureus Interp Stool Occult Blood Stool Leukocytes, Qual Stl C. cayetanensis PCR Stool Rotavirus A PCR Stl Adenov F 40 PCR Stool Astrovirus (PCR) Stool Campylobacter PCR Stool Cryptosporidium PCR Stl Sh Tox Pr E STEC PCR Stool E coli O157 PCR Stl Enterotoxigenic E PCR Stool EPEC (PCR) Stool EAEC (PCR) Stl E. histolytica PCR Stool Giardia Lamblia PCR Stool H. pylori Ag Stl P. shigelloides PCR Stool Salmonella PCR Stool Sapovirus (PCR) Stl Shigella/EIEC PCR St Y.enterocolitica PCR Stool Vibrio (PCR) Stl Vibrio cholerae PCR Stl Norovirus GI/GII PCR Random Vancomycin C. difficile Tox B Gene Influenza Type A (PCR) Influenza Type B (PCR) RSV RNA Qual (PCR) SARS-CoV-2 RNA (RT-PCR) Blood Type Antibody Screen Crossmatch 03/01/22 03/01/22 03/01/22 05:16 05:16 05:19 WBC 40.2 H* RBC 3.21 L Hgb 8.0 L Hct 26.4 L MCV 82.2 MCH 24.9 L MCHC 30.3 L RDW 16.7 H Plt Count 560 H MPV 9.3 L Immature Gran % (Auto) 1.6 H Neut % (Auto) 89.9 H Lymph % (Auto) 3.6 L [place] % (Auto) 4.5 Eos % (Auto) 0.1 Baso % (Auto) 0.3 Lymph # (Auto) 1.5 [place] # (Auto) 1.8 H Eos # (Auto) 0.1 Baso # (Auto) 0.1 Abs Immat Gran (auto) 0.65 H Absolute Neuts (auto) 36.1 H Absolute Nucleated RBC 0.000 Nucleated RBC % (auto) 0.0 Smear Tech's Comments VERIFIED PT INR APTT VBG pH 7.38 VBG pCO2 47 VBG pO2 51 VBG HCO3 28 H VBG O2 Saturation 80.0 VBG Base Excess 3.0 Sodium 138 Potassium 3.6 Chloride 101 Carbon Dioxide 29 Anion Gap 12 BUN 10 Creatinine 0.58 Estim Creat Clear Calc 58.3 Estimated GFR > 60 Random Glucose 125 H Lactic Acid Lactic Acid F/U @ 2Hr Lactic Acid F/U @ 4Hr Calcium 8.6 Phosphorus 2.8 Magnesium 1.7 Iron TIBC % Saturation Unsat Iron Binding Ferritin Total Bilirubin GGT AST ALT Alkaline Phosphatase Lactate Dehydrogenase Troponin I High Sens C-Reactive Protein B-Natriuretic Peptide Total Protein Albumin 3.0 L Carcinoembryonic Ag Procalcitonin TSH Urine Color Urine Appearance Urine pH Ur Specific [place] Urine Protein Urine Glucose (UA) Urine Ketones Urine Blood Urine Nitrite Ur Leukocyte Esterase Urine RBC Urine WBC Ur Squamous Epith Cells Urine Bacteria Hyaline Casts Granular Casts Pleural WBC Pleural RBC Pleural Neutrophils Pleural Lymphocytes Pleural Monocytes Pleural Other Cells Pleural Total Protein Pleural LDH Nasal Screen MRSA (PCR) Nasal S. aureus Screen Nasal MRSA/S.aureus Interp Stool Occult Blood Stool Leukocytes, Qual Stl C. cayetanensis PCR Stool Rotavirus A PCR Stl Adenov F 40/41 PCR Stool Astrovirus (PCR) Stool Campylobacter PCR Stool Cryptosporidium PCR Stl Sh Tox Pr E STEC PCR Stool E coli O157 PCR Stl Enterotoxigenic E PCR Stool EPEC (PCR) Stool EAEC (PCR) Stl E. histolytica PCR Stool Giardia Lamblia PCR Stool H. pylori Ag Stl P. shigelloides PCR Stool Salmonella PCR Stool Sapovirus (PCR) Stl Shigella/EIEC PCR St Y.enterocolitica PCR Stool Vibrio (PCR) Stl Vibrio cholerae PCR Stl Norovirus GI/GII PCR Random Vancomycin C. difficile Tox B Gene Influenza Type A (PCR) Influenza Type B (PCR) RSV RNA Qual (PCR) SARS-CoV-2 RNA (RT-PCR) Blood Type Antibody Screen Crossmatch 03/02/22 03/02/22 03/02/22 01:18 05:46 05:48 WBC 59.7 H* RBC 4.08 L D Hgb 10.2 L D Hct 33.9 L D MCV 83.1 MCH 25.0 L MCHC 30.1 L RDW 17.3 H Plt Count 705 H D MPV 9.0 L Immature Gran % (Auto) 2.5 H Neut % (Auto) 92.2 H Lymph % (Auto) 1.9 L [place] % (Auto) 3.0 Eos % (Auto) 0.0 Baso % (Auto) 0.4 Lymph # (Auto) 1.1 L [place] # (Auto) 1.8 H Eos # (Auto) 0.0 Baso # (Auto) 0.2 Abs Immat Gran (auto) 1.49 H Absolute Neuts (auto) 55.1 H Absolute Nucleated RBC 0.030 H Nucleated RBC % (auto) 0.1 Smear Tech's Comments VERIFIED PT INR APTT VBG pH 7.36 VBG pCO2 50 VBG pO2 46 VBG HCO3 29 H VBG O2 Saturation 72.0 VBG Base Excess 3.0 Sodium Potassium Chloride Carbon Dioxide Anion Gap BUN Creatinine Estim Creat Clear Calc Estimated GFR Random Glucose Lactic Acid 1.5 Lactic Acid F/U @ 2Hr Lactic Acid F/U @ 4Hr Calcium Phosphorus Magnesium Iron TIBC % Saturation Unsat Iron Binding Ferritin Total Bilirubin GGT AST ALT Alkaline Phosphatase Lactate Dehydrogenase Troponin I High Sens C-Reactive Protein B-Natriuretic Peptide Total Protein Albumin Carcinoembryonic Ag Procalcitonin TSH Urine Color Urine Appearance Urine pH Ur Specific [place] Urine Protein Urine Glucose (UA) Urine Ketones Urine Blood Urine Nitrite Ur Leukocyte Esterase Urine RBC Urine WBC Ur Squamous Epith Cells Urine Bacteria Hyaline Casts Granular Casts Pleural WBC Pleural RBC Pleural Neutrophils Pleural Lymphocytes Pleural Monocytes Pleural Other Cells Pleural Total Protein Pleural LDH Nasal Screen MRSA (PCR) Nasal S. aureus Screen Nasal MRSA/S.aureus Interp Stool Occult Blood Stool Leukocytes, Qual Stl C. cayetanensis PCR Stool Rotavirus A PCR Stl Adenov F 40/41 PCR Stool Astrovirus (PCR) Stool Campylobacter PCR Stool Cryptosporidium PCR Stl Sh Tox Pr E STEC PCR Stool E coli O157 PCR Stl Enterotoxigenic E PCR Stool EPEC (PCR) Stool EAEC (PCR) Stl E. histolytica PCR Stool Giardia Lamblia PCR Stool H. pylori Ag Stl P. shigelloides PCR Stool Salmonella PCR Stool Sapovirus (PCR) Stl Shigella/EIEC PCR St Y.enterocolitica PCR Stool Vibrio (PCR) Stl Vibrio cholerae PCR Stl Norovirus GI/GII PCR Random Vancomycin C. difficile Tox B Gene Influenza Type A (PCR) Influenza Type B (PCR) RSV RNA Qual (PCR) SARS-CoV-2 RNA (RT-PCR) Blood Type Antibody Screen Crossmatch 03/02/22 03/02/22 03/02/22 05:48 05:48 05:48 WBC RBC Hgb Hct MCV MCH MCHC RDW Plt Count MPV Immature Gran % (Auto) Neut % (Auto) Lymph % (Auto) [place] % (Auto) Eos % (Auto) Baso % (Auto) Lymph # (Auto) [place] # (Auto) Eos # (Auto) Baso # (Auto) Abs Immat Gran (auto) Absolute Neuts (auto) Absolute Nucleated RBC Nucleated RBC % (auto) Smear Tech's Comments PT INR APTT VBG pH 7.31 L VBG pCO2 56 VBG pO2 27 VBG HCO3 29 H VBG O2 Saturation 30.0 VBG Base Excess 1.9 Sodium 139 Potassium 4.3 Chloride 99 Carbon Dioxide 28 Anion Gap 16 BUN 13 Creatinine 0.74 Estim Creat Clear Calc 45.7 Estimated GFR > 60 Random Glucose 119 H Lactic Acid Lactic Acid F/U @ 2Hr Lactic Acid F/U @ 4Hr Calcium 9.6 D Phosphorus 3.9 Magnesium 1.7 Iron TIBC % Saturation Unsat Iron Binding Ferritin Total Bilirubin GGT AST ALT Alkaline Phosphatase Lactate Dehydrogenase Troponin I High Sens C-Reactive Protein B-Natriuretic Peptide Total Protein Albumin 3.5 Carcinoembryonic Ag Procalcitonin TSH 1.45 Urine Color Urine Appearance Urine pH Ur Specific [place] Urine Protein Urine Glucose (UA) Urine Ketones Urine Blood Urine Nitrite Ur Leukocyte Esterase Urine RBC Urine WBC Ur Squamous Epith Cells Urine Bacteria Hyaline Casts Granular Casts Pleural WBC Pleural RBC Pleural Neutrophils Pleural Lymphocytes Pleural Monocytes Pleural Other Cells Pleural Total Protein Pleural LDH Nasal Screen MRSA (PCR) Nasal S. aureus Screen Nasal MRSA/S.aureus Interp Stool Occult Blood Stool Leukocytes, Qual Stl C. cayetanensis PCR Stool Rotavirus A PCR Stl Adenov F 40/41 PCR Stool Astrovirus (PCR) Stool Campylobacter PCR Stool Cryptosporidium PCR Stl Sh Tox Pr E STEC PCR Stool E coli O157 PCR Stl Enterotoxigenic E PCR Stool EPEC (PCR) Stool EAEC (PCR) Stl E. histolytica PCR Stool Giardia Lamblia PCR Stool H. pylori Ag Stl P. shigelloides PCR Stool Salmonella PCR Stool Sapovirus (PCR) Stl Shigella/EIEC PCR St Y.enterocolitica PCR Stool Vibrio (PCR) Stl Vibrio cholerae PCR Stl Norovirus GI/GII PCR Random Vancomycin C. difficile Tox B Gene Influenza Type A (PCR) Influenza Type B (PCR) RSV RNA Qual (PCR) SARS-CoV-2 RNA (RT-PCR) Blood Type Antibody Screen Crossmatch 03/02/22 03/03/22 03/03/22 06:11 00:03 00:03 WBC 52.9 H* RBC 4.21 Hgb 10.4 L Hct 33.1 L MCV 78.6 L MCH 24.7 L MCHC 31.4 RDW 17.6 H Plt Count 815 H MPV 9.4 Immature Gran % (Auto) Neut % (Auto) Lymph % (Auto) [place] % (Auto) Eos % (Auto) Baso % (Auto) Lymph # (Auto) [place] # (Auto) Eos # (Auto) Baso # (Auto) Abs Immat Gran (auto) Absolute Neuts (auto) Absolute Nucleated RBC 0.060 H Nucleated RBC % (auto) 0.1 Smear Tech's Comments PT INR APTT VBG pH VBG pCO2 VBG pO2 VBG HCO3 VBG O2 Saturation VBG Base Excess Sodium Potassium Chloride Carbon Dioxide Anion Gap BUN Creatinine Estim Creat Clear Calc Estimated GFR Random Glucose Lactic Acid 2.8 H* Lactic Acid F/U @ 2Hr Lactic Acid F/U @ 4Hr Calcium Phosphorus Magnesium Iron TIBC % Saturation Unsat Iron Binding Ferritin Total Bilirubin GGT AST ALT Alkaline Phosphatase Lactate Dehydrogenase Troponin I High Sens C-Reactive Protein B-Natriuretic Peptide Total Protein Albumin Carcinoembryonic Ag Procalcitonin TSH Urine Color Dark Yellow Urine Appearance Cloudy Urine pH 5.5 Ur Specific [place] 1.020 Urine Protein 100 (2+) H Urine Glucose (UA) Negative Urine Ketones Trace Urine Blood Large (3+) H Urine Nitrite Negative Ur Leukocyte Esterase Small (1+) H Urine RBC >20 H Urine WBC 11-20 H Ur Squamous Epith Cells 6-10 Urine Bacteria None Seen Hyaline Casts >20 Granular Casts Present Pleural WBC Pleural RBC Pleural Neutrophils Pleural Lymphocytes Pleural Monocytes Pleural Other Cells Pleural Total Protein Pleural LDH Nasal Screen MRSA (PCR) Nasal S. aureus Screen Nasal MRSA/S.aureus Interp Stool Occult Blood Stool Leukocytes, Qual Stl C. cayetanensis PCR Stool Rotavirus A PCR Stl Adenov F 40/41 PCR Stool Astrovirus (PCR) Stool Campylobacter PCR Stool Cryptosporidium PCR Stl Sh Tox Pr E STEC PCR Stool E coli O157 PCR Stl Enterotoxigenic E PCR Stool EPEC (PCR) Stool EAEC (PCR) Stl E. histolytica PCR Stool Giardia Lamblia PCR Stool H. pylori Ag Stl P. shigelloides PCR Stool Salmonella PCR Stool Sapovirus (PCR) Stl Shigella/EIEC PCR St Y.enterocolitica PCR Stool Vibrio (PCR) Stl Vibrio cholerae PCR Stl Norovirus GI/GII PCR Random Vancomycin C. difficile Tox B Gene Influenza Type A (PCR) Influenza Type B (PCR) RSV RNA Qual (PCR) SARS-CoV-2 RNA (RT-PCR) Blood Type Antibody Screen Crossmatch 03/03/22 03/03/22 03/03/22 00:12 01:50 02:20 WBC RBC Hgb Hct MCV MCH MCHC RDW Plt Count MPV Immature Gran % (Auto) Neut % (Auto) Lymph % (Auto) [place] % (Auto) Eos % (Auto) Baso % (Auto) Lymph # (Auto) [place] # (Auto) Eos # (Auto) Baso # (Auto) Abs Immat Gran (auto) Absolute Neuts (auto) Absolute Nucleated RBC Nucleated RBC % (auto) Smear Tech's Comments PT INR APTT VBG pH 7.51 H VBG pCO2 27 VBG pO2 45 VBG HCO3 22 VBG O2 Saturation 73.0 VBG Base Excess 0.7 Sodium Potassium Chloride Carbon Dioxide Anion Gap BUN Creatinine Estim Creat Clear Calc Estimated GFR Random Glucose Lactic Acid Lactic Acid F/U @ 2Hr 2.6 H* Lactic Acid F/U @ 4Hr Calcium Phosphorus Magnesium Iron TIBC % Saturation Unsat Iron Binding Ferritin Total Bilirubin GGT AST ALT Alkaline Phosphatase Lactate Dehydrogenase Troponin I High Sens C-Reactive Protein B-Natriuretic Peptide Total Protein Albumin Carcinoembryonic Ag Procalcitonin TSH Urine Color Yellow Urine Appearance Clear Urine pH 5.5 Ur Specific [place] 1.010 Urine Protein Trace Urine Glucose (UA) Negative Urine Ketones Negative Urine Blood Negative Urine Nitrite Negative Ur Leukocyte Esterase Negative Urine RBC 0-2 Urine WBC 0-5 Ur Squamous Epith Cells 0-2 Urine Bacteria None Seen Hyaline Casts 0-2 Granular Casts Pleural WBC Pleural RBC Pleural Neutrophils Pleural Lymphocytes Pleural Monocytes Pleural Other Cells Pleural Total Protein Pleural LDH Nasal Screen MRSA (PCR) Nasal S. aureus Screen Nasal MRSA/S.aureus Interp Stool Occult Blood Stool Leukocytes, Qual Stl C. cayetanensis PCR Stool Rotavirus A PCR Stl Adenov F 40/41 PCR Stool Astrovirus (PCR) Stool Campylobacter PCR Stool Cryptosporidium PCR Stl Sh Tox Pr E STEC PCR Stool E coli O157 PCR Stl Enterotoxigenic E PCR Stool EPEC (PCR) Stool EAEC (PCR) Stl E. histolytica PCR Stool Giardia Lamblia PCR Stool H. pylori Ag Stl P. shigelloides PCR Stool Salmonella PCR Stool Sapovirus (PCR) Stl Shigella/EIEC PCR St Y.enterocolitica PCR Stool Vibrio (PCR) Stl Vibrio cholerae PCR Stl Norovirus GI/GII PCR Random Vancomycin C. difficile Tox B Gene Influenza Type A (PCR) Influenza Type B (PCR) RSV RNA Qual (PCR) SARS-CoV-2 RNA (RT-PCR) Blood Type Antibody Screen Crossmatch 03/03/22 03/03/22 03/03/22 04:43 04:43 04:43 WBC 52.0 H* RBC 4.05 L Hgb 10.1 L Hct 32.2 L MCV 79.5 L MCH 24.9 L MCHC 31.4 RDW 17.7 H Plt Count 746 H MPV 9.6 Immature Gran % (Auto) 3.4 H Neut % (Auto) 87.2 H Lymph % (Auto) 5.2 L [place] % (Auto) 3.7 Eos % (Auto) 0.1 Baso % (Auto) 0.4 Lymph # (Auto) 2.7 [place] # (Auto) 1.9 H Eos # (Auto) 0.0 Baso # (Auto) 0.2 Abs Immat Gran (auto) 1.77 H Absolute Neuts (auto) 45.3 H Absolute Nucleated RBC 0.080 H Nucleated RBC % (auto) 0.2 Smear Tech's Comments VERIFIED PT 16.8 H INR 1.4 H APTT 35.7 VBG pH VBG pCO2 VBG pO2 VBG HCO3 VBG O2 Saturation VBG Base Excess Sodium 135 Potassium 4.0 Chloride 99 Carbon Dioxide 23 Anion Gap 17 BUN 15 Creatinine 0.84 Estim Creat Clear Calc 40.2 Estimated GFR > 60 Random Glucose 154 H Lactic Acid Lactic Acid F/U @ 2Hr Lactic Acid F/U @ 4Hr Calcium 8.9 D Phosphorus 3.4 Magnesium 1.5 L Iron TIBC % Saturation Unsat Iron Binding Ferritin Total Bilirubin GGT AST ALT Alkaline Phosphatase Lactate Dehydrogenase Troponin I High Sens C-Reactive Protein B-Natriuretic Peptide Total Protein Albumin 2.6 L Carcinoembryonic Ag Procalcitonin TSH Urine Color Urine Appearance Urine pH Ur Specific [place] Urine Protein Urine Glucose (UA) Urine Ketones Urine Blood Urine Nitrite Ur Leukocyte Esterase Urine RBC Urine WBC Ur Squamous Epith Cells Urine Bacteria Hyaline Casts Granular Casts Pleural WBC Pleural RBC Pleural Neutrophils Pleural Lymphocytes Pleural Monocytes Pleural Other Cells Pleural Total Protein Pleural LDH Nasal Screen MRSA (PCR) Nasal S. aureus Screen Nasal MRSA/S.aureus Interp Stool Occult Blood Stool Leukocytes, Qual Stl C. cayetanensis PCR Stool Rotavirus A PCR Stl Adenov F PCR Stool Astrovirus (PCR) Stool Campylobacter PCR Stool Cryptosporidium PCR Stl Sh Tox Pr E STEC PCR Stool E coli O157 PCR Stl Enterotoxigenic E PCR Stool EPEC (PCR) Stool EAEC (PCR) Stl E. histolytica PCR Stool Giardia Lamblia PCR Stool H. pylori Ag Stl P. shigelloides PCR Stool Salmonella PCR Stool Sapovirus (PCR) Stl Shigella/EIEC PCR St Y.enterocolitica PCR Stool Vibrio (PCR) Stl Vibrio cholerae PCR Stl Norovirus GI/GII PCR Random Vancomycin C. difficile Tox B Gene Influenza Type A (PCR) Influenza Type B (PCR) RSV RNA Qual (PCR) SARS-CoV-2 RNA (RT-PCR) Blood Type Antibody Screen Crossmatch 03/03/22 03/03/22 04:43 04:48 WBC RBC Hgb Hct MCV MCH MCHC RDW Plt Count MPV Immature Gran % (Auto) Neut % (Auto) Lymph % (Auto) [place] % (Auto) Eos % (Auto) Baso % (Auto) Lymph # (Auto) [place] # (Auto) Eos # (Auto) Baso # (Auto) Abs Immat Gran (auto) Absolute Neuts (auto) Absolute Nucleated RBC Nucleated RBC % (auto) Smear Tech's Comments PT INR APTT VBG pH 7.46 H VBG pCO2 33 VBG pO2 42 VBG HCO3 24 VBG O2 Saturation 66.0 VBG Base Excess 1.0 Sodium Potassium Chloride Carbon Dioxide Anion Gap BUN Creatinine Estim Creat Clear Calc Estimated GFR Random Glucose Lactic Acid Lactic Acid F/U @ 2Hr Lactic Acid F/U @ 4Hr 3.4 H* Calcium Phosphorus Magnesium Iron TIBC % Saturation Unsat Iron Binding Ferritin Total Bilirubin GGT AST ALT Alkaline Phosphatase Lactate Dehydrogenase Troponin I High Sens C-Reactive Protein B-Natriuretic Peptide Total Protein Albumin Carcinoembryonic Ag Procalcitonin TSH Urine Color Urine Appearance Urine pH Ur Specific [place] Urine Protein Urine Glucose (UA) Urine Ketones Urine Blood Urine Nitrite Ur Leukocyte Esterase Urine RBC Urine WBC Ur Squamous Epith Cells Urine Bacteria Hyaline Casts Granular Casts Pleural WBC Pleural RBC Pleural Neutrophils Pleural Lymphocytes Pleural Monocytes Pleural Other Cells Pleural Total Protein Pleural LDH Nasal Screen MRSA (PCR) Nasal S. aureus Screen Nasal MRSA/S.aureus Interp Stool Occult Blood Stool Leukocytes, Qual Stl C. cayetanensis PCR Stool Rotavirus A PCR Stl Adenov F 40/41 PCR Stool Astrovirus (PCR) Stool Campylobacter PCR Stool Cryptosporidium PCR Stl Sh Tox Pr E STEC PCR Stool E coli O157 PCR Stl Enterotoxigenic E PCR Stool EPEC (PCR) Stool EAEC (PCR) Stl E. histolytica PCR Stool Giardia Lamblia PCR Stool H. pylori Ag Stl P. shigelloides PCR Stool Salmonella PCR Stool Sapovirus (PCR) Stl Shigella/EIEC PCR St Y.enterocolitica PCR Stool Vibrio (PCR) Stl Vibrio cholerae PCR Stl Norovirus GI/GII PCR Random Vancomycin C. difficile Tox B Gene Influenza Type A (PCR) Influenza Type B (PCR) RSV RNA Qual (PCR) SARS-CoV-2 RNA (RT-PCR) Blood Type Antibody Screen Crossmatch Assessment and Plan Assessment Anesthesia Assessment: Chart Reviewed Final Anesthetic Review Family History of Problems with Anesthesia: No History of Problems with Anesthesia: No NPO: Yes ASA Class: IV Final Preanesthetic Review: No Changes in Pt Med Stat, Meds/Allgs Chart Reviewed, Consent Obtained/Reviewed and Anes Risks/Benef Reviewed Patient Risk: High Procedure Risk: Intermediate Anesthetic Plan Anesthetic Plan: GA Disposition: Inp. Admit - ICU
[2022-03-03] MEDS: Chlorhexidine Gluc Oral Rinse 15 ML MOUTHWASH BUCCAL ×3 (07:25→22:04)
[2022-03-03] MEDS: Famotidine/PF 20 MG/2 ML VIAL IVPUSH (07:25)
--- NOTE | 2022-03-03 08:18 | PC.NURSE ---
Addendum entered by Pat Esquivel RN 03/03/22 16:43: 10:00 Patient returned to ICU from bronchoscopy procedure with OR staff. Respiratory therapy and RN monitoring patient. 10:15 CXR obtained at bedside for post-bronch study. 10:30 RN provided family education to Gogo Nagel (cousin [phone]) regarding bronchoscopy procedure and plan of care. 12:[address] scan for CT of chest. RT, transporter, and RN with patient for transport. 14:00 Patient provided with full bed bath, hair brushing, skin care. 16:00 Patient heart rate increased to 120-127 bpm. Md notified, no new orders. 16:30 MD spoke with Gogo (pt cousin), provided education and update on plan of care. Patient was repositioned Q2H, Q2H oral care, prevlon system utilized, high fall precautions in place. Original Note: Assumed care of patient at 07:00 OR staff to bedside 08:00 to prepare patient for bronchoscopy in OR Patient transported to OR 08:17 for bronchoscopy
--- NOTE | 2022-03-03 09:56 | MHC.CLN ---
F/U PT IS CURRENTLY NPO S/P OR FOR BRONC PT REMAINS INTUBATED AND SEDATED IF TF NEEDED; RECOMMEND PROMOTE AT MAX GOAL RATE 45ML/HR WITH 120ML Q 6 HRS TO PROVIDE 1080KCALS (1465KCALS WITH SEDATION; 30.5KCALS/KG), 67G PROTEIN (1.4G/KG), 1386ML TOTAL WATER FROM FORMULA AND FLUSHES (29ML/KG) MONITOR TOLERANCE, RESIDUALS AND LYTES
--- NOTE | 2022-03-03 12:58 | P.BOP_ITS ---
Brief Operative Note Date of Service: 03/03/22 Pre-op diagnosis: lung cancer, atelectasis Post-op diagnosis: same Procedure: Bronchoscopy with forcep biopsies and washings Implants: Surgeon: Giacomo Villalpando MD Anesthesia: GETA Was an Deputy Director Of Public [employer] used for this Procedure?: No Estimated blood loss (mL): 5 Condition: stable Disposition: ICU
--- NOTE | 2022-03-03 15:03 | MHC.CM.PN ---
Pt vented and going for a bronchoscopy today. No plans for d/c at this time
--- NOTE | 2022-03-03 15:10 | PM.CCPN ---
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 and she underwent 2nd bronchoscopy today with a more extensive clean out but it at the left lung is still td out but I see on my echo that she has a very large left pleural effusion and now a new and rapidly developing right pleural effusion My bedside echo I believe that there is inability of the right ventricle to expanded and I asked Ali it looks like there might be a loculated anterior fusion overlying the right ventricle and now there is also a rapidly progressing right pleural effusion as well I called family and discuss the approach of an attempt to wean her from the ventilator which I think would definitely require at least an attempt at draining as much volume from that left side as possible and if we start to see that some of the left upper lobe possibly expands and then we might have enough reserve to wean her and then she could establish code status and may be even a point of 1 of the cousins as a proxy so decisions can be made Critical Care Time (minutes): 45 Physical Exam Vital Signs: Vital Signs: Last Vital Signs Temp 100.2 F 03/03/22 12:00 Pulse 120 H 03/03/22 15:00 Resp 16 03/03/22 15:00 BP 122/57 L 03/03/22 15:00 Pulse Ox 94 03/03/22 15:00 O2 Del Method 03/03/22 15:00 O2 Flow Rate 9 03/02/22 07:00 FiO2 50 03/03/22 15:00 Oxygen Flow Rate 35 03/03/22 08:46 BMI result Body Mass Index 21.5 Thus far we are able to maintain a mean arterial pressure of 75 because at the expense of of Levophed she is in sinus tachycardia rate of 120 but compensated O2 saturations of 94% and she remains warm well perfused but no livedo No breath sounds absolutely on that left side and diminished on the on the right side but no adventitious sounds Abdomen soft with no organomegaly Objective Data Labs 03/03/22 04:43 03/03/22 04:43 Labs: Laboratory Results - last 24 hr 03/03/22 03/03/22 03/03/22 00:03 00:03 00:12 WBC 52.9 H* RBC 4.21 Hgb 10.4 L Hct 33.1 L MCV 78.6 L MCH 24.7 L MCHC 31.4 RDW 17.6 H Plt Count 815 H MPV 9.4 Immature Gran % (Auto) Neut % (Auto) Lymph % (Auto) [place] % (Auto) Eos % (Auto) Baso % (Auto) Lymph # (Auto) [place] # (Auto) Eos # (Auto) Baso # (Auto) Abs Immat Gran (auto) Absolute Neuts (auto) Absolute Nucleated RBC 0.060 H Nucleated RBC % (auto) 0.1 Smear Tech's Comments PT INR APTT VBG pH 7.51 H VBG pCO2 27 VBG pO2 45 VBG HCO3 22 VBG O2 Saturation 73.0 VBG Base Excess 0.7 Sodium Potassium Chloride Carbon Dioxide Anion Gap BUN Creatinine Estim Creat Clear Calc Estimated GFR Random Glucose Lactic Acid 2.8 H* Lactic Acid F/U @ 2Hr Lactic Acid F/U @ 4Hr Calcium Phosphorus Magnesium Albumin Urine Color Urine Appearance Urine pH Ur Specific [place] Urine Protein Urine Glucose (UA) Urine Ketones Urine Blood Urine Nitrite Ur Leukocyte Esterase Urine RBC Urine WBC Ur Squamous Epith Cells Urine Bacteria Hyaline Casts 03/03/22 03/03/22 03/03/22 01:50 02:20 04:43 WBC 52.0 H* RBC 4.05 L Hgb 10.1 L Hct 32.2 L MCV 79.5 L MCH 24.9 L MCHC 31.4 RDW 17.7 H Plt Count 746 H MPV 9.6 Immature Gran % (Auto) 3.4 H Neut % (Auto) 87.2 H Lymph % (Auto) 5.2 L [place] % (Auto) 3.7 Eos % (Auto) 0.1 Baso % (Auto) 0.4 Lymph # (Auto) 2.7 [place] # (Auto) 1.9 H Eos # (Auto) 0.0 Baso # (Auto) 0.2 Abs Immat Gran (auto) 1.77 H Absolute Neuts (auto) 45.3 H Absolute Nucleated RBC 0.080 H Nucleated RBC % (auto) 0.2 Smear Tech's Comments VERIFIED PT INR APTT VBG pH VBG pCO2 VBG pO2 VBG HCO3 VBG O2 Saturation VBG Base Excess Sodium Potassium Chloride Carbon Dioxide Anion Gap BUN Creatinine Estim Creat Clear Calc Estimated GFR Random Glucose Lactic Acid Lactic Acid F/U @ 2Hr 2.6 H* Lactic Acid F/U @ 4Hr Calcium Phosphorus Magnesium Albumin Urine Color Yellow Urine Appearance Clear Urine pH 5.5 Ur Specific [place] 1.010 Urine Protein Trace Urine Glucose (UA) Negative Urine Ketones Negative Urine Blood Negative Urine Nitrite Negative Ur Leukocyte Esterase Negative Urine RBC 0-2 Urine WBC 0-5 Ur Squamous Epith Cells 0-2 Urine Bacteria None Seen Hyaline Casts 0-2 03/03/22 03/03/22 03/03/22 04:43 04:43 04:43 WBC RBC Hgb Hct MCV MCH MCHC RDW Plt Count MPV Immature Gran % (Auto) Neut % (Auto) Lymph % (Auto) [place] % (Auto) Eos % (Auto) Baso % (Auto) Lymph # (Auto) [place] # (Auto) Eos # (Auto) Baso # (Auto) Abs Immat Gran (auto) Absolute Neuts (auto) Absolute Nucleated RBC Nucleated RBC % (auto) Smear Tech's Comments PT 16.8 H INR 1.4 H APTT 35.7 VBG pH VBG pCO2 VBG pO2 VBG HCO3 VBG O2 Saturation VBG Base Excess Sodium 135 Potassium 4.0 Chloride 99 Carbon Dioxide 23 Anion Gap 17 BUN 15 Creatinine 0.84 Estim Creat Clear Calc 40.2 Estimated GFR > 60 Random Glucose 154 H Lactic Acid Lactic Acid F/U @ 2Hr Lactic Acid F/U @ 4Hr 3.4 H* Calcium 8.9 D Phosphorus 3.4 Magnesium 1.5 L Albumin 2.6 L Urine Color Urine Appearance Urine pH Ur Specific [place] Urine Protein Urine Glucose (UA) Urine Ketones Urine Blood Urine Nitrite Ur Leukocyte Esterase Urine RBC Urine WBC Ur Squamous Epith Cells Urine Bacteria Hyaline Casts 03/03/22 04:48 WBC RBC Hgb Hct MCV MCH MCHC RDW Plt Count MPV Immature Gran % (Auto) Neut % (Auto) Lymph % (Auto) [place] % (Auto) Eos % (Auto) Baso % (Auto) Lymph # (Auto) [place] # (Auto) Eos # (Auto) Baso # (Auto) Abs Immat Gran (auto) Absolute Neuts (auto) Absolute Nucleated RBC Nucleated RBC % (auto) Smear Tech's Comments PT INR APTT VBG pH 7.46 H VBG pCO2 33 VBG pO2 42 VBG HCO3 24 VBG O2 Saturation 66.0 VBG Base Excess 1.0 Sodium Potassium Chloride Carbon Dioxide Anion Gap BUN Creatinine Estim Creat Clear Calc Estimated GFR Random Glucose Lactic Acid Lactic Acid F/U @ 2Hr Lactic Acid F/U @ 4Hr Calcium Phosphorus Magnesium Albumin Urine Color Urine Appearance Urine pH Ur Specific [place] Urine Protein Urine Glucose (UA) Urine Ketones Urine Blood Urine Nitrite Ur Leukocyte Esterase Urine RBC Urine WBC Ur Squamous Epith Cells Urine Bacteria Hyaline Casts Microbiology Microbiology Results: Microbiology 03/03/22 09:32 Bronchial Washings Gram Stain - Final 03/02/22 05:48 Blood - Venous Blood Culture - Preliminary No growth after 24 hours. 03/02/22 05:48 Blood - Venous Blood Culture - Preliminary No growth after 24 hours. 02/28/22 Unknown Washing - Wash Gram Stain - Final 02/28/22 Unknown Washing - Wash - Preliminary Yeast 02/23/22 18:10 Blood - Venous Blood Culture - Final No growth after 5 days. 02/23/22 18:10 Blood - Venous Blood Culture - Final No growth after 5 days. 02/27/22 09:41 Blood - Central Line Blood Culture - Preliminary No growth after 48 hours. 02/27/22 09:41 Blood - Central Line Blood Culture - Preliminary No growth after 48 hours. 02/26/22 20:20 Blood - Venous Blood Culture - Preliminary No growth after 48 hours. 02/26/22 20:20 Blood - Venous Blood Culture - Preliminary No growth after 48 hours. 02/24/22 15:00 Thoracentesis Fluid Gram Stain - Final 02/24/22 15:00 Thoracentesis Fluid Anaerobic Culture - Final NO GROWTH AFTER 5 DAYS 02/24/22 15:00 Thoracentesis Fluid Body Fluid Culture - Final No growth after 2 days 02/27/22 09:41 Urine Catheterized - Baptiste Catheter Urine Culture - Final No growth. 02/27/22 09:56 Blood - Venous Gram Stain - Final 02/27/22 09:56 Blood - Venous Routine Culture - Final 02/27/22 09:56 Blood - Venous Anaerobic Culture - Final Progress Note: A&P Assessment and plan (1) Pericardial effusion with cardiac tamponade: Status: Acute (2) Hypercapnic respiratory failure: Status: Acute (3) Acute hypoxemic respiratory failure: Status: Acute (4) Pneumonia: Status: Acute (5) Diarrhea: Status: Acute (6) Cancer cachexia: Status: Acute (7) Atelectasis of left lung: Status: Acute (8) Dyspnea: Status: Acute (9) Tachypnea: Status: Acute (10) Mass of left lung: Status: Acute (11) Pleural effusion, left: Status: Acute Plan The plan at this point as discussed with the family and with Dr. Villalpando is to drain is much volume on that left side as possible to see if we can bring about and expansion of the left upper lobe which might give of the reserve to wean from the ventilator and allow her of course then to understand fully and make decisions an appoint a health proxy of 1 or both of her close cousins Quality Stroke Does the patient have a stroke diagnosis?: No VTE Prior VTE?: No VTE Risk Level:: Medical - moderate - high VTE Device Contraindication: N/A - Device Ordered VTE Drug Contraindication: Treatment Not Indicated
[2022-03-03] MEDS: Acetaminophen 325 MG TABLET 650 MG PO (19:32)
[2022-03-03 21:47] LABS: Calprotectin, Fecal 326 mcg/g
[2022-03-03] MEDS: Norepinephrine Bitartrate/D5W 8 MG/250 ML PLAST..BAG 35.1 MG IV (23:12)
[2022-03-04] VITALS (42 sets, daily range): BP systolic 114–149; BP diastolic 52–78; PULSE 85–102; RESP 13–25; TEMP 35–37.7; O2SAT 8–96; BMI 23.4
[2022-03-04] MEDS: 0.9 % Sodium Chloride Flush 3 ML SYRINGE IVFLUSH ×3 (02:24→16:32)
[2022-03-04] MEDS: metroNIDAZOLE/NS 500 MG/100 ML PIGGYBACK 100 MG IV ×3 (02:24→17:44)
[2022-03-04] MEDS: propofoL 1,000 MG/100 ML VIAL 14.58 MG IVCONT ×4 (04:05→20:59)
[2022-03-04 05:32] LABS: Basophils Absolute Auto 0.1 X10*3/uL (0.0-0.2); Basophils Percent Auto 0.3 % (0-2); Hematocrit 28.1 % (37.0-47.0); Imm Gran Abs Auto 2.01 X10*3/uL (0.00-0.03); Imm Gran Pct Auto 5.3 % (0.0-0.4); Lymphocytes Absolute Auto 1.3 X10*3/uL (1.2-4.9); Lymphocytes Percent Auto 3.3 % (20-40); Mean Corpuscular Volume 78.1 fL (80.0-98.0); Mean Platelet Volume 9.3 fL (9.4-12.3); Monocytes Absolute Auto 1.4 X10*3/uL (0.1-1.2); Monocytes Percent Auto 3.6 % (2-11); NRBC Pct Auto 0.3 /100WBC (0.0-0.2); Neutrophils Absolute Auto 33.3 x10*3/uL (2.0-8.3); Neutrophils Percent Auto 87.5 % (45-73); Platelet Count 678 X10*3/uL (160-400); Red Cell Distribution Width 17.9 % (11.0-16.0); SCAN SMEAR FLAG 1
[2022-03-04 05:38] LABS: VBG Base Excess 4.8 mmol/L; VBG HCO3 27 mmol/L (22-26); VBG pCO2 32 mmHg; VBG pH 7.53 (7.32-7.43); VBG pO2 62 mmHg
[2022-03-04 05:46] LABS: MANUAL DIFF FLAG SCAN; White Blood Count 38.1 X10*3/uL (4.8-10.8)
[2022-03-04 05:48] LABS: Albumin Level 3.1 g/dL (3.5-5.0); Anion Gap 18 (12-20); Blood Urea Nitrogen 15 mg/dL (9-16); Calcium 9.1 mg/dL (8.4-10.2); Carbon Dioxide 24 mmol/L (22-29); Chloride 102 mmol/L (96-108); Creatinine Clr Calc Pharmacy 45.7; Estimated Glomerular Filt Rate > 60; Glucose Random 182 mg/dL (60-115); Magnesium 1.8 mg/dL (1.6-2.6); Phosphorus 3.3 mg/dL (2.7-4.5); Potassium 3.6 mmol/L (3.3-5.1); Sodium 140 mmol/L (135-145)
[2022-03-04] MEDS: Norepinephrine Bitartrate/D5W 8 MG/250 ML PLAST..BAG 30.53 MG IV (05:48)
[2022-03-04 05:50] LABS: SLIDE REVIEW VERIFIED
[2022-03-04 05:52] LABS: Venous Blood Gas Refer to POC result
[2022-03-04] MEDS: fentaNYL citrate/PF 100 MCG/2 ML VIAL 50 MCG IVPUSH (06:45)
[2022-03-04] MEDS: Famotidine/PF 20 MG/2 ML VIAL IVPUSH (07:42)
[2022-03-04] MEDS: Chlorhexidine Gluc Oral Rinse 15 ML MOUTHWASH BUCCAL ×3 (07:42→20:14)
--- NOTE | 2022-03-04 07:50 | W.PM.CCHP ---
Procedures Date of Service Date of Service: 03/04/22 Chest Tube Chest Tube 1: Chest tube location: Posterior Chest Size of tube: 14 Chest tube procedure: Yes other Tube sutured to skin: Yes Sterile dressing applied: Yes Anesthesia: 1% Lidocaine Incision made with: #11 blade Post procedure: sutured to skin and sterile dressing applied [place] of air heard: No Tube Drainage: fluid Amount of initial drainage (ml): 1,550 Post procedure CXR?: Yes Patient tolerated procedure: Yes Progress: Utilizing ultrasound guidance located a large pocket of fluid certainly well clear of any lung parenchyma diaphragm etc. and this was in the 5th intercostal space at the midaxillary line and then after sterile preparation and draping applied 1% lidocaine to skin ends and soft tissue and periosteum and hugging the the superior surface of the 6th rib gained easy entry with with the with needle in fluid pouring out and and then placed a J tipped guidewire and over that 1st a a add dilator to open the intracostal muscle and then the chest tube was placed over the the guidewire and the fluid was serous sanguinous 15 150 cc was drained and then I clamped the tube to prevent re-expansion pulmonary edema and obtained a chest x-ray after I placed a securing set of sutures and and sterile dressing and the and the entire mediastinum shifted back from the right to the left so clearly I think that there was an element of tamponade from that fluid volume but it still implies that the what we now are left with is continued atelectasis and volume loss on the left side so now the mediastinum is shifted to the left and I see no evidence of aeration of any particular lobe on the left side In a little while I will unclamp the tube in and try to drain it is dry as I possibly can and then I would like to stop the sedation give her a trial of of a sedation holiday and then an attempted weaning the ventilator because at this point I do not have anything else to offer in terms of airway patency on that left side Procedure was uncomplicated without any bleeding or pneumothorax etc.
[2022-03-04] MEDS: Norepinephrine Bitartrate/D5W 8 MG/250 ML PLAST..BAG 25.95 MG IV (13:25)
--- NOTE | 2022-03-04 16:59 | PM.CCPN ---
Subjective Subjective Date of Service: 03/04/22 Interval History: 76-year-old female somewhat cachectic appearing contribute to of course by removed by recent anorexia and weight loss presented with dyspnea and acute hypoxemic respiratory failure and she is a lifelong smoker with clear-cut COPD who had complete atelectasis of the left lung and also had initially a moderate-sized pleural effusion the cytology is from which showed a poorly differentiated cell and and by definition she clearly had an evidence of tumor obstruction of the left mainstem bronchus and and the stage IV metastatic disease She is markedly dyspneic and our plan was to try to initially bronchoscoped see if there was an easy mechanism for relieving some of that left mainstem obstruction and because she could see this fungating tumor filling the entire left mainstem bronchus in we tried the no with the use of the biopsy forceps to break this up into smaller pieces when the bleeding ensued we had to stop I think there was a small aspiration to the right side she started to become increasingly confused within about another 24 hours and we started to notice pCO2 is rising and the so is and the hypoxia was worsening and we spoke to her she denies she still wanted us to attempt whenever we could to relieve symptoms so she was she was intubated brought to the OR and they were little bit more aggressive through the bronchoscope but there was a question that he might have opened up the airway to the left upper lobe that was our hope but she also had a a by CT scan much larger of pleural effusive volume and there was a growing modest amount now on the right side and I thought there might have been id a.m. sort of loculated pericardial effusion overlying the free wall the right ventricle The lung remained atelectatic in the question was whether not the fluid was an issue and I estimated a minimum of 2 L put in a pigtail catheter without complication drained almost exactly that serosanguineous fluid almost 2 L it helped to relieve some of her hemodynamic issues and and allowed us to it at least rapidly and wean to a minimum on the Levophed that she had been arm and the might have been some areas with air there might be some minimal aeration and today we lifted sedation gave her a holiday she was perfectly appropriate with cognitive function but she did last 15 minutes on pressure support dramatic fall in her tidal volume and increased respiratory effort tachypnea etc. so she was placed back on the on pressure control There to cousins that her closest relatives both of whom understand the need for her to become a DNR DNI but they do not have the authority of his no appointed proxy we would very least like to get her to a point where she cannot point to proxy and also maybe make a decision about DNR and DNI but she deteriorated so rapidly today we did not really have the opportunity the no to have her fully off of the dexmedetomidine and reliable for decision making Critical Care Time (minutes): 45 Physical Exam Vital Signs: Vital Signs: Last Vital Signs Temp 99.8 F 03/04/22 16:00 Pulse 95 03/04/22 16:00 Resp 17 03/04/22 16:00 BP 119/59 L 03/04/22 16:00 Pulse Ox 91 L 03/04/22 16:00 O2 Del Method 03/04/22 16:00 O2 Flow Rate 9 03/02/22 07:00 FiO2 35 03/04/22 16:00 Oxygen Flow Rate 35 03/03/22 08:46 BMI result Body Mass Index 23.4 Good cognitive function on the sedation holiday Bedside echo really no significant diffuse and effusion but there is some thickened wall outside the pericardium which which I believe looks a little bit worrisome for invasion of the pericardium the pericardium but the right ventricle was expanding in diastole normal left ventricle Mostly atelectatic left lung Abdomen is soft good bowel sounds and no organomegaly Objective Data Labs 03/04/22 05:17 03/04/22 05:17 Labs: Laboratory Results - last 24 hr 02/27/22 03/04/22 03/04/22 01:30 05:17 05:17 WBC 38.1 H* RBC 3.60 L Hgb 9.0 L Hct 28.1 L MCV 78.1 L MCH 25.0 L MCHC 32.0 RDW 17.9 H Plt Count 678 H MPV 9.3 L Immature Gran % (Auto) 5.3 H Neut % (Auto) 87.5 H Lymph % (Auto) 3.3 L [place] % (Auto) 3.6 Eos % (Auto) 0.0 Baso % (Auto) 0.3 Lymph # (Auto) 1.3 [place] # (Auto) 1.4 H Eos # (Auto) 0.0 Baso # (Auto) 0.1 Abs Immat Gran (auto) 2.01 H Absolute Neuts (auto) 33.3 H Absolute Nucleated RBC 0.100 H Nucleated RBC % (auto) 0.3 H Smear Tech's Comments VERIFIED VBG pH VBG pCO2 VBG pO2 VBG HCO3 VBG O2 Saturation VBG Base Excess Sodium 140 Potassium 3.6 Chloride 102 Carbon Dioxide 24 Anion Gap 18 BUN 15 Creatinine 0.74 Estim Creat Clear Calc 45.7 Estimated GFR > 60 Random Glucose 182 H Calcium 9.1 Phosphorus 3.3 Magnesium 1.8 Albumin 3.1 L Stool Calprotectin 326 H 03/04/22 05:31 WBC RBC Hgb Hct MCV MCH MCHC RDW Plt Count MPV Immature Gran % (Auto) Neut % (Auto) Lymph % (Auto) [place] % (Auto) Eos % (Auto) Baso % (Auto) Lymph # (Auto) [place] # (Auto) Eos # (Auto) Baso # (Auto) Abs Immat Gran (auto) Absolute Neuts (auto) Absolute Nucleated RBC Nucleated RBC % (auto) Smear Tech's Comments VBG pH 7.53 H VBG pCO2 32 VBG pO2 62 VBG HCO3 27 H VBG O2 Saturation 90.0 VBG Base Excess 4.8 Sodium Potassium Chloride Carbon Dioxide Anion Gap BUN Creatinine Estim Creat Clear Calc Estimated GFR Random Glucose Calcium Phosphorus Magnesium Albumin Stool Calprotectin Microbiology Microbiology Results: Microbiology 02/27/22 09:41 Blood - Central Line Blood Culture - Final No growth after 5 days. 02/27/22 09:41 Blood - Central Line Blood Culture - Final No growth after 5 days. 02/26/22 20:20 Blood - Venous Blood Culture - Final No growth after 5 days. 02/26/22 20:20 Blood - Venous Blood Culture - Final No growth after 5 days. 03/03/22 09:32 Bronchial Washings Gram Stain - Final 03/03/22 09:32 Bronchial Washings Routine Culture - Preliminary Yeast 02/28/22 Unknown Washing - Wash Gram Stain - Final 02/28/22 Unknown Washing - Wash - Final Luanne albicans 03/02/22 05:48 Blood - Venous Blood Culture - Preliminary No growth after 48 hours. 03/02/22 05:48 Blood - Venous Blood Culture - Preliminary No growth after 48 hours. 03/03/22 00:03 Blood - Venous Blood Culture - Preliminary No growth after 24 hours. 03/03/22 00:03 Blood - Venous Blood Culture - Preliminary No growth after 24 hours. 12/29/22 18:10 Blood - Venous Blood Culture - Final No growth after 5 days. 02/23/22 18:10 Blood - Venous Blood Culture - Final No growth after 5 days. 02/24/22 15:00 Thoracentesis Fluid Gram Stain - Final 02/24/22 15:00 Thoracentesis Fluid Anaerobic Culture - Final NO GROWTH AFTER 5 DAYS 02/24/22 15:00 Thoracentesis Fluid Body Fluid Culture - Final No growth after 2 days 02/27/22 09:41 Urine Catheterized - Baptiste Catheter Urine Culture - Final No growth. 02/27/22 09:56 Blood - Venous Gram Stain - Final 02/27/22 09:56 Blood - Venous Routine Culture - Final 02/27/22 09:56 Blood - Venous Anaerobic Culture - Final Progress Note: A&P Assessment and plan (1) Pericardial effusion with cardiac tamponade: Status: Acute (2) Hypercapnic respiratory failure: Status: Acute (3) Acute hypoxemic respiratory failure: Status: Acute (4) Pneumonia: Status: Acute (5) Diarrhea: Status: Acute (6) Atelectasis of left lung: Status: Acute (7) Cancer cachexia: Status: Acute (8) Dyspnea: Status: Acute (9) Tachypnea: Status: Acute (10) Mass of left lung: Status: Acute (11) Pleural effusion, left: Status: Acute Plan The plan at this point is to re-attempt in the morning the weaning process and possibly pulled the chest tube with his no significant additional drainage Quality Stroke Does the patient have a stroke diagnosis?: No VTE Prior VTE?: No VTE Risk Level:: Medical - moderate - high VTE Device Contraindication: N/A - Device Ordered VTE Drug Contraindication: Treatment Not Indicated
--- NOTE | 2022-03-04 19:02 | PC.NURSE ---
Assumed care of patient 07:00 07:10 MD completed placement of left lateral chest tube. 1550 mL serosanguineous fluid drained initially. 10:30 patient provided bed bath 11:05 propofol paused per MD. Sedation vacation intiated 11:30 RT changed vent settings from PC to PSV 16/5.0 40% 12:30 Pulmonology MD to bedside to assess patient 12:40 Patient sedation vacation ended, Vent settings changed to PC 16/16/5.0/30% Patient repositioned Q2H, prevlon system utilized, high fall precautions in place
[2022-03-04] MEDS: levoFLOXacin/D5W 500 MG/100 ML PIGGYBACK 100 MG IV (20:14)
[2022-03-04] MEDS: vancomycin HCL 1,000 MG in 0.9 % Sodium Chloride 250 ML 270 MG IV (21:07)
[2022-03-04] MEDS: Norepinephrine Bitartrate/D5W 8 MG/250 ML PLAST..BAG 21.37 MG IV (21:09)
[2022-03-04] MEDS: dexmedeTOMIDidine HCL/NS 400 MCG/100 ML INFUS..BTL 13.63 MCG IVCONT (21:35)
--- NOTE | 2022-03-04 21:46 | P.PNPL_ITS ---
Subjective Subjective Date of Service: 03/04/22 Interval history: Seen and examined. S/P chest tube and drained 1600 ml fluid. Tolerating weaning trial in the morning. Hopefully extubate soon. Objective Data Labs 03/04/22 05:17 03/04/22 05:17 Labs: Laboratory Results - last 24 hr 02/27/22 03/04/22 03/04/22 01:30 05:17 05:17 WBC 38.1 H* RBC 3.60 L Hgb 9.0 L Hct 28.1 L MCV 78.1 L MCH 25.0 L MCHC 32.0 RDW 17.9 H Plt Count 678 H MPV 9.3 L Immature Gran % (Auto) 5.3 H Neut % (Auto) 87.5 H Lymph % (Auto) 3.3 L [place] % (Auto) 3.6 Eos % (Auto) 0.0 Baso % (Auto) 0.3 Lymph # (Auto) 1.3 [place] # (Auto) 1.4 H Eos # (Auto) 0.0 Baso # (Auto) 0.1 Abs Immat Gran (auto) 2.01 H Absolute Neuts (auto) 33.3 H Absolute Nucleated RBC 0.100 H Nucleated RBC % (auto) 0.3 H Smear Tech's Comments VERIFIED VBG pH VBG pCO2 VBG pO2 VBG HCO3 VBG O2 Saturation VBG Base Excess Sodium 140 Potassium 3.6 Chloride 102 Carbon Dioxide 24 Anion Gap 18 BUN 15 Creatinine 0.74 Estim Creat Clear Calc 45.7 Estimated GFR > 60 Random Glucose 182 H Calcium 9.1 Phosphorus 3.3 Magnesium 1.8 Albumin 3.1 L Stool Calprotectin 326 H 03/04/22 05:31 WBC RBC Hgb Hct MCV MCH MCHC RDW Plt Count MPV Immature Gran % (Auto) Neut % (Auto) Lymph % (Auto) [place] % (Auto) Eos % (Auto) Baso % (Auto) Lymph # (Auto) [place] # (Auto) Eos # (Auto) Baso # (Auto) Abs Immat Gran (auto) Absolute Neuts (auto) Absolute Nucleated RBC Nucleated RBC % (auto) Smear Tech's Comments VBG pH 7.53 H VBG pCO2 32 VBG pO2 62 VBG HCO3 27 H VBG O2 Saturation 90.0 VBG Base Excess 4.8 Sodium Potassium Chloride Carbon Dioxide Anion Gap BUN Creatinine Estim Creat Clear Calc Estimated GFR Random Glucose Calcium Phosphorus Magnesium Albumin Stool Calprotectin Microbiology Microbiology Results: Microbiology 02/27/22 09:41 Blood - Central Line Blood Culture - Final No growth after 5 days. 02/27/22 09:41 Blood - Central Line Blood Culture - Final No growth after 5 days. 02/26/22 20:20 Blood - Venous Blood Culture - Final No growth after 5 days. 02/26/22 20:20 Blood - Venous Blood Culture - Final No growth after 5 days. 03/03/22 09:32 Bronchial Washings Gram Stain - Final 03/03/22 09:32 Bronchial Washings Routine Culture - Preliminary Yeast 02/28/22 Unknown Washing - Wash Gram Stain - Final 02/28/22 Unknown Washing - Wash - Final Luanne albicans 03/02/22 05:48 Blood - Venous Blood Culture - Preliminary No growth after 48 hours. 03/02/22 05:48 Blood - Venous Blood Culture - Preliminary No growth after 48 hours. 03/03/22 00:03 Blood - Venous Blood Culture - Preliminary No growth after 24 hours. 03/03/22 00:03 Blood - Venous Blood Culture - Preliminary No growth after 24 hours. 02/23/22 18:10 Blood - Venous Blood Culture - Final No growth after 5 days. 02/23/22 18:10 Blood - Venous Blood Culture - Final No growth after 5 days. 02/24/22 15:00 Thoracentesis Fluid Gram Stain - Final 02/24/22 15:00 Thoracentesis Fluid Anaerobic Culture - Final NO GROWTH AFTER 5 DAYS 02/24/22 15:00 Thoracentesis Fluid Body Fluid Culture - Final No growth after 2 days 02/27/22 09:41 Urine Catheterized - Baptiste Catheter Urine Culture - Final No growth. 02/27/22 09:56 Blood - Venous Gram Stain - Final 02/27/22 09:56 Blood - Venous Routine Culture - Final 02/27/22 09:56 Blood - Venous Anaerobic Culture - Final Review of Systems Review of Systems Yes unobtainable due to endotracheal tube Physical Exam 2 Vital Signs: Vital Signs: Last Vital Signs Temp 97.0 F 03/04/22 20:00 Pulse 89 03/04/22 21:00 Resp 14 03/04/22 21:00 BP 118/58 L 03/04/22 21:00 Pulse Ox 93 03/04/22 21:00 O2 Del Method 03/04/22 21:00 O2 Flow Rate 9 03/02/22 07:00 FiO2 30 03/04/22 21:00 Oxygen Flow Rate 35 03/03/22 08:46 BMI result Body Mass Index 23.4 Const: General: other (sedated) Nutritional Appearance: thin Resp: Other: right lung clear; left side diminished Auscultation: diminished lung sounds Cardio: Heart sounds: S1 normal heart sound present and S2 normal heart sound present GI: Inspection: No distended Palpation (GI): Soft to palpation Extrem: General: Yes no pedal edema Procedures Date of Service Date of Service: 03/04/22 Assessment and Plan Assessment and plan (1) Mass of left lung: Status: Acute (2) Pleural effusion, left: Problem details: Malignant pleural effusion, stage 4 lung cancer Status: Acute (3) Atelectasis of left lung: Problem details: Obstructing necrotic mass in left main bronchus Status: Acute (4) Dyspnea: Status: Acute (5) Pneumonia: Problem details: post obs pneumonia Status: Acute Plan Consider extubation when able. Consider changing code status to DNR prior to extubating Poor prognosis with stage 4 lung cancer and a high grade airway obstruction due to the cancer Time Spent With Patient Time: Total time managing care of this patient today ____ minutes. Progress Note: Quality Stroke Does the patient have a stroke diagnosis?: No
[2022-03-05] VITALS (36 sets, daily range): BP systolic 97–138; BP diastolic 41–68; PULSE 76–95; RESP 13–30; TEMP 35–38.5; O2SAT 91–97; BMI 24.2
[2022-03-05] MEDS: metroNIDAZOLE/NS 500 MG/100 ML PIGGYBACK 100 MG IV (01:58)
[2022-03-05] MEDS: 0.9 % Sodium Chloride Flush 3 ML SYRINGE IVFLUSH ×3 (01:58→15:09)
[2022-03-05] MEDS: dexmedeTOMIDidine HCL/NS 400 MCG/100 ML INFUS..BTL 19.08 MCG IVCONT ×3 (02:04→16:26)
[2022-03-05] MEDS: propofoL 1,000 MG/100 ML VIAL 14.58 MG IVCONT (02:55)
[2022-03-05 04:46] LABS: VBG Base Excess 9.4 mmol/L; VBG HCO3 31 mmol/L (22-26); VBG pCO2 32 mmHg; VBG pH 7.59 (7.32-7.43); VBG pO2 51 mmHg
[2022-03-05 05:01] LABS: Basophils Absolute Auto 0.1 X10*3/uL (0.0-0.2); Basophils Percent Auto 0.2 % (0-2); Hematocrit 27.3 % (37.0-47.0); Hemoglobin 8.5 g/dl (12.0-16.0); Imm Gran Abs Auto 1.37 X10*3/uL (0.00-0.03); Imm Gran Pct Auto 4.8 % (0.0-0.4); Lymphocytes Absolute Auto 1.9 X10*3/uL (1.2-4.9); Lymphocytes Percent Auto 6.6 % (20-40); MANUAL DIFF FLAG SCAN; Mean Corpuscular HGB Conc 31.1 g/dl (31.0-35.0); Mean Corpuscular Hemoglobin 24.5 pg (27.0-33.0); Mean Corpuscular Volume 78.7 fL (80.0-98.0); Mean Platelet Volume 9.2 fL (9.4-12.3); Monocytes Absolute Auto 1.4 X10*3/uL (0.1-1.2); Monocytes Percent Auto 4.8 % (2-11); NRBC Pct Auto 0.5 /100WBC (0.0-0.2); Neutrophils Absolute Auto 24.2 x10*3/uL (2.0-8.3); Neutrophils Percent Auto 83.6 % (45-73); Platelet Count 596 X10*3/uL (160-400); Red Blood Count 3.47 X10*6/uL (4.20-5.50); Red Cell Distribution Width 18.2 % (11.0-16.0); SCAN SMEAR FLAG 1; White Blood Count 28.8 X10*3/uL (4.8-10.8)
[2022-03-05 05:22] LABS: SLIDE REVIEW VERIFIED
[2022-03-05 05:33] LABS: Albumin Level 2.8 g/dL (3.5-5.0); Anion Gap 14 (12-20); Blood Urea Nitrogen 13 mg/dL (9-16); Calcium 8.6 mg/dL (8.4-10.2); Carbon Dioxide 27 mmol/L (22-29); Chloride 106 mmol/L (96-108); Creatinine Clr Calc Pharmacy 57.3; Estimated Glomerular Filt Rate > 60; Glucose Random 107 mg/dL (60-115); Magnesium 1.6 mg/dL (1.6-2.6); Phosphorus 2.2 mg/dL (2.7-4.5); Sodium 144 mmol/L (135-145)
[2022-03-05 05:47] LABS: Venous Blood Gas Refer to POC result
[2022-03-05] MEDS: Potassium Phosphate/NS 15 MMOL/250 ML PLAST..BAG 62.5 MMOL IV ×2 (06:18→13:34)
[2022-03-05] MEDS: Magnesium Sulfate/H2O 2 GM/50 ML PIGGYBACK IV (06:18)
[2022-03-05] MEDS: Chlorhexidine Gluc Oral Rinse 15 ML MOUTHWASH BUCCAL ×3 (07:24→21:26)
[2022-03-05] MEDS: Albumin Human 25 % 50 ML 100 ML IV ×4 (07:24→15:09)
[2022-03-05] MEDS: Famotidine/PF 20 MG/2 ML VIAL IVPUSH (07:25)
[2022-03-05] MEDS: Caspofungin Acetate 70 MG in 0.9 % Sodium Chloride 250 ML 250 MG IV (09:14)
[2022-03-05] MEDS: Norepinephrine Bitartrate/D5W 8 MG/250 ML PLAST..BAG 16.79 MG IV (09:28)
--- NOTE | 2022-03-05 11:13 | HO.POSTANES ---
Post Anesthesia Evaluation Post Anesthesia Evaluation Vital Signs: Vital Signs Temp Pulse Resp BP Pulse Ox O2 Del Method FiO2 03/05/22 11:00 99.6 F 88 19 130/59 L 92 Mechanical Ventilation 30 03/05/22 10:00 99.0 F 79 16 132/63 93 Mechanical Ventilation 30 03/05/22 09:00 77 16 132/62 94 Mechanical Ventilation 30 03/05/22 08:00 76 16 134/62 94 Mechanical Ventilation 30 03/05/22 08:00 93 Mechanical Ventilation 03/05/22 08:00 30 03/05/22 07:13 30 03/05/22 07:00 99.4 F 82 17 110/52 L 93 Mechanical Ventilation 30 03/05/22 06:27 86 123/63 03/05/22 04:00 30 03/05/22 06:05 85 97/41 L 03/05/22 04:08 30 03/05/22 03:11 86 137/65 03/05/22 00:30 99.4 F 03/05/22 00:25 87 130/66 03/05/22 00:00 30 03/04/22 23:34 30 03/05/22 06:00 87 13 122/68 97 Mechanical Ventilation 30 03/05/22 04:53 82 16 134/66 94 Mechanical Ventilation 03/05/22 04:00 87 16 131/66 95 Mechanical Ventilation 03/05/22 03:00 100.7 F H 87 16 131/60 94 Mechanical Ventilation 30 03/05/22 01:53 88 16 128/63 94 Mechanical Ventilation 03/05/22 00:56 88 16 131/64 94 Mechanical Ventilation 30 03/04/22 23:53 86 16 138/67 94 Mechanical Ventilation 30 Anesthesia: General Endotracheal-GETA Mental Status: Sedated Pain Control: Satisfactory Nausea/Vomiting: None Hydration: Adequate Anesthesia-Related Issues: No Anes. Related Issues Comments: Pt is on vent, VSS, can open her eyes
[2022-03-05] MEDS: dexmedeTOMIDidine HCL/NS 400 MCG/100 ML INFUS..BTL 13.63 MCG IVCONT (11:51)
--- NOTE | 2022-03-05 12:03 | PC.NURSE ---
Addendum entered by Pat Esquivel RN 03/05/22 17:32: 12:13 Patient respiratory rate 35, volumes 210 Patient vent settings changed to PC 16/16/5.0/30% 15:30 Tube feed diet started per orders via OG tube. Promote @20 ml. 120 mL H20 flush provided. 16:30 Patient had increased anxiety and restlessness, RR 35. Precedex gtt increased to 1.5 mcg/kg/min. PRN dilaudid given. 17:00 Medications effective, pt resting comfortably, RR 16 Original Note: 07:00 assumed care of patient 10:00 Patient able to follow commands, eyes open, answers yes/no questions. 11:27 Physician assessed left lateral chest tube and drainage. Minimal amount yellow drainage produced this shift, 10 ml total. Physician removed left chest tube at bedside. Occlusive dressing applied (xeroform, gauze, tegaderm). 11:45 Patient vent settings changed from PC to PSV 12/5.0 30%
--- NOTE | 2022-03-05 13:07 | P.PNCC_ITS ---
Subjective Subjective Date of Service: 03/05/22 Interval History: 76-year-old cachectic lady with recent significant weight loss lifelong smoker with COPD presents with a a poorly differentiated carcinoma stage IV with very large pleural effusion as well as total occlusion of the left mainstem bronchus with 2 failed attempts at re-establishing airflow on that side and chest tube removed 2 L of of fluid which was serosanguineous and it helped her hemodynamically but she had good cognitive function today on the removal of all sedation but she could not last for 10-15 minutes on pressure support at 12/5 tidal volumes diminished markedly increased respiratory rate and clearly distressed so she was just gently recent dated placed back on pressure control Renal function is is stable but she was mildly hypokalemic has not had anything to eat and since she was intubated and I see no contraindication to starting tube feedings right now and doing some potassium replacement and then trying again to get her weaned tomorrow so that we could at least get her to a point where she could make herself a DNR DNI and a point a proxy of 1 of her 2 close cousins neither of whom right now has the authority to make those decisions for her Critical Care Time (minutes): 45 Physical Exam Vital Signs: Vital Signs: Last Vital Signs Temp 100.5 F H 03/05/22 13:00 Pulse 86 03/05/22 13:00 Resp 21 H 03/05/22 13:00 BP 112/46 L 03/05/22 13:00 Pulse Ox 92 03/05/22 13:00 O2 Del Method 03/05/22 13:00 O2 Flow Rate 9 03/02/22 07:00 FiO2 30 03/05/22 13:00 Oxygen Flow Rate 35 03/03/22 08:46 BMI result Body Mass Index 24.2 Good cognitive function and moving all 4 extremities Bedside echo with good LV function no evidence of compression of the right ventricle Benign abdomen no organomegaly Some minimal breath sounds on that left side but no other adventitious sounds Skin thus far intact Objective Data Labs 03/05/22 04:41 03/05/22 04:41 Labs: Laboratory Results - last 24 hr 03/05/22 03/05/22 03/05/22 04:39 04:41 04:41 WBC 28.8 H RBC 3.47 L Hgb 8.5 L Hct 27.3 L MCV 78.7 L MCH 24.5 L MCHC 31.1 RDW 18.2 H Plt Count 596 H MPV 9.2 L Immature Gran % (Auto) 4.8 H Neut % (Auto) 83.6 H Lymph % (Auto) 6.6 L [place] % (Auto) 4.8 Eos % (Auto) 0.0 Baso % (Auto) 0.2 Lymph # (Auto) 1.9 [place] # (Auto) 1.4 H Eos # (Auto) 0.0 Baso # (Auto) 0.1 Abs Immat Gran (auto) 1.37 H Absolute Neuts (auto) 24.2 H Absolute Nucleated RBC 0.150 H Nucleated RBC % (auto) 0.5 H Smear Tech's Comments VERIFIED VBG pH 7.59 H VBG pCO2 32 VBG pO2 51 VBG HCO3 31 H VBG O2 Saturation 83.0 VBG Base Excess 9.4 Sodium 144 Potassium 3.0 L Chloride 106 Carbon Dioxide 27 Anion Gap 14 BUN 13 Creatinine 0.59 Estim Creat Clear Calc 57.3 Estimated GFR > 60 Random Glucose 107 Calcium 8.6 Phosphorus 2.2 L Magnesium 1.6 Albumin 2.8 L Microbiology Microbiology Results: Microbiology 03/03/22 09:32 Bronchial Washings Gram Stain - Final 03/03/22 09:32 Bronchial Washings Routine Culture - Preliminary Yeast 03/03/22 00:03 Blood - Venous Blood Culture - Preliminary No growth after 48 hours. 03/03/22 00:03 Blood - Venous Blood Culture - Preliminary No growth after 48 hours. 02/27/22 09:41 Blood - Central Line Blood Culture - Final No growth after 5 days. 02/27/22 09:41 Blood - Central Line Blood Culture - Final No growth after 5 days. 02/26/22 20:20 Blood - Venous Blood Culture - Final No growth after 5 days. 02/26/22 20:20 Blood - Venous Blood Culture - Final No growth after 5 days. 02/28/22 Unknown Washing - Wash Gram Stain - Final 02/28/22 Unknown Washing - Wash - Final Luanne albicans 03/02/22 05:48 Blood - Venous Blood Culture - Preliminary No growth after 48 hours. 03/02/22 05:48 Blood - Venous Blood Culture - Preliminary No growth after 48 hours. 02/23/22 18:10 Blood - Venous Blood Culture - Final No growth after 5 days. 02/23/22 18:10 Blood - Venous Blood Culture - Final No growth after 5 days. 02/24/22 15:00 Thoracentesis Fluid Gram Stain - Final 02/24/22 15:00 Thoracentesis Fluid Anaerobic Culture - Final NO GROWTH AFTER 5 DAYS 02/24/22 15:00 Thoracentesis Fluid Body Fluid Culture - Final No growth after 2 days 02/27/22 09:41 Urine Catheterized - Baptiste Catheter Urine Culture - Final No growth. 02/27/22 09:56 Blood - Venous Gram Stain - Final 02/27/22 09:56 Blood - Venous Routine Culture - Final 02/27/22 09:56 Blood - Venous Anaerobic Culture - Final Progress Note: A&P Assessment and plan (1) Pericardial effusion with cardiac tamponade: Status: Acute (2) Hypercapnic respiratory failure: Status: Acute (3) Acute hypoxemic respiratory failure: Status: Acute (4) Pneumonia: Status: Acute (5) Diarrhea: Status: Acute (6) Cancer cachexia: Status: Acute (7) Atelectasis of left lung: Status: Acute (8) Dyspnea: Status: Acute (9) Tachypnea: Status: Acute (10) Mass of left lung: Status: Acute (11) Pleural effusion, left: Status: Acute Plan So this poor lady with a stage IV lung cancer now has the chest tube out and and hemodynamically stable mildly recent dated 2 it to attempt to wean from the ventilator but at the very least we need declaration of DNR DNI and they established healthcare proxy from 1 of the 2 cousins that I have been speaking to and we were hoping to accomplish that today but she was unable to wean Quality Stroke Does the patient have a stroke diagnosis?: No VTE Prior VTE?: No VTE Risk Level:: Medical - moderate - high VTE Device Contraindication: N/A - Device Ordered VTE Drug Contraindication: Treatment Not Indicated
[2022-03-05] MEDS: Potassium Chloride Packet 20 MEQ PACKET PO (13:33)
[2022-03-05] MEDS: HYDROmorphone HCl 0.5 MG/0.5 ML SYRINGE 0.25 MG IVPUSH (16:32)
[2022-03-05] MEDS: Acetaminophen 325 MG TABLET 650 MG PO (16:33)
[2022-03-05] MEDS: dexmedeTOMIDidine HCL/NS 400 MCG/100 ML INFUS..BTL 20.44 MCG IVCONT (21:26)
[2022-03-05] MEDS: Norepinephrine Bitartrate/D5W 8 MG/250 ML PLAST..BAG 18.32 MG IV (22:34)
[2022-03-06] VITALS (19 sets, daily range): BP systolic 80–125; BP diastolic 38–55; PULSE 75–97; RESP 13–41; TEMP 31.2–38.5; O2SAT 88–97; BMI 24.3
[2022-03-06] MEDS: 0.9 % Sodium Chloride Flush 3 ML SYRINGE IVFLUSH ×4 (00:12→23:19)
[2022-03-06] MEDS: dexmedeTOMIDidine HCL/NS 400 MCG/100 ML INFUS..BTL 20.44 MCG IVCONT ×2 (02:20→07:23)
[2022-03-06] MEDS: HYDROmorphone HCl 0.5 MG/0.5 ML SYRINGE 0.25 MG IVPUSH ×2 (03:25→08:57)
[2022-03-06] MEDS: Midazolam HCl/PF 2 MG/2 ML VIAL 1 MG IVPUSH (03:56)
[2022-03-06 05:15] LABS: VBG Base Excess 11.2 mmol/L; VBG HCO3 32 mmol/L (22-26); VBG pCO2 31 mmHg; VBG pH 7.62 (7.32-7.43); VBG pO2 62 mmHg
[2022-03-06 05:21] LABS: Basophils Percent Auto 0.1 % (0-2); Hematocrit 23.9 % (37.0-47.0); Hemoglobin 7.3 g/dl (12.0-16.0); Imm Gran Abs Auto 0.52 X10*3/uL (0.00-0.03); Imm Gran Pct Auto 1.9 % (0.0-0.4); MANUAL DIFF FLAG SCAN; Mean Corpuscular HGB Conc 30.5 g/dl (31.0-35.0); Mean Corpuscular Hemoglobin 24.3 pg (27.0-33.0); Mean Corpuscular Volume 79.7 fL (80.0-98.0); Mean Platelet Volume 9.2 fL (9.4-12.3); Monocytes Absolute Auto 1.4 X10*3/uL (0.1-1.2); Monocytes Percent Auto 4.8 % (2-11); NRBC Pct Auto 0.4 /100WBC (0.0-0.2); Neutrophils Percent Auto 86.2 % (45-73); Platelet Count 497 X10*3/uL (160-400); Red Cell Distribution Width 17.4 % (11.0-16.0); SCAN SMEAR FLAG 1; White Blood Count 27.9 X10*3/uL (4.8-10.8)
[2022-03-06 05:30] LABS: Venous Blood Gas Refer to POC result
[2022-03-06 05:39] LABS: Albumin Level 3.3 g/dL (3.5-5.0); Anion Gap 13 (12-20); Blood Urea Nitrogen 12 mg/dL (9-16); Calcium 8.1 mg/dL (8.4-10.2); Carbon Dioxide 29 mmol/L (22-29); Chloride 103 mmol/L (96-108); Creatinine Clr Calc Pharmacy 71.2; Estimated Glomerular Filt Rate > 60; Glucose Random 155 mg/dL (60-115); Magnesium 1.5 mg/dL (1.6-2.6); Phosphorus 3.1 mg/dL (2.7-4.5); Potassium 3.5 mmol/L (3.3-5.1); Sodium 141 mmol/L (135-145)
[2022-03-06] MEDS: Magnesium Sulfate/H2O 2 GM/50 ML PIGGYBACK IV (05:54)
[2022-03-06 05:56] LABS: SLIDE REVIEW VERIFIED
[2022-03-06] MEDS: Chlorhexidine Gluc Oral Rinse 15 ML MOUTHWASH BUCCAL (07:24)
[2022-03-06] MEDS: Famotidine/PF 20 MG/2 ML VIAL IVPUSH (07:24)
--- NOTE | 2022-03-06 08:39 | MHC.CM.PN ---
Sedation has been turned off and pt is able to communicate by writing needs/wants. Pt has written that she would like all care withdrawn and would like to pass. Pt states she didn't want any clergy but did state her cousins Gogo and Rosio could be notified and could visit with pt. Information discussed w/ICU care team - Call placed to Gogo who stated [place] [facility] [place] today. CM to follow
--- NOTE | 2022-03-06 10:06 | MHC.CLN ---
F/U DISCUSSED AT ROUNDS WITH PT RECEIVING PROMOTE AT MAX GOAL RATE 40ML/HR WITH 120ML Q 4HRS PROVIDED 960KCALS, 60G PROTEIN, 1525ML TOTAL WATER FROM FORMULA AND FLUSHES PER CM: Sedation has been turned off and pt is able to communicate by writing needs/wants.? Pt has written that she would like all care withdrawn and would like to pass. FOLLOWING WITH TEAM PRIMARY GOAL COMFORT
[2022-03-06] MEDS: Norepinephrine Bitartrate/D5W 8 MG/250 ML PLAST..BAG 22.89 MG IV (10:17)
[2022-03-06] MEDS: fentaNYL citrate/PF 100 MCG/2 ML VIAL 25 MCG IVPUSH (10:54)
--- NOTE | 2022-03-06 11:34 | PM.CCN ---
Critical Care Event Note Summary Date of Service: 03/06/22 Code activated: No Narrative: Patient extubated uneventfully this morning. After extubation conversation held with patient and her cousin and overall poor prognosis of her underlying stage IV lung cancer explained. At this time patient patient decided to change goals of care to comfort measures only. Code status changed. Critical Care Time (minutes): 0
[2022-03-06] MEDS: fentaNYL citrate/NS 1,000 MCG/100 ML PLAST..BAG 2.5 MCG IVCONT (12:25)
[2022-03-06] MEDS: diazePAM 10 MG/2 ML CARTRIDGE 2.5 MG IVPUSH (13:15)
[2022-03-06] MEDS: HYDROmorphone HCl 0.5 MG/0.5 ML SYRINGE 1 MG IVPUSH (14:25)
--- NOTE | 2022-03-06 15:39 | P.PNCC_ITS ---
Subjective Subjective Date of Service: 03/06/22 Interval History: 76-year-old lady with no prior medical history admitted on 02/23/2022 with progressive dyspnea. Initial workup showed moderate to large left pleural effusion with partial left lung collapse and endobronchial tissue mass. Patient hypoxemia progressed in she was transferred to the intensive care unit on 02/24/2022. She underwent bronchoscopies on 02/28/2022 and 03/03/2022 showing obstructing left mainstem mass with pathology showing adenocarcinoma. Pleural fluid was also positive for adenocarcinoma resulting in diagnosis of stage IV lung adenocarcinoma. Patient required intubation on 03/02/2022. She was extubated on 03/06/2022. Overall by poor prognosis was discussed with patient and her family who chose to change goals of care to comfort measures. Comfort measures were initiated. Critical Care Time (minutes): 60 Physical Exam Vital Signs: Vital Signs: Last Vital Signs Temp 100.4 F 03/06/22 12:00 Pulse 92 03/06/22 12:00 Resp 41 H 03/06/22 12:00 BP 112/47 L 03/06/22 12:00 Pulse Ox 88 L 03/06/22 12:00 O2 Del Method 03/06/22 12:00 O2 Flow Rate 6 03/06/22 12:00 FiO2 30 03/06/22 10:00 Oxygen Flow Rate 35 03/03/22 08:46 BMI result Body Mass Index 24.3 Const: General: no acute distress, alert, awake, ill appearing and tired appearing Nutritional Appearance: thin Eyes: Sclerae: sclerae normal EOM: EOMs intact bilaterally Neck: Neck: Yes no lymphadenopathy, Yes trachea midline and Yes supple Resp: Effort & Inspection: normal respiratory effort and no respiratory distr ess Auscultation: other (Diminished air movement on the left) Cardio: Rate: regular rate Rhythm: regular rhythm Heart sounds: no gallops, no murmurs and no rubs GI: Palpation (GI): Soft to palpation and Other GI palpation findings present ( Nontender) Auscultation: normal bowel sounds Extrem: General: Yes no pedal edema, No clubbing and No cyanosis Objective Data Labs 03/06/22 05:09 03/06/22 05:09 Labs: Laboratory Results - last 24 hr 03/06/22 03/06/22 03/06/22 05:07 05:09 05:09 WBC 27.9 H RBC 3.00 L Hgb 7.3 L Hct 23.9 L MCV 79.7 L MCH 24.3 L MCHC 30.5 L RDW 17.4 H Plt Count 497 H MPV 9.2 L Immature Gran % (Auto) 1.9 H Neut % (Auto) 86.2 H Lymph % (Auto) 7.0 L [place] % (Auto) 4.8 Eos % (Auto) 0.0 Baso % (Auto) 0.1 Lymph # (Auto) 2.0 [place] # (Auto) 1.4 H Eos # (Auto) 0.0 Baso # (Auto) 0.0 Abs Immat Gran (auto) 0.52 H Absolute Neuts (auto) 24.0 H Absolute Nucleated RBC 0.100 H Nucleated RBC % (auto) 0.4 H Smear Tech's Comments VERIFIED VBG pH 7.62 H* VBG pCO2 31 VBG pO2 62 VBG HCO3 32 H VBG O2 Saturation 90.0 VBG Base Excess 11.2 Sodium 141 Potassium 3.5 Chloride 103 Carbon Dioxide 29 Anion Gap 13 BUN 12 Creatinine 0.52 Estim Creat Clear Calc 71.2 Estimated GFR > 60 Random Glucose 155 H Calcium 8.1 L Phosphorus 3.1 Magnesium 1.5 L Albumin 3.3 L Microbiology Microbiology Results: Microbiology 03/03/22 09:32 Bronchial Washings Gram Stain - Final 03/03/22 09:32 Bronchial Washings Routine Culture - Final Luanne albicans 03/03/22 00:03 Blood - Venous Blood Culture - Preliminary No growth after 48 hours. 03/03/22 00:03 Blood - Venous Blood Culture - Preliminary No growth after 48 hours. 02/27/22 09:41 Blood - Central Line Blood Culture - Final No growth after 5 days. 02/27/22 09:41 Blood - Central Line Blood Culture - Final No growth after 5 days. 02/26/22 20:20 Blood - Venous Blood Culture - Final No growth after 5 days. 02/26/22 20:20 Blood - Venous Blood Culture - Final No growth after 5 days. 02/28/22 Unknown Washing - Wash Gram Stain - Final 02/28/22 Unknown Washing - Wash - Final Luanne albicans 03/02/22 05:48 Blood - Venous Blood Culture - Preliminary No growth after 48 hours. 03/02/22 05:48 Blood - Venous Blood Culture - Preliminary No growth after 48 hours. 02/23/22 18:10 Blood - Venous Blood Culture - Final No growth after 5 days. 02/23/22 18:10 Blood - Venous Blood Culture - Final No growth after 5 days. 02/24/22 15:00 Thoracentesis Fluid Gram Stain - Final 02/24/22 15:00 Thoracentesis Fluid Anaerobic Culture - Final NO GROWTH AFTER 5 DAYS 02/24/22 15:00 Thoracentesis Fluid Body Fluid Culture - Final No growth after 2 days 02/27/22 09:41 Urine Catheterized - Baptiste Catheter Urine Culture - Final No growth. 02/27/22 09:56 Blood - Venous Gram Stain - Final 02/27/22 09:56 Blood - Venous Routine Culture - Final 02/27/22 09:56 Blood - Venous Anaerobic Culture - Final Progress Note: A&P Assessment and plan (1) Adenocarcinoma of left lung, stage 4: Status: Acute (2) Acute hypoxemic respiratory failure: Status: Acute (3) Cancer cachexia: Status: Acute (4) Atelectasis of left lung: Status: Acute Plan Assessment: 76-year-old lady admitted with acute respiratory failure secondary to stage IV lung cancer further complicated by cancer cachexia, now in comfort measures status. Plan: Neuro: No acute issues. Cardiac: No acute issues. Pulmonary: Acute hypoxic respiratory failure secondary to stage for carcinoma of the left lung with obstruction of the left mainstem bronchus. Extubated today. Now in comfort measures only status. Renal: No acute issues. Endo: No acute issues. GI: No acute issues. ID: No acute issues Heme/Onc: Stage IV carcinoma of the left lung. Oncology service care appreciated. Now on comfort measures only status. Continue with comfort measures. Psych: No acute issues. Miscellaneous: No acute issues. Critical care time spent: 60 minutes Quality Stroke Does the patient have a stroke diagnosis?: No VTE Prior VTE?: No VTE Risk Level:: Medical - moderate - high VTE Device Contraindication: N/A - Device Ordered VTE Drug Contraindication: Treatment Not Indicated
[2022-03-06] MEDS: fentaNYL citrate/NS 1,000 MCG/100 ML PLAST..BAG 20 MCG IVCONT ×2 (17:26→21:58)
--- NOTE | 2022-03-06 17:40 | PC.NURSE ---
Pt continued to be intubated and sedated at the start of shift; Precedex stopped at 0730 per MD's order; pt oriented and able to follow commands, communicates needs through pen and paper; CM and MD at bedside assessing and decisions to make pt GAS PLANT TECHNICIAN determined; pt's cousins Gogo and Rosio aware and updated on plan of care. Report given to PAOLA Lazaro at approximately 0830 d/t pt assignment. Resumed care at 1500. Pt continues to be GAS PLANT TECHNICIAN. On 2L oxymask; no resp distress noted. Pt resting in bed with no acute distress. Repositioned every 2 hrs and as needed. Wedges and Prevalon system utilized. Bed alarmed. Safety maintained throughout. Will continue to monitor.
[2022-03-07] VITALS: PULSE 96
[2022-03-07] MEDS: fentaNYL citrate/NS 1,000 MCG/100 ML PLAST..BAG 20 MCG IVCONT (01:58)
--- NOTE | 2022-03-07 06:13 | PC.NURSE ---
PATIENT SENIOR APPLICATION SOFTWARE ENGINEER STATUS--ASYSTOLE 06:02....ICU DINING HOST AT BEDSIDE...[facility] [employer] [facility] NOTIFIED OF ... RAY AT [facility] STATED CASE DECLINED...CASE FILE # [id number]
--- NOTE | 2022-03-07 06:21 | PC.NURSE ---
ICU LOOPER OPERATOR NOTIFIED PATIENT'S FRIEND CONRADO ABOUT EXPIRATION...REQUESTED [facility]ERSON FOR ARRANGEMENTS...POST-MORTEM CARE DONE..TO TRANSFER TO [facility] [place]
--- NOTE | 2022-03-07 06:30 | PM.EVENT ---
Event Note Date of Service: 03/07/22 Event Note: Notified by nurse that patient in comfort measures status has passed.? On my exam- no response to verbal or physical stimuli, no spontaneous respiration, absent heart sounds, pupils are fixed and dilated, no corneal or gag reflex. Official time of 0602. Attending Dr Campuzano notified. Next of Kin Gogo Leal ([phone]) notified via phone. Not ME case candidate. Nursing notified organ donation.? Time Spent With Patient Time: Total time managing care of this patient today ____ minutes.
--- NOTE | 2022-03-07 09:43 | PM.DDS ---
Discharge Sum: Prov Provider Primary care physician: Unknown Physician Consults: 02/23/22 16:09 Consult to Hematology / Oncology Stat Consulting Provider: Angelica Wesley Reason for consultation: Lung mass w/ ?mets and SOB Has provider been notified: Yes 02/23/22 17:15 Consult to Pulmonology Routine Consulting Provider: Ankita Redmond Reason for consultation: new lung mass, occlusion of left bronchus Has provider been notified: No 02/26/22 11:43 Consult to Infectious Diseases Routine Consulting Provider: Ibis Laureano Reason for consultation: ? Source of sepsis Has provider been notified: Yes 03/05/22 08:11 Consult to Infectious Diseases Routine Consulting Provider: Ibis Laureano Reason for consultation: NEW CASPO ORDER Pronouncing clinician: Nomi Vance Discharge Sum: Diag Contributing Factors (1) Adenocarcinoma of left lung, stage 4: (2) Acute hypoxemic respiratory failure: (3) Cancer cachexia: (4) Atelectasis of left lung: Discharge Sum: Summary Date and Time Date of admission: 02/23/22 17:15 Summary Details: 76-year-old lady with no prior medical history admitted on 02/23/2022 with progressive dyspnea. Initial workup showed moderate to large left pleural effusion with partial left lung collapse and endobronchial tissue mass. Patient hypoxemia progressed in she was transferred to the intensive care unit on 02/24/2022. She underwent bronchoscopies on 02/28/2022 and 03/03/2022 showing obstructing left mainstem mass with pathology showing adenocarcinoma. Pleural fluid was also positive for adenocarcinoma resulting in diagnosis of stage IV lung adenocarcinoma. Patient required intubation on 03/02/2022. She was extubated on 03/06/2022. Overall by poor prognosis was discussed with patient and her family who chose to change goals of care to comfort measures. Comfort measures were initiated. Patient passed peacefully on 03/07/2022 at 06:02 a.m. Additional Data Family: contacted Attending physician: Josesito Campuzano MD Was code activated?: No Autopsy requested?: No
== END 2022-03-07 06:21 | disposition expired | DRG 207 ==
LOC: HO.ED 16:25 → HO.EDOVER 17:25 → HO.ICU 02-24 22:50
PROVIDERS: Anesthesiology; Hospitalist; Internal Medicine; Internal Medicine Cardiovascular Disease; Nurse Practitioner Family; Physician Assistant Medical; Radiology Diagnostic Radiology; Admitting Provider Physician Assistant Medical; Emergency Provider Student in an Organized Health Care Education/Training Program; Visit Provider Internal Medicine Pulmonary Disease
PROC: 0W9B3ZZ Drainage of Left Pleural Cavity, Percutaneous Approach (ICD-10-PCS; principal; 2022-02-24 14:30)
PROC: 0BJ08ZZ Inspection of Tracheobronchial Tree, Via Natural or Artificial Opening Endoscopic (ICD-10-PCS; CPT 31622; principal; 2022-02-28 09:00)
DX: C34.02 Malignant neoplasm of left main bronchus (principal); A41.9 Sepsis, unspecified organism; R65.21 Severe sepsis with septic shock; E43 Unspecified severe protein-calorie malnutrition; J18.9 Pneumonia, unspecified organism; J96.01 Acute respiratory failure with hypoxia; J96.02 Acute respiratory failure with hypercapnia; J91.0 Malignant pleural effusion; J98.11 Atelectasis; Z68.1 Body mass index [BMI] 19.9 or less, adult; I96 Gangrene, not elsewhere classified; J44.0 Chronic obstructive pulmonary disease with (acute) lower respiratory infection; I31.39 Other pericardial effusion (noninflammatory); I31.4 Cardiac tamponade; J98.19 Other pulmonary collapse; E86.1 Hypovolemia; R19.7 Diarrhea, unspecified; D75.838 Other thrombocytosis; D63.0 Anemia in neoplastic disease; Z20.822 Contact with and (suspected) exposure to COVID-19; Z87.891 Personal history of nicotine dependence; Z88.0 Allergy status to penicillin; Z88.2 Allergy status to sulfonamides; Z51.5 Encounter for palliative care
CPT/HCPCS: 0241U; 32555; 36415; 71045; 71250; 74176; 80048; 80053; 80202; 81001; 81003; 82040; 82272; 82378; 82565; 82728; 82803; 82977; 83540; 83605; 83615; 83735; 83880; 83993; 84100; 84145; 84157; 84443; 84484; 85025; 85027; 85610; 85730; 86140; 86850; 86900; 86901; 86923; 87040; 87070; 87071; 87073; 87077; 87086; 87103; 87205; 87338; 87493; 87507; 87640; 87641; 88112; 88304; 88305; 88341; 88342; 89051; 89055; 93005; 94002; 94003; 94640; 94799; 99285; C1758; J0171; J0637; J0692; J1100; J1170; J1956; J2250; J2370; J2405; J3010; J3360; J3370; J3475; P9016; P9047